=== PATIENT | female | born 1960 | race Caucasian/White ===

== ENCOUNTER 2023-01-15 10:25 | Inpatient (IN) ==
[2023-01-15] MEDS ORDERED: SODIUM CHLORIDE 0.9% 1,000 ML IV ONE (10:49)
--- NOTE | 2023-01-15 10:49 | ED Triage Note ---
Date of Service January 15, 2023 History of Present Illness This patient was briefly evaluated while in triage. An abbreviated physical exam was performed. This patient is a 62-year-old Female who presents to the ED for evaluation of right breast swelling. Pt. has history of breast cancer and right breast surgery last Wednesday (1.5 weeks ago). States she was seen by her surgeon earlier this week and diagnosed with cellulitis. Was started on Antibiotics Wednesday night, has had 4 doses of Augmentin. Today, awoke and there was a "gush of infection" from the surgical incision site under the left breast. Pt. states "it was like a pint of it or more." Pt. feels that fever seems to have broken this morning. Surgery completed by Dr. Townsend. Physical Exam VITALS: Vitals are noted on the nurse's note and reviewed by myself. GENERAL: This is a 62 year old female, in no acute distress, nondiaphoretic, well-developed well-nourished. SKIN: No obvious rashes, edema, erythema HEAD: Normocephalic atraumatic. EYES: Conjunctivae without injection, sclerae without icterus. NECK: No JVD. LUNGS: No retractions or accessory muscle use. MUSCULOSKELETAL: Normal gait. NEURO: Patient was alert and oriented to person place and time. No focal neurological deficits. Initial orders for labs and / or imaging were placed and patient was placed in the waiting area until a bed is available. Please see further documentation for the full ED course.
--- NOTE | 2023-01-15 11:07 | Emergency Department Note ---
Impression & Plan Cellulitis of right breast, Breast cancer, S/P lumpectomy, right breast ED Provider Note CHIEF COMPLAINT: Right breast pain, redness, discharge HISTORY OF PRESENT ILLNESS: This 62-year-old female patient 10 days s/p right breast surgery for cancer presents to the emergency department for evaluation of right breast redness, tenderness, and discharge. The patient states that earlier this week, she was diagnosed with cellulitis of the right breast. She was started on Augmentin. She has had 4 doses of the antibiotic. She notes that this morning when she awoke, a significant amount of purulent discharge drained from the wound. The patient states that the swelling and redness does seem to be improving. She does note a fever of 100.4 F last night. She states that she feels that the fever has broken and she has not had any further fever. She rates her pain 8/10 and describes it as aching. She denies any numbness, tingling, weakness, difficulty breathing, or chest pain. The patient states that the surgical site does seem to have opened up somewhat. REVIEW OF SYSTEMS: A 10 system review of systems was performed with positives and pertinent negatives listed in the history of present illness. All other systems were reviewed and are negative. ALLERGIES: Codeine PHYSICAL EXAM: VITALS: Vitals are noted on the nurse's note and reviewed by myself. Vital signs stable. GENERAL: This is a 62-year-old female, in no acute distress, nondiaphoretic, well-developed well-nourished. SKIN: Right breast is erythematous and tender. There is some dehiscence of the medial aspect of the surgical incision site. There is induration but no definite fluctuance. There is some serous sanguinous bloody discharge from the incision site, but no purulent discharge at this time. The skin was otherwise without rashes, erythema, edema, or bruising. There is no tenting of the skin. Capillary refill less than 2 seconds. HEAD: Normocephalic atraumatic. EYES: Conjunctivae without injection, sclerae without icterus. NECK: Supple without nuchal rigidity. No lymphadenopathy. No JVD. MUSCULOSKELETAL: No muscle atrophy, erythema, or edema noted. Full range of motion without joint tenderness in all extremities. No tenderness to palpation. Normal gait. Strength 5/5 throughout. NEURO: Patient was alert and oriented to person place and time. No focal neurological deficits. EMERGENCY DEPARTMENT COURSE: The patient was seen and evaluated as above. Chest x-ray performed reviewed by myself and radiologist as noted. I did consult with general surgery on-call. I spoke with Puma who asked Lisa Long PA-C to evaluate the patient. Lisa did come down and evaluate the patient. She advised me that she spoke with Dr. Townsend who is requesting that the patient be admitted to the hospitalist service on IV antibiotics. They did also requested ultrasound be completed to evaluate for additional areas of abscess which may need to be opened and drained. I did discuss the case with Alma Delia ED pharmacist. We agreed on antibiotic coverage with Rocephin and vancomycin. I discussed the case with Nelda Cope PA-C with [employer]. She did agree to see and evaluate the patient for admission. The patient was updated. Ultrasound was ordered. Labs were obtained. There is no significant leukocytosis or anemia. No thrombocytopenia. Renal, hepatic f unction and electrolytes without significant abnormality. Procalcitonin 0.14. Lactic acid 0.9. Please see hospitalist and general surgery dictation regarding ongoing management care of this patient. Differential diagnosis includes Cellulitis, abscess, MRSA infection, DVT, necrotizing fasciitis, dermatitis, drug eruption, allergic reaction, as well as other pathologies. I attest that I have personally reviewed the patient's current medication list. Patient was found to have normal blood pressure on screening and does not require follow-up. The chart was completed utilizing [employer] Speech voice recognition software. Grammatical errors, random word insertions, pronoun errors, and incomplete sentences are an occasional consequence of this system due to software limitations, ambient noise, and hardware issues. Any formal questions or concerns about the content, text, or information contained within the body of this dictation should be directly addressed to the provider for clarification. Past Med/Surg History Medical History Anxiety and depression Bipolar 1 disorder Breast cancer HTN (hypertension) Obesity Schizoaffective disorder Tobacco use Surgical History (Updated 01/15/23 @ 17:56 by Diane Madrid PA-C) History of bariatric surgery History of colonoscopy History of esophagogastroduodenoscopy (EGD) History of surgery 02/02/2012 excision excessive skin, panniculectomy, Dr. Sanabria [facility] [place] History of tubal ligation Hx of breast surgery 10/26/2022 right breast biopsy. DCIS. 12/15/[address] Kelby Townsend 01/05/[address] Kelby Townsend Family History Other Cancer Hypertension Social History Smoking Status: Current every day smoker Tobacco Type: Cigarettes Cigarettes Per Day: 10; Hx Alcohol Use: No Hx Substance Use: No Feels Safe at Home: Yes Allergies Allergies Allergy/AdvReac Type Severity Reaction Status Date / Time codeine AdvReac Intermediate I GET Unverified 01/31/13 18:48 REALLY MEAN Home Meds Home Medications Medication Instructions Recorded Confirmed atorvastatin 20 mg tablet 20 mg PO DAILY 01/15/23 01/15/23 chlorpromazine 100 mg tablet 100 mg PO HS 01/15/23 01/15/23 lamotrigine 100 mg tablet 100 mg PO DAILY 01/15/23 01/15/23 lamotrigine 25 mg tablet 75 mg PO HS 01/15/23 01/15/23 losartan 25 mg tablet 25 mg PO DAILY 01/15/23 01/15/23 nortriptyline 50 mg capsule 50 mg PO HS 01/15/23 01/15/23 sertraline 100 mg tablet 200 mg PO DAILY 01/15/23 01/15/23 topiramate 100 mg tablet 100 mg PO BID 01/15/23 01/15/23 Results & Data (ED) Vital Signs Vital Signs - 24 hr 01/15/23 10:46 01/15/23 12:33 01/15/23 13:05 Temperature 36.8 C Temperature Source Temporal Artery Scan Pulse Rate 85 73 Pulse Rate [Right Finger] 79 Pulse Rhythm Regular Respiratory Rate 18 20 20 Respiratory Effort / Characteristics Non-Labored Non-Labored Spontaneous Respiratory Depth Normal Respiratory Pattern Regular Blood Pressure 119/72 Blood Pressure [Right Arm] 145/79 H Blood Pressure Mean 87 Blood Pressure Mean [Right Arm] 101 Blood Pressure Position Sitting Blood Pressure Position [Right Arm] Pulse Oximetry 95 96 96 Oxygen Delivery Method Room Air Room Air Room Air Oxygen Flow Rate 0 Sepsis Recent Fever Within 48 Hours Yes Sepsis New/Unexplained Change in Mental Status No Sepsis Action Taken by Nursing No Action Required 01/15/23 13:51 01/15/23 15:00 Temperature Temperature Source Pulse Rate Pulse Rate [Right Finger] 73 78 Pulse Rhythm Respiratory Rate 20 16 Respiratory Effort / Characteristics Non-Labored Spontaneous Non-Labored Spontaneous Respiratory Depth Normal Normal Respiratory Pattern Regular Blood Pressure Blood Pressure [Right Arm] 139/76 126/56 L Blood Pressure Mean Blood Pressure Mean [Right Arm] 97 79 Blood Pressure Position Blood Pressure Position [Right Arm] Sitting Pulse Oximetry 97 95 Oxygen Delivery Method Room Air Room Air Oxygen Flow Rate Sepsis Recent Fever Within 48 Hours Sepsis New/Unexplained Change in Mental Status Sepsis Action Taken by Nursing Laboratory Data 01/15/23 13:02 01/15/23 13:02 Lab Results 01/15/23 01/15/23 01/15/23 Range/Units 13:02 13:02 13:02 WBC 7.91 (4.8-10.8) K/ul RBC 4.48 (4.20-5.40) M/uL Hgb 13.1 (12.0-16.0) g/dl Hct 40.3 (37.0-47.0) % MCV 90.0 (80.0-100.0) fL MCH 29.2 (25.0-34.0) pg MCHC 32.5 (32.0-36.0) g/dL RDW Std Deviation 40.6 (36.4-46.3) fL RDW Coeff of Yancy 12.3 (11.5-14.5) % Plt Count 177 (130-400) K/uL MPV 10.6 (9.4-12.4) fL Immature Gran % (Auto) 0.3 % Neut % (Auto) 78.8 % Lymph % (Auto) 12.4 % [place] % (Auto) 8.1 % Eos % (Auto) 0.1 % Baso % (Auto) 0.3 % Neut # (Auto) 6.24 (1.40-6.50) K/uL Lymph # (Auto) 0.98 L (1.20-3.40) K/uL [place] # (Auto) 0.64 H (0.11-0.59) K/uL Eos # (Auto) 0.01 (0.00-0.50) K/uL Baso # (Auto) 0.02 (0.00-0.20) K/uL Immature Gran # (Auto) 0.02 (0.01-0.20) K/uL Sodium 139 (136-145) mmol/L Potassium 3.6 (3.5-5.1) mmol/L Chloride 110 H (98-107) mmol/L Carbon Dioxide 22 (21-32) mmol/L Anion Gap 7 (3-11) BUN 10 (6-23) mg/dl Creatinine 0.60 (0.6-1.2) mg/dl Est Cr Clr Drug Dosing 115.5 ml/min Est GFR ( Amer) 114.0 ml/min Est GFR (Non-Af Amer) 98.4 ml/min BUN/Creatinine Ratio 16.7 (10-20) Glucose 101 H (70-99(Fasting)) mg/dl Lactate (0.4-2.0) mmol/L Calcium 8.9 (8.6-10.3) mg/dl Total Bilirubin 0.5 (0.2-1.0) mg/dl AST 8 L (13-39) U/L ALT 8 (7-52) U/L Alkaline Phosphatase 91 (34-104) U/L Total Protein 6.9 (6.0-8.3) gm/dl Albumin 3.7 (3.4-5.0) gm/dl Globulin 3.2 (2.5-4.0) gm/dl Albumin/Globulin Ratio 1.2 (0.9-2) Procalcitonin 0.14 (0-0.5) ng/ml 01/15/23 Range/Units 15:12 WBC (4.8-10.8) K/ul RBC (4.20-5.40) M/uL Hgb (12.0-16.0) g/dl Hct (37.0-47.0) % MCV (80.0-100.0) fL MCH (25.0-34.0) pg MCHC (32.0-36.0) g/dL RDW Std Deviation (36.4-46.3) fL RDW Coeff of Yancy (11.5-14.5) % Plt Count (130-400) K/uL MPV (9.4-12.4) fL Immature Gran % (Auto) % Neut % (Auto) % Lymph % (Auto) % [place] % (Auto) % Eos % (Auto) % Baso % (Auto) % Neut # (Auto) (1.40-6.50) K/uL Lymph # (Auto) (1.20-3.40) K/uL [place] # (Auto) (0.11-0.59) K/uL Eos # (Auto) (0.00-0.50) K/uL Baso # (Auto) (0.00-0.20) K/uL Immature Gran # (Auto) (0.01-0.20) K/uL Sodium (136-145) mmol/L Potassium (3.5-5.1) mmol/L Chloride (98-107) mmol/L Carbon Dioxide (21-32) mmol/L Anion Gap (3-11) BUN (6-23) mg/dl Creatinine (0.6-1.2) mg/dl Est Cr Clr Drug Dosing ml/min Est GFR ( Amer) ml/min Est GFR (Non-Af Amer) ml/min BUN/Creatinine Ratio (10-20) Glucose (70-99(Fasting)) mg/dl Lactate 0.9 (0.4-2.0) mmol/L Calcium (8.6-10.3) mg/dl Total Bilirubin (0.2-1.0) mg/dl AST (13-39) U/L ALT (7-52) U/L Alkaline Phosphatase (34-104) U/L Total Protein (6.0-8.3) gm/dl Albumin (3.4-5.0) gm/dl Globulin (2.5-4.0) gm/dl Albumin/Globulin Ratio (0.9-2) Procalcitonin (0-0.5) ng/ml Administered Medications Discontinued Medications Ceftriaxone Sodium (Rocephin) 2,000 mg in 50 mls @ 100 mls/hr IV NOW STA Stop: 01/15/23 13:08 Last Infusion: 01/15/23 13:36 Dose: 0 mls/hr Documented By: Admin: 01/15/23 13:05 Dose: 100 mls/hr Documented By: LAUREN Vancomycin HCl 2,500 mg/ (Sodium Chloride) 550 mls @ 200 mls/hr IV NOW ONE Stop: 10/20/23 15:23 Last Admin: 01/15/23 13:34 Dose: 200 mls/hr Documented By: LAUREN Oxycodone HCl (Oxycodone Hcl Ir 5 Mg Tab (Immediate Release)) 5 mg PO NOW STA Stop: 01/15/23 15:37 Last Admin: 01/15/23 15:42 Dose: 5 mg Documented By: KK Imaging Data Radiologist's Impression: Chest X-Ray 01/15/23 10:49 XR chest 1V portable HISTORY: 62 years-old Female Fever, illness COMPARISON: 08/18/2011 TECHNIQUE: AP view of the chest FINDINGS: Cardiomediastinal and hilar silhouettes are within normal limits. No pneumothorax, pleural effusion, airspace consolidation or pulmonary edema. Bones appear grossly intact. IMPRESSION: No acute process. ACT 112: Negative or not required by law. The above report was generated using voice recognition software. It may contain grammatical, syntax or spelling errors. Electronically signed by: Rodriguez De Leon M.D. 01/15/2023 11:28 AM Discharge Plan Visit Data Chief Complaint: Infection Stated Complaint: R BREAST CELLULITIS,INFECTION ED Provider: [facility] ED Midlevel Provider: Diane Madrid Discharge Problem: Cellulitis of right breast, Breast cancer, S/P lumpectomy, right breast Forms Stand Alone Forms: My [facility] Prescriptions Prescriptions: No Action atorvastatin 20 mg tablet 20 mg PO DAILY chlorpromazine 100 mg tablet 100 mg PO HS sertraline 100 mg tablet 200 mg PO DAILY lamotrigine 25 mg tablet 75 mg PO HS losartan 25 mg tablet 25 mg PO DAILY topiramate 100 mg tablet 100 mg PO BID lamotrigine 100 mg tablet 100 mg PO DAILY nortriptyline 50 mg capsule 50 mg PO HS Referrals Referrals: Chino Chou MD [Primary Care Provider] -
--- NOTE | 2023-01-15 11:29 | XRay Report ---
XR chest 1V portable HISTORY: 62 years-old Female Fever, illness COMPARISON: 08/18/2011 TECHNIQUE: AP view of the chest FINDINGS: Cardiomediastinal and hilar silhouettes are within normal limits. No pneumothorax, pleural effusion, airspace consolidation or pulmonary edema. Bones appear grossly intact. IMPRESSION: No acute process. ACT 112: Negative or not required by law. The above report was generated using voice recognition software. It may contain grammatical, syntax o r spelling errors. Electronically signed by: Rodriguez De Leon M.D. 01/15/2023 11:28 AM
[2023-01-15] MEDS ORDERED: VANCOMYCIN HCL 2,500 MG in SODIUM CHLORIDE 0.9% 500 ML IV ONE (12:39)
[2023-01-15] MEDS ORDERED: cefTRIAXone SODIUM 2,000 MG/50 ML BAG IV STA (12:39)
[2023-01-15] MEDS ORDERED: VANCOMYCIN CONSULT ACTIVE PRN ×2 (12:39→18:05)
--- NOTE | 2023-01-15 12:58 | Surgery Consultation ---
Date of Consultation January 15, 2023 Assessment & Plan (1) Cellulitis of right breast: 62 yo female with history of right breast DCIS who is s/p right breast lumpectomy on 12/15/22 and then re-excision of positive margins on 01/05/[address] Townsend who presented to ED with increasing right breast pain and copious amount of purulent drainage from the incision this morning. Was just started on Augmentin in office on Wednesday for Cellulitis. has been having low grade fevers at home. No n,v. Exam with moderate cellulitis of the central and medial right breast with some necrosis of the central incision. There is moderate induration of medial breast. Do not feel overt area of fluctuance but there is still some drainage from the incision when breast is compressed. Given the extent of cellulitis now on 2 days of oral Augmentin, I feel she would benefit from a few dose of IV antibiotics and an Ultrasound to further evaluation for any drainable fluid collections. Discussed with Dr. townsend who agrees with above. [facility] surgery covering this weekend. Plan I have seen and examined the patient personally, and agree with the above assessment and plan. On exam, she has fairly significant erythema extending from the incision. TheMedial aspect of the incision is open, and I was able to probe into the cavity. There is minimal serous drainage. She states that the erythema is significantly improved from yesterday when there was a significant amount of drainage. We will continue IV antibiotics for the next 24 to 36 hours and monitor the incision. If he continues to improve, she may be discharged home with oral antibiotics either tomorrow or Wednesday. Dr. Turpin will be covering for the weekend. History of Present Illness Reason for Consultation: Right breast cellulitis and purulent drainage Requesting Physician: Diane Madrid PA-C Attending Physician: Dr. Whittington History of Present Illness Radha is a 62 year-old female with right breast DCIS who is now s/p right breast lumpectomy on 12/15/[address] Townsend and re-excision of margins on 01/05/2023 who presented to ED today with complaint of right breast pain, redness, and copious amount of purulent drainage from the breast this morning. Was seen by Dr. Starks on Wednesday in clinic and was started on Augmentin for cellulitis but states the area continued to swell, become painful, and redness spread more laterally on the Augmentin. Woke up with drainage all over her nightgown and was cloudy/milky and bloody in nature. Currently rating pain 8/10. had low grade fevers of 99.4 and 99.7 but thinks she broke fever this am as she was having sweats. Allergies Allergy/AdvReac Type Severity Reaction Status Date / Time codeine AdvReac Intermediate I GET Unverified 01/31/13 18:48 REALLY MEAN Home Medications Medication Instructions Recorded Confirmed Type atorvastatin 20 mg tablet 20 mg PO DAILY 01/15/23 01/15/23 History chlorpromazine 100 mg tablet 100 mg PO HS 01/15/23 01/15/23 History lamotrigine 100 mg tablet 100 mg PO DAILY 01/15/23 01/15/23 History lamotrigine 25 mg tablet 75 mg PO HS 01/15/23 01/15/23 History losartan 25 mg tablet 25 mg PO DAILY 01/15/23 01/15/23 History nortriptyline 50 mg capsule 50 mg PO HS 01/15/23 01/15/23 History sertraline 100 mg tablet 200 mg PO DAILY 01/15/23 01/15/23 History topiramate 100 mg tablet 100 mg PO BID 01/15/23 01/15/23 History Patient History Medical History Anxiety and depression Bipolar 1 disorder Breast cancer HTN (hypertension) Obesity Schizoaffective disorder Tobacco use Surgical History (Updated 01/15/23 @ 15:41 by Kaitlin Cope PA-C) History of bariatric surgery History of colonoscopy History of esophagogastroduodenoscopy (EGD) History of surgery 02/02/2012 excision excessive skin[place] [facility] [place] of tubal ligation Hx of breast surgery 10/26/2022 right breast biopsy. DCIS. 12/15/[address] Kelby Townsend 01/05/[address] Kelby Townsend Family History Other Cancer Hypertension Social History (Updated 01/15/23 @ 15:36 by Kaitlin Cope PA-C) Smoking Status: Current every day smoker Tobacco Type: Cigarettes Cigarettes Per Day: 10; Hx Alcohol Use: No Hx Substance Use: No Feels Safe at Home: Yes Review of Systems Review of Systems: All systems reviewed & are unremarkable except as noted in HPI & below Physical Exam Constitutional: WD/WN, vitals as above cooperative; no acute distress and not ill appearing Respiratory: normal respiratory effort; no respiratory distress Chest (Breasts): Additional Comments: Right breast with central/medial erythema with induration fo the medial right breast. Erythema encompassing about half of the right breast. Incision with small pinhole opening medially but central/superior aspect of incision with necrosis. There is small 1.0 cm area of necrosis inferior to the nipple. Moderate tenderness to palpation especially in medial right breast. There is some clear/cloudy serosanguineous drainage on my exam no phyllis purulence. Skin: no rashes, warm and dry Psychiatric: A+Ox3, euthymic affect Results & Data Vital Signs (Past 12 Hours) Vital Signs Temp Pulse Pulse Resp BP BP Pulse Ox 01/15/23 12:33 79 20 145/79 H 96 01/15/23 10:46 36.8 C 85 18 119/72 95 O2 Del Method 01/15/23 12:33 Room Air 01/15/23 10:46 Room Air
--- NOTE | 2023-01-15 13:23 | History & Physical Report ---
Date of Service January 15, 2023 Assessment & Plan (1) Cellulitis of right breast: (2) Breast cancer: (3) S/P lumpectomy, right breast: Plan: Patient is 62-year-old female with PMH HTN, HLD, iron deficiency anemia, depression, anxiety, bipolar disorder, schizoaffective disorder, right breast CA s/p right partial mastectomy on 12/15/2022 presented to ER with c/o right beast redness and pain. Had re-excision of positive margins on 01/05/[address] Townsend for DCIS. Started on Augmentin on 01/13/2023 for right breast cellulitis. Worsening cellulitis and pain and reported drainage, today In ER afebrile, vitals stable. No leukocytosis. Lactate WNL Blood cultures pending In ER given 1 L NSS, Rocephin, vancomycin MRSA swab pending Continue Rocephin and vancomycin Tylenol, oxycodone, morphine as needed pain Ultrasound breast pending to rule out abscess General surgery consult CBC, BMP in a.m. (4) HTN (hypertension): Plan: Stable Continue losartan (5) Anxiety and depression: (6) Bipolar 1 disorder: (7) Schizoaffective disorder: Plan: Continue lamotrigine, chlorpromazine, sertraline, topiramate, nortriptyline (8) Tobacco use: Plan: Denies nicotine patch Smoking cessation encouraged (9) Obesity: Plan: S/p bariatric surgery DVT Prophylaxis Lovenox SQ Full Code as per discussion with pt Follows with Dr Chou for routine care Pt was seen and care coordinated with Dr Mcbride. See addendum History of Present Illness Chief Complaint: Breast redness Primary Care Provider: Chino Chou MD Patient is 62-year-old female with PMH HTN, HLD, iron deficiency anemia, depression, anxiety, bipolar disorder, schizoaffective disorder, right breast CA s/p right partial mastectomy on 12/15/2022 presented to ER with c/o right beast redness and pain. History obtained from patient as well as outpatient chart review. S/P right partial mastectomy on 12/05/[address] Townsend. Had re-excision of positive margins on 01/05/[address] Townsend for DCIS. Seen in outpatient general surgery office on 01/13/2023. Had noted erythema around incision and increasing pain to right breast. At that time had not noted any fever or drainage. Was started on Augmentin. Patient states over the past 2 days with increased right breast tenderness, increased redness. She also reports has had purulent drainage from incision site. Reports low grade fevers. Denies diaphoresis, N/V/D/C, RAMOS, dizziness, syncope, neck pain, CP, SOB, palpitations, cough, sore throat, rhinorrhea, abdominal pain, paresthesias, extremity weakness, extremity edema, rashes, urinary symptoms. Allergies Allergy/AdvReac Type Severity Reaction Status Date / Time codeine AdvReac Intermediate I GET Unverified 01/31/13 18:48 REALLY MEAN Home Medications Medication Instructions Recorded Confirmed Type atorvastatin 20 mg tablet 20 mg PO DAILY 01/15/23 01/15/23 History chlorpromazine 100 mg tablet 100 mg PO HS 01/15/23 01/15/23 History lamotrigine 100 mg tablet 100 mg PO DAILY 01/15/23 01/15/23 History lamotrigine 25 mg tablet 75 mg PO HS 01/15/23 01/15/23 History losartan 25 mg tablet 25 mg PO DAILY 01/15/23 01/15/23 History nortriptyline 50 mg capsule 50 mg PO HS 01/15/23 01/15/23 History sertraline 100 mg tablet 200 mg PO DAILY 01/15/23 01/15/23 History topiramate 100 mg tablet 100 mg PO BID 01/15/23 01/15/23 History Past Med/Surg History Medical History Anxiety and depression Bipolar 1 disorder Breast cancer HTN (hypertension) Obesity Schizoaffective disorder Tobacco use Surgical History (Updated 01/15/23 @ 15:41 by Kaitlin Cope PA-C) History of bariatric surgery History of colonoscopy History of esophagogastroduodenoscopy (EGD) History of surgery 02/02/2012 excision excessive skin, panniculectomy, Dr. Sanabria [facility] [place] History of tubal ligation Hx of breast surgery 10/26/2022 right breast biopsy. DCIS. 12/15/[address] Kelby Townsend 01/05/[address] Kelby Townsend Family History Other Cancer Hypertension Social History (Updated 01/15/23 @ 15:36 by Kaitlin Cope PA-C) Smoking Status: Current every day smoker Tobacco Type: Cigarettes Cigarettes Per Day: 10; Hx Alcohol Use: No Hx Substance Use: No Feels Safe at Home: Yes Review of Systems Review of Systems: All systems reviewed & are unremarkable except as noted in HPI & below Physical Exam 2 Physical Exam: General: no acute distress, overweight Head: normocephalic, atraumatic Eyes: conjunctiva non-injected, anicteric ENT: normal inspection external ears, nose, mucous membranes moist Neck: supple, trachea midline Lungs: clear, no respiratory distress, no wheezing/rhonchi/rales CV: RRR, no murmur, no pretibial edema Chest: +right breast with +incision site without purulent drainage at this time, +warmth and erythema surrounding areola extending superior, medial, lateral, inferior breast, +induration medial aspect, +tenderness to palpation Abd: normal BS, soft, non-tender Ext: no cyanosis, no calf tenderness Neuro: A&O x 3, no focal deficits noted, normal affect Skin: as above in chest/breast, otherwise warm, dry Results & Data Results & Data Vital Signs (Past 12 Hours) Vital Signs Temp Pulse Pulse Resp BP BP Pulse Ox 01/15/23 13:05 73 20 96 01/15/23 12:33 79 20 145/79 H 96 01/15/23 10:46 36.8 C 85 18 119/72 95 O2 Del Method O2 Flow Rate 01/15/23 13:05 Room Air 0 01/15/23 12:33 Room Air 01/15/23 10:46 Room Air Laboratory Results Short CBC 01/15/23 Range/Units 13:02 WBC 7.91 (4.8-10.8) K/ul Hgb 13.1 (12.0-16.0) g/dl Hct 40.3 (37.0-47.0) % Plt Count 177 (130-400) K/uL BMP 01/15/23 13:02 Sodium 139 Potassium 3.6 Chloride 110 H Carbon Dioxide 22 BUN 10 Creatinine 0.60 Glucose 101 H Calcium 8.9 Liver Function 01/15/23 Range/Units 13:02 Total Bilirubin 0.5 (0.2-1.0) mg/dl AST 8 L (13-39) U/L ALT 8 (7-52) U/L Alkaline Phosphatase 91 (34-104) U/L Albumin 3.7 (3.4-5.0) gm/dl Diagnostic Findings Chest X-Ray 01/15/23 10:49 XR chest 1V portable HISTORY: 62 years-old Female Fever, illness COMPARISON: 08/18/2011 TECHNIQUE: AP view of the chest FINDINGS: Cardiomediastinal and hilar silhouettes are within normal limits. No pneumothorax, pleural effusion, airspace consolidation or pulmonary edema. Bones appear grossly intact. IMPRESSION: No acute process. ACT 112: Negative or not required by law. The above report was generated using voice recognition software. It may contain grammatical, syntax or spelling errors. Electronically signed by: Rodriguez De Leon M.D. 01/15/2023 11:28 AM Supervising Physician Co-Signing Physician Notes I have seen and discussed the case with the collaborating PAStarla. I agree with the above H&P. I have reviewed and confirmed the patients medical history, the findings on physical examination, and the patients diagnosis and treatment plan with [facility] and agree with the information documented. In short, Ms. 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 Over the course of last week, patient experienced increased erythema, swelling and drainage. Trialed on PO Augmentin with no success. Evaled by surgery. Plan for IV CTX/Vanc, MRSA nare pending, infectious work up, US breast ordered. Rest of plan as above
[2023-01-15 13:27] LABS: Basophils # (auto) 0.02 K/uL (0.00-0.20); Basophils % (auto) 0.3 %; Eosinophils # (auto) 0.01 K/uL (0.00-0.50); Eosinophils % (auto) 0.1 %; Hematocrit (blood only) 40.3 % (37.0-47.0); Hemoglobin 13.1 g/dl (12.0-16.0); Immature Granulocytes # (auto) 0.02 K/uL (0.01-0.20); Immature Granulocytes % (auto) 0.3 %; Lymphocytes # (auto) 0.98 K/uL (1.20-3.40); Lymphocytes % (auto) 12.4 %; Mean Corpuscular Hemoglobin 29.2 pg (25.0-34.0); Mean Corpuscular Hgb Conc 32.5 g/dL (32.0-36.0); Mean Platelet Volume 10.6 fL (9.4-12.4); Monocytes # (auto) 0.64 K/uL (0.11-0.59); Monocytes % (auto) 8.1 %; Neutrophils # (auto) 6.24 K/uL (1.40-6.50); Neutrophils % (auto) 78.8 %; Platelet Count 177 K/uL (130-400); RDW Coefficient of Variation 12.3 % (11.5-14.5); RDW Standard Deviation 40.6 fL (36.4-46.3); Red Blood Count 4.48 M/uL (4.20-5.40); White Blood Count 7.91 K/ul (4.8-10.8)
[2023-01-15 13:55] LABS: Albumin Globulin Ratio 1.2 (0.9-2); Albumin Level 3.7 gm/dl (3.4-5.0); BUN Creatinine Ratio 16.7 (10-20); Bilirubin,Total 0.5 mg/dl (0.2-1.0); Calcium 8.9 mg/dl (8.6-10.3); Creatinine Clr Calc Pharmacy 115.5 ml/min; Est GFR (Non-African American) 98.4 ml/min; Globulin 3.2 gm/dl (2.5-4.0); Potassium 3.6 mmol/L (3.5-5.1); Total Protein 6.9 gm/dl (6.0-8.3)
[2023-01-15] MEDS ORDERED: oxyCODONE HCL IR 5 MG TAB (IMMEDIATE RELEASE) PO STA (15:36)
[2023-01-15] MEDS ORDERED: MoRPHine SULFATE 4 MG/ML 1 ML CARP\\VIAL IV PRN (18:05)
[2023-01-15] MEDS ORDERED: MAGNESIUM HYDROXIDE SUSP 30 ML UDC PO PRN (18:05)
[2023-01-15] MEDS ORDERED: ONDANSETRON INJ 2 MG/ML 2 ML VIAL IV PRN (18:05)
[2023-01-15] MEDS ORDERED: POLYETHYLENE (MIRALAX) 17 GM PACK PO PRN (18:05)
--- NOTE | 2023-01-15 19:36 | Pharmacy Report ---
Pharmacy PK ABX Note - Date of Service January 15, 2023 - Assessment and Plan Assessment 62 year old F receiving ceftriaxone/vanc for treatment of SSTI. Pertinent microbiologic data includes: BC x 2 pending. Day # 1 of antimicrobial therapy. Plan Vancomycin * Loading dose: Vanc 2500mg ~25mg/kg) IV x 1 * Maintenance dose: 1500mg (14.5mg/kg) IV every 12 hours * Regimen is predicted to achieve target AUC/PAULIE of 400-600 mg/L.hr * Need for Vanc level to be reassessed: 01/16/23 Pharmacy will continue to follow and will adjust dose/frequency as necessary. Thank you. Pharmacy has transitioned to AUC monitoring for vancomycin. AUC/PAULIE is the preferred PK/PD target and is associated with decreased risk of nephrotoxicity compared to traditional trough targets.
[2023-01-15] MEDS: NORTRIPTYLINE HCL 25 MG CAP PO SCH (20:25)
[2023-01-15] MEDS: TOPIRAMATE 100 MG TAB PO SCH (20:25)
[2023-01-15] MEDS: lamoTRIgine 25 MG TAB PO SCH (20:25)
[2023-01-15] MEDS: ENOXAPARIN INJ 40 MG/0.4 ML SYR SQ SCH (20:26)
[2023-01-15] MEDS: oxyCODONE HCL IR 5 MG TAB (IMMEDIATE RELEASE) PO PRN (20:32)
[2023-01-15] MEDS ORDERED: INFLUENZA VIRUS QUADRIVALENT VACCINE (IIV4) 0.5 ML SYR IM ONE (21:00)
[2023-01-15] MEDS ORDERED: Nursing to Pharmacy Communication SCH (22:15)
[2023-01-15] MEDS: VANCOMYCIN HCL 1,500 MG in SODIUM CHLORIDE 0.9% 500 ML IV SCH (23:08)
--- NOTE | 2023-01-16 05:26 | Surgery Progress Note ---
Date of Service January 16, 2023 Assessment & Plan (1) S/P lumpectomy, right breast: Plan: Patient has been admitted due to concern for possible breast abscess Leukocytosis was not noted on admission labs The patient has been afebrile and hemodynamically stable since admission A breast ultrasound has been requested which is pending The patient was seen by her surgeon, Dr. Townsend of [facility] surgery who did not feel that there is a discrete abscess at this time Continue antibiotics in the form of Rocephin and vancomycin Blood cultures have been sent which are pending Lovenox is in place for DVT prevention Check a.m. labs when available Admission and Anticipated Discharge Date Admission Date: January 15, 2023 Supervising Physician Co-Signing Physician Notes Pnt s&e, labs and imaging reviewed, agree with above. covering for Dr. Townsend, s/p lumpectomy, now with cellulitis and spontaneous drainage of seroma/hematoma/abscess. Feeling better, less redness, still sore. afvss. Right breast with induration and erythema, no expressable drainage. wbc normal. us showed residual 2 cm complex fluid collection, hematoma vs abscess. As she is clinically improving, will continue iv abx for another 24 hours. Subjective Since admission to the hospital patient notes that she is doing well without fevers, shakes, or chills. She notes that she does feel somewhat better since her hospitalization. She is tolerating solid food for dinner without any nausea or vomiting. Physical Exam Physical Exam: Patient admitted with concern for breast abscess. Physical exam deferred at this time but will perform on attending rounds. Results & Data Vital Signs (Past 12 Hours) Vital Signs Temp Pulse Resp BP Pulse Ox O2 Del Method 01/15/23 20:23 36.8 C 77 16 106/62 94 Room Air 01/15/23 18:15 36.6 C 72 16 124/78 96 Room Air 01/15/23 18:05 36.6 C 72 16 124/78 96 Room Air 01/15/23 18:07 Room Air PG Care Time/CCT Total # of Minutes Spent Total Time Spent with Patient: Total time spent is greater than 50% in coordination of care (as documented) at patient's floor/unit and/or counseling patient: Coding Level of Care Code 38322 SUB INP/OBS CARE /25MIN Diagnoses S/P lumpectomy, right breast Z98.890
[2023-01-16 07:15] LABS: Hematocrit (blood only) 35.7 % (37.0-47.0); Hemoglobin 11.8 g/dl (12.0-16.0); Mean Corpuscular Hemoglobin 29.4 pg (25.0-34.0); Mean Corpuscular Hgb Conc 33.1 g/dL (32.0-36.0); Mean Corpuscular Volume 88.8 fL (80.0-100.0); Mean Platelet Volume 10.4 fL (9.4-12.4); Platelet Count 166 K/uL (130-400); RDW Coefficient of Variation 12.5 % (11.5-14.5); RDW Standard Deviation 40.7 fL (36.4-46.3); Red Blood Count 4.02 M/uL (4.20-5.40); White Blood Count 4.46 K/ul (4.8-10.8)
--- NOTE | 2023-01-16 08:12 | Ultrasound Report ---
RIGHT BREAST ULTRASOUND CLINICAL HISTORY: redness, induration, s/p surgery COMPARISON STUDY: No previous studies for comparison. TECHNIQUE: Targeted sonography of the right breast at site of erythema and induration was performed. FINDINGS: Note is made of a complex 2.2 x 1.1 x 1.2 cm right breast fluid collection at the 3:00 posi tion. This contains a 1.5 x 0.4 x 0.6 cm simple appearing fluid component. No additional abnormalitie s were identified on this exam. Please note that the remainder of the right breast was not imaged. IMPRESSION: Complex 2.2 x 1.1 x 1.2 cm right breast fluid collection in the 3:00 position, as descri bed above. This contains a more simple appearing fluid component. Given recent surgery, this could r eflect a small hematoma. However, sterility cannot be assessed by sonography and a small breast absce ss cannot be excluded. ACT 112: Negative or not required by law. Electronically signed by: Alec Boss M.D. 01/16/2023 8:10 AM
[2023-01-16 08:18] LABS: Calcium 8.3 mg/dl (8.6-10.3); Potassium 3.5 mmol/L (3.5-5.1)
[2023-01-16 08:23] LABS: BUN Creatinine Ratio 21.6 (10-20); Creatinine Clr Calc Pharmacy 135.9 ml/min; Est GFR (African American) 120.3 ml/min; Est GFR (Non-African American) 103.8 ml/min
[2023-01-16] MEDS: SERTRALINE HCL 100 MG TABLET PO SCH (08:47)
[2023-01-16] MEDS: TOPIRAMATE 100 MG TAB PO SCH ×2 (08:47→20:27)
[2023-01-16] MEDS: ATORVASTATIN 20 MG TAB PO SCH (08:47)
[2023-01-16] MEDS: lamoTRIgine 100 MG TAB PO SCH (08:47)
[2023-01-16] MEDS: LOSARTAN POTASSIUM 25 MG TAB PO SCH (08:48)
[2023-01-16] MEDS: ACETAMINOPHEN 325 MG TAB PO PRN ×3 (08:52→20:29)
[2023-01-16] MEDS: cefTRIAXone SODIUM 2,000 MG in DEXTROSE 5 % MINI-B 50 ML IV SCH (12:04)
[2023-01-16] MEDS: VANCOMYCIN HCL 1,500 MG in SODIUM CHLORIDE 0.9% 500 ML IV SCH ×2 (12:34→23:41)
--- NOTE | 2023-01-16 15:16 | Hospitalist Progress Note ---
Date of Service January 16, 2023 Assessment & Plan (1) Cellulitis of right breast: (2) Breast cancer: (3) S/P lumpectomy, right breast: Plan: Patient is 62-year-old female with PMH HTN, HLD, iron deficiency anemia, depression, anxiety, bipolar disorder, schizoaffective disorder, right breast CA s/p right partial mastectomy on 12/15/2022 presented to ER with c/o right beast redness and pain. Had re-excision of positive margins on 01/05/[address] Townsend for DCIS. Started on Augmentin on 01/13/2023 for right breast cellulitis. Came in with worsening cellulitis and pain and reported drainage on the day of arrival. In ER afebrile, vitals stable. No leukocytosis. Lactate WNL Blood cultures pending US breast fluid collection in 3 o'clock position. Started on Rocephin and vancomycin; c/w same. Tylenol, oxycodone, morphine for as needed pain General surgery on board, agrees with antibiotic coverage for now. Follow cultures, tailor antibiotic. Follow labs in AM. (4) HTN (hypertension): Plan: Stable Continue losartan (5) Anxiety and depression: (6) Bipolar 1 disorder: (7) Schizoaffective disorder: Plan: Continue lamotrigine, chlorpromazine, sertraline, topiramate, nortriptyline (8) Tobacco use: Plan: Denies nicotine patch Smoking cessation encouraged (9) Obesity: Plan: S/p bariatric surgery DVT Prophylaxis: Lovenox SQ Full Code Follows with Dr Chou for routine care Admission and Anticipated Discharge Date Admission Date: January 15, 2023 Subjective Patient was seen and examined at bedside. Patient was lying in bed, on room air, resting comfortably, not in any acute distress. Patient reports feeling better, no further fever or chills in the hospital. Patient reports eating okay, denies any nausea or vomiting. Physical Exam Physical Exam: General: no acute distress, overweight Head: normocephalic, atraumatic Eyes: conjunctiva non-injected, anicteric ENT: normal inspection external ears, nose, mucous membranes moist Neck: supple, trachea midline Lungs: clear, no respiratory distress, no wheezing/rhonchi/rales CV: RRR, no murmur, no pretibial edema Chest: +right breast with +incision site without purulent drainage at this time, +warmth and erythema surrounding areola extending superior, medial, lateral, inferior breast, +induration medial aspect, +tenderness to palpation. Left breast normal exam. Abd: normal BS, soft, non-tender Ext: no cyanosis, no calf tenderness Neuro: A&O x 3, no focal deficits noted, normal affect Skin: as above in chest/breast, otherwise warm, dry Results & Data Results & Data Vital Signs (Past 12 Hours) Vital Signs Temp Pulse Resp BP Pulse Ox O2 Del Method 01/16/23 15:01 36.8 C 71 16 137/90 96 Room Air 01/16/23 09:03 36.4 C L 86 16 136/84 94 Room Air
[2023-01-16] MEDS: oxyCODONE HCL IR 5 MG TAB (IMMEDIATE RELEASE) PO PRN (16:19)
[2023-01-16] MEDS: lamoTRIgine 25 MG TAB PO SCH (20:27)
[2023-01-16] MEDS: ENOXAPARIN INJ 40 MG/0.4 ML SYR SQ SCH (20:27)
[2023-01-16] MEDS: NORTRIPTYLINE HCL 25 MG CAP PO SCH (20:27)
--- NOTE | 2023-01-17 05:12 | Surgery Progress Note ---
Date of Service January 17, 2023 Assessment & Plan (1) S/P lumpectomy, right breast: Plan: Patient has been admitted due to concern for possible breast abscess Leukocytosis was not noted on admission labs The patient has remained afebrile and hemodynamically stable since admission A breast ultrasound Showed a complex 2.2 x 1.1 x 1.2 cm breast fluid collection in the 3 o'clock position. Has clinical improvement has been noted since admission it was not felt that patient required surgical evacuation of this fluid collection Continue antibiotics in the form of Rocephin and vancomycin Blood cultures have been sent which are negative to date Lovenox is in place for DVT prevention Check a.m. labs when available Admission and Anticipated Discharge Date Admission Date: January 15, 2023 Supervising Physician Co-Signing Physician Notes Patient seen and examined, labs reviewed, agree with above. Status post lobectomy by Dr. Townsend admitted with postoperative cellulitis. She is continuing to feel better, and states the redness is improved. On exam she is afebrile stable vitals. Her right breast shows resolving cellulitis, still some induration and erythema directly around the incision. She also has some sloughing of the epidermis in this area. Small mount of drainage on her dressing but no other active drainage. WBC normal. Continue IV antibiotics for today, possible discharge tomorrow on oral antibiotics Subjective Patient is resting comfortably in bed. Since admission she denies any fevers, shakes, or chills. Patient did report some intermittent nausea which has resolved. She denies any worsening pain at breast biopsy site. Physical Exam Physical Exam: Patient admitted with concern for breast abscess. We will perform physical exam on attending rounds. Results & Data Vital Signs (Past 12 Hours) Vital Signs Temp Pulse Resp BP Pulse Ox O2 Del Method 01/16/23 20:35 36.5 C 74 16 136/78 98 Room Air PG Care Time/CCT Total # of Minutes Spent Total Time Spent with Patient: Total time spent is greater than 50% in coordination of care (as documented) at patient's floor/unit and/or counseling patient: Coding Level of Care Code 35111 SUB INP/OBS CARE 1/25MIN Diagnoses S/P lumpectomy, right breast Z98.890
[2023-01-17 07:50] LABS: Hematocrit (blood only) 39.8 % (37.0-47.0); Hemoglobin 12.6 g/dl (12.0-16.0); Mean Corpuscular Hgb Conc 31.7 g/dL (32.0-36.0); Mean Corpuscular Volume 91.7 fL (80.0-100.0); Mean Platelet Volume 10.4 fL (9.4-12.4); Platelet Count 200 K/uL (130-400); RDW Coefficient of Variation 12.4 % (11.5-14.5); RDW Standard Deviation 41.6 fL (36.4-46.3); Red Blood Count 4.34 M/uL (4.20-5.40); White Blood Count 3.88 K/ul (4.8-10.8)
[2023-01-17 08:10] LABS: BUN Creatinine Ratio 16.7 (10-20); Calcium 8.5 mg/dl (8.6-10.3); Creatinine Clr Calc Pharmacy 115.5 ml/min; Est GFR (Non-African American) 98.4 ml/min; Magnesium 2.1 mg/dl (1.7-2.4); Potassium 4.3 mmol/L (3.5-5.1)
--- NOTE | 2023-01-17 09:25 | Hospitalist Progress Note ---
Date of Service January 17, 2023 Assessment & Plan (1) Cellulitis of right breast: (2) S/P lumpectomy, right breast: Plan: Patient is 62-year-old female with PMH HTN, HLD, iron deficiency anemia, depression, anxiety, bipolar disorder, schizoaffective disorder, right breast CA s/p right partial mastectomy on 12/15/2022 presented to ER with c/o right beast redness and pain. Had re-excision of positive margins on 01/05/[address] Townsend for DCIS. Started on Augmentin on 01/13/2023 for right breast cellulitis. Came in with worsening cellulitis and pain and reported drainage on the day of arrival. US breast fluid collection (2cm) in 3 o'clock position. Still present on palpation on exam today. Made NPO after MN in preparation for possible I&D procedure but need to speak with surgeon in the morning For now continue on Vanc, Rocephin Tylenol, oxycodone, morphine for as needed pain Follow cultures, tailor antibiotic. Follow labs in AM. (3) Breast cancer: (4) HTN (hypertension): Plan: Chronic, Stable. Continue losartan (5) Anxiety and depression: Plan: chronic, stable. Cont current therapy (6) Bipolar 1 disorder: Plan: chronic, stable. Cont current therapy (7) Schizoaffective disorder: Plan: chronic, Continue lamotrigine, chlorpromazine, sertraline, topiramate, nortriptyline per home regimen. (8) Tobacco use: Plan: Declined nicotine patch Smoking cessation encouraged (9) Morbid obesity: Plan: History of prior bariatric surgery. Continued weight loss efforts are encouraged. Full code DVT prophylaxis With Lovenox. Will hold in preparation for possible procedure in a.m. Disposition-pending surgery recommendations and improvement clinically of patient. I spent a total [id number] coordinating, documenting, and providing care for this patient excluding time spent in the performance of separately billed services Elma Casey DO [facility] Hospitalist Admission and Anticipated Discharge Date Admission Date: January 15, 2023 Subjective 62-year-old female presents with right breast redness and pain after reexcision of malignant breast lump within the previous week. The wound appears to have c losed by secondary intention and is not draining significantly but is still erythematous with an area of induration around the nipple. Per breast ultrasound she has a persistent 2 cm cyst present that may need to be drained. Surgery notes are not clear on the plan. We discussed being n.p.o. after midnight until we can clarify in the morning. She continues on IV antibiotics and remains afebrile. Pain is well controlled. We did discuss the importance of touching base with a general oncologist prior to proceeding with any further breast cancer treatment. She and her sister verbalized understanding with intent to comply. She is also tolerating p.o. Physical Exam Physical Exam: CONSTITUTIONAL: obese, vitals as above, generally well-appearing, NAD EYES: normal conjunctivae, no scleral icterus ENT: external ear and nose normal, MMM NECK: trachea midline RESPIRATORY: clear to auscultation bilaterally, no crackles, rales or wheezes, normal respiratory effort CARDIOVASCULAR: regular rate and rhythm, S1 and 2 heard without murmurs, gallops or rubs, no JVD, no peripheral edema CHEST: inspection of chest was normal GASTROINTESTINAL: soft, nontender, ND, no guarding MUSCULOSKELETAL: strength 5/5 throughout, head is normocephalic and atraumatic SKIN: warm and dry, erythema around the areola with induration and fluctuance at the 3 o'clock position and the 9 o'clock position. There is a wound present that appears to be healing well by secondary intension with a well formed scab. NEUROLOGIC: CN 2-12 grossly intact, no sensory deficit, normal cognition, normal speech, no tremor PSYCHIATRIC: alert cooperative and oriented to person, place and time. Euthymic mood, makes good eye contact, language grossly intact, recent and remote memory grossly intact. Results & Data Results & Data Vital Signs (Past 12 Hours) Vital Signs Temp Pulse Resp BP Pulse Ox O2 Del Method 01/17/23 08:07 36.4 C L 72 16 135/76 98 Room Air Laboratory Results Short CBC 01/17/23 Range/Units 06:42 WBC 3.88 L (4.8-10.8) K/ul Hgb 12.6 (12.0-16.0) g/dl Hct 39.8 (37.0-47.0) % Plt Count 200 (130-400) K/uL BMP 01/17/23 06:42 Sodium 144 Potassium 4.3 D Chloride 113 H Carbon Dioxide 26 BUN 10 Creatinine 0.60 Glucose 91 Calcium 8.5 L Medications Administered Current Inpatient Medications Acetaminophen (Acetaminophen 325 Mg Tab) 650 mg PO Q4H PRN PRN Reason: pain/fever Stop: 02/14/23 18:04 Last Admin: 01/16/23 20:29 Dose: 650 mg Atorvastatin Calcium (Atorvastatin 20 Mg Tab) 20 mg PO DAILY [facility] Stop: 02/15/23 08:59 Last Admin: 01/16/23 08:47 Dose: 20 mg Chlorpromazine HCl (Chlorpromazine Hcl 100 Mg Tab) 100 mg PO HS [facility] Stop: 02/14/23 20:59 Last Admin: 01/16/23 20:27 Dose: 100 mg Enoxaparin Sodium (Enoxaparin Inj 40 Mg/0.4 Ml Syr) 40 mg SQ Q24H [facility] Stop: 02/14/23 19:59 Last Admin: 01/16/23 20:27 Dose: 40 mg Ceftriaxone Sodium 2,000 mg/ (Dextrose) 50 mls @ 100 mls/hr IV Q24H [facility]; Protocol Stop: 01/22/23 12:59 Last Infusion: 01/16/23 12:35 Dose: Infused Vancomycin HCl 1,500 mg/ (Sodium Chloride) 530 mls @ 200 mls/hr IV Q12H [facility] Stop: 01/23/23 00:00 Last Infusion: 01/17/23 02:34 Dose: Infused Lamotrigine (Lamotrigine 25 Mg Tab) 75 mg PO HS [facility] Stop: 02/14/23 20:59 Last Admin: 01/16/23 20:27 Dose: 75 mg Lamotrigine (Lamotrigine 100 Mg Tab) 100 mg PO DAILY [facility] Stop: 02/15/23 08:59 Last Admin: 01/16/23 08:47 Dose: 100 mg Losartan Potassium (Losartan Potassium 25 Mg Tab) 25 mg PO DAILY [facility] Stop: 02/15/23 08:59 Last Admin: 01/16/23 08:48 Dose: 25 mg Magnesium Hydroxide (Magnesium Hydroxide Susp 30 Ml Udc) 30 ml PO Q6H PRN PRN Reason: Constipation Stop: 02/14/23 18:04 Miscellaneous Information (Vancomycin Consult Active) 1 each N/A UD PRN PRN Reason: Consult Stop: 02/14/23 18:04 Morphine Sulfate (Morphine Sulfate 4 Mg/Ml 1 Ml Carp\Vial) 3 mg IV Q4H PRN PRN Reason: Severe Pain (Scale 7, 8, 9,10) Stop: 01/29/23 18:04 Nortriptyline HCl (Nortriptyline Hcl 25 Mg Cap) 50 mg PO HS [facility] Stop: 02/14/23 20:59 Last Admin: 01/16/23 20:27 Dose: 50 mg Ondansetron HCl (Ondansetron Inj 2 Mg/Ml 2 Ml Vial) 4 mg IV Q6H PRN PRN Reason: Nausea Stop: 02/14/23 18:04 Oxycodone HCl (Oxycodone Hcl Ir 5 Mg Tab (Immediate Release)) 5 mg PO Q6H PRN PRN Reason: Moderate Pain (Scale 4, 5, 6) Stop: 01/29/23 18:04 Last Admin: 01/16/23 16:19 Dose: 5 mg Polyethylene Glycol (Polyethylene (Miralax) 17 Gm Pack) 17 gm PO DAILY PRN PRN Reason: Constipation Stop: 02/14/23 18:04 Sertraline HCl (Sertraline Hcl 100 Mg Tablet) 200 mg PO DAILY [facility] Stop: 02/15/23 08:59 Last Admin: 01/16/23 08:47 Dose: 200 mg Topiramate (Topiramate 100 Mg Tab) 100 mg PO BID [facility] Stop: 02/14/23 20:59 Last Admin: 01/16/23 20:27 Dose: 100 mg
[2023-01-17] MEDS: oxyCODONE HCL IR 5 MG TAB (IMMEDIATE RELEASE) PO PRN (09:48)
[2023-01-17] MEDS: ACETAMINOPHEN 325 MG TAB PO PRN (09:49)
[2023-01-17] MEDS: SERTRALINE HCL 100 MG TABLET PO SCH (09:50)
[2023-01-17] MEDS: ATORVASTATIN 20 MG TAB PO SCH (09:50)
[2023-01-17] MEDS: lamoTRIgine 100 MG TAB PO SCH (09:50)
[2023-01-17] MEDS: LOSARTAN POTASSIUM 25 MG TAB PO SCH (09:50)
[2023-01-17] MEDS: TOPIRAMATE 100 MG TAB PO SCH ×2 (09:50→20:01)
[2023-01-17] MEDS: VANCOMYCIN HCL 1,500 MG in SODIUM CHLORIDE 0.9% 500 ML IV SCH ×2 (13:28→23:45)
[2023-01-17] MEDS: cefTRIAXone SODIUM 2,000 MG in DEXTROSE 5 % MINI-B 50 ML IV SCH (16:28)
[2023-01-17] MEDS: NORTRIPTYLINE HCL 25 MG CAP PO SCH (20:01)
[2023-01-17] MEDS: lamoTRIgine 25 MG TAB PO SCH (20:01)
[2023-01-18] MEDS: lamoTRIgine 100 MG TAB PO SCH (08:08)
[2023-01-18] MEDS: TOPIRAMATE 100 MG TAB PO SCH (08:08)
[2023-01-18] MEDS: SERTRALINE HCL 100 MG TABLET PO SCH (08:09)
[2023-01-18] MEDS: LOSARTAN POTASSIUM 25 MG TAB PO SCH (08:09)
[2023-01-18] MEDS: ATORVASTATIN 20 MG TAB PO SCH (08:09)
[2023-01-18] MEDS: oxyCODONE HCL IR 5 MG TAB (IMMEDIATE RELEASE) PO PRN (08:13)
[2023-01-18 08:23] LABS: Basophils # (auto) 0.02 K/uL (0.00-0.20); Basophils % (auto) 0.5 %; Hematocrit (blood only) 38.7 % (37.0-47.0); Hemoglobin 12.5 g/dl (12.0-16.0); Immature Granulocytes # (auto) 0.03 K/uL (0.01-0.20); Immature Granulocytes % (auto) 0.7 %; Lymphocytes # (auto) 1.02 K/uL (1.20-3.40); Lymphocytes % (auto) 25.1 %; Mean Corpuscular Hemoglobin 28.9 pg (25.0-34.0); Mean Corpuscular Hgb Conc 32.3 g/dL (32.0-36.0); Mean Corpuscular Volume 89.4 fL (80.0-100.0); Mean Platelet Volume 10.4 fL (9.4-12.4); Monocytes # (auto) 0.19 K/uL (0.11-0.59); Monocytes % (auto) 4.7 %; Neutrophils # (auto) 2.81 K/uL (1.40-6.50); Platelet Count 197 K/uL (130-400); RDW Coefficient of Variation 12.6 % (11.5-14.5); RDW Standard Deviation 41.4 fL (36.4-46.3); Red Blood Count 4.33 M/uL (4.20-5.40); White Blood Count 4.07 K/ul (4.8-10.8)
[2023-01-18 08:29] LABS: BUN Creatinine Ratio 14.1 (10-20); Calcium 8.3 mg/dl (8.6-10.3); Creatinine Clr Calc Pharmacy 97.6 ml/min; Est GFR (African American) 106.5 ml/min; Est GFR (Non-African American) 91.9 ml/min; Potassium 4.1 mmol/L (3.5-5.1)
--- NOTE | 2023-01-18 08:35 | Surgery Progress Note ---
Date of Service January 18, 2023 Assessment & Plan (1) S/P lumpectomy, right breast: (2) Cellulitis of right breast: Plan significant improvement of erythema, induration, drainage. We will place packing in the medial aspect of the wound to keep the wound open. She may be discharged home on oral antibiotics today. She will follow-up in clinic in the next 2 days for packing change. Admission and Anticipated Discharge Date Admission Date: January 15, 2023 Subjective doing better. Less redness. Continues to have some drainage when she stands up. no fevers, nausea and vomiting Physical Exam Physical Exam: AFVSS NAD, A&O x3 Right breast: Medial opening at incision, probe is able to pass easily into the cavity with minimal drainage Significantly decreased erythema/induration No further purulent drainage Results & Data Vital Signs (Past 12 Hours) Vital Signs Temp Pulse Resp BP Pulse Ox O2 Del Method 01/18/23 07:24 36.5 C 79 17 134/80 93 Room Air 01/17/23 21:41 36.5 C 90 16 113/66 94 Room Air Laboratory Results 01/18/23 01/18/23 01/18/23 Range/Units 07:49 07:49 07:49 WBC 4.07 L (4.8-10.8) K/ul RBC 4.33 (4.20-5.40) M/uL Hgb 12.5 (12.0-16.0) g/dl Hct 38.7 (37.0-47.0) % MCV 89.4 (80.0-100.0) fL MCH 28.9 (25.0-34.0) pg MCHC 32.3 (32.0-36.0) g/dL RDW Std Deviation 41.4 (36.4-46.3) fL RDW Coeff of Yancy 12.6 (11.5-14.5) % Plt Count 197 (130-400) K/uL MPV 10.4 (9.4-12.4) fL Immature Gran % (Auto) 0.7 % Neut % (Auto) 69.0 % Lymph % (Auto) 25.1 % [place] % (Auto) 4.7 % Eos % (Auto) 0.0 % Baso % (Auto) 0.5 % Neut # (Auto) 2.81 (1.40-6.50) K/uL Lymph # (Auto) 1.02 L (1.20-3.40) K/uL [place] # (Auto) 0.19 (0.11-0.59) K/uL Eos # (Auto) 0.00 (0.00-0.50) K/uL Baso # (Auto) 0.02 (0.00-0.20) K/uL Immature Gran # (Auto) 0.03 (0.01-0.20) K/uL Sodium 142 (136-145) mmol/L Potassium 4.1 (3.5-5.1) mmol/L Chloride 112 H (98-107) mmol/L Carbon Dioxide 24 (21-32) mmol/L Anion Gap 6 (3-11) BUN 10 (6-23) mg/dl Creatinine 0.71 (0.6-1.2) mg/dl Est Cr Clr Drug Dosing 97.6 ml/min Est GFR ( Amer) 106.5 ml/min Est GFR (Non-Af Amer) 91.9 ml/min BUN/Creatinine Ratio 14.1 (10-20) Glucose 125 H (70-99(Fasting)) mg/dl Calcium 8.3 L (8.6-10.3) mg/dl Random Vancomycin 18.0 (10-20) mcg/ml
--- NOTE | 2023-01-18 08:36 | Pharmacy Report ---
Pharmacy PK ABX Note - Date of Service January 18, 2023 - Assessment and Plan Assessment 62 year old F receiving empiric ceftriaxone/vancomycin for treatment of SSTI. Pertinent microbiologic data includes: Blood cultures x 2 show no growth at 48 hours. MRSA nasal swab negative. Day # 4 of antimicrobial therapy. Per notes, possible discharge to home today with oral antibiotics. Plan Vancomycin * Current regimen: 1500 mg IV every 12 hours * Random level obtained 01/18/23 resulted as 18 mcg/mL. This is predicted to achieve target AUC/PAULIE of 400-600 mg/L.hr * Predicted AUC at steady state: 527 mg/L.hr * Continue 1500 mg IV every 12 hours * Will repeat level in the next 48-72 hours if therapy is continued and/or change in patient clinical status Pharmacy will continue to follow and will adjust dose/frequency as necessary. Thank you. Pharmacy has transitioned to AUC monitoring for vancomycin. AUC/PAULIE is the preferred PK/PD target and is associated with decreased risk of nephrotoxicity compared to traditional trough targets.
[2023-01-18] MEDS: VANCOMYCIN HCL 1,500 MG in SODIUM CHLORIDE 0.9% 500 ML IV SCH (11:34)
[2023-01-18] MEDS: cefTRIAXone SODIUM 2,000 MG in DEXTROSE 5 % MINI-B 50 ML IV SCH (14:33)
--- NOTE | 2023-01-18 15:06 | Discharge Summary ---
Discharge Summary Date of Service January 18, 2023 Admission HPI Per Admitting Provider Patient is 62-year-old female with PMH HTN, HLD, iron deficiency anemia, depression, anxiety, bipolar disorder, schizoaffective disorder, right breast CA s/p right partial mastectomy on 12/15/2022 presented to ER with c/o right beast redness and pain. History obtained from patient as well as outpatient chart review. S/P right partial mastectomy on 12/05/[address] Townsend. Had re-excision of positive margins on 01/05/[address] Townsend for DCIS. Seen in outpatient general surgery office on 01/13/2023. Had noted erythema around incision and increasing pain to right breast. At that time had not noted any fever or drainage. Was started on Augmentin. Patient states over the past 2 days with increased right breast tenderness, increased redness. She also reports has had purulent drainage from incision site. Reports low grade fevers. Denies diaphoresis, N/V/D/C, RAMOS, dizziness, syncope, neck pain, CP, SOB, palpitations, cough, sore throat, rhinorrhea, abdominal pain, paresthesias, extremity weakness, extremity edema, rashes, urinary symptoms. Principal Dx & Hospital Course #1 = Principal Diagnosis (1) Cellulitis of right breast: (2) S/P lumpectomy, right breast: Patient is 62-year-old female with PMH HTN, HLD, iron deficiency anemia, depression, anxiety, bipolar disorder, schizoaffective disorder, right breast CA s/p right partial mastectomy on 12/15/2022 presented to ER with c/o right beast redness and pain. Had re-excision of positive margins on 01/05/[address] Townsend for DCIS. Started on Augmentin on 01/13/2023 for right breast cellulitis. Came in with worsening cellulitis and pain and reported drainage on the day of arrival. US breast fluid collection (2cm) in 3 o'clock position. Still present on palpation on exam today. Made NPO after MN in preparation for possible I&D procedure but need to speak with surgeon in the morning For now continue on Vanc, Rocephin Tylenol, oxycodone, morphine for as needed pain Follow cultures, tailor antibiotic. Follow labs in AM. (3) Breast cancer: (4) HTN (hypertension): Chronic, Stable. Continue losartan (5) Anxiety and depression: chronic, stable. Cont current therapy (6) Bipolar 1 disorder: chronic, stable. Cont current therapy (7) Schizoaffective disorder: chronic, Continue lamotrigine, chlorpromazine, sertraline, topiramate, nortriptyline per home regimen. (8) Tobacco use: Declined nicotine patch Smoking cessation encouraged (9) Morbid obesity: History of prior bariatric surgery. Continued weight loss efforts are encouraged. Full code DVT prophylaxis With Lovenox. Will hold in preparation for possible procedure in a.m. Disposition-pending surgery recommendations and improvement clinically of patient. I spent a total [id number] coordinating, documenting, and providing care for this patient excluding time spent in the performance of separately billed services Elma Casey DO [facility] Hospitalist Discharge Exam CONSTITUTIONAL: obese, vitals as above, generally well-appearing, NAD EYES: normal conjunctivae, no scleral icterus ENT: external ear and nose normal, MMM NECK: trachea midline RESPIRATORY: clear to auscultation bilaterally, no crackles, rales or wheezes, normal respiratory effort CARDIOVASCULAR: regular rate and rhythm, S1 and 2 heard without murmurs, gal lops or rubs, no JVD, no peripheral edema CHEST: inspection of chest was normal GASTROINTESTINAL: soft, nontender, ND, no guarding MUSCULOSKELETAL: strength 5/5 throughout, head is normocephalic and atraumatic SKIN: warm and dry, erythema around the areola with induration and fluctuance at the 3 o'clock position and the 9 o'clock position. There is a wound present that appears to be healing well by secondary intension with a well formed scab. NEUROLOGIC: CN 2-12 grossly intact, no sensory deficit, normal cognition, normal speech, no tremor PSYCHIATRIC: alert cooperative and oriented to person, place and time. Euthymic mood, makes good eye contact, language grossly intact, recent and remote memory grossly intact. Updated Medication List Medication Instructions Recorded Confirmed Type atorvastatin 20 mg tablet 20 mg PO DAILY 01/15/23 01/15/23 History chlorpromazine 100 mg tablet 100 mg PO HS 01/15/23 01/15/23 History lamotrigine 100 mg tablet 100 mg PO DAILY 01/15/23 01/15/23 History lamotrigine 25 mg tablet 75 mg PO HS 01/15/23 01/15/23 History losartan 25 mg tablet 25 mg PO DAILY 01/15/23 01/15/23 History nortriptyline 50 mg capsule 50 mg PO HS 01/15/23 01/15/23 History sertraline 100 mg tablet 200 mg PO DAILY 01/15/23 01/15/23 History topiramate 100 mg tablet 100 mg PO BID 01/15/23 01/15/23 History sulfamethoxazole 800 2 tab PO Q12H #28 tabs 01/18/23 Rx mg-trimethoprim 160 mg tablet (Bactrim DS) Hospital Stay Data Consultations 01/15/23 11:20 Consult General Surgery Stat 01/15/23 13:13 ED Decision to Admit Stat 01/15/23 18:05 Consult General Surgery Routine Diagnostic Imagining Performed 01/15/23 12:45 breast RT limited Stat Pending Results Patient Have Any Pending Studies at Discharge: No Discharge Instructions Given to Patient (Per Discharging Provider) Please take all medications as instructed on discharge list below. You are being given an additional 7 days of antibiotics to complete for your breast infection. Please proceed to seeing Oncology to set up further care of your cancer. Please follow-up with your primary care physician in one week to ensure you are still feeling well since returning home from the hospital. It was a pleasure taking care of you! Please call if you have any questions or problems. You can reach a [facility] hospitalist on duty at [facility] 24 hours a day by calling [phone]. Take care of yourself. Elma Casey, [facility]ist
== END 2023-01-18 15:55 | disposition home or self-care (01) | DRG 601 ==
LOC: ED 10:25 → 3W 13:54 → SUATTDRO 13:54 → 3W 18:07

== ENCOUNTER 2024-01-31 15:03 | Inpatient (IN) ==
--- NOTE | 2024-01-31 16:13 | XRay Report ---
EXAM: Radiograph of the Chest 1 View INDICATION: Chest pain. TECHNIQUE: Frontal view of the chest. COMPARISON: 01/15/2023 FINDINGS: Lungs and pleural spaces: No consolidation or pulmonary edema. No pleural effusion or pneumothorax. Heart: Shape and configuration within normal limits allowing for technique. Mediastinum: Normal contour. Bones/joints: Degenerative changes noted in the scoliotic spine. No acute osseous abnormality noted. Soft tissues: No abnormality noted. No radiopaque foreign body noted. Upper abdomen: No abnormality noted. IMPRESSION: No acute cardiopulmonary disease. ACT 112: Negative or not required by law. Electronically signed by Bonita Garrido 01-31-2024 4:13 PM
[2024-01-31 16:15] LABS: Basophils # (auto) 0.02 K/uL (0.00-0.20); Basophils % (auto) 0.3 %; Eosinophils # (auto) 0.01 K/uL (0.00-0.50); Eosinophils % (auto) 0.2 %; Hematocrit (blood only) 45.2 % (37.0-47.0); Hemoglobin 14.6 g/dl (12.0-16.0); Immature Granulocytes # (auto) 0.03 K/uL (0.01-0.20); Immature Granulocytes % (auto) 0.5 %; Lymphocytes # (auto) 1.07 K/uL (1.20-3.40); Mean Corpuscular Hemoglobin 28.3 pg (25.0-34.0); Mean Corpuscular Hgb Conc 32.3 g/dL (32.0-36.0); Mean Corpuscular Volume 87.8 fL (80.0-100.0); Mean Platelet Volume 10.7 fL (9.4-12.4); Monocytes % (auto) 4.8 %; Neutrophils # (auto) 4.87 K/uL (1.40-6.50); Neutrophils % (auto) 77.2 %; Platelet Count 249 K/uL (130-400); RDW Coefficient of Variation 12.8 % (11.5-14.5); RDW Standard Deviation 41.2 fL (36.4-46.3); Red Blood Count 5.15 M/uL (4.20-5.40)
[2024-01-31 16:20] LABS: Albumin Globulin Ratio 1.3 (0.9-2); Albumin Level 4.3 gm/dl (3.4-5.0); BUN Creatinine Ratio 18.3 (10-20); Bilirubin,Total 0.3 mg/dl (0.2-1.0); Calcium 9.1 mg/dl (8.6-10.3); Creatinine Clr Calc Pharmacy 80.1 ml/min; Globulin 3.3 gm/dl (2.5-4.0); Total Protein 7.6 gm/dl (6.0-8.3)
[2024-01-31 16:27] LABS: Troponin I High Sensitivity 4.8 pg/ml (0-14)
[2024-01-31 16:31] LABS: INR 0.9 (0.9-1.1); Partial Thromboplastin Ratio 1.6; Partial Thromboplastin Time 42 Seconds (21-31); Prothrombin Time 10.2 Seconds (9.0-12.0)
--- NOTE | 2024-01-31 18:23 | Emergency Department Note ---
Impression & Plan Chest pain, Tobacco use ED Provider Note NAME: GAYE CATES AGE: 63 SEX: F : 1960 ARRIVES VIA: Walk-In INFORMANT: Patient, triage report ED PROVIDER(S): Arnoldo Portillo MD CHIEF COMPLAINT: Chest pain MEDICAL DECISION MAKING: Patient presents due to concern for chest pain. IV was established and blood work was obtained and EKG and troponin also obtained along with chest x-ray. Blood work shows a normal white count H&H and platelet count. Kidney function was unremarkable. Alk phos at 108. Patient with nonischemic EKG. Troponin negative. The patient's episodes been very brief and given the atypical nature and moderate risk heart score do believe the patient would benefit from further risk stratification and inpatient monitoring/treatment. Patient was given full dose aspirin. Per patient currently chest pain-free at this time. I did speak the on-call hospital service and the patient was admitted to the medicine service. Discussion w/ other healthcare providers: Roderick Tristan PA-C and Dr. Vega Prior /Outside records reviewed: I reviewed part of a discharge summary from January 18, 2023 past medical history of hypertension hyperlipidemia depression anxiety bipolar disorder schizoaffective disorder right breast cancer status post right partial mastectomy who presented due to concern for right breast redness and pain at that time. Patient diagnosed with cellulitis of the right breast at that time. Differential diagnosis: Cardiac ischemia, aortic dissection, pulmonary embolism, pneumothorax, pneumonia, pericarditis, myocarditis, GERD, cholecystitis, pancreatitis, musculoskeletal, as well as other pathologies were considered. Diagnostics, as interpreted by me: ECG: Normal sinus rhythm, rate 96, normal intervals, normal axis no ST elevations T wave version in lead III. No obvious STEMI. Cardiac monitoring: An order was placed for continuous cardiac monitoring. The monitor shows a rate of 88 with sinus rhythm. Patient was placed on pulse oximetry Medical decision rules: Wells score Imaging studies: I informally interpreted the patient's Chest x-ray does not show obvious pneumonia or pneumothorax with formal report to follow. HPI: Patient presents due to concern for chest pain. She reports that she has had about 2 episodes today but is had several episodes in the last 2 to 3 days. The patient states that they are fairly brief they can be centralized but what was concerning today is that she had an episode where she had a radiation of the pain to her neck and jaw on the right side. Patient states that she was at rest both times that the episodes occur. She did have some sweatiness. No vomiting or diarrhea. Patient reports that only significant family history of heart disease is A-fib in her brother and mother. Patient denies any known history of heart or lung disease. She is a smoker and does take medications for blood pressure. Patient denies any leg swelling or calf pain no history of DVT or PE and the patient denies any recent surgeries procedures or hospitalizations. No recent prolonged car plane travel. PAST MEDICAL HISTORY: See Below PAST SURGICAL HISTORY: See Below SOCIAL HISTORY: See Below HOME MEDICATIONS: See Below ALLERGIES: See Below VITALS: See Below PHYSICAL EXAMINATION: GENERAL: NAD, non-toxic. Wearing glasses. EYE EXAM: Normal conjunctiva. PERRL, no anisocoria and EOM's grossly intact w/o pain. OROPHARYNX: Moist mucus membranes, false teeth in place. NECK: Trachea midline, no stridor. Supple, no nuchal rigidity, no adenopathy, non-tender. No signs of meningismus. FROM of the neck with good chin to chest and neck extension. LUNGS: Clear to auscultation. Normal chest wall mechanics. HEART: NSR, no MRG. ABDOMEN: Abdomen soft, non-tender, no masses, no rebound or guarding. BACK: No CVA TTP. SKIN: No rashes and no bruising. UPPER EXTREMITIES: Upper extremities are grossly normal. LOWER EXTREMITIES: Grossly normal, no edema. Negative Homans' sign bilaterally. NEURO EXAM: A&O x3, cranial nerves II-XII grossly intact, normal speech, moves all 4 extremities. 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) Post-operative state Obesity S/P lumpectomy, right breast (Acute) 12/15/22 Tobacco use (Acute) Schizoaffective disorder Bipolar 1 disorder Anxiety and depression HTN (hypertension) Cellulitis of right breast (Acute) Right hand pain (Acute) Medical History GERD (gastroesophageal reflux disease) Hyperlipemia Morbid obesity Surgical History History of tonsillectomy History of endometrial ablation History of hysteroscopy History of bariatric surgery History of esophagogastroduodenoscopy (EGD) History of colonoscopy History of tubal ligation History of surgery 02/02/2012 excision excessive skin, panniculectomy, Dr. Sanabria [facility] Hx of breast surgery 10/26/2022 right breast biopsy. DCIS. 12/15/[address] Kelby Townsend 01/05/2023 Re-excision left lumpectomy for positive margin Dr. Kelby Townsend Family History Mother , in her 70s Atrial fibrillation COPD (chronic obstructive pulmonary disease) Stroke Father , in his 70s Prostate cancer Hypertension Brother Hypertension Sister Hypertension Diabetes Sister Hypertension Diabetes Sister Hypertension Sister Hypertension Sister No problems noted. Sister Abnormal Pap smear of cervix Son Hypertension Diabetes Mental health disorder Aunt Breast cancer Maternal aunt Grandfather (Maternal) Prostate cancer Other Cancer Social History Smoking Status: Current every day smoker Tobacco Type: Cigarettes Cigarettes Per Day: 10; Second Hand Exposure: Yes; Do You Dip or Chew Tobacco: No; Tobacco Cessation Education Requested by Patient: No Hx Alcohol Use: No Hx Substance Use: No Preferred Language: Grenadian Communication Ability: Effective Visual Impairment: No Limitations Hearing Ability: Normal Food Quality Technician Required: No Beliefs That Will Affect Care: None marital status: Current Living Situation: Family Current Living Situation Comment: patient lives with son, [id number] and grandson current occupational status: disabled How many Children do You have: 1 Other Information That Helps Us Care for You: No Feels Safe at Home: Yes Safety Concerns: Feels Safe At This Time Diet: regular caffeine: Yes (1-2 pots coffee/day) during the past year weight has: remained stable Assistive Devices: Denture - Upper, Denture - Lower, Glasses and Hospital Bed Allergies Allergies Allergy/AdvReac Type Severity Reaction Status Date / Time adhesive tape Allergy Intermediate Blister Verified 01/31/24 18:47 codeine AdvReac Intermediate I GET Unverified 01/31/24 18:47 REALLY MEAN Latex Allergy skin peels Uncoded 01/31/24 18:47 Home Meds Home Medications Medication Instructions Recorded Confirmed atorvastatin 20 mg tablet 20 mg PO DAILY 01/15/23 01/31/24 lamotrigine 100 mg tablet 100 mg PO DAILY 01/15/23 01/31/24 lamotrigine 25 mg tablet 75 mg PO HS 01/15/23 01/31/24 losartan 25 mg tablet 25 mg PO DAILY 01/15/23 01/31/24 sertraline 100 mg tablet 200 mg PO HS 01/15/23 01/31/24 acetaminophen 500 mg tablet 1,000 mg PO Q6H PRN Pain 03/03/23 01/31/24 (Tylenol Extra Strength) chlorpromazine 100 mg tablet 125 mg PO HS 03/03/23 01/31/24 topiramate 100 mg tablet 100 mg PO BID 03/03/23 01/31/24 anastrozole 1 mg tablet 1 mg PO DAILY 08/12/23 01/31/24 bupropion HCl 150 mg tablet,12 hr 150 mg PO QAM 01/31/24 01/31/24 sustained-release Results & Data (ED) Vital Signs Vital Signs - 24 hr 01/31/24 15:05 01/31/24 18:25 01/31/24 18:27 Temperature 36.8 C Temperature Source Temporal Artery Scan Pulse Rate 101 H Pulse Rate [Apical] 92 H Respiratory Rate 20 18 Respiratory Effort / Characteristics Non-Labored Spontaneous Non-Labored Spontaneous Respiratory Depth Normal Normal Respiratory Pattern Regular Blood Pressure 138/85 Blood Pressure [Left Arm] 108/83 Blood Pressure Mean 102 Blood Pressure Mean [Left Arm] 91 Pulse Oximetry 98 99 99 Oxygen Delivery Method Room Air Room Air Room Air Sepsis Recent Fever Within 48 Hours No Sepsis New/Unexplained Change in Mental Status N/A Sepsis Action Taken by Nursing No Action Required 01/31/24 18:27 01/31/24 18:28 Temperature Temperature Source Pulse Rate 101 H 85 Pulse Rate [Apical] Respiratory Rate 18 Respiratory Effort / Characteristics Respiratory Depth Respiratory Pattern Blood Pressure Blood Pressure [Left Arm] Blood Pressure Mean Blood Pressure Mean [Left Arm] Pulse Oximetry 99 Oxygen Delivery Method Room Air Sepsis Recent Fever Within 48 Hours Sepsis New/Unexplained Change in Mental Status Sepsis Action Taken by Residential Medications Current Medication List: was personally reviewed by me Laboratory Data Attestation: I reviewed the patient's lab results. 01/31/24 15:45 01/31/24 15:45 Lab Results 01/31/24 Range/Units 15:45 WBC 6.30 (4.8-10.8) K/ul RBC 5.15 (4.20-5.40) M/uL Hgb 14.6 (12.0-16.0) g/dl Hct 45.2 (37.0-47.0) % MCV 87.8 (80.0-100.0) fL MCH 28.3 (25.0-34.0) pg MCHC 32.3 (32.0-36.0) g/dL RDW Std Deviation 41.2 (36.4-46.3) fL RDW Coeff of Yancy 12.8 (11.5-14.5) % Plt Count 249 (130-400) K/uL MPV 10.7 (9.4-12.4) fL Immature Gran % (Auto) 0.5 % Neut % (Auto) 77.2 % Lymph % (Auto) 17.0 % [place] % (Auto) 4.8 % Eos % (Auto) 0.2 % Baso % (Auto) 0.3 % Neut # (Auto) 4.87 (1.40-6.50) K/uL Lymph # (Auto) 1.07 L (1.20-3.40) K/uL [place] # (Auto) 0.30 (0.11-0.59) K/uL Eos # (Auto) 0.01 (0.00-0.50) K/uL Baso # (Auto) 0.02 (0.00-0.20) K/uL Immature Gran # (Auto) 0.03 (0.01-0.20) K/uL PT 10.2 (9.0-12.0) Seconds INR 0.9 (0.9-1.1) APTT 42 H (21-31) Seconds PTT Ratio 1.6 Sodium 140 (136-145) mmol/L Potassium 4.0 (3.5-5.1) mmol/L Chloride 107 (98-107) mmol/L Carbon Dioxide 25 (21-32) mmol/L Anion Gap 8 (3-11) BUN 15 (6-23) mg/dl Creatinine 0.82 (0.6-1.2) mg/dl Est Cr Clr Drug Dosing 80.1 ml/min eGFR 80.82 BUN/Creatinine Ratio 18.3 (10-20) Glucose 97 (70-99(Fasting)) mg/dl Calcium 9.1 (8.6-10.3) mg/dl Total Bilirubin 0.3 (0.2-1.0) mg/dl AST 13 (13-39) U/L ALT 12 (7-52) U/L Alkaline Phosphatase 108 H (34-104) U/L Troponin I High Sens 4.8 (0-14) pg/ml Total Protein 7.6 (6.0-8.3) gm/dl Albumin 4.3 (3.4-5.0) gm/dl Globulin 3.3 (2.5-4.0) gm/dl Albumin/Globulin Ratio 1.3 (0.9-2) Administered Medications Chlorpromazine HCl (Chlorpromazine Hcl 25 Mg Tab) 125 mg PO [facility] Stop: 03/01/24 20:59 Last Admin: 01/31/24 21:39 Dose: 125 mg Documented By: BERTHA Heparin Sodium (Porcine) (Heparin Sod 5,000 Unit/0.5 Ml Vial) 5,000 units SQ Q12 JOSEF Stop: 03/01/24 20:59 Last Admin: 01/31/24 21:42 Dose: 5,000 units Documented By: BERTHA Lamotrigine (Lamotrigine 25 Mg Tab) 75 mg PO [facility]; Protocol Stop: 03/01/24 20:59 Last Admin: 01/31/24 21:41 Dose: 75 mg Documented By: BERTHA Sertraline HCl (Sertraline Hcl 100 Mg Tablet) 200 mg PO [facility] Stop: 03/01/24 20:59 Last Admin: 01/31/24 21:41 Dose: 200 mg Documented By: BERTHA Topiramate (Topiramate 100 Mg Tab) 100 mg PO BID JOSEF Stop: 03/01/24 20:59 Last Admin: 01/31/24 21:42 Dose: 100 mg Documented By: BERTHA Discontinued Medications Aspirin (Aspirin Chew 324 Mg) 324 mg PO NOW STA Stop: 01/31/24 18:39 Last Admin: 01/31/24 18:43 Dose: 324 mg Documented By: FILOMENA Imaging Data Radiologist's Impression: Chest X-Ray 01/31/24 15:07 EXAM: Radiograph of the Chest 1 View INDICATION: Chest pain. TECHNIQUE: Frontal view of the chest. COMPARISON: 01/15/2023 FINDINGS: Lungs and pleural spaces: No consolidation or pulmonary edema. No pleural effusion or pneumothorax. Heart: Shape and configuration within normal limits allowing for technique. Mediastinum: Normal contour. Bones/joints: Degenerative changes noted in the scoliotic spine. No acute osseous abnormality noted. Soft tissues: No abnormality noted. No radiopaque foreign body noted. Upper abdomen: No abnormality noted. IMPRESSION: No acute cardiopulmonary disease. ACT 112: Negative or not required by law. Electronically signed by Bonita Garrido 01-31-2024 4:13 PM Discharge Plan Visit Data Chief Complaint: Chest Pain Stated Complaint: CHEST PAIN ED Provider: Arnoldo Portillo Discharge Problem: Chest pain, Tobacco use Patient Disposition: Admitted As Inpatient Discharge Instructions Interventions: ED Discharge Assessment Last Done: 01/31/24 20:18 Discharge Problem: Chest pain Qualifiers: Chest pain type: unspecified Qualified Code(s): R07.9 - Chest pain, unspecified
[2024-01-31] MEDS: ASPIRIN CHEW 324 MG PO STA (18:43)
--- NOTE | 2024-01-31 19:00 | History & Physical Report ---
Date of Service January 31, 2024 Assessment & Plan (1) Chest pain: Plan Radha Warren is a 63y/o F with PMHx significant for dyslipidemia, HTN, vitamin B12 deficiency, vitamin D deficiency, iron deficiency anemia, depression/anxiety, bipolar disorder, schizoaffective disorder, right breast cancer s/p surgery + radiation [on anastrozole] and tobacco use disorder who presented to the ED for evaluation of chest pain. History as per HPI. Chest Pain: Lab work unremarkable, initial troponin negative. EKG personally reviewed and without any acute ischemic changes. CXR negative. S/p 324mg ASA in the ED. Echo pending. Continue to trend troponin Q6H. EKG w/ chest pain PRN. Routine EKG tomorrow AM. Starting 81mg ASA daily tomorrow. Cardiology consult pending - likely will need stress testing. Tobacco Use Disorder: Encourage smoking cessation. She denies need for a nicotine patch at this time. Right Breast Cancer S/P Surgery + Radiation: Follows with [facility] Hematology/Oncology - Dr. Ray Avalos. S/p right breast partial mastectomy + lumpectomy and radiation therapy. Continue anastrozole 1mg daily. Other Chronic Medical Conditions: HTN, HLD, bipolar disorder/de pression/anxiety/schizoaffective disorder --> Can continue home medications for these specific conditions. DVT Prophylaxis: SQ Heparin Code Status: FULL CODE PCP: Chino Chou MD Disposition: Admit to Med/Surg + Telemetry Patient seen in collaboration with Dr. Vega. Please see addendum. I spent a total of 55 minutes coordinating, documenting, and providing care for this patient excluding time spent in the performance of separately billed services. This included personally reviewing all current laboratories and imaging studies, medical reconciliation, outpatient chart review and discussion with specialists. This chart was completed in part utilizing Speech Voice Recognition Software. Grammatical errors, random word insertions, pronoun errors, and incomplete sentences are an occasional consequence of this system due to software limitations, ambient noise, and hardware issues. Any formal questions or concerns about the content, text, or information contained within the body of this dictation should be directly addressed to the provider for clarification. History of Present Illness Chief Complaint: Chest Pain Primary Care Provider: Chino Chou MD Radha Warren is a 63y/o F with PMHx significant for dyslipidemia, HTN, vitamin B12 deficiency, vitamin D deficiency, iron deficiency anemia, depression/anxiety, bipolar disorder, right breast cancer s/p surgery + radiation [on anastrozole] and tobacco use disorder who presented to the ED for evaluation of chest pain. History obtained from the patient and associated chart review. Her son and [id number] were present at bedside. Patient with intermittent episodes of chest pain over the past 3 days. She reports that the episodes are fairly brief only lasting upwards of a minute and are usually centralized, however she has had a few episodes where the pain radiates across her entire chest wall up into her right jaw region. She notes that these episodes have only occurred at rest so far. She denies any shortness of breath with these episodes however she does report a lot of chest heaviness when they occur. She mentions that it feels like "something is sitting on my chest." She does smoke approximately 3 to 4 cigarettes/day. She has been smoking for the last 20 years or so. She denies any alcohol or recreational drug use. She has not experienced any vomiting during these episodes however she does feel somewhat diaphoretic when they come on. No history of cardiac catheterization or any other cardiac procedures that she is aware of. No previous history of myocardial infarction. Reports that she has had unremarkable stress testing in the past. She denies the need for a nicotine patch at this time. Allergies Allergy/AdvReac Type Severity Reaction Status Date / Time adhesive tape Allergy Intermediate Blister Verified 01/31/24 18:47 codeine AdvReac Intermediate I GET Unverified 01/31/24 18:47 REALLY MEAN Latex Allergy skin peels Uncoded 01/31/24 18:47 Home Medications Medication Instructions Recorded Confirmed Type atorvastatin 20 mg tablet 20 mg PO DAILY 01/15/23 01/31/24 History lamotrigine 100 mg tablet 100 mg PO DAILY 01/15/23 01/31/24 History lamotrigine 25 mg tablet 75 mg PO HS 01/15/23 01/31/24 History losartan 25 mg tablet 25 mg PO DAILY 01/15/23 01/31/24 History sertraline 100 mg tablet 200 mg PO HS 01/15/23 01/31/24 History acetaminophen 500 mg tablet 1,000 mg PO Q6H PRN Pain 03/03/23 01/31/24 History (Tylenol Extra Strength) chlorpromazine 100 mg tablet 125 mg PO HS 03/03/23 01/31/24 History topiramate 100 mg tablet 100 mg PO BID 03/03/23 01/31/24 History anastrozole 1 mg tablet 1 mg PO DAILY 08/12/23 01/31/24 History bupropion HCl 150 mg tablet,12 hr 150 mg PO QAM 01/31/24 01/31/24 History sustained-release Past Med/Surg History Problem List Chest pain 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) Post-operative state Obesity S/P lumpectomy, right breast (Acute) 12/15/22 Tobacco use Schizoaffective disorder Bipolar 1 disorder Anxiety and depression HTN (hypertension) Cellulitis of right breast (Acute) Right hand pain (Acute) Medical History GERD (gastroesophageal reflux disease) Hyperlipemia Morbid obesity Surgical History History of tonsillectomy History of endometrial ablation History of hysteroscopy History of bariatric surgery History of esophagogastroduodenoscopy (EGD) History of colonoscopy History of tubal ligation History of surgery 02/02/2012 excision excessive skin, [place], [place] [facility] [place] of breast surgery 10/26/2022 right breast biopsy. DCIS. 12/15/[address] Kelby Townsend 01/05/2023 Re-excision left lumpectomy for positive margin Dr. Kelby Townsend Family History Mother , in her 70s Atrial fibrillation COPD (chronic obstructive pulmonary disease) Stroke Father , in his 70s Prostate cancer Hypertension Brother Hypertension Sister Hypertension Diabetes Sister Hypertension Diabetes Sister Hypertension Sister Hypertension Sister No problems noted. Sister Abnormal Pap smear of cervix Son Hypertension Diabetes Mental health disorder Aunt Breast cancer Maternal aunt Grandfather (Maternal) Prostate cancer Other Cancer Social History Smoking Status: Never smoker Tobacco Type: Cigarettes Cigarettes Per Day: 10; Second Hand Exposure: Yes; Hx Alcohol Use: No Hx Substance Use: No Preferred Language: [place] Communication Ability: Effective Visual Impairment: No Limitations Hearing Ability: Normal White Metal Caster Required: No Beliefs That Will Affect Care: None marital status: Current Living Situation: Alone Current Living Situation Comment: living with his mother current occupational status: disabled How many Children do You have: 1 Feels Safe at Home: Yes Diet: regular caffeine: Yes (1-2 pots coffee/day) during the past year weight has: remained stable Assistive Devices: None Review of Systems Review of Systems: At least ten systems reviewed and negative, except as noted in the HPI. Physical Exam Physical Exam: General: Vitals as above, NAD, sitting up in bed, very pleasant. Son and [id number] at bedside. A+Ox3, euthymic affect. HEENT: Normocephalic, atraumatic. Conjunctivae normal, anicteric sclerae. External ear and nose normal, oropharynx normal. Respiratory: Normal respiratory effort, lungs clear to auscultation, no wheeze, rales, rhonchi. No accessory muscle use. Cardiovascular: Regular rate, rhythm, no murmur, normal peripheral pulses, no BLE edema. Vessels: No JVD. Abdomen/GI: Normal bowel sounds, soft, nontender, no hepatosplenomegaly. Extremities/Musculoskeletal: No cyanosis or clubbing, able to actively move all extremities. Neurologic: No focal deficits, CN's II-XI not formally tested but appear grossly intact bilaterally. Skin: No rashes, normal color, warm/dry. Results & Data Results & Data Vital Signs (Past 12 Hours) Vital Signs Temp Pulse Pulse Resp BP BP Pulse Ox 01/31/24 18:28 85 01/31/24 18:27 101 H 18 99 01/31/24 18:27 99 01/31/24 18:25 92 H 18 108/83 99 01/31/24 15:05 36.8 C 101 H 20 138/85 98 O2 Del Method 01/31/24 18:28 01/31/24 18:27 Room Air 01/31/24 18:27 Room Air 01/31/24 18:25 Room Air 01/31/24 15:05 Room Air Laboratory Results Short CBC 01/31/24 Range/Units 15:45 WBC 6.30 (4.8-10.8) K/ul Hgb 14.6 (12.0-16.0) g/dl Hct 45.2 (37.0-47.0) % Plt Count 249 (130-400) K/uL BMP 01/31/24 15:45 Sodium 140 Potassium 4.0 Chloride 107 Carbon Dioxide 25 BUN 15 Creatinine 0.82 Glucose 97 Calcium 9.1 Liver Function 01/31/24 Range/Units 15:45 Total Bilirubin 0.3 (0.2-1.0) mg/dl AST 13 (13-39) U/L ALT 12 (7-52) U/L Alkaline Phosphatase 108 H (34-104) U/L Albumin 4.3 (3.4-5.0) gm/dl Diagnostic Findings Chest X-Ray 01/31/24 15:07 EXAM: Radiograph of the Chest 1 View INDICATION: Chest pain. TECHNIQUE: Frontal view of the chest. COMPARISON: 01/15/2023 FINDINGS: Lungs and pleural spaces: No consolidation or pulmonary edema. No pleural effusion or pneumothorax. Heart: Shape and configuration within normal limits allowing for technique. Mediastinum: Normal contour. Bones/joints: Degenerative changes noted in the scoliotic spine. No acute osseous abnormality noted. Soft tissues: No abnormality noted. No radiopaque foreign body noted. Upper abdomen: No abnormality noted. IMPRESSION: No acute cardiopulmonary disease. ACT 112: Negative or not required by law. Electronically signed by Bonita Garrido 01-31-2024 4:13 PM Medications Administered Discontinued Medications Aspirin (Aspirin Chew 324 Mg) 324 mg PO NOW STA Stop: 01/31/24 18:39 Last Admin: 01/31/24 18:43 Dose: 324 mg Documented By: SNS Code Status & VTE Plan Code Status FULL CODE Supervising Physician Co-Signing Physician Notes Attending Addendum: Case reviewed with the advanced practitioner. I have personally performed a history and physical examination on the patient. I have reviewed the advanced practitioner's documentation on the date of service referenced in note, and I agree with, and take responsibility for the plan of care. please refer to her notes for full details patient seen and examined, records reviewed by myself as well on exam, patient seen resting in bed, comfortable, not in distress No active chest pain, shortness of breath, nausea, dizziness, sweating on my exam no other symptoms VS noted and reviewed oriented x 3, not in distress, speaks in sentences with no effort nor accessory muscle use normal rate, regular rhythm, no murmurs clear breath sounds bilaterally non distended, soft, nontender no bipedal edema, erythema, warmth no neuro deficits all labs, imaging noted and reviewed ASSESSMENT AND PLAN> Chest pain, rule out acute coronary syndrome Long-term, current smoker Presentation suspicious for unstable angina/acute coronary syndrome Initial troponin negative, troponin x 2 pending EKG: No signs of acute ischemia or infarct Echocardiogram: Pending EKG in a.m. Start aspirin 81 mg p.o. daily Already on atorvastatin 20 mg p.o. daily As needed nitro N.p.o. postmidnight Cardiology consulted other diagnoses and plan of care as per advanced practitioner's notes Feroz Vega MD (1) Chest pain Chest pain type: unspecified Qualified Code(s): R07.9 - Chest pain, unspecified
[2024-01-31] MEDS ORDERED: ACETAMINOPHEN 325 MG TAB PO PRN (20:56)
[2024-01-31] MEDS ORDERED: ONDANSETRON INJ 2 MG/ML 2 ML VIAL IV PRN (20:56)
[2024-01-31] MEDS ORDERED: POLYETHYLENE (MIRALAX) 17 GM PACK PO PRN (20:56)
[2024-01-31] MEDS ORDERED: MAGNESIUM HYDROXIDE SUSP 30 ML UDC PO PRN (20:56)
[2024-01-31] MEDS: chlorproMAZINE HCL 25 MG TAB PO SCH (21:39)
[2024-01-31] MEDS: lamoTRIgine 25 MG TAB PO SCH (21:41)
[2024-01-31] MEDS: SERTRALINE HCL 100 MG TABLET PO SCH (21:41)
[2024-01-31] MEDS: HEPARIN SOD 5,000 UNIT/0.5 ML VIAL SQ SCH (21:42)
[2024-01-31] MEDS: TOPIRAMATE 100 MG TAB PO SCH (21:42)
--- OUTSIDE RECORDS SUMMARY | 2024-02-01 04:14 | External Medical Summary | Summary of Care ---
Author Name Unknown Organization [facility] Address [address] [place] [address] Phone [phone] Care Team Providers Care Information Operator Name Role Phone Alexy Chou MD Primary Care Provider [phone] Reason for Visit * Reason Comments eRx-Medication Refill Encounter Details Date Type Department Care Team (Late st Contact Info) Description 12/08/2023 Refill [facility] [address] [place] [address] Alexy Chou MD [address] [place], [place] [phone] Dyslipidemia, goal LDL below 100; HTN, goal below 140/90 Allergies Active Allergy Reactions Criticality Noted Date Comments Diphenhydramine Rash 01/22/2023 Codeine Psych complications 08/27/2010 Gets mean and itchy Wound Dressing Adhesive 12/30/2022 Patient got sores and it opened up and oozed. documented as of this encounter (statuses as of 12/09/2023) Medications Medication Sig Dispensed Refills Start Date End Date Status Sertraline HCl 100 MG Oral Tablet (Zoloft) TAKE 2 TABLETS IN THE MORNING 07/06/2020 Active Topiramate 100 MG Oral Tablet (topAMAX) Take 1 Tablet by mouth in the morning. Active Acetaminophen 500 MG Oral Tablet Take 2 Tablets by mouth every 6 hours as needed. Active lamoTRIgine 100 MG Oral Tablet (LaMICtal) Take 1 Tablet by mouth in the morning. 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 90 Tablet 3 06/02/2023 Active lamoTRIgine 25 MG Oral Tablet (LaMICtal) Take 3 Tablets by mouth in the morning. Active buPROPion HCl ER (XL) 150 MG Oral Tablet Extended Release 24 Hour (Wellbutrin XL) Take 1 Tablet by mouth in the morning. Active Nystatin 490719 UNIT/GM External Powder (Nystop)Indicati ons:Candidal intertrigo Apply topically to affected area 3 times a day. Apply to gluteal cleft 60 g 1 07/29/2023 Active Atorvastatin Calcium 20 MG Oral Tablet (Lipitor)Indicat ions:Dyslipidemi a, goal LDL below 100 TAKE 1 TABLET BY MOUTH EVERY DAY IN THE MORNING 90 Tablet 1 12/09/2023 Active Losartan Potassium 25 MG Oral Tablet (Cozaar)Indicati ons:HTN, goal below 140/90 TAKE 1 TABLET BY MOUTH EVERY DAY IN THE MORNING 90 Tablet 1 12/09/2023 Active Atorvastatin Calcium 20 MG Oral Tablet (Lipitor)Indicat ions:Dyslipidemi a, goal LDL below 100 TAKE 1 TABLET BY MOUTH EVERY DAY IN THE MORNING 90 Tablet 1 06/14/2023 12/09/2023 Discontinued Losartan Potassium 25 MG Oral Tablet (Cozaar)Indicati ons:HTN, goal below 140/90 TAKE 1 TABLET BY MOUTH EVERY DAY IN THE MORNING 90 Tablet 09/03/2023 12/09/2023 Discontinued documented as of this encounter (statuses as of 12/09/2023) Active Problems Problem Noted Date Diagnosed Date Need for vaccination for zoster 06/23/2023 Bipolar disorder 05/28/2023 Malignant neoplasm of female breast 05/28/2023 Neoplasm of right breast, 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 Vitamin D deficiency 05/09/2014 H/O bariatric surgery 03/08/2013 Bipolar I disorder, most recent episode manic, m oderate 08/20/2011 Generalized anxiety disorder 08/20/2011 Elevated lipase 08/20/2011 Other vitamin B12 deficiency anemia 04/07/2011 DYSLIPIDEMIA, GOAL LDL BELOW 100 03/14/2009 Overview: Per Lipid Taxonomy. Other iron deficiency anemia 12/13/2007 Overview: ICD-10 update of inactive term [facility] OTHER*[id number] 09/22/2005 Major depressive disorder 08/12/2004 Overview: ICD-10 update of inactive term documented as of this encounter (statuses as of 12/09/2023) Resolved Problems Problem Noted Date Diagnosed Date Resolved Date Psoriasis 03/18/2022 03/18/2022 Schizoaffective disorder 04/08/202003/2023 Alcohol dependence in remission 04/08/2020 03/18/2022 Iron deficiency anemia 09/13/201208/28 Localized adiposity 05/03/2012 08/29/19 17 HTN, GOAL BELOW 140/80 11/16/201107/03 Overview: Per HTN Protocol #27. Urticaria 08/20/2011 08/28/2016 Dermatitis 08/20/2011 08/28/2016 Bipolar I disorder, most rec ent episode manic, moderate 01/08/2011 08/20/2011 Calculus of gallbladder with out mention of cholecystitis or obstruction 08/12/2009 08/28/2016 OBESITY, BMI 30-34 (SEE ACTUAL BMI) 06/20/2009 05/26/2023 Overview: Per Obesity Taxonomy historical HTN, GOAL BELOW 130/80 02/19/200911/18 Overview: Modified per HTN protocol #16. Type 2 diabetes mellitus wit h hemoglobin A1c goal of less than 7.0% 01/24/2009 05/09/2014 Overview: Per Diabetes Taxonomy. ICD-10 update of inactive term Intestinal postoperative nonabsorption 10/06/2005 05/28/2023 Organic sleep disorder 08/12/200408/28 Type 2 diabetes mellitus wit h hemoglobin A1c goal of less than 7.0% 08/12/2004 01/24/2009 Overview: Per Diabetes Taxonomy. ICD-10 update of inactive term Morbid obesity, BMI not known 08/12/2004 06/20/2009 Overview: Per Obesity Taxonomy HYPERTENSION NOS 08/12/2004 02/19/2009 Overview: Modified per HTN protocol #16. PURE HYPERCHOLESTEROLEM 08/12/200402/26 Overview: Per Lipid Taxonomy. documented as of this encounter (statuses as of 12/09/2023) Immunizations Name Administration Dates Next Due Seasonal Influenza, PF, 6 M & above, IM , (FluLaval or Fluzone) 05/28/2023,03/18/2022,04/08/2020,2017 Seasonal Influenza, Quadriva lent, No Preserve, IM 12/11/2015 Seasonal Influenza, Trivalen t, (IIV3), with Preserv, (Fluzone) 03/08/2013,03/07/2012,01/08/2011 TDAP (age 10 and older)(Boostrix) 09/24/2016 Zoster Vaccine Recombinant (Shingrix) 06/23/2023 documented as of this encounter Social History Tobacco Use Types Packs/Day Years Used Date Smoking Tobacco: Every Day Cigarettes Passive Smoke Exposure: Current Smokeless Tobacco: Never Alcohol Use Standard Drinks/Week Comments No 0 (1 standard drink = 0.6 oz pure alcohol) alcohol dependence// [place] 03/2010 no alcohol / Xanax since PHQ-2 Answer Date Recorded PHQ Adult Total Score 2 06/24/2023 Hunger Vital Sign Answer Date Recorded Within the past 12 months, y ou worried that your food would run out before you got the money to buy more. Never true 06/24/19 24 Within the past 12 months, t he food you bought just didn't last and you didn't have money to get more. Never true 06/24/2023 Childcare Answer Date Recorded Do you feel overwhelmed with taking care of a child, family member or friend? No 06/24/2023 Does your family need help f inding childcare? (Household - for ages 0-17 years) Not on file 06/24/2023 Clothing Answer Date Recorded Have you been unable to get clothing when it was really needed? No 06/24/2023 Is your family able to get c lothes or diapers when needed? (Household - for ages 0-17 years) Not on file 06/24/2023 Personal Safety Answer Date Recorded Do you feel unsafe or have concerns for your saf ety? No 06/24/2023 Do you have concerns for you r family's safety? (Household - for ages 0-17 years) Not on file 06/24/2023 Utilities Answer Date Recorded Do you have trouble paying y our heating, water, or electric bill? No 06/24/2023 Is your family able to pay t he heat, water, or electric bill? (Household - for ages 0-17 years) Not on file 06/24/2023 Does your family have access to good internet? (Household - for ages 0-17 years) Not on file 06/24/2023 Employment Status Answer Date Recorded Are you unemployed or without regular income? No 06/24/2023 Does the household have a re lar source of income? (Household - for ages 0-17 years) Not on file 06/24/2023 Social Connections Answer Date Recorded How often do you feel lonely or isolated from th ose around you? Never 06/24/2023 Financial Resource Strain Answer Date R ecorded Do you have any trouble payi ng for your medications, or do you think you might in the future? No 06/24/2023 Does your family have troubl e paying for medicine? (Household - for ages 0-17 years) Not on file 06/24/2023 Transportation Needs Answer Date Record ed READ ONLY Do you have troubl e getting a ride to medical visits or work? Never True 06/24/2023 Does your family have a hard time getting a ride to doctors visits? (Household - for ages 0-17 years) Not on file 06/24/2023 Has lack of transportation k ept you from medical appointments, meetings, work, or from getting things needed for daily living? Check all that apply. (Adult - for ages 18 years and over) Not on file 06/24/2023 Do you (or your family) have trouble finding or paying for a ride (transportation)? (Household - for ages 0-17 years) Not on file 06/24/2023 Housing Stability Answer Date Recorded Do you currently live in a s helter or have no steady place to sleep at night? No 06/24/2023 READ ONLY Do you think you a re at risk of becoming homeless? No 06/24/2023 Does your family worry about paying for your home or becoming homeless? (Household - for ages 0-17 years) Not on file 0 06/24/2023 Are you homeless or worried that you might be in the future? (Adult - for ages 18 years and over) Not on file Are you (or your family) yareli eless or worried that you might be in the future? (Household - for ages 0-17 years) Not on file Food Insecurity Answer Date Recorded Do you need food for this week? No 06/24/2023 Are you able to get enough f ood for your family? (Household - for ages 0-17 years) Not on file 06/24/2023 Does your family need food t his week? (Household - for ages 0-17 years) Not on file 06/24/2023 Do you always have enough fo od for your family? (Household - for ages 0-17 years) Not on file 06/24/2023 Sex and Gender Information Value Date Recorded Sex Assigned at Female 01/19/2023 10:44 AM EDT Gender Identity Female 01/19/2023 10:44 AM EDT Sexual Orientation Straight 08/06/2020 3: 51 PM EDT Job Start Date Occupation Industry Not on file Not on file Not on file documented as of this encounter Miscellaneous Notes * Telephone Encounter - Kathrin Chavez RPh - 12/09/2023 12:04 PM EDTSigned Prescriptions: Disp Refills Atorvastatin Calcium 20 MG Oral Tablet (Li*90 Tab*1 Sig: TAKE 1 TABLET BY MOUTH EVERY DAY IN THE MORNINGAuthorizing Provider: ALEXY CHOU User: KATHRIN CHAVEZ Losartan Potassium 25 MG Oral Tablet (Coza*90 Tab*1 Sig: TAKE 1 TABLET BY MOUTH EVERY DAY IN THE MORNINGAuthorizing Provider: ALEXY CHOU User: KATHRIN CHAVEZ documented in this encounter Plan of Treatment Upcoming Encounters Date Type Department Care Team (Latest Contact Info) Description 12/24/2023 1:15 PM EDT Immunization/Injec tion Hematology/Oncology Treatment, [place] [address] [facility], [place] [phone] Tereza, Chair 1 Hem On[address] [place] [address] 04/11/2024 2:15 PM EST Office Visit Hematology/Oncology [address] [place] [phone] Ray Avalos MD [address] [place] [address], [place] [address] 05/17/2024 1:00 PM EST Hospital Encounter ENDO OSS, Endoscopy Room [facility] [address] [place] [phone] Sid Price MD [address] [place] [address] 05/17/2024 1:00 PM EST - 05/17/2024 1:30 PM EST Surgery ENDO O[facility]C, Endoscopy Room [facility] [address] [place] [address] Sid Price MD [address] [place] [address] COLONOSCOPY FLEXIBLE PROXIMAL DIAGNOSTIC 05/29/2024 10:20 AM EST Office Visit [facility] [address] [place] [facility] [place] [phone] Alexy Chou MD [address] [facility] [place] [id number] Scheduled Procedures Name Priority Associated Diagnoses Date/Ti me COLONOSCOPY FLEXIBLE PROXIMAL DIAGNOSTIC Recall Special screening for malignant neoplasms, colon 05/17/2024 1:00 PM EST Health Maintenance Due Date Last Done Comments Pneumococcal Vaccine: Pediatrics (0 to 5 Years) and At-Risk Patients (6 to 64 Years) (1 of 2 - PCV) 08[birth year]27/1966 Cologuard 2006 Fecal Occult Blood Test 2006 Sigmoidoscopy 2006 Zoster Vaccines (2 of 2) 08/18/2023 06/23/2023 COVID-19 Vaccine ( - season) 2023 Influenza Vaccine (FLU shot) (#1) 2023 05/28/2023, 03/18/2022, 04/08/2020, Additional history exists Depression Monitoring 06/23/2024 06/24/2023 GFR 10/05/2024 10/06/2023, 10/29, 08/18/2021, Additional history exists Mammogram 10/20/2024 10/21/2023, 09/27, 10/12/2022, Additional history exists Albumin/Creatinine Ratio 05/26/2026 024, 04/17/2014, 06/07/2013, Additional history exists Pap Smear 07/28/2026 07/29/2023, 07/27, 10/13/2016, Additional history exists DTap/Tdap Vaccines (2 - Td or Tdap) 09/24/2026 09/24/2016 Diabetes Screening 10/05/2026 10/06/2023, 0 11/25/2022, 08/18/2021, Additional history exists Lipid Panel 05/26/2028 05/26/2023, 07/28, 03/26/2020, Additional history exists Cervical Cancer Screening 07/28/2028 HPV/Co-Test 07/28/2028 07/29/2023 Colonoscopy 12/07/2033 12/08/2023, 11/28, 12/16/2012, Additional history exists Colorectal Cancer Screening 12/07/2033 HPV (Gardasil) Vaccine Aged Out No lo nger eligible based on patient's age to complete this topic Hepatitis B Vaccine Aged Out No longe r eligible based on patient's age to complete this topic MENINGOCOCCAL (MENACTRA/MENVEO) Aged Out No longer eligible based on patient's age to complete this topic documented as of this encounter Medical Devices Not on filedocumented as of this encounter Visit Diagnoses Diagnosis Dyslipidemia, goal LDL below 100 Other and unspecified hyperlipidemia HTN, goal below 140/90 Unspecified essential hypertension Special screening for malignant neoplasms, colon documented in this encounter Advance Directives * Full Code (Latest Code Status on File) Date Activated Date Inactivated Comments 01/05/2023 1:16 PM 01/05/2023 7:45 PM This order reflects the patients wishes and were consensually agreed upon. Question Answer Comments Discussion of Advance Directives occurred with: Patient * Full Code Date Activated Date Inactivated Comments 12/15/2022 8:39 AM 12/15/2022 3:29 PM This order r eflects the patients wishes and were consensually agreed upon. Question Answer Comments Discussion of Advance Directives occurred with: Patient * Full Code Date Activated Date Inactivated Comments 09/15/2012 8:17 AM 09/15/2012 1:40 PM This order r eflects the patients wishes and were consensually agreed upon. Question Answer Comments Discussion of Advance Directives occurred with: Patient Does the patient have a Living Will? No Does the patient have Health Care Power of Attor daniela? No * Full Code Date Activated Date Inactivated Comments 09/15/2012 5:53 AM 09/15/2012 8:17 AM This order r eflects the patients wishes and were consensually agreed upon. * Full Code Date Activated Date Inactivated Comments 02/02/2012 4:27 PM 02/04/2012 3:52 PM This order r eflects the patients wishes and were consensually agreed upon. Healthcare Agents on File Name Relationship Healthcare Agent Relationshi p Communication Irwin Warren Spouse Health Care Repr esentative (appointed verbally by patient or by statute hierarchy) Care Teams Information Operator Relationship Specialty Start Date End Date Alexy Chou MD [address] [place] [phone] PCP - General Family Medicine 01/08/11 documented as of this encounter
--- OUTSIDE RECORDS SUMMARY | 2024-02-01 04:14 | External Medical Summary | Summary of Care ---
Author Name Unknown Organization [facility] Address [address] [facility] [place] [address] Phone [phone] Care Team Providers Care Federal Mediator Name Role Phone Chino Chou MD Primary Care Provider [phone] Reason for Visit * Reason Onset Date Comments Appointment 12/24/2023 NO SHOW 12/24/23 Encounter Details Date Type Department Care Team (Late st Contact Info) Description 12/24/2023 Telephone Hematology/Oncology [place] [facility] [address] [facility] [place] [address] Ray Avalos MD [address] [facility] [place] [address] Appointment (NO SHOW 12/24/23) Allergies Active Allergy Reactions Criticality Noted Date Comments Diphenhydramine Rash 01/22/2023 Codeine Psych complications 08/27/2010 Gets mean and itchy Wound Dressing Adhesive 12/30/2022 Patient got sores and it opened up and oozed. documented as of this encounter (statuses as of 12/24/2023) Medications Medication Sig Dispensed Refills Start Date [...] 05/06/2023 Active Anastrozole 1 MG Oral Tablet (Arimidex)Indication s:Neoplasm of right breast, primary tumor staging category [...] by mouth in the morning. Active Nystatin 106846 UNIT/GM External Powder (Nystop)Indications: Candidal intertrigo Apply topically to affected area 3 times a day. Apply to gluteal cleft 60 g 1 07/29/2023 Active Atorvastatin Calcium 20 MG Oral Tablet (Lipitor)Indications :Dyslipidemia, goal LDL below 100 TAKE 1 TABLET BY MOUTH EVERY DAY IN THE MORNING 90 Tablet 1 12/09/2023 Active Losartan Potassium 25 MG Oral Tablet (Cozaar)Indications: HTN, goal below 140/90 TAKE 1 TABLET BY MOUTH EVERY DAY IN THE MORNING 90 Tablet 1 12/09/2023 Active documented as of this encounter (statuses as of 12/24/2023) Active Problems Problem Noted Date Diagnosed Date [...] ICD-10 update of inactive term [facility] OTHER*[id number] 09/22/2005 Major depressive disorder 08/12/2004 Overview: ICD-10 update of inactive term documented as of this encounter (statuses as of 12/24/2023) Resolved Problems Problem Noted Date Diagnosed Date Resolved Date Psoriasis 03/18/2022 03/18/2022 Schizoaffective disorder 04/08/202003/2023 Alcohol dependence in remission 04/08/2020 03/18/2022 Iron deficiency anemia 09/13/201208/28 Localized adiposity 05/03/2012 08/29/19 HTN, GOAL BELOW 140/80 11/16/201107/03 Overview: Per [...] as of this encounter (statuses as of 12/24/2023) Immunizations Name Administration Dates Next Due Seasonal [...] = 0.6 oz pure alcohol) alcohol dependence// [place] 03/2010 no alcohol / Xanax since PHQ-2 [...] 06/24/2023 Does the household have a re gular source of income? (Household - for ages [...] encounter Miscellaneous Notes * Telephone Encounter - Nhi Montiel LPN - 12/24/2023 2:20 PM EDT Patient No Showed 12/23 for B12 injection. Please contact patient to be rescheduled. documented in this encounter Plan of Treatment Upcoming Encounters Date Type Department Care Team (Latest Contact Info) Description 01/21/2024 1:15 PM EDT Immunization/Injec tion Hematology/Oncology Treatment, [place] [address] [place] [phone] Tereza, Chair 1 [facility] [address] 04/11/2024 2:15 PM EST Office Visit Hematology/Oncology [facility] Tere[place] [address] [facility] [phone] Ray Avalos MD [address] [facility] [address] 05/17/2024 1:00 PM EST Hospital Encounter ENDO OSS, Endoscopy Room [facility] [address] [place] [phone] Sid Price MD [address] [place] [address] 05/17/2024 1:00 PM EST - 05/17/2024 1:30 PM EST Surgery ENDO O[facility]C, Endoscopy Room [facility] [address] [place] [phone] Sid Price MD [address] [place] [address] COLONOSCOPY FLEXIBLE PROXIMAL DIAGNOSTIC 05/29/2024 10:20 AM EST Office Visit [facility] [address] [place] [phone] Chino Chou MD [address] [place] [address] Scheduled Procedures Name Priority Associated Diagnoses Date/Ti [...] Not on filedocumented as of this encounter Advance Directives * Full Code [...] Relationship Healthcare Agent Relationshi p Communication Irwin Briana Spouse Health Care Repr esentative (appointed verbally by patient or by statute hierarchy) Care Teams Federal Mediator Relationship Specialty Start Date End Date Chino Chou MD [address] [place] [address] PCP - General Family Medicine 01/08/11 documented as of this encounter
--- OUTSIDE RECORDS SUMMARY | 2024-02-01 04:14 | External Medical Summary | Summary of Care ---
Author Name Unknown Organization [facility] Address [address] [facility] [place] [address] Phone [phone] Care Team Providers Care Jute Bag Clipper Name Role Phone Chino Chou MD Primary Care Provider [phone] Reason for Visit * Reason Onset Date Comments Appointment 12/24/2023 NO SHOW 12/24/23 Encounter Details Date Type Department Care Team (Late st Contact Info) Description 12/24/2023 Telephone Hematology/Oncology [facility] [place] [address] [facility] [place] [address] Ray Avalos MD 200 [facility] [place] [address] Appointment (NO SHOW 12/24/23) Allergies Active Allergy Reactions Criticality Noted Date Comments Diphenhydramine Rash 01/22/2023 Codeine Psych complications 08/27/2010 Gets mean and itchy Wound Dressing Adhesive 12/30/2022 Patient got sores and it opened up and oozed. documented as of this encounter (statuses as of 12/27/2023) Medications Medication Sig Dispensed Refills Start Date [...] by mouth in the morning. Active Nystatin [id number] UNIT/GM External Powder (Nystop)Indications: Candidal intertrigo Apply [...] as of this encounter (statuses as of 12/27/2023) Active Problems Problem Noted Date Diagnosed Date [...] ICD-10 update of inactive term [facility] OTHER*[id number] 09/22/2005 Major depressive disorder 08/12/2004 Overview: ICD-10 update of inactive term documented as of this encounter (statuses as of 12/27/2023) Resolved Problems Problem Noted Date Diagnosed Date [...] as of this encounter (statuses as of 12/27/2023) Immunizations Name Administration Dates Next Due Seasonal [...] = 0.6 oz pure alcohol) alcohol dependence// [place] 03/2010 no alcohol / Xanax since PHQ-2 [...] encounter Miscellaneous Notes * Telephone Encounter - Shavonne Duran OSA - 12/27/2023 9:15 AM EDT Apt is rescheduled and pt is aware * Telephone Encounter - Nhi Montiel LPN - 12/24/2023 2:20 PM EDT Patient No Showed 12/23 for B12 injection. Please contact patient to be rescheduled. documented in this encounter Plan of Treatment Upcoming Encounters Date Type Department Care Team (Latest Contact Info) Description 01/03/2024 12:00 PM EDT Immunization/Injec tion Hematology/Oncology Treatment, [place] [address] [place] [phone] Park, Chair [address] [place], [place] [address] 01/21/2024 1:15 PM EDT Immunization/Injec tion Hematology/Oncology Treatment, [place] [address] [facility], [place] [phone] Tereza, Chair 1 Hem Onc [facility] [address] [facility] [place], [place] [address] 04/11/2024 2:15 PM EST Office Visit Hematology/Oncology [address], [place] [phone] Ray Avalos MD [address] [facility], [place] [address] 05/17/2024 1:00 PM EST Hospital Encounter ENDO OSSC, Endoscopy Room [facility] [address] [place] [phone] Sid Price MD [address] [place] [address] 05/17/2024 1:00 PM EST - 05/17/2024 1:30 PM EST Surgery ENDO O[facility]C, Endoscopy Room [facility] [address] [place] [phone] Sid rPice MD [address] [place] [address] COLONOSCOPY FLEXIBLE PROXIMAL DIAGNOSTIC 05/29/2024 10:20 AM EST Office Visit [facility] [address] [place] [facility] [facility] [phone] Chino Chou MD [address] [place], [place] [phone] Scheduled Procedures Name Priority Associated Diagnoses Date/Ti [...] (2 of 2) 08/18/2023 06/23/2023 COVID-19 Vaccine (1 - season) 2023 Influenza Vaccine (FLU shot) (#1) 2023 05/28/2023, 03/18/2022, 04/08/2020, Additional history exists Depression Monitoring 06/23/2024 06/24/2023 GFR 10/05/2024 10/06/2023, /, 08/18/2021, Additional history exists Mammogram 10/20/2024 10/21/2023, [...] patient or by statute hierarchy) Care Teams Jute Bag Clipper Relationship Specialty Start Date End Date Chino Chou MD [address] [facility] [place] [place] [address] PCP - General Family Medicine 01/08/11 documented as of this encounter
--- OUTSIDE RECORDS SUMMARY | 2024-02-01 04:14 | External Medical Summary | Summary of Care ---
Author Name Unknown Organization [facility] Address [address] [place] [address] Phone [phone] Care Team Providers Care Energy Director Name Role Phone Chino Chou MD Primary Care Provider [phone] Reason for Visit * Reason Onset Date Comments Appointment 01/03/2024 Injection Encounter Details Date Type Department Care Team (Late st Contact Info) Description 01/03/2024 Telephone Hematology/Oncology Treatment, [place] [address] [place] [address] Services, Scheduling [address] [place] [address] Appointment (Injection ) Allergies Active Allergy Reactions Criticality Noted Date Comments Diphenhydramine Rash 01/22/2023 Codeine Psych complications 08/27/2010 Gets mean and itchy Wound Dressing Adhesive 12/30/2022 Patient got sores and it opened up and oozed. documented as of this encounter (statuses as of 01/04/2024) Medications Medication Sig Dispensed Refills Start Date [...] by mouth in the morning. Active Nystatin 800552 UNIT/GM External Powder (Nystop)Indications: Candidal intertrigo Apply [...] as of this encounter (statuses as of 01/04/2024) Active Problems Problem Noted Date Diagnosed Date [...] ICD-10 update of inactive term [facility] RESEARCH OTHER*[id number] 09/22/2005 Major depressive disorder 08/12/2004 Overview: ICD-10 update of inactive term documented as of this encounter (statuses as of 01/04/2024) Resolved Problems Problem Noted Date Diagnosed Date [...] as of this encounter (statuses as of 01/04/2024) Immunizations Name Administration Dates Next Due Seasonal Influenza Vac., MDV , IM, 0.5 mL (Fluzone) 03/08/2013,03/07/2012,01/08/2011 Seasonal Influenza, PF, 6 M & above, IM , (FluLaval or Fluzone) 05/28/2023,03/18/2022,04/08/2020,2017 Seasonal Influenza, Quadriva lent, No Preserve, IM 12/11/2015 TDAP (age 10 and older)(Boostrix) 09/24/2016 Zoster Vaccine Recombinant (Shingrix) 06/23/2023 documented as of this encounter Social History Tobacco Use Types Packs/Day Years Used Date Smoking Tobacco: Every Day Cigarettes Passive Smoke Exposure: Current Smokeless Tobacco: Never Alcohol Use Standard Drinks/Week Comments No 0 (1 standard drink = 0.6 oz pure alcohol) alcohol dependence// [place] 03/2010 no alcohol / Xanax since PHQ-2 [...] encounter Miscellaneous Notes * Telephone Encounter - Idalmis Damian OSA - 01/03/2024 9:46 AM EDT Patient calling in to r/s injection for today- she would like to know if there is any availability for Thursday 01/04. Per Shavonne Duran, patient can be added to sched for 1pm on 01/04. Pt accepted appt while on the line. documented in this encounter Plan of Treatment Upcoming Encounters Date Type Department Care Team (Latest Contact Info) Description 01/05/2024 1:00 PM EDT Immunization/Injec tion Hematology/Oncology Treatment, [place] [address] [place] [address] Tereza, Chair 4 [facility] [address] 01/21/2024 1:15 PM EDT Immunization/Injec tion Hematology/Oncology Treatment, [place] [address] [place] [phone] Tereza, Chair 1 Hem Onc Scene 200 [facility] [place] [address] 04/11/2024 2:15 PM EST Office Visit Hematology/Oncology [facility] [place] 200 [facility] [place] [phone] Ray Avalos MD 200 [facility] [place] [address] 05/17/2024 1:00 PM EST Hospital Encounter ENDO [facility], Endoscopy Room [facility] [address] [place] [phone] Sid Price MD [address] [place] [address] 05/17/2024 1:00 PM EST - 05/17/2024 1:30 PM EST Surgery ENDO [facility], Endoscopy Room [facility] [address] [place] [phone] Sid Price MD [address] [place] [address] COLONOSCOPY FLEXIBLE PROXIMAL DIAGNOSTIC 05/29/2024 10:20 AM EST Office Visit [facility] [address] [place] [facility] [place] [phone] Chino Chou MD [address] [place], [place] [phone] Scheduled Procedures Name Priority Associated Diagnoses Date/Ti [...] 07/28/2028 HPV/Co-Test 07/28/2028 07/29/2023 Colonoscopy 12/07/2033 12/08/2023, 11/27, 12/16/2012, Additional history exists Colorectal Cancer Screening [...] patient or by statute hierarchy) Care Teams Energy Director Relationship Specialty Start Date End Date Chino Chou MD [address] [place] [address] PCP - General Family Medicine 01/08/11 documented as of this encounter
--- OUTSIDE RECORDS SUMMARY | 2024-02-01 04:14 | External Medical Summary | Summary of Care ---
Author Name Unknown Organization [facility] Address [address] [place] [place] [address] Phone [phone] Care Team Providers Care Registered Dental Assistant Name Role Phone Chino Chou MD Primary Care Provider [phone] Reason for Visit * Reason Comments Medication Administration Vitamin B12 1, 000mcg Encounter Details Date Type Department Care Team (Late st Contact Info) Description 01/06/2024 12:00 PM EDT Immunization/I njection Hematology/Oncology Treatment, [address] [address] Tereza, Chair 4 Hem On[address] [address] B12 deficiency*; H/O bariatric surgery Allergies Active Allergy Reactions Criticality Noted Date Comments Diphenhydramine Rash 01/22/2023 Codeine Psych complications 08/27/2010 Gets mean and itchy Wound Dressing Adhesive 12/30/2022 Patient got sores and it opened up and oozed. documented as of this encounter (statuses as of 01/06/2024) Medications Medication Sig Dispensed Refills Start Date [...] by mouth in the morning. Active Nystatin [id number] UNIT/GM External Powder (Nystop)Indications: Candidal intertrigo Apply [...] as of this encounter (statuses as of 01/06/2024) Active Problems Problem Noted Date Diagnosed Date [...] ICD-10 update of inactive term [facility] RESEARCH OTHER*[id number] 09/22/2005 Major depressive disorder 08/12/2004 Overview: ICD-10 update of inactive term documented as of this encounter (statuses as of 01/06/2024) Resolved Problems Problem Noted Date Diagnosed Date [...] as of this encounter (statuses as of 01/06/2024) Immunizations Name Administration Dates Next Due Seasonal [...] = 0.6 oz pure alcohol) alcohol dependence// [place] 03/2010 no alcohol / Xanax since PHQ-2 [...] on file documented as of this encounter Nursing Notes * Nhi Montiel LPN - 01/06/2024 12:13 PM EDT Vitamin B12 1,000mcg administered IM into the right upper extremity per standing order. Patient tolerated injection and will return in 2 weeks. documented in this encounter Plan of Treatment Upcoming Encounters Date Type Department Care Team (Latest Contact Info) Description 01/21/2024 1:15 PM EDT Immunization/Injec tion Hematology/Oncology Treatment, [place] [address] [place] [phone] Tereza, Chair 1 Hem Onc [facility] [address] 04/11/2024 2:15 PM EST Office Visit Hematology/Oncology [facility] Tereza [place] 200 [facility] [place] [place] [address] Ray Avalos MD 200 [facility] [place] [address] 05/17/2024 1:00 PM EST Hospital Encounter ENDO [facility], Endoscopy Room [facility] [address] [place] [phone] Sid Price MD [address] [place] [address] 05/17/2024 1:00 PM EST - 05/17/2024 1:30 PM EST Surgery ENDO [facility], Endoscopy Room [facility] [address] [place] [phone] Sid Price MD [address] [place] [address] COLONOSCOPY FLEXIBLE PROXIMAL DIAGNOSTIC 05/29/2024 10:20 AM EST Office Visit [facility] [address] [place] [phone] Chino Chou MD [address] [place] [address] Scheduled Procedures Name Priority Associated Diagnoses Date/Ti [...] as of this encounter Visit Diagnoses Diagnosis B12 deficiency- Primary Other B-complex deficiencies H/O bariatric surgery Bariatric surgery status Special screening for malignant neoplasms, colon documented in this encounter Administered Medications Inactive Administered Medications - up to 3 most recent administrations Medication Order MAR Action Action Date Dose Rate Site Vitamin B-12 (Cyanocobalamin) inj 1,000 mcg 1,000 mcg, Intramuscular, ONCE, On Pam 01/06/24 at 1300, For 1 dose Given 01/06/2024 12:11 PM EDT 1,000 mcg Deltoid Right Upper documented in this encounter Advance Directives * [...] patient or by statute hierarchy) Care Teams Registered Dental Assistant Relationship Specialty Start Date End Date Chino Chou MD [address] [place] [address] PCP - General Family Medicine 01/08/11 documented as of this encounter
--- OUTSIDE RECORDS SUMMARY | 2024-02-01 04:14 | External Medical Summary | Summary of Care ---
Author Name Unknown Organization [facility] Address [address] [place] [place] [facility] [place] [address] Phone [phone] Care Team Providers Care Civil Manager Name Role Phone Chino Chou MD Primary Care Provider [phone] Reason for Visit * Reason Onset Date Comments Advice 01/18/2024 Robbie Encounter Details Date Type Department Care Team (Late st Contact Info) Description 01/18/2024 Telephone Hematology/Oncology [facility] [place] [address] [facility] [place] [address] Ray Avalos MD [address] [facility] [place] [address] Advice (Robbie/) Allergies Active Allergy Reactions Criticality Noted Date Comments Diphenhydramine Rash 01/22/2023 Codeine Psych complications 08/27/2010 Gets mean and itchy Wound Dressing Adhesive 12/30/2022 Patient got sores and it opened up and oozed. documented as of this encounter (statuses as of 01/18/2024) Medications Medication Sig Dispensed Refills Start Date [...] by mouth in the morning. Active Nystatin 363804 UNIT/GM External Powder (Nystop)Indications: Candidal intertrigo Apply [...] as of this encounter (statuses as of 01/18/2024) Active Problems Problem Noted Date Diagnosed Date [...] ICD-10 update of inactive term EDMON[facility] RESEARCH OTHER*[id number] 09/22/2005 Major depressive disorder 08/12/2004 Overview: ICD-10 update of inactive term documented as of this encounter (statuses as of 01/18/2024) Resolved Problems Problem Noted Date Diagnosed Date [...] as of this encounter (statuses as of 01/18/2024) Immunizations Name Administration Dates Next Due Seasonal [...] = 0.6 oz pure alcohol) alcohol dependence// [place] 03/2010 no alcohol / Xanax since PHQ-2 [...] encounter Miscellaneous Notes * Telephone Encounter - Griselda Hu RN - 01/18/2024 11:21 AM EDT This is to be monthly, since she received this 01/05 she will be due for next injection 02/02. * Telephone Encounter - Tressa Gudino OSA - 01/18/2024 11:04 AM EDT Patient had b12 shot 01-05, she is scheduled for 01-20. She thought she was to get them monthly butnursing note says return in 2 weeks Please call her back to clarify documented in this encounter Plan of Treatment Upcoming Encounters Date Type Department Care Team (Latest Contact Info) Description 01/21/2024 1:15 PM EDT Immunization/Injec tion Hematology/Oncology Treatment, [place] [address] [place], [place] [address] Tereza, Chair 1 Hem Onc [facility] 200 [facility] [place] [address] 04/11/2024 2:15 PM EST Office Visit Hematology/Oncology [facility] [place] [address] [facility] [place] [phone] Ray Avalos MD [address] [facility] [place] [address] 05/17/2024 1:00 PM EST Hospital Encounter ENDO [facility], Endoscopy Room [facility] [address] [place] [phone] Sid Price MD [address] [place] [address] 05/17/2024 1:00 PM EST - 05/17/2024 1:30 PM EST Surgery ENDO [facility], Endoscopy Room [facility] [address] [place] [phone] Sid Price MD [address] [place] [address] COLONOSCOPY FLEXIBLE PROXIMAL DIAGNOSTIC 05/29/2024 10:20 AM EST Office Visit [facility] [address] [place] [facility] [place] [phone] Chino Chou MD [address] [place] [address] Scheduled Procedures Name Priority Associated Diagnoses Date/Ti [...] patient or by statute hierarchy) Care Teams Civil Manager Relationship Specialty Start Date End Date Chino Chou MD [address] [place] [address] PCP - General Family Medicine 01/08/11 documented as of this encounter
--- OUTSIDE RECORDS SUMMARY | 2024-02-01 04:14 | External Medical Summary | Summary of Care ---
Author Name Unknown Organization [facility] Address [address] [facility] [place] [address] Phone [phone] Care Team Providers Care Associate Professor Of Literacy Name Role Phone Chino Chou MD Primary Care Provider [phone] Reason for Visit * Reason Onset Date Comments Colonoscopy 12/08/2023 Encounter Details Date Type Department Care Team (Late st Contact Info) Description 12/08/2023 Telephone Gastroenterology, [facility] [address] [place] [address] Sid Price MD [address] [place] [address] Colonoscopy Allergies Active Allergy Reactions Criticality Noted Date [...] the morning. 90 Tablet 3 06/02/2023 Active Atorvastatin Calcium 20 MG Oral Tablet (Lipitor)Indications :Dyslipidemia, goal LDL below 100 TAKE 1 TABLET BY MOUTH EVERY DAY IN THE MORNING 90 Tablet 1 06/14/2023 Active lamoTRIgine 25 MG Oral Tablet (LaMICtal) Take 3 Tablets by mouth in the morning. Active buPROPion HCl ER (XL) 150 MG Oral Tablet Extended Release 24 Hour (Wellbutrin XL) Take 1 Tablet by mouth in the morning. Active Nystatin 172082 UNIT/GM External Powder (Nystop)Indications: Candidal intertrigo Apply topically to affected area 3 times a day. Apply to gluteal cleft 60 g 1 07/29/2023 Active Losartan Potassium 25 MG Oral Tablet (Cozaar)Indications: HTN, goal below 140/90 TAKE 1 TABLET BY MOUTH EVERY DAY IN THE MORNING 90 Tablet 09/03/2023 Active documented as of this encounter (statuses [...] ICD-10 update of inactive term EDMON[facility]ON RESEARCH OTHER*[id number] 09/22/2005 Major depressive disorder 08/12/2004 Overview: ICD-10 [...] = 0.6 oz pure alcohol) alcohol dependence// [place] 03/2010 no alcohol / Xanax since PHQ-2 [...] encounter Miscellaneous Notes * Telephone Encounter - Kristina Kan OSA - 12/09/2023 10:25 AM EDT Pt called and rescheduled with dr price on 05/17 * Telephone Encounter - Tressa Boss OSA - 12/08/2023 1:41 PM EDT Patient needs a repeat colonoscopy because her prep was bad. Provider does not matter. Case created. Left message for patient to return call to schedule. 12/08/2023 1:42 PM documented in this encounter Plan of Treatment Upcoming Encounters Date Type Department Care Team (Latest Contact Info) Description 12/24/2023 1:15 PM EDT Immunization/Injec tion Hematology/Oncology Treatment, [place] [address] [place] [phone] Tereza, Chair 1 Hem Onc Scene 200 [facility] [place] [address] 04/11/2024 2:15 PM EST Office Visit Hematology/Oncology [facility] [place] [address] [facility] [place] [phone] Ray Avalos MD [address] [facility] [place] [address] 05/17/2024 1:00 PM EST Hospital Encounter ENDO [facility], Endoscopy Room [facility] [address] [place] [phone] Sid Price MD [address] [place] [address] 05/17/2024 1:00 PM EST - 05/17/2024 1:30 PM EST Surgery ENDO O[facility], Endoscopy Room [facility] [address] [place] [phone] Sid Price MD [address] [place] [address] COLONOSCOPY FLEXIBLE PROXIMAL DIAGNOSTIC 05/29/2024 10:20 AM EST Office Visit [facility] [address] [place] [phone] Chino Chou MD [address] [place], [place] [phone] Scheduled Procedures Name Priority Associated Diagnoses Date/Ti [...] 5:53 AM 09/15/2012 8:17 AM This order reflects the patients wishes and were consensually agreed upon. * Full Code Date Activated Date Inactivated Comments 02/02/2012 4:27 PM 02/04/2012 3:52 PM This order r eflects the patients wishes and were consensually agreed upon. Healthcare Agents on File Name Relationship Healthcare Agent Relationshi p Communication Irwin Cedilloley Spouse Health Care Repr esentative (appointed verbally by patient or by statute hierarchy) Care Teams Associate Professor Of Literacy Relationship Specialty Start Date End Date Chino Chou MD [address] [place] [address] PCP - General Family Medicine 01/08/11 documented as of this encounter
--- OUTSIDE RECORDS SUMMARY | 2024-02-01 04:14 | External Medical Summary | Summary of Care ---
Author Name Unknown Organization [facility] Address [address] [place] [place] [address] Phone [phone] Care Team Providers Care Civil Engineer'S Aide Name Role Phone Chino Chou MD Primary Care Provider Reason for Visit * Reason Onset Date Comments Advice 01/18/2024 Robbie Encounter Details Date Type Department Care Team (Late st Contact Info) Description 01/18/2024 Telephone Hematology/Oncology [facility] [place] 200 [facility] [place] [phone] Ray Avalos MD [address] [facility] [place] [address] Advice (Robbie/) Allergies Active Allergy Reactions Criticality [...] by mouth in the morning. Active Nystatin [id number] UNIT/GM External Powder (Nystop)Indications: Candidal intertrigo Apply [...] ICD-10 update of inactive term EDMONDSON RESEARCH OTHER*[id number] 09/22/2005 Major depressive disorder 08/12/2004 Overview: ICD-10 [...] = 0.6 oz pure alcohol) alcohol dependence// [place] 03/2010 no alcohol / Xanax since PHQ-2 [...] encounter Miscellaneous Notes * Telephone Encounter - Guru Lott OSA - 01/18/2024 11:41 AM EDT Patient appt changed and she's aware * Telephone Encounter - Griselda Hu RN - 01/18/2024 11:21 AM EDT This is to be monthly, since she received this 01/05 she will be due for next injection 02/02. * Telephone Encounter - Tressa Gudino OSA - 01/18/2024 11:04 AM EDT Patient had b12 shot 10-10, she is scheduled for 10-25. She thought she was to get them monthly butnursing note says return in 2 weeks Please call her back to clarify documented in this encounter Plan of Treatment Upcoming Encounters Date Type Department Care Team (Latest Contact Info) Description 02/03/2024 1:15 PM EST Immunization/Injec tion Hematology/Oncology Treatment, [place] [address] [facility], [place] [phone] Tereza, Chair 1 Hem Onc [address] [place] [address] 04/11/2024 2:15 PM EST Office Visit Hematology/Oncology [address] [place] [phone] Ray [facility] [address] [facility] [address] 05/17/2024 1:00 PM EST Hospital Encounter ENDO [facility], Endoscopy Room [facility] [address] [place] [phone] Sid Price MD [address] [place] [address] 05/17/2024 1:00 PM EST - 05/17/2024 1:30 PM EST Surgery ENDO [facility], Endoscopy Room [facility] [address] [place] [address] Sid Price MD [address] [place] [address] COLONOSCOPY FLEXIBLE PROXIMAL DIAGNOSTIC 05/29/2024 10:20 AM EST Office Visit [facility] [address] [place] [facility] [place] [phone] Chino Chou MD [address] [facility], [place] [phone] Scheduled Procedures Name Priority Associated Diagnoses Date/Ti [...] or by statute hierarchy) Care Teams Civil Engineer'S Aide Relationship Specialty Start Date End Date Chino Chou MD [address] [place] [address] PCP - General Family Medicine 01/08/11 documented as of this encounter
--- OUTSIDE RECORDS SUMMARY | 2024-02-01 04:15 | External Medical Summary | Summary of Care ---
Author Name Unknown Organization [facility] Address [address] [place] [address] Phone [phone] Care Team Providers Care Automatic Lathe Operator Name Role Phone Chino Chou MD Primary Care Provider [phone] Reason for Visit * Reason Onset Date Comments MyCode Consent 10/21/2023 Encounter Details Date Type Department Care Team (Late st Contact Info) Description 10/21/2023 Orders Only Outcomes Research Department [address], [place] [id number] Raiza Cruz CHRA MyCode Research Other*[id number]* Allergies Active Allergy Reactions Criticality Noted Date Comments Diphenhydramine Rash 01/22/2023 Codeine Psych complications 08/27/2010 Gets mean and itchy Wound Dressing Adhesive 12/30/2022 Patient got sores and it opened up and oozed. documented as of this encounter (statuses as of 10/21/2023) Medications Medication Sig Dispensed Refills Start Date [...] by mouth in the morning. Active Nystatin [id number] UNIT/GM External Powder (Nystop)Indications: Candidal intertrigo Apply topically to affected area 3 times a day. Apply to gluteal cleft 60 g 1 07/29/2023 Active Losartan Potassium 25 MG Oral Tablet (Cozaar)Indications: HTN, goal below 140/90 TAKE 1 TABLET BY MOUTH EVERY DAY IN THE MORNING 90 Tablet 09/03/2023 Active documented as of this encounter (statuses as of 10/21/2023) Active Problems Problem Noted Date Diagnosed Date [...] ICD-10 update of inactive term [facility] OTHER*[id number] 09/22/2005 Major depressive disorder 08/12/2004 Overview: ICD-10 update of inactive term documented as of this encounter (statuses as of 10/21/2023) Resolved Problems Problem Noted Date Diagnosed Date [...] as of this encounter (statuses as of 10/21/2023) Immunizations Name Administration Dates Next Due Seasonal Influenza, PF, 6 M & above, IM , (FluLaval or Fluzone) 05/28/2023,03/18/2022,04/08/2020,2017 Seasonal Influenza, Quadriva lent, No Preserve, IM 12/11/2015 Seasonal Influenza, Split, I IV3, With Preserve, Inj 03/08/2013,03/07/2012,01/08/2011 TDAP (age 10 and older)(Boostrix) 09/24/2016 Zoster Vaccine Recombinant (Shingrix) 06/23/2023 documented as of this encounter Social History Tobacco Use Types Packs/Day Years Used Date Smoking Tobacco: Every Day Cigarettes Passive Smoke Exposure: Current Smokeless Tobacco: Never Alcohol Use Standard Drinks/Week Comments No 0 (1 standard drink = 0.6 oz pure alcohol) alcohol dependence// [place] 03/2010 no alcohol / Xanax since PHQ-2 [...] on file documented as of this encounter Progress Notes * Raiza Cruz CHRA - 10/21/2023 10:[address] [facility] Consent Documentation Radha Nunn Briana provided consent/authorization to participate in the [employer]. documented in this encounter Plan of Treatment Upcoming Encounters Date Type Department Care Team (Latest Contact Info) Description 10/21/2023 11:00 AM EDT Immunization/Injec tion Hematology/Oncology Treatment, [place] [address] [place] [address] [place], Chair 2 Hem Onc [facility] [address] 11/10/2023 1:00 PM EDT Office Visit General Surgery, [facility] [address] [place] [phone] Kebly Townsend MD [address] [place] [address] 11/18/2023 11:30 AM EDT Immunization/Injec tion Hematology/Oncology Treatment, [place] [address] [facility], [place] [phone] Tereza, Chair 2 Hem Onc [facility] [address] [facility] [place], [place] [address] 12/08/2023 11:45 AM EDT Hospital Encounter ENDO [facility], Endoscopy Room [facility] [address] [place] [phone] Sid Price MD [address] [place] [address] 12/08/2023 11:45 AM EDT - 12/08/2023 12:15 PM EDT Surgery ENDO [facility], Endoscopy Room [facility] [address] [place] [phone] Sid Price MD [address] [place] [address] COLONOSCOPY FLEXIBLE PROXIMAL DIAGNOSTIC 04/11/2024 2:15 PM EST Office Visit Hematology/Oncology [facility] [address] [place], [place] [phone] Ray Avalos MD [address] [facility] [place], [place] [address] 05/29/2024 10:20 AM EST Office [facility] [address] [facility] [phone] Chino [facility] [address] [facility] [phone] Scheduled Orders Name Type Priority Associated Diagnoses Orde r Schedule MYCODE INITIAL ADULT Lab Routine MyCode Research Other*[id number] Expected: 10/21/2023 (Approximate), Expires: 11/09/2024 Scheduled Procedures Name Priority Associated Diagnoses Date/Ti me COLONOSCOPY FLEXIBLE PROXIMAL DIAGNOSTIC Recall Special screening for malignant neoplasms, colon 12/08/2023 11:45 AM EDT Health Maintenance Due Date Last Done Comments Pneumococcal Vaccine: Pediatrics (0 to 5 Years) and At-Risk Patients (6 to 64 Years) (1 of 2 - PCV) 08/27/1966 Cologuard 2006 Fecal Occult Blood Test 2006 Sigmoidoscopy 2006 COVID-19 Vaccine (1 - 2022-24 season) 2022 Colonoscopy 12/16/2022 12/16/2012, 11/28, 12/13/2012, Additional history exists Colorectal Cancer Screening 12/16/2022 Zoster Vaccines (2 of 2) 08/18/2023 06/23/2023 Mammogram 10/13/2023 10/12/2022, 09/26, 09/21/2022, Additional history exists Influenza Vaccine (FLU shot) (#1) 2023 05/28/2023, 03/18/2022, 04/08/2020, Additional history exists Depression Monitoring 06/23/2024 06/24/2023 GFR 10/05/2024 10/06/2023, 10/29, 08/18/2021, Additional history exists Albumin/Creatinine Ratio 05/26/2026 024, 04/17/2014, 06/07/2013, Additional history exists Pap Smear 07/28/2026 07/29/2023, 07/27, 10/13/2016, Additional history exists DTaP,Tdap,and Td Vaccines (2 - Td or Tdap) 09/24/2026 09/24/2016 Diabetes Screening 10/05/2026 10/06/2023, 0 11/25/2022, 08/18/2021, Additional history exists Lipid Panel 05/26/2028 05/26/2023, 07/28, 03/26/2020, Additional history exists Cervical Cancer Screening 07/28/2028 HPV/Co-Test 07/28/2028 07/29/2023 HPV (Gardasil) Vaccine Aged Out No lo [...] as of this encounter Visit Diagnoses Diagnosis MyCode Research Other*[id number]- Primary Special screening for malignant neoplasms, colon documented [...] patient or by statute hierarchy) Care Teams Automatic Lathe Operator Relationship Specialty Start Date End Date Chino Chou MD [address] [place] [address] PCP - General Family Medicine 01/08/11 documented as of this encounter
--- OUTSIDE RECORDS SUMMARY | 2024-02-01 04:15 | External Medical Summary | Summary of Care ---
Author Name Unknown Organization [facility] Address [address] [place] [address] Phone [phone] Care Team Providers Care Printing Roller Handler Name Role Phone Chino Chou MD Primary Care Provider [phone] Reason for Visit * Reason Comments Medication Administration Vitamin B12 Encounter Details Date Type Department Care Team (Late st Contact Info) Description 10/21/2023 11:00 AM EDT Immunization/I njection Hematology/Oncology Treatment, [address] [phone] Tereza, Chair 2 Hem Onc [facility] [address] [place] [address] B12 deficiency*; H/O bariatric surgery Allergies Active [...] by mouth in the morning. Active Nystatin [id number] UNIT/GM External Powder (Nystop)Indications: Candidal intertrigo Apply [...] ICD-10 update of inactive term [facility] OTHER*[id number] 09/22/2005 Major depressive disorder 08/12/2004 Overview: ICD-10 [...] = 0.6 oz pure alcohol) alcohol dependence// [place] 03/2010 no alcohol / Xanax since PHQ-2 [...] No 06/24/2023 Does the household have a [facility] source of income? (Household - for ages [...] as of this encounter Nursing Notes * Lisa Hurtado LPN - 10/21/2023 1:27 PM EDT Note continued- Administered in L deltoid. Pt tolerated well. To return in 4 weeks. Discharged in stable condition. * Lisa Hurtado LPN - 10/21/2023 12:49 PM EDT 1100: Pt arrived for Vitamin B12 injection. Administered in L deltoid. documented in this encounter Plan of Treatment Upcoming Encounters Date Type Department Care Team (Latest Contact Info) Description 11/10/2023 1:00 PM EDT Office Visit General Surgery, [facility] [address] [place] [address] Kelby Townsend MD [address] [place] [address] 11/18/2023 11:30 AM EDT Immunization/Injec tion Hematology/Oncology Treatment, [place] [address] [facility], [place] [phone] Tereza, Chair 2 Hem On[address] [place], [place] [address] 12/08/2023 11:45 AM EDT Hospital Encounter ENDO [facility], Endoscopy Room [facility] [address] [place] [phone] Sid Price MD [address] [place] [address] 12/08/2023 11:45 AM EDT - 12/08/2023 12:15 PM EDT Surgery ENDO O[facility], Endoscopy Room [facility] [address] [place] [phone] Sid Price MD [address] [place] [address] COLONOSCOPY FLEXIBLE PROXIMAL DIAGNOSTIC 04/11/2024 2:15 PM EST Office Visit Hematology/Oncology [address] [place], [place] [phone] Ray Avalos MD [address] [facility] [place] [address] 05/29/2024 10:20 AM EST Office Visit [facility] [address] [place] [facility] [place] [facility] [phone] Chino Chou MD [address] [place], [place] [phone] Scheduled Procedures Name Priority Associated Diagnoses Date/Ti me COLONOSCOPY FLEXIBLE PROXIMAL DIAGNOSTIC Recall Special screening for malignant neoplasms, colon 12/08/2023 11:45 AM EDT Health Maintenance Due Date Last Done Comments Pneumococcal Vaccine: Pediatrics (0 to 5 Years) and At-Risk Patients (6 to 64 Years) (1 of 2 - PCV) 08/27/1966 Cologuard 2006 Fecal Occult Blood Test 2006 Sigmoidoscopy 2006 COVID-19 Vaccine ( - season) 2022 Colonoscopy 12/16/2022 12/16/2012, 11/28, 12/13/2012, Additional history exists Colorectal Cancer Screening 12/16/2022 Zoster Vaccines (2 of 2) 08/18/2023 06/23/2023 Influenza Vaccine (FLU shot) (#1) 2023 05/28/2023, 03/18/2022, 04/08/2020, Additional history exists Depression Monitoring 06/23/2024 06/24/2023 GFR 10/05/2024 10/06/2023, /, 08/18/2021, Additional history exists Mammogram 10/20/2024 10/21/2023, 09/26, 10/12/2022, Additional history exists Albumin/Creatinine Ratio 05/26/2026 [...] MAR Action Action Date Dose Rate Site vitamin b-12 (Cyanocobalamin) inj 1,000 mcg 1,000 mcg, Intramuscular, ONCE, On Pam 10/21/23 at 1200, For 1 dose Given 10/21/2023 11:15 AM EDT 1,000 mcg Deltoid Left Upper documented in this encounter Advance Directives [...] Agents on File Name Relationship Healthcare Agent [facility] p Communication Irwin Warren Spouse Health Care Repr esentative (appointed verbally by patient or by statute hierarchy) Care Teams Printing Roller Handler Relationship Specialty Start Date End Date Chino Chou MD [address] [place] [address] PCP - General Family Medicine 01/08/11 documented as of this encounter
--- OUTSIDE RECORDS SUMMARY | 2024-02-01 04:15 | External Medical Summary | Summary of Care ---
Author Name Unknown Organization [facility] Address [address] [facility] [place] [address] Phone [phone] Care Team Providers Care Steel Fixer Name Role Phone Chino Chou MD Primary Care Provider [phone] Reason for Visit * Reason Comments Follow Up Right breat DCIS. 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 documented as of this encounter (statuses as of 11/10/2023) Medications Medication Sig Dispensed Refills Start Date [...] by mouth in the morning. Active Nystatin 547648 UNIT/GM External Powder (Nystop)Indications: Candidal intertrigo Apply topically to affected area 3 times a day. Apply to gluteal cleft 60 g 1 07/29/2023 Active Losartan Potassium 25 MG Oral Tablet (Cozaar)Indications: HTN, goal below 140/90 TAKE 1 TABLET BY MOUTH EVERY DAY IN THE MORNING 90 Tablet 09/03/2023 Active documented as of this encounter (statuses as of 11/10/2023) Active Problems Problem Noted Date Diagnosed Date [...] ICD-10 update of inactive term [facility]EARCH OTHER*[id number] 09/22/2005 Major depressive disorder 08/12/2004 Overview: ICD-10 update of inactive term documented as of this encounter (statuses as of 11/10/2023) Resolved Problems Problem Noted Date Diagnosed Date [...] as of this encounter (statuses as of 11/10/2023) Immunizations Name Administration Dates Next Due Seasonal [...] = 0.6 oz pure alcohol) alcohol dependence// [place] 03/2010 no alcohol / Xanax since PHQ-2 [...] on file documented as of this encounter Last Filed Vital Signs Vital Sign Reading Time Taken Comments Blood Pressure 137/61 11/10/2023 1:00 PM EDT Pulse 82 11/10/2023 1:00 PM EDT Temperature - - Respiratory Rate - - Oxygen Saturation - - Inhaled Oxygen Concentration - - Weight 99.9 kg (220 lb 3.2 oz) 11/10/2023 1:00 P M EDT Height - - Body Mass Index 37.8 08/05/2023 10:12 AM EDT documented in this encounter Progress Notes * Kelby Townsend MD - 11/10/2023 2:01 PM EDT Images from the original note were not included. SUBJECTIVE: Radha Warren is a 63 year old female with a history of breast cancer. She is now 1 years following a right partial mastectomy for an intermediate grade non-invasive ductal carcinoma. Her primarytumor was estrogen receptor and progesterone receptor positive. She required a 2nd operation for reexcision of a positive margin. On the 2nd operation, all of the margins were negative. She did receive right breast radiation. She did not receive right jannet radiation. She did not receive adjuvant chemotherapy. She does perform self-breast examination. She has noticed no change in her self breast examination.She has noticed no discharge from either nipple. She has had no new bone or joint symptoms. She hashad no new respiratory symptoms. She denies any severe headaches, weight loss, or unusual fatigue. Patient complains of nothing. Past Medical History: Diagnosis Date Breast cancer (HCC) 2022 Right Breast DCIS Hyperlipemia No significant past medical history Past Surgical History: Procedure Laterality Date BREAST LESION,OTHER,EXCISION Right 01/05/2023 EXCISION OF CYST OR TUMOR BREAST performed by Kelby Townsend MD at OR [facility] COLONOSCOPY, DIAGNOSTIC (RECTUM) 12/13/2012 COLONOSCOPY FLEXIBLE PROXIMAL DIAGNOSTIC performed by Sid Price MD at ENDOSCOPY [facility] COLONOSCOPY, DIAGNOSTIC (RECTUM) 12/16/2012 COLONOSCOPY FLEXIBLE PROXIMAL DIAGNOSTIC performed by Sid Price MD at ENDOSCOPY [facility] EGD, FLEXIBLE, DIAGNOSTIC 08/27/2010 UPPER GI ENDOSCOPY DIAGNOSTIC performed by ILSSETH GARCÍA III at [facility] EGD, FLEXIBLE, DIAGNOSTIC 09/15/2012 UPPER GI ENDOSCOPY DIAGNOSTIC performed by Lisseth García III, MD at [facility] EGD, FLEXIBLE, TRANSENDOSCOPIC DILATION <30MM 09/15/2012 UPPER GI ENDOSCOPY BALLOON DILATION LESS THAN 30MM performed by Lisseth García III, MD at [facility] EX OF EXCES SKIN,ABDOM 02/02/2012 EXCISION EXCESSIVE SKIN AND SUBCUTANEOUS TISSUE INCLUDING LIPECTOMY ABDOMEN ABDOMINOPLASTY performed by Damon Sanabria MD at OR [facility] EXC BREAST LESION RADMARK Right 12/15/2022 EXCISION OF BREAST LESION RADIOLOGICAL MARKER performed by Kelby Townsend MD at [facility] EXCISION EXCES SKIN,PANNICULECTOMY,INFRAUMB 02/02/2012 EXCISION EXCESSIVE SKIN AND SUBCUTANEOUS TISSUE INCLUDIING LIPECTOMY ABDOMEN INFRAUMBILICAL PANNICULECTOMY performed by Damon Sanabria MD at [facility] HYSTEROSCOPY;ENDOMETRIAL ABLAT 05/07/2011 LIGATE/CUT OVIDUCT(S) AT SURGERY 11/27/2009 MAMMOGRAM BREAST NEEDLE BIOPSY CORE RIGHT Right 10/26/2022 DCIS MASTECTOMY, PARTIAL Right 12/15/2022 MASTECTOMY PARTIAL performed by Kelby Townsend MD at OR [facility] MISCELLANEOUS ORDER ([facility] ONLY) 03/29/2005 gastric bypass RADIATION THERAPY 04/20/2023 Completed therapy on 04/20/2023 (5130 cgy) US GUIDED BREAST BIOPSY LEFT Left 10/26/2022 Benign Current Outpatient Medications Medication Sig Dispense Refill Sertraline HCl 100 MG Oral Tablet (Zoloft) TAKE 2 TABLETS IN THE MORNING Topiramate 100 MG Oral Tablet (topAMAX) Take 1 Tablet by mouth in the morning. Acetaminophen 500 MG Oral Tablet Take 2 Tablets by mouth every 6 hours as needed. lamoTRIgine 100 MG Oral Tablet (LaMICtal) Take 1 Tablet by mouth in the morning. chlorproMAZINE HCl 100 MG Oral Tablet (Thorazine) TAKE 1 TABLET BY MOUTH EVERYDAY AT BEDTIME chlorproMAZINE HCl 25 MG Oral Tablet (Thorazine) TAKE 1 TABLET BY MOUTH EVERYDAY AT BEDTIME Anastrozole 1 MG Oral Tablet (Arimidex) Take 1 Tablet by mouth in the morning. 90 Tablet 3 Atorvastatin Calcium 20 MG Oral Tablet (Lipitor) TAKE 1 TABLET BY MOUTH EVERY DAY IN THE MORNING 90Tablet 1 lamoTRIgine 25 MG Oral Tablet (LaMICtal) Take 3 Tablets by mouth in the morning. buPROPion HCl ER (XL) 150 MG Oral Tablet Extended Release 24 Hour (Wellbutrin XL) Take 1 Tablet by mouth in the morning. Nystatin 157326 UNIT/GM External Powder (Nystop) Apply topically to affected area 3 times a day. Apply to gluteal cleft 60 g 1 Losartan Potassium 25 MG Oral Tablet (Cozaar) TAKE 1 TABLET BY MOUTH EVERY DAY IN THE MORNING 90 Tablet 0 No current facility-administered medications for this visit. Allergies as of 11/10/2023 - Reviewed 11/10/2023 Allergen Reaction Noted Benadryl [diphenhydramine] Rash 01/22/2023 Codeine Psych complications 08/27/2010 Pedi-pre tape spray [wound dressing adhesive] 12/30/2022 Social History Socioeconomic History Marital status: Spouse name: Not on file Number of children: 1 Years of education: Not on file Highest education level: Not on file Occupational History Comment: Disability for mental ealth reasons Tobacco Use Smoking status: Every Day Current packs/day: 0.50 Types: Cigarettes Passive exposure: Current Smokeless tobacco: Never Vaping Use Vaping status: Not on file Substance and Sexual Activity Alcohol use: No Comment: alcohol dependence// [place] 03/2010 no alcohol / Xanax since Drug use: No Sexual activity: Yes Partners: Male control/protection: Surgical Comment: tubal Other Topics Concern Not on file Social History Narrative Not on file Social Determinants of Health Financial Resource Strain: Low Risk (06/24/2023) Financial Resource Strain Do you have any trouble paying for your medications, or do you think you might in the future? (Adult - for ages 18 years and over): No Does your family have trouble paying for medicine? (Household - for ages 0-17 years): Not on file Food Insecurity: No Food Insecurity (06/24/2023) Food Insecurity Do you need food for this week? (Adult - for ages 18 years and over): No Are you able to get enough food for your family? (Household - for ages 0-17 years): Not on file Does your family need food this week? (Household - for ages 0-17 years): Not on file Do you always have enough food for your family? (Household - for ages 0-17 years): Not on file Transportation Needs: No Transportation Needs (06/24/2023) Transportation Needs Do you have trouble getting a ride to medical visits or work? (Adult - for ages 18 years and over):Never True Does your family have a hard time getting a ride to doctors visits? (Household - for ages 0-17 years): Not on file Has lack of transportation kept you from medical appointments, meetings, work, or from getting things needed for daily living? Check all that apply. (Adult - for ages 18 years and over): Not on file Do you (or your family) have trouble finding or paying for a ride (transportation)? (Household - for ages 0-17 years): Not on file Social Connections: Socially Integrated (06/24/2023) Social Connections How often do you feel lonely or isolated from those around you? (Adult - for ages 18 years and over): Never Housing Stability: Low Risk (06/24/2023) Housing Stability Do you currently live in a usp or have no steady place to sleep at night? (Adult - for ages 18 years and over): No Do you think you are at risk of becoming homeless? (Adult - for ages 18 years and over): No Does your family worry about paying for your home or becoming homeless? (Household - for ages 0-17 years): Not on file Are you homeless or worried that you might be in the future? (Adult - for ages 18 years and over): Not on file Are you (or your family) homeless or worried that you might be in the future? (Household - for ages0-17 years): Not on file Family History Problem Relation Name Age of Onset Lung Disorder Mother COPD Heart Disorder Mother mitral valve Cancer Father bladder CA Cancer Sister cervical Hypertension Sister Obesity Sister Hypertension Brother Breast Cancer Aunt (Maternal) ROS: GEN: no weight loss, fever, fatigue HEENT: no changes in vision or hearing, no sinus problems, no sore throat, no hoarseness RESPIRATORY: no cough, wheezing, SOB or change in breathing CARDIOVASCULAR: no exertional chest pain, dyspnea, palpitations GI: no melena, hemetemesis, no vomiting or diarrhea : no dysuria, hematuria, frequency MUSCULOSKELETAL: no change in joint pains, no new arthritis PSYCHIATRIC: no significant anxiety or depression, unchanged sleep pattern HEME: no bleeding tendency, no clotting tendency NEURO: no significant headache, no seizures , no tremors SKIN: no new rashes, no itching PHYSICAL EXAM Constitutional: alert, healthy, no distress, well nourished, and well developed BP 137/61 | Pulse 82 | Wt 99.9 kg (220 lb 3.2 oz) | LMP 05/03/2013 | BMI 37.80 kg/m | BSA 2.12 m Constitutional: alert, healthy, well nourished Head: normocephalic, atraumatic Eyes: conjunctiva non-injected, sclera white Neck: supple, no adenopathy Lungs: clear to auscultation, breath sounds are equal and symmetric Heart: regular rate & rhythm and no murmur, gallops or rubs Abdomen: soft, non-tender Back: normal curvature, normal ROM, no CVA tenderness Extremities: no edema, no skin discoloration Neuro: alert, gait normal, motor normal Skin: no obvious rashes or significant lesions RIGHT BREAST: The breasts are symmetrical without skin or nipple changes with the exception of post-surgical and post-radiation changes. There are no dominant masses. There are no localized areas of asymmetrical nodularity or thickening. There is a healed partial mastectomy on the right with mild post-radiation change. There is no regional adenopathy in the supraclavicular or axillary areas. No evidence of mass, skin retraction, nipple inversion, Pagets, peau d'orange, arm edema, nipple discharge, palpable axillary adenopathy, or palpable supraclavicular adenopathy. COSMETIC OUTCOME: Good LEFT BREAST: The breast is without skin or nipple changes. There are no dominant masses. There are no localized areas of asymmetrical nodularity or thickening. There is no regional adenopathy in the supraclavicular or axillary areas. No evidence of mass, skin retraction, nipple inversion, Pagets, peau d'orange, arm edema, nipple discharge, palpable axillary adenopathy, or palpable supraclavicularadenopathy. COSMETIC OUTCOME (if applicable): N/A BREAST IMAGING: Assessment Overall Left Right 2 - Benign 2 - Benign 2 - Benign Breast Density Overall Left Right Breast Composition b - Scattered fibroglandular density b - Scattered fibroglandular density b - Scattered fibroglandular density Details Reading Physician Reading Date Result Priority Prerna Beaulieu MD [phone] 10/21/2023 Routine Physician Responsible for MQSA Outcome Reason Prerna Beaulieu MD Signed Narrative & Impression Result MAMMOGRAM DIAGNOSTIC SONIA BILATERAL History Neoplasm of right breast, primary tumor staging category tis: ductal carcinoma in situ (dcis) Visit for screening mammogram Family medical history includes breast cancer in aunt (maternal). Films Compared 10/26/2022 MAMMOGRAM POST BIOPSY CLIP PLACEMENT, 10/26/2022 MAMMOGRAM BREAST NEEDLE BIOPSY CORE RIGHT, 10/12/2022 MAMMOGRAM DIAGNOSTIC SONIA BILATERAL, 09/21/2022 MAMMOGRAM SCREENING SONIA BILATERAL, and 12/22/2016 MAMMOGRAM, SCREENING, BILAT Findings Left The left breast has scattered areas of fibroglandular density. There is a ribbon-shaped biopsy clip seen in the left breast site of benign US core biopsy 2022. The associated very low density oval circumscribed nodule is unchanged. Compared to the previous study, the clip is unchanged. There is no evidence of suspicious masses, calcifications, or other abnormal findings in the left breast. Right The right breast has scattered areas of fibroglandular density. There are post-surgical findings from a previous lumpectomy with radiation seen in the right breast. This is a new finding. This serves as new baseline post treatment. There has been no interval development of a suspicious mass, microcalcification, or architectural distortion. Impression Bilateral No mammographic evidence of malignancy. BI-RADS Category: 2 - Benign. Recommendation Screening mammogram in 1 year is recommended for the left breast. Diagnostic mammogram in 1 year is recommended for the right breast. Digital breast tomosynthesis was performed. This digital mammogram has been analyzed with the computer aided detection system. This notice contains the results of your recent mammogram, including information about breast density. If your mammogram shows that your breast tissue is dense, you should know that dense breast tissue is a common finding and is not abnormal. Statistics show many women could have dense or highly dense breasts. Dense breast tissue can make it harder to find cancer on a mammogram and may be associated with an increased risk of cancer. This information about the result of your mammogram is given to you to raise your awareness and to inform your conversations with your physician. Together, you can decide which screening options are right for you, based on your mammogram results, individual risk factors or physical examination. A report of your results was sent to your physician. Your mammographic breast density on today's study is described above. There are four categories of breast density on mammography. Fatty breasts and those with scattered fibroglandular tissue are not considered dense. Heterogeneously dense or extremely dense tissue is considered "dense". Please understand that assessment of breast density may vary from year to year. This examination was performed at [facility], [address] [place] [id number]. IMPRESSION: Radha Warren is now 1 years following right for a non-invasive ductal carcinoma. No evidence of disease. PLAN: Return to Breast Clinic in 1 years with a bilateral diagnostic mammogram. Continue monthly self examination. Contact the physician if there are any breast changes. FOLLOW UP: one year Kelby Townsend MD 11/10/2023 2:01 PM documented in this encounter Nursing Notes * Billy Contreras MED ASSIST - 11/10/2023 1:00 PM EDT Chief Complaint Patient presents with Follow Up Right breat DCIS. Verified patient. documented in this encounter Plan of Treatment Upcoming Encounters Date Type Department Care Team (Latest Contact Info) Description 11/18/2023 11:30 AM EDT Immunization/Injec tion [facility]ematology[facility] [place] [facility] [phone] Tereza, Chair 7 Hem Onc [facility] [address] [facility] [place] [address] 12/08/2023 11:45 AM EDT Hospital Encounter ENDO [facility], Endoscopy Room [facility] [address] [place] [phone] Sid Price MD [address] [place] [address] 12/08/2023 11:45 AM EDT - 12/08/2023 12:15 PM EDT Surgery ENDO [facility], Endoscopy Room [facility] [address] [place], [place] [phone] Sid Price MD [address] [place] [address] COLONOSCOPY FLEXIBLE PROXIMAL DIAGNOSTIC 04/11/2024 2:15 PM EST Office Visit Hematology/Oncology [facility] [place] [address] [facility] [place], [place] [phone] Ray Avalos MD [address] [facility] [place] [address] 05/29/2024 10:20 AM EST Office Visit [place] [phone] [place] [facility] [place] [phone] Chino Chou MD [address] [place] [address] Scheduled Procedures Name Priority Associated Diagnoses Date/Ti me COLONOSCOPY FLEXIBLE PROXIMAL DIAGNOSTIC Recall Special screening for malignant neoplasms, colon 12/08/2023 11:45 AM EDT Health Maintenance Due Date Last Done Comments Pneumococcal Vaccine: Pediatrics (0 to 5 Years) and At-Risk Patients (6 to 64 Years) (1 of 2 - PCV) 08/27/1966 Cologuard 2006 Fecal Occult Blood Test 2006 Sigmoidoscopy 2006 COVID-19 Vaccine (1 - season) 2022 Colonoscopy 12/16/2022 12/16/2012, 11/28, 12/13/2012, Additional history exists Colorectal Cancer Screening 12/16/2022 Zoster Vaccines (2 of 2) 08/18/2023 06/23/2023 Influenza Vaccine (FLU shot) (#1) 2023 05/28/2023, 03/18/2022, 04/08/2020, Additional history exists Depression Monitoring 06/23/2024 06/24/2023 GFR 10/05/2024 10/06/2023, 08/, 08/18/2021, Additional history exists Mammogram 10/20/2024 10/21/2023, [...] as of this encounter Visit Diagnoses Diagnosis Neoplasm of right breast, primary tumor staging category Tis: ductal carcinoma in situ (DCIS)- Primary Visit for screening mammogram Other screening mammogram Special screening for malignant neoplasms, colon documented [...] Agents on File Name Relationship Healthcare Agent [facility] p Communication Irwin Warren Spouse Health Care Repr esentative (appointed verbally by patient or by statute hierarchy) Care Teams Steel Fixer Relationship Specialty Start Date End Date Chino Chou [facility] [address] [facility] [place] [address] PCP - General Family Medicine 01/08/11 documented as of this encounter
--- OUTSIDE RECORDS SUMMARY | 2024-02-01 04:15 | External Medical Summary | Summary of Care ---
Author Name Unknown Organization [facility] Address [address] [facility] [place] [address] Phone [phone] Care Team Providers Care Oracle Bpm Developer Name Role Phone Chino Chou MD Primary Care Provider [phone] Encounter Details Date Type Department Care Team (Late st Contact Info) Description 11/18/2023 Telephone Gastroenterology, [facility] [address] [place] [address] Sid Price MD [address] [place] [address] Allergies Active Allergy Reactions Criticality Noted Date Comments Diphenhydramine Rash 01/22/2023 Codeine Psych complications 08/27/2010 Gets mean and itchy Wound Dressing Adhesive 12/30/2022 Patient got sores and it opened up and oozed. documented as of this encounter (statuses as of 11/18/2023) Medications Medication Sig Dispensed Refills Start Date [...] by mouth in the morning. Active Nystatin [id number] UNIT/GM External Powder (Nystop)Indications: Candidal intertrigo Apply topically to affected area 3 times a day. Apply to gluteal cleft 60 g 1 07/29/2023 Active Losartan Potassium 25 MG Oral Tablet (Cozaar)Indications: HTN, goal below 140/90 TAKE 1 TABLET BY MOUTH EVERY DAY IN THE MORNING 90 Tablet 09/03/2023 Active documented as of this encounter (statuses as of 11/18/2023) Active Problems Problem Noted Date Diagnosed Date [...] ICD-10 update of inactive term [facility] RESEARCH OTHER*[id number] 09/22/2005 Major depressive disorder 08/12/2004 Overview: ICD-10 update of inactive term documented as of this encounter (statuses as of 11/18/2023) Resolved Problems Problem Noted Date Diagnosed Date [...] as of this encounter (statuses as of 11/18/2023) Immunizations Name Administration Dates Next Due Seasonal [...] = 0.6 oz pure alcohol) alcohol dependence// [place] 03/2010 no alcohol / Xanax since PHQ-2 [...] on file documented as of this encounter Plan of Treatment Upcoming Encounters Date Type Department Care Team (Latest Contact Info) Description 12/08/2023 11:45 AM EDT Hospital Encounter [facility], Endoscopy Room [facility] [address] [place] [phone] Sid Price MD [address] [place] [address] 12/08/2023 11:45 AM EDT - 12/08/2023 12:15 PM EDT Surgery ENDO [facility], Endoscopy Room [facility] [address] [place] [phone] Sid Price MD [address] [place] [address] COLONOSCOPY FLEXIBLE PROXIMAL DIAGNOSTIC 12/16/2023 11:00 AM EDT Immunization/Injec tion Hematology/Oncology Treatment, [place] [address] [facility] [place] [phone] Tereza, Chair 7 Hem Onc [facility] [address] [facility] [place], [place] [address] 04/11/2024 2:15 PM EST Office Visit Hematology/Oncology [facility] [place] [address] [place] [phone] Ray Avalos MD [address] [facility] [place], [place] [address] 05/29/2024 10:20 AM EST Office Visit [facility] [address] [place] [address] Chino Chou MD [address] [place], [place] [phone] Scheduled Procedures Name Priority Associated Diagnoses Date/Ti [...] patient or by statute hierarchy) Care Teams Oracle Bpm Developer Relationship Specialty Start Date End Date Chino Chou MD [address] [place], [place] [phone] PCP - General Family Medicine 01/08/11 documented as of this encounter
--- OUTSIDE RECORDS SUMMARY | 2024-02-01 04:15 | External Medical Summary | Summary of Care ---
Author Name Unknown Organization [facility] Address [address] [facility] [place] [address] Phone [phone] Care Team Providers Care Fleet Driver Name Role Phone Chino Chou MD Primary Care Provider [phone] Encounter Details Date Type Department Care Team (Late st Contact Info) Description 10/18/2023 Orders Only Hematology/Oncology [place] Suki Rosenberg [address] [facility] [place] [address] Ray Avalos MD [address] [facility] [place] [address] Allergies Active Allergy Reactions Criticality Noted Date Comments Diphenhydramine Rash 01/22/2023 Codeine Psych complications 08/27/2010 Gets mean and itchy Wound Dressing Adhesive 12/30/2022 Patient got sores and it opened up and oozed. documented as of this encounter (statuses as of 11/15/2023) Medications Medication Sig Dispensed Refills Start Date [...] by mouth in the morning. Active Nystatin [id number] UNIT/GM External Powder (Nystop)Indications: Candidal intertrigo Apply topically to affected area 3 times a day. Apply to gluteal cleft 60 g 1 07/29/2023 Active Losartan Potassium 25 MG Oral Tablet (Cozaar)Indications: HTN, goal below 140/90 TAKE 1 TABLET BY MOUTH EVERY DAY IN THE MORNING 90 Tablet 09/03/2023 Active documented as of this encounter (statuses as of 11/15/2023) Active Problems Problem Noted Date Diagnosed Date [...] ICD-10 update of inactive term [facility] RESEARCH OTHER*[id number] 09/22/2005 Major depressive disorder 08/12/2004 Overview: ICD-10 update of inactive term documented as of this encounter (statuses as of 11/15/2023) Resolved Problems Problem Noted Date Diagnosed Date [...] as of this encounter (statuses as of 11/15/2023) Immunizations Name Administration Dates Next Due Seasonal [...] = 0.6 oz pure alcohol) alcohol dependence// [place] 03/2010 no alcohol / Xanax since PHQ-2 [...] 11:30 AM EDT Immunization/Injec tion Hematology/Oncology Treatment, [place] [address] [facility] [phone] Tereza, Chair 7 Hem Onc Sc[place] [address] [place] [address] 12/08/2023 11:45 AM EDT Hospital Encounter ENDO [facility], Endoscopy Room [facility] [address] [place] [address] Sid Price MD [address] [place] [address] 12/08/2023 11:45 AM EDT - 12/08/2023 12:15 PM EDT Surgery ENDO [facility], Endoscopy Room [facility] [address] [place] [address] Sid Price MD [address] [place] [address] COLONOSCOPY FLEXIBLE PROXIMAL DIAGNOSTIC 04/11/2024 2:15 PM EST Office Visit Hematology/Oncology [facility] [address] [facility] [place] [phone] Ray Avalos MD [address] [facility] [place] [address] 05/29/2024 10:20 AM EST Office Visit [facility] [address] [place] [address] Chino Chou MD [address] [place] [address] Scheduled Procedures Name Priority Associated [...] 2006 Sigmoidoscopy 2006 COVID-19 Vaccine (1 - 2022- season) 2022 Colonoscopy 12/16/2022 12/16/2012, 11/28, 12/13/2012, [...] patient or by statute hierarchy) Care Teams Fleet Driver Relationship Specialty Start Date End Date Chino Chou MD [address], [place] [phone] PCP - General Family Medicine 01/08/11 documented as of this encounter
--- OUTSIDE RECORDS SUMMARY | 2024-02-01 04:15 | External Medical Summary | Summary of Care ---
Author Name Unknown Organization [facility] Address [address] [facility] [address] Phone [phone] Care Team Providers Care Dielectric Machine Operator Name Role Phone Chino Chou MD Primary Care Provider [phone] Reason for Visit * Auth/Cert Specialty Diagnoses / Procedures Referred By Conteric t Referred To Contact Diagnoses Special screening for malignant neoplasms, colon Special screening for malignant neoplasms, colon [Z12.11] Procedures COLONOSCOPY, DIAGNOSTIC (RECTUM) COLONOSCOPY FLEXIBLE PROXIMAL DIAGNOSTIC COLONOSCOPY FLEXIBLE PROXIMAL DIAGNOSTIC Sid Price MD [address] [place] [address] Endo [facility] [address] [place] [address] Referral ID Status Reason Start Date Expiration Date Visits Re quested Visits Authorized [id number] Encounter Details Date Type Department Care Team (Latest Contact Info) Description 12/08/2023 10:48 AM EDT - 12/08/2023 1:23 PM EDT Hospital Encounter ENDO [facility], Endoscopy Room [facility] [address] [place] [address] Sid Price MD [address] [place] [address] Colonoscopy Discharge Disposition: Home - Self Care Allergies Active Allergy Reactions Criticality Noted Date [...] by mouth in the morning. Active Nystatin [id number] UNIT/GM External Powder (Nystop)Indications: Candidal intertrigo Apply [...] ICD-10 update of inactive term EDMON[facility]ON RESEARCH OTHER*[id number] 09/22/2005 Major depressive disorder 08/12/2004 Overview: ICD-10 [...] = 0.6 oz pure alcohol) alcohol dependence// [place] 03/2010 no alcohol / Xanax since PHQ-2 [...] Sign Reading Time Taken Comments Blood Pressure 108/64 12/08/2023 1:17 PM EDT Pulse 80 12/08/2023 1:17 PM EDT Temperature 36.2 C (97.2 F) 12/08/2023 1:17 PM ED T Respiratory Rate 16 12/08/2023 1:17 PM EDT Oxygen Saturation 97% 12/08/2023 1:17 PM EDT Inhaled Oxygen Concentration - - Weight 99.8 kg (220 lb) 12/08/2023 11:40 AM EDT Height 160 cm (5' 2.99") 12/08/2023 11:40 AM EDT Body Mass Index 38.98 12/08/2023 11:40 AM EDT documented in this encounter H&P Notes * Sid Price MD - 12/08/2023 11:51 AM EDT Endoscopy Pre-Procedure Assessment Name: Radha Warren Date: 12/08/2023 Time: 11:51 AM Procedure: Colonoscopy; with Indication(s) of average risk screening Endoscopy Pre-Procedure Assessment: Prior to the procedure, the patient was identified. The patient's history, medications and allergies were reviewed as per the Anesthesia Assessment. The patient is competent. The risks and benefits of the proposed procedure and the planned sedation were discussed with the patient. All questions were answered and informed consent for the procedure was obtained. This patient has undergone a preprocedural evaluation. A determination has been made to proceed with the planned procedure under [facility] procedural guidelines and the [facility] Non-Emergent, Elective Medical Services and Treatment Recommendations (published on 07-04-19). The community and hospital prevalence of COVID-19 has been discussed as well as this patient's specific risks associated with SARS-CoV-19 infection. Based upon the clinical acuity and patient-specific care considerations, this procedure is deemed a Tier II - Intermediate acuity treatment or service with either progression or the threat of progressive disease related to the delay in treatment. Not providing the service has the potential for increasing morbidity or mortality. Temp 36.4 C (97.5 F) (Tympanic) | Ht 1.6 m (5' 2.99") | Wt 99.8 kg (220 lb) | LMP 05/03/2013 | BMI 38.98 kg/m | BSA 2.11 m Prior to Admission medications Medication Sig Last Dose Discont. Losartan Potassium 25 MG Oral Tablet (Cozaar) TAKE 1 TABLET BY MOUTH EVERY DAY IN THE MORNING 12/07/2023 buPROPion HCl ER (XL) 150 MG Oral Tablet Extended Release 24 Hour (Wellbutrin XL) Take 1 Tablet by mouth in the morning. 12/08/2023 lamoTRIgine 25 MG Oral Tablet (LaMICtal) Take 3 Tablets by mouth in the morning. 12/08/2023 Atorvastatin Calcium 20 MG Oral Tablet (Lipitor) TAKE 1 TABLET BY MOUTH EVERY DAY IN THE MORNING 12/08/2023 Anastrozole 1 MG Oral Tablet (Arimidex) Take 1 Tablet by mouth in the morning. 12/08/2023 chlorproMAZINE HCl 100 MG Oral Tablet (Thorazine) TAKE 1 TABLET BY MOUTH EVERYDAY AT BEDTIME 12/07/2023 chlorproMAZINE HCl 25 MG Oral Tablet (Thorazine) TAKE 1 TABLET BY MOUTH EVERYDAY AT BEDTIME 12/07/2023 lamoTRIgine 100 MG Oral Tablet (LaMICtal) Take 1 Tablet by mouth in the morning. 12/08/2023 Topiramate 100 MG Oral Tablet (topAMAX) Take 1 Tablet by mouth in the morning. 12/08/2023 Sertraline HCl 100 MG Oral Tablet (Zoloft) TAKE 2 TABLETS IN THE MORNING 12/08/2023 Amoxicillin 875 MG Oral Tablet Take 1 Tablet by mouth in the morning and 1 Tablet before bedtime. Do all this for 10 days. Fluconazole 200 MG Oral Tablet (Diflucan) Take 1 Tablet by mouth in the morning for 14 days. until gone.. Nystatin [id number] UNIT/GM External Powder (Nystop) Apply topically to affected area 3 times a day. Apply to gluteal cleft Over 30 Days Acetaminophen 500 MG Oral Tablet Take 2 Tablets by mouth every 6 hours as needed. Review of patient's allergies indicates: Allergen Reactions Benadryl [Diphenhydramine] Rash Codeine Psych complications Gets mean and itchy Pedi-Pre Tape [place] [Wound Dressing Adhesive] Patient got sores and it opened up and oozed. Physical Exam: Mental Status Examination: alert and oriented. General: nad, calm Airway Examination: normal oropharyngeal airway and neck mobility. CV: no JVD Respiratory Examination: symmetrical excursion Abd:soft/ntd ASA Grade: III - A patient with severe systemic disease. After reviewing the risks and benefits, the patient was deemed in satisfactory condition to undergothe procedure. The anesthesia plan was to use general anesthesia. Sid Price MD 12/08/2023 documented in this encounter Procedure Notes * Chino Chou MD - 12/08/2023 11:59 AM EDTAssociated Order(s): COLONOSCOPY [facility] Patient Name: Radha Warren Procedure Date: 12/08/2023 11:59 AM Date of : 1960 Admit Type: Outpatient Note Status: Finalized Date of : 1960 Admit Type: Outpatient Age: 63 Room: Endo 2 Gender: Female Note Status: Finalized Procedure: Colonoscopy Indications: Screening for colorectal malignant neoplasm Providers: Sid Price MD (Doctor) Referring MD: Chion Chou MD (Referring MD) Medicines: Propofol per Anesthesia Complications: No immediate complications. Estimated blood loss: None. Procedure: Pre-Anesthesia Assessment: - - Prior to the procedure, a History and Physical was performed, patient medications, allergies and sensitivities were reviewed. The patient's tolerance of previous anesthesia was reviewed. See [facility] for further details. - The risks, benefits, and alternatives of the procedure including the sedation options and risks were discussed with the patient. All questions were answered and informed consent was obtained. - Patient identification and proposed procedure were verified prior to the procedure by the physician and the nurse. The procedure was verified in the procedure room. - See [facility] for documentation of the pre-procedure assessment including ASA status. - After I obtained informed consent, the scope was carefully and meticulously passed under direct vision only when the lumen was definitively identified. CO2 insufflation was utilized throughout the entire procedure exclusively. After I obtained informed consent, the scope was passed under direct vision. All instruments were visually inspected immediately before and after removal from the patient to ensure they are fully intact. Throughout the procedure, the patient's blood pressure, pulse, and oxygen saturations were monitored continuously.The colonoscopy was performed without difficulty. The patient tolerated the procedure well. The quality of the bowel preparation was good. The procedure was aborted. The colonscope was not inserted. Medications were given. Findings & Specimens: Copious quantities of stool was found in the entire colon, precluding visualization. Impression: - Stool in the entire examined colon. - No specimens collected. Recommendation: - Discharge patient to home (with escort). - Return to referring physician as previously scheduled. - Repeat colonoscopy at the next available appointment because the bowel preparation was poor. - Patient has a contact number available for emergencies. The signs and symptoms of potential delayed complications were discussed with the patient. Return to normal activities tomorrow. Written discharge instructions were provided to the patient. Sid Price MD 12/08/2023 1:02:30 PM This report has been signed electronically. documented in this encounter Nursing Notes * Prieto Miller RN - 12/08/2023 1:21 PM EDT Patient is alert, pain free, tolerating po fluids prior to discharge. Patient has been visited by Dr. Price. Patient has received and demonstrates understanding of discharge instructions. Patient ambulated to private auto accompanied by endo staff. * Prieto Miller RN - 12/08/2023 1:21 PM EDT Pt sitting at bedside dressing self denies any pain or dizziness. * Prieto Miller RN - 12/08/2023 1:09 PM EDT Pt sitting up in bed tolerating liquids well. * Prieto Miller RN - 12/08/2023 1:03 PM EDT Pt received in recovery awake and alert, abd is soft and non distended, pt denies any pain. VSS * Rene Jordan RN - 12/08/2023 12:58 PM EDT See anesthesia record for medication administered during procedure. Rene Jordan RN Pt higinio colonoscopy well. Case aborted related to bad prep. No Abd pressure applied to assist w/ advancement of the scope. Abd soft post proc. To recovery lying on L side. Pre cleaning of scope at thebedside started by engineering technician parking. * Ellie Mejía RN - 12/08/2023 11:54 AM EDT The following pt discharge instructions reviewed with pt prior to prodedure: No driving today. No alcohol today. No signing of legal documents. Rest as much as possible today and can return to normal activities tomorrow. No operating any heavy equipment today. Diet as tolerated. Pt verbalized understanding. documented in this encounter Plan of Treatment Upcoming Encounters Date Type Department Care Team (Late st Contact Info) Description 12/24/2023 1:15 PM EDT Immunization/Injec tion Hematology/Oncology Treatment, [place] [address] [facility] [place] [address] Tereza, Chair 1 Hem Onc [address] [place] [address] 04/11/2024 2:15 PM EST Office Visit Hematology/Oncology [facility] [address] [facility] [place] [phone] Ray Avalos MD [address] [facility] [place] [address] 05/29/2024 10:20 AM EST Office Visit [facility] [address] [place] [facility] [phone] Chino Chou MD [address] [place] [address] Scheduled Procedures Name Priority Associated Diagnoses Date/Ti me COLONOSCOPY FLEXIBLE PROXIMA L DIAGNOSTIC Recall Special screening for malignant neoplasms, colon Health Maintenance Due Date Last Done Comments [...] Not on filedocumented as of this encounter Procedures Procedure Name Priority Date/Time Associated Diagnosis Comments COLONOSCOPY 12/08/2023 11:59 AM EDT documented in this encounter Results * COLONOSCOPY (12/08/2023 11:59 AM EDT) 12/08/2023 11:5 9 AM EDT Narrative Procedure Note Chino Chou MD - 12/08/2023 11:59 AM EDT [facility] Patient Name: Radha Warren Procedure Date: 12/08/2023 11:59 AM Date of : 1960 Admit Type: Outpatient Note Status:Finalized Date of : 1960 Admit Type: Outpatient Age: 63 Room: Endo 2 Gender: Female Note Status: Finalized Procedure: Colonoscopy Indications: Screening for colorectal malignant neoplasm Providers: Sid Price MD (Doctor) Referring MD: Chino Chou MD (Referring MD) Medicines: Propofol per Anesthesia Complications: No immediate complications. Estimated blood loss:None. Procedure: Pre-Anesthesia Assessment: - - Prior to the procedure, a History and Physicalwas performed, patient medications, allergies and sensitivities were reviewed. Thepatient's tolerance of previous anesthesia was reviewed. See [facility] for furtherdetails. - The risks, benefits, and alternatives of theprocedure including the sedation options and risks were discussed with the patient.All questions were answered and informed consent was obtained. - Patient identification and proposed procedurewere verified prior to the procedure by the physician and the nurse. The procedure wasverified in the procedure room. - See [facility] for documentation of the pre-procedureassessment including ASA status. - After I obtained informed consent, the scope wascarefully and meticulously passed under direct vision only when the lumen wasdefinitively identified. CO2 insufflation was utilized throughout the entire procedureexclusively. After I obtained informed consent, the scope waspassed under direct vision. All instruments were visually inspected immediatelybefore and after removal from the patient to ensure they are fully intact. Throughout the procedure, the patient's bloodpressure, pulse, and oxygen saturations were monitored continuously.The colonoscopy wasperformed without difficulty. The patient tolerated the procedure well. The qualityof the bowel preparation was good. The procedure was aborted. The colonscope was notinserted. Medications were given. Findings & Specimens: Copious quantities of stool was found in the entire colon, precludingvisualization. Impression: - Stool in the entire examined colon. - No specimens collected. Recommendation: - Discharge patient to home (with escort). - Return to referring physician as previouslyscheduled. - Repeat colonoscopy at the next availableappointment because the bowel preparation was poor. - Patient has a contact number available foremergencies. The signs and symptoms of potential delayed complications were discussed withthe patient. Return to normal activities tomorrow. Written discharge instructionswere provided to the patient. Sid Price MD 12/08/2023 1:02:30 PM This report has been signed electronically. Chino Chou MD [facility] documented in this encounter Administered Medications Inactive Administered Medications - up to 3 most recent administrations Medication Order MAR Action Action Date Dose Rate Site isolyte-S pH 7.4 infusion Intravenous, at 100 mL/hr, Plasma-LYTE 148, isolyte-S, and isolyte-S pH 7.4 are considered equivalent - including for MAR barcode scanning., CONTINUOUS, Starting on Wed12/08/23 at 1230, Until Wed12/08/23 at 1723, Pre-Op Continue from Pre-Op 12/08/2023 12:48 PM EDT 100 mL/hr New Bag 12/08/2023 12:08 PM EDT 100 mL/hr documented in this encounter Active and Recently Administered Medications Times are shown in EDT. Continuous Medication Order 12/06/2023 12/07/2023 12/08/2023 isolyte-S pH 7.4 infusion Intravenous, at 100 mL/hr, Plasma-LYTE 148, isolyte-S, and isolyte-S pH 7.4 are considered equivalent - including for MAR barcode scanning., CONTINUOUS, Starting on Wed12/08/23 at 1230, Until Wed12/08/23 at 1723, Pre-Op 1208 (New Bag - Prov ider: Ellie Mejía RN)1248 (Continue from Pre-Op - Provider: Miles Garza CRNA)1300 (Anes Intra-Op Fluid - Provider: Miles Garza CRNA) documented in this encounter Advance Directives * [...] patient or by statute hierarchy) Care Teams Dielectric Machine Operator Relationship Specialty Start Date End Date Chino Chou MD [address] [place] [address] PCP - General Family Medicine 01/08/11 documented as of this encounter
--- OUTSIDE RECORDS SUMMARY | 2024-02-01 04:15 | External Medical Summary | Summary of Care ---
Author Name Unknown Organization [facility] Address [address] [place] [place] [place] [address] Phone [phone] Care Team Providers Care Electrical Accessories I Assembler Name Role Phone Chino Chou MD Primary Care Provider [phone] Reason for Visit * Reason Comments Medication Administration Vitamin B12 Encounter Details Date Type Department Care Team (Late st Contact Info) Description 10/21/2023 11:00 AM EDT Immunization/I njection Hematology/Oncology Treatment, [address] [address] Tereza, Chair 2 Hem Onc [facility] [address] [place] [address] B12 deficiency*; H/O bariatric surgery Allergies Active Allergy Reactions Criticality Noted Date Comments Diphenhydramine Rash 01/22/2023 Codeine Psych complications 08/27/2010 Gets mean and itchy Wound Dressing Adhesive 12/30/2022 Patient got sores and it opened up and oozed. documented as of this encounter (statuses as of 11/04/2023) Medications Medication Sig Dispensed Refills Start Date [...] by mouth in the morning. Active Nystatin [id number] UNIT/GM External Powder (Nystop)Indications: Candidal intertrigo Apply topically to affected area 3 times a day. Apply to gluteal cleft 60 g 1 07/29/2023 Active Losartan Potassium 25 MG Oral Tablet (Cozaar)Indications: HTN, goal below 140/90 TAKE 1 TABLET BY MOUTH EVERY DAY IN THE MORNING 90 Tablet 09/03/2023 Active documented as of this encounter (statuses as of 11/04/2023) Active Problems Problem Noted Date Diagnosed Date [...] ICD-10 update of inactive term EDMONDSON RESEARCH OTHER*[id number] 09/22/2005 Major depressive disorder 08/12/2004 Overview: ICD-10 update of inactive term documented as of this encounter (statuses as of 11/04/2023) Resolved Problems Problem Noted Date Diagnosed Date [...] as of this encounter (statuses as of 11/04/2023) Immunizations Name Administration Dates Next Due Seasonal [...] = 0.6 oz pure alcohol) alcohol dependence// [place] 03/2010 no alcohol / Xanax since PHQ-2 [...] No 06/24/2023 Does the household have a [facility] source of [facility]? (Household - for ages [...] 1:00 PM EDT Office Visit General Surgery, [facility] [address] [place] [address] Kelby Townsend MD [address] [place] [address] 11/18/2023 11:30 AM EDT Immunization/Injec tion Hematology/Oncology Treatment, [address], [place] [phone] Tereza, Chair 7 Hem On[address] [place], [place] [address] 12/08/2023 11:45 AM EDT Hospital Encounter ENDO [facility], Endoscopy Room [facility] [address] [place] [phone] Sid Price MD [address] [place] [address] 12/08/2023 11:45 AM EDT - 12/08/2023 12:15 PM EDT Surgery ENDO [facility], Endoscopy Room [facility] [address] [place] [phone] Sid Price MD [address] [place] [address] COLONOSCOPY FLEXIBLE PROXIMAL DIAGNOSTIC 04/11/2024 2:15 PM EST Office Visit Hematology/Oncology [address] [place], [place] [phone] Ray Avalos MD [address] [facility] [place] [address] 05/29/2024 10:20 AM EST Office Visit [facility] [address] [place] [facility] [phone] Chino Chou MD [address] [place], [place] [phone] Scheduled Procedures Name Priority Associated Diagnoses Date/Ti [...] Agents on File Name Relationship Healthcare Agent [facility] p Communication Irwin Warren Spouse Health Care Repr esentative (appointed verbally by patient or by statute hierarchy) Care Teams Electrical Accessories I Assembler Relationship Specialty Start Date End Date Chino Chou MD [address] [place] [address] PCP - General Family Medicine 01/08/11 documented as of this encounter
--- OUTSIDE RECORDS SUMMARY | 2024-02-01 04:15 | External Medical Summary | Summary of Care ---
Author Name Unknown Organization [facility] Address [address] [place] [address] Phone [phone] Care Team Providers Care Law Reporter Name Role Phone Chino Chou MD Primary Care Provider Reason for Visit * Reason Onset Date Comments Scheduling 11/24/2023 Encounter Details Date Type Department Care Team (Late st Contact Info) Description 11/24/2023 Telephone Access Center, [place] [address] [facility] *DO NOT REMOVE THIS DEPARTMENT* [place], [place] [id number] Services, Scheduling [address] [place] [address] Scheduling Allergies Active Allergy Reactions Criticality Noted Date Comments Diphenhydramine Rash 01/22/2023 Codeine Psych complications 08/27/2010 Gets mean and itchy Wound Dressing Adhesive 12/30/2022 Patient got sores and it opened up and oozed. documented as of this encounter (statuses as of 11/24/2023) Medications Medication Sig Dispensed Refills Start Date [...] by mouth in the morning. Active Nystatin 923152 UNIT/GM External Powder (Nystop)Indications: Candidal intertrigo Apply topically to affected area 3 times a day. Apply to gluteal cleft 60 g 1 07/29/2023 Active Losartan Potassium 25 MG Oral Tablet (Cozaar)Indications: HTN, goal below 140/90 TAKE 1 TABLET BY MOUTH EVERY DAY IN THE MORNING 90 Tablet 09/03/2023 Active documented as of this encounter (statuses as of 11/24/2023) Active Problems Problem Noted Date Diagnosed Date [...] ICD-10 update of inactive term [facility] OTHER*[id number] 09/22/2005 Major depressive disorder 08/12/2004 Overview: ICD-10 update of inactive term documented as of this encounter (statuses as of 11/24/2023) Resolved Problems Problem Noted Date Diagnosed Date [...] as of this encounter (statuses as of 11/24/2023) Immunizations Name Administration Dates Next Due Seasonal [...] = 0.6 oz pure alcohol) alcohol dependence// [place] 03/2010 no alcohol / Xanax since PHQ-2 [...] Telephone Encounter - Shavonne Duran OSA - 11/24/2023 12:42 PM EDT Pt is rescheduled and aware * Telephone Encounter - Brock Boyd RN - 11/24/2023 12:24 PM EDT Scheduling- please call patient to schedule 15 min injection apt "B12" (Robbie). Pt is due now. Onceschedule, ok to cancel the 12/15 appointment. Pt needs appointments on a monthly basis so if she wants to schedule her following appointment now or she can wait until she comes in. * Telephone Encounter - Ingrid Rosales OSA - 11/24/2023 10:36 AM EDT Patient calling to see if she should schedule a b12 injection vishnu or wait until her next injectiondate on 12/15. Please advise and contact patient thank you documented in this encounter Plan of Treatment Upcoming Encounters Date Type Department Care Team (Latest Contact Info) Description 11/25/2023 1:00 PM EDT Immunization/Injec tion [address]ematology[address] [phone] Tereza, Chair 1 Hem On[address] [place] [address] 12/08/2023 11:45 AM EDT Hospital Encounter ENDO [facility], Endoscopy Room [facility] [address] [place] [phone] Sid Price MD [address] [place] [address] 12/08/2023 11:45 AM EDT - 12/08/2023 12:15 PM EDT Surgery ENDO [facility], Endoscopy Room [facility] [address] [place] [phone] Sid Price MD [address] [place] [address] COLONOSCOPY FLEXIBLE PROXIMAL DIAGNOSTIC 12/24/2023 1:15 PM EDT Immunization/Injec tion Hematology/[address]cology [address], [address] [phone] Tereza, Chair [address] Hem On[address] [place] [address] 04/11/2024 2:15 PM EST Office Visit Hematology/Oncology [facility] Tereza [address] [place] [phone] Ray Avalos MD [address] [facility] [place] [address] 05/29/2024 10:20 AM EST Office Visit [facility] [address] [place] [facility] [place] [address] Chino Chou MD [address] [facility] [place] [address] Scheduled Procedures Name Priority Associated Diagnoses [...] patient or by statute hierarchy) Care Teams Law Reporter Relationship Specialty Start Date End Date Chino Chou MD [address] [place], [place] [phone] PCP - General Family Medicine 01/08/11 documented as of this encounter
--- OUTSIDE RECORDS SUMMARY | 2024-02-01 04:15 | External Medical Summary | Summary of Care ---
Author Name Unknown Organization [facility] Address [address] [facility] [place] [address] Phone [phone] Care Team Providers Care Shield Cleaner Name Role Phone Chino Chou MD Primary Care Provider [phone] Reason for Visit * Reason Onset Date Comments Colonoscopy 12/08/2023 Encounter Details Date Type Department Care Team (Late st Contact Info) Description 12/08/2023 Telephone Gastroenterology, [facility] [address] [place] [address] Sid Price MD [address] [place] [address] Colonoscopy Allergies Active Allergy Reactions Criticality Noted Date Comments Diphenhydramine Rash 01/22/2023 Codeine Psych complications 08/27/2010 Gets mean and itchy Wound Dressing Adhesive 12/30/2022 Patient got sores and it opened up and oozed. documented as of this encounter (statuses as of 12/08/2023) Medications Medication Sig Dispensed Refills Start Date [...] by mouth in the morning. Active Nystatin [id number] UNIT/GM External Powder (Nystop)Indications: Candidal intertrigo Apply topically to affected area 3 times a day. Apply to gluteal cleft 60 g 1 07/29/2023 Active Losartan Potassium 25 MG Oral Tablet (Cozaar)Indications: HTN, goal below 140/90 TAKE 1 TABLET BY MOUTH EVERY DAY IN THE MORNING 90 Tablet 09/03/2023 Active documented as of this encounter (statuses as of 12/08/2023) Active Problems Problem Noted Date Diagnosed Date [...] ICD-10 update of inactive term [facility] OTHER*[id number] 09/22/2005 Major depressive disorder 08/12/2004 Overview: ICD-10 update of inactive term documented as of this encounter (statuses as of 12/08/2023) Resolved Problems Problem Noted Date Diagnosed Date [...] as of this encounter (statuses as of 12/08/2023) Immunizations Name Administration Dates Next Due Seasonal [...] = 0.6 oz pure alcohol) alcohol dependence// [place] 03/2010 no alcohol / Xanax since PHQ-2 [...] encounter Miscellaneous Notes * Telephone Encounter - Tressa Boss OSA [...] 1:15 PM EDT Immunization/Injec tion Hematology/Oncology Treatment, [place] [address] [place] [phone] Tereza, Chair 1 Hem Onc [place] [address] [place] [address] 04/11/2024 2:15 PM EST Office Visit Hematology/Oncology [employer] [facility] [place], [place] [address] Ray Avalos MD 200 [facility] [place], [place] [address] 05/29/2024 10:20 AM EST Office Visit [facility] [address] [place] [phone] Chino Chou MD [address] [place] [address] Scheduled Procedures Name Priority Associated Diagnoses Date/Ti me COLONOSCOPY FLEXIBLE PROXIMAL DIAGNOSTIC Recall Special screening for malignant neoplasms, colon 12/08/2023 12:51 PM EDT COLONOSCOPY FLEXIBLE PROXIMAL DIAGNOSTIC Recall Special screening for malignant neoplasms, colon Health Maintenance Due Date Last Done Comments Pneumococcal Vaccine: Pediatrics (0 to 5 Years) and At-Risk Patients (6 to 64 Years) (1 of 2 - PCV) 08/27/1967 Cologuard 2006 Fecal Occult Blood Test 2006 Sigmoidoscopy 2006 Zoster Vaccines (2 of 2) 08/18/2023 06/23/2023 COVID-19 Vaccine (1 - 2022- season) 2023 Influenza Vaccine (FLU shot) (#1) [...] patient or by statute hierarchy) Care Teams Shield Cleaner Relationship Specialty Start Date End Date Chino Chou MD [address] [place] [address] PCP - General Family Medicine 01/08/11 documented as of this encounter
--- OUTSIDE RECORDS SUMMARY | 2024-02-01 04:15 | External Medical Summary | Summary of Care ---
Author Name Unknown Organization [facility] Address [address] [place] [address] Phone [phone] Care Team Providers Care Electrical System Specialist Name Role Phone Chino Chou MD Primary Care Provider [phone] Reason for Visit * Reason Onset Date Comments MyCode Consent 10/21/2023 Encounter Details Date Type Department Care Team (Late st Contact Info) Description 10/21/2023 Orders Only Outcomes Research Department [address] [place], [place] [id number] Raiza Cruz CHRA MyCode Research Other*[id number]* Allergies Active Allergy Reactions Criticality Noted Date [...] by mouth in the morning. Active Nystatin [id number] UNIT/GM External Powder (Nystop)Indications: Candidal intertrigo Apply [...] ICD-10 update of inactive term [facility] OTHER*[id number] 09/22/2005 Major depressive disorder 08/12/2004 Overview: ICD-10 [...] = 0.6 oz pure alcohol) alcohol dependence// [place] 03/2010 no alcohol / Xanax since PHQ-2 [...] Cruz CHRA - 10/21/2023 10:13 AM EDT [facility] Consent Documentation Radha Nunn Briana provided consent/authorization to participate in the [employer]. documented in this encounter Plan of Treatment Upcoming Encounters Date Type Department Care Team (Latest Contact Info) Description 10/21/2023 11:00 AM EDT Immunization/Injec tion Hematology/Oncology Treatment, [place] [address] [place] [address] [place], Chair 2 Hem Onc [facility] [address] 11/10/2023 1:00 PM EDT Office Visit General Surgery, [facility] [address] [place] [phone] Kelby Townsend MD [address] [place] [address] 11/18/2023 11:30 AM EDT Immunization/Injec tion Hematology/Oncology Treatment, [place] 200 [facility], [place] [phone] Tereza, Chair 2 Hem Onc [facility] 200 [facility] [place], [place] [address] 12/08/2023 11:45 AM EDT Hospital Encounter ENDO OSS[facility], Endoscopy Room [facility] [address] [place] [phone] Sid Price MD [address] [place] [address] 12/08/2023 11:45 AM EDT - 12/08/2023 12:15 PM EDT Surgery ENDO [facility], Endoscopy Room [facility] [address] [place] [phone] Sid Price MD [address] [place] [address] COLONOSCOPY FLEXIBLE PROXIMAL DIAGNOSTIC 04/11/2024 2:15 PM EST Office Visit Hematology/Oncology [facility] [address] [place], [place] [phone] Ray Avalos MD 200 [facility] [place], [place] [address] 05/29/2024 10:20 AM EST Office Visit [facility] [address] [facility] [address] Chino Chou MD [address] [facility] [phone] Scheduled Orders Name Type Priority Associated Diagnoses Orde r Schedule MYCODE INITIAL ADULT Lab Routine MyCode Research Other*[id number] Expected: 10/21/2023 (Approximate), Expires: 11/09/2024 Scheduled Procedures [...] this encounter Visit Diagnoses Diagnosis MyCode Research Other*[id number]- Primary Special screening for malignant neoplasms, colon [...] or by statute hierarchy) Care Teams Electrical System Specialist Relationship Specialty Start Date End Date Chino Chou MD [address] [place] [address] PCP - General Family Medicine 01/08/11 documented as of this encounter
--- OUTSIDE RECORDS SUMMARY | 2024-02-01 04:15 | External Medical Summary | Summary of Care ---
Author Name Unknown Organization [facility] Address [address] [facility] [place] [place] [address] Phone [phone] Care Team Providers Care Fourdrinier Wire Weaver Name Role Phone Chino Chou MD Primary Care Provider [phone] Reason for Visit * Reason Comments Medication Administration Vitamin B12 1, 000mcg Encounter Details Date Type Department Care Team (Late st Contact Info) Description 11/25/2023 1:00 PM EDT Immunization/I njection Hematology/Oncology Treatment, [address] [address] Tereza, Chair 1 Hem On[address] [address] B12 deficiency*; H/O bariatric surgery Allergies Active Allergy Reactions Criticality Noted Date Comments Diphenhydramine Rash 01/22/2023 Codeine Psych complications 08/27/2010 Gets mean and itchy Wound Dressing Adhesive 12/30/2022 Patient got sores and it opened up and oozed. documented as of this encounter (statuses as of 11/25/2023) Medications Medication Sig Dispensed Refills Start Date [...] by mouth in the morning. Active Nystatin [id number] UNIT/GM External Powder (Nystop)Indications: Candidal intertrigo Apply topically to affected area 3 times a day. Apply to gluteal cleft 60 g 1 07/29/2023 Active Losartan Potassium 25 MG Oral Tablet (Cozaar)Indications: HTN, goal below 140/90 TAKE 1 TABLET BY MOUTH EVERY DAY IN THE MORNING 90 Tablet 09/03/2023 Active documented as of this encounter (statuses as of 11/25/2023) Active Problems Problem Noted Date Diagnosed Date [...] ICD-10 update of inactive term [facility] OTHER*[id number] 09/22/2005 Major depressive disorder 08/12/2004 Overview: ICD-10 update of inactive term documented as of this encounter (statuses as of 11/25/2023) Resolved Problems Problem Noted Date Diagnosed Date [...] as of this encounter (statuses as of 11/25/2023) Immunizations Name Administration Dates Next Due Seasonal [...] = 0.6 oz pure alcohol) alcohol dependence// [place] 03/2010 no alcohol / Xanax since PHQ-2 [...] Nursing Notes * Nhi Montiel LPN - 11/25/2023 1:07 PM EDT Vitamin B12 1,000mcg administered IM into the left deltoid muscle per standing order. Patient tolerated injection and will return in 4 weeks. documented in this encounter Plan of Treatment Upcoming Encounters Date Type Department Care Team (Latest Contact Info) Description 12/08/2023 11:45 AM EDT Hospital Encounter ENDO [facility], Endoscopy Room [facility] [address] [place] [phone] Sid Price MD 132 [place] [address] 12/08/2023 11:45 AM EDT - 12/08/2023 12:15 PM EDT Surgery ENDO [facility], Endoscopy Room [facility] [address] [place] [phone] Sid Price MD [address] [place] [address] COLONOSCOPY FLEXIBLE PROXIMAL DIAGNOSTIC 12/24/2023 1:15 PM EDT Immunization/Injec tion Hematology/Oncology Treatment, [place] [address] [place] [address] Tereza, Chair 1 Hem Onc [facility] [place] [address] 04/11/2024 2:15 PM EST Office Visit Hematology/Oncology [facility] [place] [address] [facility] [place] [address] Ray Avalos MD [address] [facility] [place] [address] 05/29/2024 10:20 AM EST Office Visit [facility] [address] [place] [address] Chino Chou MD [address] [place], [place] [address] Scheduled Procedures Name Priority Associated Diagnoses Date/Ti me COLONOSCOPY FLEXIBLE PROXIMAL DIAGNOSTIC Recall Special screening for malignant neoplasms, colon 12/08/2023 11:45 AM EDT Health Maintenance Due Date Last Done Comments Pneumococcal Vaccine: Pediatrics (0 to 5 Years) and At-Risk Patients (6 to 64 Years) (1 of 2 - PCV) 08/27/1966 Cologuard 2006 Fecal Occult Blood Test 2006 Sigmoidoscopy 2006 COVID-19 Vaccine ( - 2022- season) 2022 Colonoscopy 12/16/2022 12/16/2012, [...] mcg 1,000 mcg, Intramuscular, ONCE, On Pam 11/25/23 at 1345, For 1 dose Given 11/25/2023 1:01 PM EDT 1,000 mcg Deltoid Left Upper documented [...] patient or by statute hierarchy) Care Teams Fourdrinier Wire Weaver Relationship Specialty Start Date End Date Chino Chou MD [address] [place] [address] PCP - General Family Medicine 01/08/11 documented as of this encounter
--- OUTSIDE RECORDS SUMMARY | 2024-02-01 04:15 | External Medical Summary | Summary of Care ---
Author Name Unknown Organization [facility] Address [address] [facility] [place] [place] [address] Phone [phone] Care Team Providers Care Viscosity Inspector Name Role Phone Chino Chou MD Primary Care Provider [phone] Reason for Visit * Reason Comments Medication Administration Vitamin B12 1, 000mcg Encounter Details Date Type Department Care Team (Late st Contact Info) Description 11/25/2023 1:00 PM EDT Immunization/I njection Hematology/Oncology Treatment, [address] [address] Tereza, Chair 1 Hem On[address] [address] B12 deficiency*; H/O bariatric surgery Allergies Active Allergy Reactions Criticality Noted Date Comments Diphenhydramine Rash 01/22/2023 Codeine Psych complications 08/27/2010 Gets mean and itchy Wound Dressing Adhesive 12/30/2022 Patient got sores and it opened up and oozed. documented as of this encounter (statuses as of 12/03/2023) Medications Medication Sig Dispensed Refills Start Date [...] by mouth in the morning. Active Nystatin [id number] UNIT/GM External Powder (Nystop)Indications: Candidal intertrigo Apply topically to affected area 3 times a day. Apply to gluteal cleft 60 g 1 07/29/2023 Active Losartan Potassium 25 MG Oral Tablet (Cozaar)Indications: HTN, goal below 140/90 TAKE 1 TABLET BY MOUTH EVERY DAY IN THE MORNING 90 Tablet 09/03/2023 Active documented as of this encounter (statuses as of 12/03/2023) Active Problems Problem Noted Date Diagnosed Date [...] ICD-10 update of inactive term [facility] OTHER*[id number] 09/22/2005 Major depressive disorder 08/12/2004 Overview: ICD-10 update of inactive term documented as of this encounter (statuses as of 12/03/2023) Resolved Problems Problem Noted Date Diagnosed Date [...] as of this encounter (statuses as of 12/03/2023) Immunizations Name Administration Dates Next Due Seasonal [...] = 0.6 oz pure alcohol) alcohol dependence// [place] 03/2010 no alcohol / Xanax since PHQ-2 [...] on file Are you (or your family) yaerli eless or worried that you might be [...] [facility], Endoscopy Room [facility] [address] [place] [phone] Sid Price MD 132 [place] [address] 12/08/2023 11:45 AM EDT - 12/08/2023 12:15 PM EDT Surgery ENDO [facility], Endoscopy Room [facility] [address] [place] [phone] Sid Price MD [address] [place] [address] COLONOSCOPY FLEXIBLE PROXIMAL DIAGNOSTIC 12/24/2023 1:15 PM EDT Immunization/Injec tion Hematology/Oncology Treatment, [place] [address] [place] [address] Tereza, Chair 1 Hem Onc [facility] 200 [facility] [place] [address] 04/11/2024 2:15 PM EST Office Visit Hematology/Oncology [facility] [place] 200 [facility] [place] [address] Ray Avalos MD 200 [facility] [place] [address] 05/29/2024 10:20 AM EST Office Visit [facility] [address] [place] [address] Chino Chou MD [address] [place], [place] [phone] Scheduled Procedures Name Priority Associated Diagnoses Date/Ti me COLONOSCOPY FLEXIBLE PROXIMAL DIAGNOSTIC Recall Special screening for malignant neoplasms, colon 12/08/2023 11:45 AM EDT Health Maintenance Due Date Last Done Comments Pneumococcal Vaccine: Pediatrics (0 to 5 Years) and At-Risk Patients (6 to 64 Years) (1 of 2 - PCV) [birth year]/27/1966 Cologuard 2006 Fecal Occult Blood Test 2006 Sigmoidoscopy 2006 Colonoscopy 12/16/2022 12/16/2012, 11/28, 12/13/2012, Additional history exists Colorectal Cancer Screening 12/16/2022 Zoster Vaccines (2 of 2) 08/18/2023 06/23/2023 COVID-19 Vaccine ( season) 2023 Influenza Vaccine (FLU shot) (#1) [...] patient or by statute hierarchy) Care Teams Viscosity Inspector Relationship Specialty Start Date End Date Chino Chou MD [address] [place] [address] PCP - General Family Medicine 01/08/11 documented as of this encounter
--- OUTSIDE RECORDS SUMMARY | 2024-02-01 04:16 | External Medical Summary | Summary of Care ---
Author Name Unknown Organization [facility] Address [address] [place] [place] [address] Phone [phone] Care Team Providers Care Shale Processing Technician Name Role Phone Chino Chou MD Primary Care Provider Reason for Visit * Reason Comments Medication Administration Vitamin B12 Encounter Details Date Type Department Care Team (Late st Contact Info) Description 09/21/2023 11:00 AM EDT Immunization/I njection Hematology/Oncology Treatment, [place] [address] [place] [address] Nurse, Med [address] [place] [address] B12 deficiency*; H/O bariatric surgery Allergies Active Allergy Reactions Criticality Noted Date Comments Diphenhydramine Rash 01/22/2023 Codeine Psych complications 08/27/2010 Gets mean and itchy Wound Dressing Adhesive 12/30/2022 Patient got sores and it opened up and oozed. documented as of this encounter (statuses as of 10/04/2023) Medications Medication Sig Dispensed Refills Start Date [...] Tablet by mouth in the morning. Active Clobetasol Propionate 0.05 % External Ointment (Temovate)Indication s:Hand dermatitis Apply topically to affected area 2 times a day. To affected area for up to two weeks. 15 g 1 07/29/2023 Active Nystatin 481830 UNIT/GM External Powder (Nystop)Indications: Candidal intertrigo Apply topically to affected area 3 times a day. Apply to gluteal cleft 60 g 1 07/29/2023 Active Losartan Potassium 25 MG Oral Tablet (Cozaar)Indications: HTN, goal below 140/90 TAKE 1 TABLET BY MOUTH EVERY DAY IN THE MORNING 90 Tablet 09/03/2023 Active documented as of this encounter (statuses as of 10/04/2023) Active Problems Problem Noted Date Diagnosed Date [...] ICD-10 update of inactive term [facility]EARCH OTHER*[id number] 09/22/2005 Major depressive disorder 08/12/2004 Overview: ICD-10 update of inactive term documented as of this encounter (statuses as of 10/04/2023) Resolved Problems Problem Noted Date Diagnosed Date [...] as of this encounter (statuses as of 10/04/2023) Immunizations Name Administration Dates Next Due Seasonal [...] = 0.6 oz pure alcohol) alcohol dependence// [place] 03/2010 no alcohol / Xanax since PHQ-2 [...] No 06/24/2023 Does the household have a [facility] source of income? (Household - for ages [...] Nursing Notes * Lisa Hurtado LPN - 09/21/2023 11:30 AM EDT Pt arrived for vitamin B12 injection. Administered in R deltoid. Pt tolerated well. To return in 4 weeks. Discharged in stable condition. documented in this encounter Plan of Treatment Upcoming Encounters Date Type Department Care Team (Latest Contact Info) Description 10/06/2023 10:30 AM EDT Office Visit Hematology/Oncology [facility] [place] [address] [facility] [place] [address] Anabella Smith CRNP [address] [place] [address] 10/21/2023 10:00 AM EDT Imaging Radiology [facility] 1st [facility], [place] [address] [place] [address] 10/21/2023 11:00 AM EDT Immunization/Injec tion Hematology/Oncology Treatment, [place] [address] [place] [phone] Nurse, Med [address] [place], [place] [address] 12/08/2023 11:45 AM EDT Hospital Encounter ENDO [facility], Endoscopy Room [facility] [address] [place] [phone] Sid Price MD [address] [place] [address] 12/08/2023 11:45 AM EDT - 12/08/2023 12:15 PM EDT Surgery ENDO [facility], Endoscopy Room [facility] [address] [place] [phone] Sid Price MD [address] [place] [address] COLONOSCOPY FLEXIBLE PROXIMAL DIAGNOSTIC 05/29/2024 10:20 AM EST Office Visit [facility] [address] [place] [facility] [place] [phone] Chino Chou MD [address] [place], [place] [phone] Scheduled Procedures Name Priority Associated Diagnoses Date/Ti [...] 10/13/2023 10/12/2022, 09/26, 09/21/2022, Additional history exists GFR 11/26/2023 11/25/2022, 07/28, 03/26/2020, Additional history exists Influenza Vaccine (FLU shot) (#1) 2023 05/28/2023, 03/18/2022, 04/08/2020, Additional history exists Depression Monitoring 06/23/2024 06/24/2023 Diabetes Screening 11/25/2025 11/25/2022, 0 08/18/2021, 03/26/2020, Additional history exists Albumin/Creatinine Ratio 05/26/2026 024, 04/17/2014, 06/07/2013, Additional history exists Pap Smear 07/28/2026 07/29/2023, 07/27, 10/13/2016, Additional history exists DTaP,Tdap,and Td Vaccines (2 - Td or Tdap) 09/24/2026 09/24/2016 Lipid Panel 05/26/2028 05/26/2023, 07/28, 03/26/2020, Additional [...] 1,000 mcg 1,000 mcg, Intramuscular, ONCE, On Wed09/21/23 at 1145, For 1 dose Given 09/21/2023 10:55 AM EDT 1,000 mcg Deltoid Right Upper documented [...] 8:17 AM 09/15/2012 1:40 PM This order reflects the patients wishes [...] patient or by statute hierarchy) Care Teams Shale Processing Technician Relationship Specialty Start Date End Date Chino Chou MD [address] [place] [address] PCP - General Family Medicine 01/08/11 documented as of this encounter
--- OUTSIDE RECORDS SUMMARY | 2024-02-01 04:16 | External Medical Summary ---
Author Name Unknown Address Unknown Organization K01:LABORATORY [facility] [place] - [address] [place] [address] Laboratory Report Ordering Provider Test Date Status THUY LEVY 10/06/2023 10:50:00 Final Observation Date Value Abnormality Reference (Units ) Status Vitamin B12 10/06/2023 10:50:00 135 740-1748 (pg/mL) Final Performing Location LABORATORY [facility] [place] - [address] [place] [address]
--- OUTSIDE RECORDS SUMMARY | 2024-02-01 04:16 | External Medical Summary | Summary of Care ---
Author Name Unknown Organization [facility] Address [address] [place] [address] Phone [phone] Care Team Providers Care Multimedia Designer Name Role Phone Chino Chou MD Primary Care Provider [phone] Reason for Visit * Reason Comments Follow Up 6 month follow up Encounter Details Date Type Department Care Team (Late st Contact Info) Description 10/06/2023 10:30 AM EDT Office Visit Hematology/Oncology [facility] [address] [place] [address] Anabella Smith, SAVANNAH [address] [place] [address] B12 deficiency*; residential (current) use of aromatase inhibitors Allergies Active Allergy Reactions Criticality Noted Date Comments Diphenhydramine Rash 01/22/2023 Codeine Psych complications 08/27/2010 Gets mean and itchy Wound Dressing Adhesive 12/30/2022 Patient got sores and it opened up and oozed. documented as of this encounter (statuses as of 10/06/2023) Medications Medication Sig Dispensed Refills Start Date [...] 05/06/2023 Active Anastrozole 1 MG Oral Tablet (Arimidex)Indicat ions:Neoplasm of right breast, primary tumor staging category Tis: ductal carcinoma in situ (DCIS) Take 1 Tablet by mouth in the morning. 90 Tablet 3 06/02/2023 Active Atorvastatin Calcium 20 MG Oral Tablet (Lipitor)Indicati ons:Dyslipidemia, goal LDL below 100 TAKE 1 TABLET BY MOUTH EVERY DAY IN THE MORNING 90 Tablet 1 06/14/2023 Active lamoTRIgine 25 MG Oral Tablet (LaMICtal) Take 3 Tablets by mouth in the morning. Active buPROPion HCl ER (XL) 150 MG Oral Tablet Extended Release 24 Hour (Wellbutrin XL) Take 1 Tablet by mouth in the morning. Active Nystatin [id number] UNIT/GM External Powder (Nystop)Indicatio ns:Candidal intertrigo Apply topically to affected area 3 times a day. Apply to gluteal cleft 60 g 1 07/29/2023 Active Losartan Potassium 25 MG Oral Tablet (Cozaar)Indicatio ns:HTN, goal below 140/90 TAKE 1 TABLET BY MOUTH EVERY DAY IN THE MORNING 90 Tablet 09/03/2023 Active Clobetasol Propionate 0.05 % External Ointment (Temovate)Indicat ions:Hand dermatitis Apply topically to affected area 2 times a day. To affected area for up to two weeks. 15 g 1 07/29/2023 10/06/2023 Discontinued (Medication List Clean Up) documented as of this encounter (statuses as of 10/06/2023) Active Problems Problem Noted Date Diagnosed Date [...] ICD-10 update of inactive term ED[facility] RESEARCH OTHER*[id number] 09/22/2005 Major depressive disorder 08/12/2004 Overview: ICD-10 update of inactive term documented as of this encounter (statuses as of 10/06/2023) Resolved Problems Problem Noted Date Diagnosed Date [...] as of this encounter (statuses as of 10/06/2023) Immunizations Name Administration Dates Next Due Seasonal [...] Passive Smoke Exposure: Current Smokeless Tobacco: Never Tobacco Cessation:Ready to Q uit: Not Asked; Counseling Given: Not Answered Alcohol Use Standard Drinks/Week Comments No 0 (1 standard drink = 0.6 oz pure alcohol) alcohol dependence// [place] 03/2010 no alcohol / Xanax since PHQ-2 [...] Sign Reading Time Taken Comments Blood Pressure 135/80 10/06/2023 10:22 AM EDT Pulse 83 10/06/2023 10:22 AM EDT Temperature 36.8 C (98.3 F) 10/06/2023 1 0:22 AM EDT Respiratory Rate - - Oxygen Saturation 97% 10/06/2023 10: 22 AM EDT Inhaled Oxygen Concentration - - Weight 100.4 kg (221 lb 4.8 oz) 024 10:22 AM EDT Height - - Body Mass Index 37.99 08/05/2023 10:12 AM EDT documented in this encounter Progress Notes * Anabella Smith CRNP - 10/06/2023 10:30 AM EDT Hematology/Oncology Outpatient Clinic note [place] [address] [place] [address] Name: Radha Warren Date: 10/06/2023 CHIEF COMPLAINT: Radha Warren is a 63 year old female patient here today for f/u visit She is a patient of Dr. Avalos From Patient chart confirmed history with patient. From Dr. 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 History of gastric bypass surgery about 17 years back. History of Vitamin B12 deficiency, currently not on B12 injection She had evidence of iron deficient, received IV iron therapy in the past, last treatment was received in 2012 TREATMENT: On Arimidex starting around 06/02/23 Radiation therapy at [facility] Right breast DCIS, S/P lumpectomy, she had additional resection margins DIAGNOSTIC WORKUP: Bilateral breast screening mammogram done on 09/21/2022: - Left breast 6 mm mass, right breast calcification Bilateral breast diagnostic mammogram and sonogram on 10/12/2022: right breast --> Group of microcalcification left breast --> 3 x 8 x 6 mm hypoechoic lesion at 1 o'clock Biopsy from the right breast with calcification lesion: (10/26/2022 - Intermediate to high-grade DCIS with necrosis Right breast without calcification biopsy --> High-grade DCIS with necrosis. (10/26/2022). Biopsy from the left breast 1 o'clock lesion --> Benign findings. Bilateral breast MRI on 11/15/2022: - Left breast --> No suspicious finding - Right breast --> Post biopsy hematoma measuring 2.3 x 1.1 x 1.1 cm. - No lymphadenopathy. Right breast partial mastectomy (12/15/2022) - DCIS, intermediate grade. - Atypical ductal proliferation focally present at the inferior margin - DCIS 1 mm to the inferior-posterior margin Additional new posterior margin: Overall negative. (01/05/2023). OTHER IMPORTANT HISTORY: - previous history of gastric bypass surgery, B12 deficiency, iron deficiency related to that -smokes about 1/2 pack per day over 2 days -recovering from the alcohol, discontinued alcohol intake about 5 year back. INTERVAL HISTORY: She is here for 4 month f/u appointment, she is by herself. She says that she is otherwise doing well, is happy that she has lost some weight. No reported hot flashes, vaginal dc or bleeding. Mild bilateral knee pain that is resolved with Tylenol. No new cardiac or pulmonary symptoms. Smoking present. No nausea no vomiting, no back pain Reports that at times she feels slightly "off balance" No syncope or near syncope. C/O water in left ear. Family history: -dad with prostate cancer, mom with no cancer diagnosis, of COPD -maternal grandfather with prostate cancer Maternal grandmother with lymphoma in the neck -1 sister with breast surgery but as per the patient was benign. -she has 6 sisters and 1 brother She has 1 son. -maternal aunt with breast cancer. HISTORY OF PRESENT ILLNESS: Radha Warren is a 63 year old female with a history as outlined above. Currently here for f/u visit today. Taking Arimidex daily. Taking Calcium with Vit D. Does some weight bearing exercise. Mammogram due in 2-3 weeks with f/u with surgeon. Bone density is up to date. Full ros below Past Medical History: Diagnosis Date Breast cancer (HCC) DCIS Hyperlipemia No significant past medical history Past Surgical History: Procedure Laterality Date BREAST LESION,OTHER,EXCISION Right 01/05/2023 EXCISION OF CYST OR TUMOR BREAST performed by Kelby Townsend MD at OR [facility] COLONOSCOPY, DIAGNOSTIC (RECTUM) 12/13/2012 COLONOSCOPY FLEXIBLE PROXIMAL DIAGNOSTIC performed by Sid Price MD at ENDOSCOPY [facility] COLONOSCOPY, DIAGNOSTIC (RECTUM) 12/16/2012 COLONOSCOPY FLEXIBLE PROXIMAL DIAGNOSTIC performed by Sid Price MD at ENDOSCOPY [facility] EGD, FLEXIBLE, DIAGNOSTIC 08/27/2010 UPPER GI ENDOSCOPY DIAGNOSTIC performed by LISSETH DOWNEY III at [facility] EGD, FLEXIBLE, DIAGNOSTIC 09/15/2012 UPPER GI ENDOSCOPY DIAGNOSTIC performed by Lisseth Downey III, MD at [facility] EGD, FLEXIBLE, TRANSENDOSCOPIC DILATION <30MM 09/15/2012 UPPER GI ENDOSCOPY BALLOON DILATION LESS THAN 30MM performed by Lisseth Downey III, MD at [facility] EX OF EXCES SKIN,ABDOM 02/02/2012 EXCISION EXCESSIVE SKIN AND SUBCUTANEOUS TISSUE INCLUDING LIPECTOMY ABDOMEN ABDOMINOPLASTY performed by Damon Sanabria MD at [facility] EXC BREAST LESION RADMARK Right 12/15/2022 EXCISION OF BREAST LESION RADIOLOGICAL MARKER performed by Kelby Townsend MD at OR [facility] EXCISION EXCES SKIN,PANNICULECTOMY,INFRAUMB 02/02/2012 EXCISION EXCESSIVE SKIN AND SUBCUTANEOUS TISSUE INCLUDIING LIPECTOMY ABDOMEN INFRAUMBILICAL PANNICULECTOMY performed by Damon Sanabria MD at OR [facility] [place] [place] HYSTEROSCOPY;ENDOMETRIAL ABLAT 05/07/2011 LIGATE/CUT OVIDUCT(S) AT SURGERY 11/27/2009 MAMMOGRAM BREAST NEEDLE BIOPSY CORE RIGHT Right 10/26/2022 DCIS MASTECTOMY, PARTIAL Right 12/15/2022 MASTECTOMY PARTIAL performed by Kelby Townsend MD at OR [facility] MISCELLANEOUS ORDER ([facility] ONLY) 03/29/2005 gastric bypass US GUIDED BREAST BIOPSY LEFT Left 10/26/2022 Social History Socioeconomic History Marital status: Spouse [...] Activity Alcohol use: No Comment: alcohol dependence// [place] 03/2010 no alcohol / Xanax since Drug [...] Stability Do you currently live in a custodial or have no steady place to sleep [...] - for ages0-17 years): Not on file Review of patient's allergies indicates: Allergen Reactions Benadryl [Diphenhydramine] Rash Codeine Psych complications Gets mean and itchy Pedi-Pre Tape [place] [Wound Dressing Adhesive] Patient got sores and it opened up and oozed. Current Outpatient Medications Medication Sig Dispense Refill [...] 1 Tablet by mouth in the morning. Clobetasol Propionate 0.05 % External Ointment (Temovate) Apply topically to affected area 2 times a day. To affected area for up to two weeks. 15 g 1 Nystatin [id number] UNIT/GM External Powder (Nystop) Apply topically to affected area 3 times a day. Apply to gluteal cleft 60 g 1 Losartan Potassium 25 MG Oral Tablet (Cozaar) TAKE 1 TABLET BY MOUTH EVERY DAY IN THE MORNING 90 Tablet 0 No current facility-administered medications for this visit. REVIEW OF SYSTEMS: Review of Systems Constitutional: Negative for appetite change, chills, fatigue and fever. HENT: Negative for mouth sores and trouble swallowing. Respiratory: Negative for chest tightness and shortness of breath. Cardiovascular: Negative for chest pain, leg swelling and palpitations. Gastrointestinal: Negative for abdominal pain, blood in stool, constipation, diarrhea and vomiting. Endocrine: Negative for hot flashes. Genitourinary: Negative for difficulty urinating, vaginal bleeding and vaginal discharge. GERD symptoms--using TUMS Musculoskeletal: Positive for myalgias. Negative for back pain. Bilateral knee pain Skin: Negative. Neurological: Positive for dizziness. Negative for extremity weakness, headaches, light-headedness and numbness. Hematological: Negative for adenopathy. Does not bruise/bleed easily. Psychiatric/Behavioral: Negative for sleep disturbance. OBJECTIVE: Filed Vitals: 10/06/23 1022 BP: 135/80 Pulse: 83 Temp: 36.8 C (98.3 F) TempSrc: Tympanic SpO2: 97% Weight: 100.4 kg (221 lb 4.8 oz) Wt Readings from Last 5 Encounters: 10/06/23 100.4 kg (221 lb 4.8 oz) 08/05/23 102.1 kg (225 lb) 07/29/23 102.6 kg (226 lb 3.2 oz) 05/28/23 104.8 kg (231 lb) 02/19/23 107.1 kg (236 lb 3.2 oz) PHYSICAL EXAM: ECOG: Performance Status 0 = 100% Normal Activity General Appearance: Normal - Healthy appearing patient in no acute distress HEENT: Normal - No oral or pharyngeal masses, ulceration or thrush noted, no sinus tenderness Fluid noted in left ear. TM pink with normal light reflex Lymph Nodes: Normal - No palpable lymph nodes in the neck or supraclavicular areas No axilla LN noted No chest wall lymphadeopathy Breast exam: deferred -seeing surgeon soon Lungs/Thorax: Normal - Clear to auscultation Heart: Normal - Regular rate and rhythm, normal S1, S2, no appreciable murmurs, rubs, gallops Pulses/Extremities: Normal - 2+ throughout and symmetrical, no edema Abdomen: Normal - Soft, nontender, bowel sounds present, no appreciable hepatosplenomegaly, no palpable masses Musculoskeletal: Normal - No pain on palpation over bony prominence, no joint or bony deformity Neurologic: Normal - Grossly intact CN II-IV intact. Alert and oriented. Gait steady LABS: ordered IMAGING: Pelvic sonogram in July of 2020: 1. Atrophic endometrium. 2. Uterus is atrophic as would be expected for patient's age and postmenopausal status. Heterogeneous myometrium and a 7 mm uterine fibroid. 3. Normal ovaries. ASSESSMENT AND PLAN: 62-year-old female, A case of right breast DCIS, S/P lumpectomy, overall negative margin, hormonal positive, finished radiation therapy. Continue Anastrozole 1 mg once a day Continue Calcium with Vit D Previous history of gastric bypass surgery noted about 17 years back -iron deficiency and B12 deficiency was there before, received IV iron and B12 injection therapy inthe past currently she is not on any replacement therapy Repeat lab cbc, cmp, B12, Ferritin, iron profile today. Mammogram scheduled RTC Avalos in 6 months Call as needed SAVANNAH Dowell documented in this encounter Nursing Notes * Anita Bosch, MED ASSIST - 10/06/2023 10:24 AM EDT Patient identifed by name and birthdate Do you have any concerns about pain management for today's visit? No Living Will or Advance Directive for Health Care as noted on the problem list. [facility] is a way you can talk to your provider on line through e-mail. Would you like to sign up? I can activate it for you? ALREADY ACTIVE Filed Vitals: 10/06/23 1022 BP: 135/80 Pulse: 83 Temp: 36.8 C (98.3 F) TempSrc: Tympanic SpO2: 97% Weight: 100.4 kg (221 lb 4.8 oz) Patient was instructed to not get up on the exam table/exam chair until directed and assisted by their provider; patient is to remain seated in the chair/ wheelchair/ exam table/ exam chair for fall prevention and safety reasons. Patient is aware to have assistance to step down off exam table/exam chair with personnel. Patient voiced full comprehension of instructions. documented in this encounter Plan of Treatment Upcoming Encounters Date Type Department Care Team (Latest Contact Info) Description 10/21/2023 10:00 AM EDT Imaging Radiology [facility] 1st [facility] [place] [address] [place] [address] 10/21/2023 11:00 AM EDT Immunization/Injec tion Hematology/Oncology Treatment, [place] [address] [place] [phone] Nurse, Med [address] [place], [place] [address] [address] 12/08/2023 11:45 AM EDT Hospital Encounter ENDO [facility], Endoscopy Room [facility] [address] [phone] Sid Price MD [address] [place] [address] 12/08/2023 11:45 AM EDT - 12/08/2023 12:15 PM EDT Surgery ENDO [facility], Endoscopy Room [facility] [address] [place] [phone] Sid Price MD [address] [place] [address] COLONOSCOPY FLEXIBLE PROXIMAL DIAGNOSTIC 04/11/2024 2:15 PM EST Office Visit Hematology/Oncology [facility] [address] [facility] [place] [phone] Ray Avalos MD [address] [facility] [place] [address] 05/29/2024 10:20 AM EST Office Visit [facility] [address] [place] [phone] Chino Chou MD [address] [place] [address] Pending Results Name Type Priority Associated Diagnoses Date /Time IRON SCREEN, INCLUDING TIBC Lab Routine B12 deficiency 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 10/06/2023 10:50 AM EDT FERRITIN Lab Routine B12 deficiency residential (current) use of aromatase inhibitors 10/06/2023 10:50 AM EDT VITAMIN B12 Lab Routine B12 deficiency residential (current) use of aromatase inhibitors 10/06/2023 10:50 AM EDT Scheduled Orders Name Type Priority Associated Diagnoses Orde r Schedule IRON SCREEN, INCLUDING TIBC Lab Routine B12 deficiency 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 Expected: 10/06/2023, Expires: 10/05/2024 FERRITIN Lab Routine B12 deficiency residential (current) use of aromatase inhibitors Expected: 10/06/2023, Expires: 10/05/2024 Scheduled Procedures Name Priority Associated Diagnoses Date/Ti [...] Diagnosis B12 deficiency- Primary Other B-complex deficiencies 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 Special screening for malignant neoplasms, colon documented [...] patient or by statute hierarchy) Care Teams Multimedia Designer Relationship Specialty Start Date End Date Chino Chou MD [address] [place] [address] PCP - General Family Medicine 01/08/11 documented as of this encounter
--- OUTSIDE RECORDS SUMMARY | 2024-02-01 04:16 | External Medical Summary ---
Author Name Unknown Address Unknown Organization K01:LABORATORY [facility] [place] - [address] [facility] [address] Laboratory Report Ordering Provider Test Date Status CAMTHUY 10/06/2023 10:50:00 Final Observation Date Value Abnormality Reference (Units ) Status Ferritin 10/06/2023 10:50:00 23 13-150 (ng /mL) Final Postmenopausal women have hi gher ferritin levels than pre-menopausal women. The above reference interval is based on pre-menopausal women. Performing Location LABORATORY [facility] [place] - [address] [facility] [address]
--- OUTSIDE RECORDS SUMMARY | 2024-02-01 04:16 | External Medical Summary ---
Author Name Unknown Address Unknown Organization K09:LAB[facility]ORY [place] [address] Laboratory Report Ordering Provider Test Date Status THUY LEVY 10/06/2023 10:50:00 Final Observation Date Value Abnormality Reference (Units ) Status WBC, Total 10/06/2023 10:50:00 4.10 4.00-10.8 0 (K/uL) Final RBC 10/06/2023 10:50:00 4.76 3.85-5.15 (M/uL) Final Hemoglobin 10/06/2023 10:50:00 13.6 12.0-15.3 (g/dL) Final HCT 10/06/2023 10:50:00 43.9 36.0-45.2 (%) Final MCV 10/06/2023 10:50:00 92.2 81.5-97.5 (fL) Final MCH 10/06/2023 10:50:00 28.6 27.0-34.0 (pg) Final MCHC 10/06/2023 10:50:00 31.0 32.0-36.0 (g/dL) Final RDW 10/06/2023 10:50:00 14.0 11.5-15.5 (%) Final Platelets 10/06/2023 10:50:00 130 Below low normal 140 -400 (K/uL) Final MPV 10/06/2023 10:50:00 10.7 6.6-11.1 ( fL) Final Performing Location [facility] [place] [address]
--- OUTSIDE RECORDS SUMMARY | 2024-02-01 04:16 | External Medical Summary ---
Author Name Unknown Address Unknown Organization K09:LABORATORY [place] [address] Laboratory Report Ordering Provider Test Date Status THUY LEVY 10/06/2023 10:50:00 Final Observation Date Value Abnormality Reference (Units ) Status SYNC LEUKOCYTES IN BLOOD BY AUTOMATED COUNT 10/06/2023 10:50:00 4.10 4.00-10.80 (K/uL) Final Segs 10/06/2023 10:50:00 75.4 Above high normal 40.0-75.0 (%) Final Lymphs % 10/06/2023 10:50:00 18.3 18.0-42.0 (%) Final Monos 10/06/2023 10:50:00 5.9 1.0-11.0 (%) Final Eosinophils 10/06/2023 10:50:00 0.2 0.0-6.0 (%) Final Basos 10/06/2023 10:50:00 0.2 0.0-2.0 (%) Final Absolute Segs 10/06/2023 10:50:00 3.09 1.80-7.70 (K/uL) Final Lymphs, absolute 10/06/2023 10:50:00 0.75 Below low normal 1.00-4.80 (K/ul) Final Monos, Abs 10/06/2023 10:50:00 0.24 0.00-1.10 (K/uL) Final Eos, Abs 10/06/2023 10:50:00 0.01 0.00-0.70 (K/uL) Final Basos, Abs 10/06/2023 10:50:00 0.01 0.00-0.20 (K/uL) Final Performing Location LABORATORY [place] [address]
--- OUTSIDE RECORDS SUMMARY | 2024-02-01 04:16 | External Medical Summary ---
Author Name Unknown Address Unknown Organization K01:[place] [place] [address] [place] [address] Laboratory Report Ordering Provider Test Date Status CAMTHUY 10/06/2023 10:50:00 Final Observation Date Value Abnormality Reference (Units ) Status Iron 10/06/2023 10:50:00 80 33-151 (ug /dL) Final Iron-binding capacity 10/06/2023 10:50:00 359 250-425 (ug/dL) Final Transferrin Sat % 10/06/2023 10:50:00 22 15 -55 (%) Final Performing Location [facility] [place] [address] [place] [address]
--- OUTSIDE RECORDS SUMMARY | 2024-02-01 04:16 | External Medical Summary | Summary of Care ---
Author Name Unknown Organization [facility] Address [address] [place] [facility] [place] [address] Phone [phone] Care Team Providers Care Publications Writer Name Role Phone Chino Chou MD Primary Care Provider [phone] Reason for Visit * Reason Comments Medication Administration Vitamin B12 Encounter Details Date Type Department Care Team (Late st Contact Info) Description 09/21/2023 11:00 AM EDT Immunization/I njection Hematology/Oncology Treatment, [place] [address] [place] [address] Nurse, Med [address] [place] [address] B12 deficiency*; H/O bariatric surgery Allergies Active Allergy Reactions Criticality Noted Date Comments Diphenhydramine Rash 01/22/2023 Codeine Psych complications 08/27/2010 Gets mean and itchy Wound Dressing Adhesive 12/30/2022 Patient got sores and it opened up and oozed. documented as of this encounter (statuses as of 10/03/2023) Medications Medication Sig Dispensed Refills Start Date [...] weeks. 15 g 1 07/29/2023 Active Nystatin [id number] UNIT/GM External Powder (Nystop)Indications: Candidal intertrigo Apply topically to affected area 3 times a day. Apply to gluteal cleft 60 g 1 07/29/2023 Active Losartan Potassium 25 MG Oral Tablet (Cozaar)Indications: HTN, goal below 140/90 TAKE 1 TABLET BY MOUTH EVERY DAY IN THE MORNING 90 Tablet 09/03/2023 Active documented as of this encounter (statuses as of 10/03/2023) Active Problems Problem Noted Date Diagnosed Date [...] ICD-10 update of inactive term EDMON[facility] RESEARCH OTHER*[id number] 09/22/2005 Major depressive disorder 08/12/2004 Overview: ICD-10 update of inactive term documented as of this encounter (statuses as of 10/03/2023) Resolved Problems Problem Noted Date Diagnosed Date [...] as of this encounter (statuses as of 10/03/2023) Immunizations Name Administration Dates Next Due Seasonal [...] = 0.6 oz pure alcohol) alcohol dependence// [place] 03/2010 no alcohol / Xanax since PHQ-2 [...] No 06/24/2023 Does the household have a [facility] source of income? (Household - for ages [...] AM EDT Office Visit Hematology/Oncology [facility] [place] [address] [facility] [address] [place] [address] Anabella Smith CRNP [address] [place] [address] 10/21/2023 10:00 AM EDT Imaging Radiology [facility] 1st [facility] [place] [address] [place] [address] 10/21/2023 11:00 AM EDT Immunization/Injec tion Hematology/Oncology Treatment, [place] [address] [place] [phone] Nurse, Med [address] [place], [place] [address] 12/08/2023 11:45 AM EDT Hospital Encounter ENDO [facility], Endoscopy Room [facility] [address] [place] [phone] Sid Price MD [address] [place] [address] 12/08/2023 11:45 AM EDT - 12/08/2023 12:15 PM EDT Surgery ENDO [facility], Endoscopy Room [facility] [address] [place] [phone] Sid Price MD [address] [place] [address] COLONOSCOPY FLEXIBLE PROXIMAL DIAGNOSTIC 05/29/2024 10:20 AM EST Office Visit [facility] [address] [place] [facility] [place] [phone] Chino Chou MD [address] [place], [place] [phone] Scheduled Procedures Name Priority Associated Diagnoses Date/Ti [...] patient or by statute hierarchy) Care Teams Publications Writer Relationship Specialty Start Date End Date Chino Chou MD [address] [place] [address] PCP - General Family Medicine 01/08/11 documented as of this encounter
--- OUTSIDE RECORDS SUMMARY | 2024-02-01 04:16 | External Medical Summary ---
Author Name Unknown Address Unknown Organization K09:[facility] [place] [address] Laboratory Report Ordering Provider Test Date Status BEAR WATKINSRNE 10/06/2023 10:50:00 Final Observation Date Value Abnormality Reference (Units ) Status BUN 10/06/2023 10:50:00 8 6-20 (mg/dL) Final Creatinine 10/06/2023 10:50:00 0.9 0.5-1.0 (mg/dL) Final Glomerular filtration rate/1.73 sq M.predicted [Volume Rate/Area] in Serum, Plasma or Blood by Creatinine-based formula (CKD-EPI) 10/06/2023 10:50:00 71 >=60 (mL/min) Final eGFR is calculated based on the CKD-EPI 2020 equation Sodium 10/06/2023 10:50:00 144 135-146 (m mol/L) Final Potassium 10/06/2023 10:50:00 4.7 3.5-5.1 (m mol/L) Final Cl 10/06/2023 10:50:00 109 Above high normal 98 -107 (mmol/L) Final CO2 10/06/2023 10:50:00 24 22-32 (mmo l/L) Final Anion gap 10/06/2023 10:50:00 11 7-15 (mmol /L) Final Glucose 10/06/2023 10:50:00 101 70-120 (mg /dL) Final Calcium 10/06/2023 10:50:00 8.9 8.4-10.2 ( mg/dL) Final Performing Location [facility] [place] [address]
--- OUTSIDE RECORDS SUMMARY | 2024-02-01 04:16 | External Medical Summary | Summary of Care ---
Author Name Unknown Organization [facility] Address [address] [place] [address] Phone [phone] Care Team Providers Care Lithoduplicator Operator Name Role Phone Chino Chou MD Primary Care Provider [phone] Reason for Visit * Reason Comments Outpatient Testing Encounter Details Date Type Department Care Team (Late st Contact Info) Description 10/06/2023 11:00 AM EDT Laboratory Laboratory [facility] [address] [place] [address] [place], [address] [place] [id number] HTN, goal below 140/90; Encounter for long-term (current) use of other medications; B12 deficiency; detention (current) use of aromatase inhibitors Allergies Active [...] by mouth in the morning. Active Nystatin 670441 UNIT/GM External Powder (Nystop)Indications: Candidal intertrigo Apply [...] ICD-10 update of inactive term [facility]MONDS[facility]EARCH OTHER*[id number] 09/22/2005 Major depressive disorder 08/12/2004 Overview: ICD-10 [...] = 0.6 oz pure alcohol) alcohol dependence// Severance 03/2010 no alcohol / Xanax since PHQ-2 [...] Description 10/21/2023 10:00 AM EDT Imaging Radiology [facility] [address], [place] [address] [address] 10/21/2023 11:00 AM EDT Immunization/Injec tion Hematology/Oncology Treatment, [place] [address] [place] [phone] Nurse, Med [address] [place] [address] 12/08/2023 11:45 AM EDT Hospital Encounter ENDO [facility], Endoscopy Room [facility] [address] [place] [phone] Sid Price MD [address] [place] [address] 12/08/2023 11:45 AM EDT - 12/08/2023 12:15 PM EDT Surgery ENDO [facility], Endoscopy Room [facility] [address] [place] [phone] Sid Price MD [address] [place] [address] COLONOSCOPY FLEXIBLE PROXIMAL DIAGNOSTIC 04/11/2024 2:15 PM EST Office Visit Hematology/Oncology [facility] [address] [facility] [place] [phone] Ray Avalos MD [address] [facility] [place] [address] 05/29/2024 10:20 AM EST Office Visit [facility] [address] [place] [phone] Chino Chou MD [address] [place] [address] Pending Results Name Type Priority Associated Diagnoses Date /Time BASIC METABOLIC PANEL Lab Routine HTN, goal below 140/90 Encounter for long-term (current) use of other medications 10/06/2023 10:50 AM EDT IRON SCREEN, INCLUDING TIBC Lab Routine B12 deficiency intermodal dispatcher (current) use of aromatase inhibitors 10/06/2023 10:50 AM EDT FERRITIN Lab Routine B12 deficiency intermodal dispatcher (current) use of aromatase inhibitors 10/06/2023 10:50 AM EDT Scheduled Procedures Name Priority Associated Diagnoses Date/Ti me COLONOSCOPY FLEXIBLE PROXIMAL DIAGNOSTIC Recall Special screening for malignant neoplasms, colon 12/08/2023 11:45 AM EDT Health Maintenance Due Date Last Done Comments Pneumococcal Vaccine: Pediatrics (0 to 5 Years) and At-Risk Patients (6 to 64 Years) (1 of 2 - PCV) 08/27/1966 Cologuard 2006 Fecal Occult Blood Test 2006 Sigmoidoscopy 2006 COVID-19 Vaccine (1 - 24 season) 2022 Colonoscopy 12/16/2022 12/16/2012, 11/28, 12/13/2012, [...] Procedure Name Priority Date/Time Associated Diagnosis Comments DIFFERENTIAL, AUTOMATED Routine 10/06/2023 10:50 AM EDT B12 deficiency detention (current) use of aromatase inhibitors CBC Routine 10/06/2023 10:50 AM EDT B12 deficiency detention (current) use of aromatase inhibitors CBC Routine 10/06/2023 10:50 AM EDT B12 deficiency detention (current) use of aromatase inhibitors documented in this encounter Results * (ABNORMAL) DIFFERENTIAL, AUTOMATED (10/06/2023 10:50 AM EDT) Pathologist [facility] WBC 4.10 4.00 - 10.80 K/uL 10/06/2023 11:01 AM EDT [facility] 56-02 Neutrophils % 75.4(H) 40.0 - 75.0 % 10/06/2023 11:01 AM EDT [facility] 56-02 Lymphocytes % 18.3 18.0 - 42.0 % 10/06/2023 11:01 AM EDT [facility] 56-02 Monocytes % 5.9 1.0 - 11.0 % 10/06/2023 11:01 AM EDT [facility]-02 Eosinophils % 0.2 0.0 - 6.0 % 10/06/2023 11:01 AM EDT [facility] 56-02 Basophils % 0.2 0.0 - 2.0 % 10/06/2023 11:01 AM EDT [facility] 56-02 Absolute Neutrophils 3.09 1.80 - 7.70 K/uL 10/06/2023 11:01 AM T [facility] 56-02 Absolute Lymphocytes 0.75(L) 1.00 - 4.80 K/ul 10/06/2023 11:01 AM EDT [facility] 56-02 Absolute Monocytes 0.24 0.00 - 1.10 K/uL 10/06/2023 11:01 AM T [facility] 56-02 Absolute Eosinophils 0.01 0.00 - 0.70 K/uL 10/06/2023 11:01 AM T [facility] 56-02 Absolute Basophils 0.01 0.00 - 0.20 K/uL 10/06/2023 11:01 AM [facility] 56-02 Blood Venous blood specimen / Unknown Venipuncture / Unknown 10/06/2023 10:50 AM EDT 10/06/2023 10:50 AM EDT Anabella NUÑEZ LAB BLOOD ORDERAB LES [facility] [address] [place], [place] [phone] * (ABNORMAL) CBC (10/06/2023 10:50 AM EDT) WBC 4.10 4.00 - 10.80 K/uL 10/06/2023 11:01 AM EDT [address] RBC 4.76 3.85 - 5.15 M/uL 10/06/2023 11:01 AM EDT [address] HGB 13.6 12.0 - 15.3 g/dL 10/06/2023 11:01 AM EDT [address] HCT 43.9 36.0 - 45.2 % 10/06/2023 11:01 AM EDT [address] MCV 92.2 81.5 - 97.5 fL 10/06/2023 11:01 AM EDT [address] MCH 28.6 27.0 - 34.0 pg 10/06/2023 11:01 AM EDT [address] MCHC 31.0 32.0 - 36.0 g/dL 10/06/2023 11:01 AM EDT [address] RDW 14.0 11.5 - 15.5 % 10/06/2023 11:01 AM EDT [facility] 56 PLT 130(L) 140 - 400 K/uL 10/06/2023 11:01 AM EDT [facility] 56 MPV 10.7 6.6 - 11.1 fL 10/06/2023 11:01 AM EDT [facility] 56 Blood Venous blood specimen / Unknown Venipuncture / Unknown 10/06/2023 10:50 AM EDT 10/06/2023 10:50 AM EDT Anabella NUÑEZ LAB BLOOD ORDERAB LES [facility] [address] [place] [address] documented in this encounter Visit Diagnoses Diagnosis HTN, goal below 140/90 Unspecified essential hypertension Encounter for long-term (current) use of other medications B12 deficiency Other B-complex deficiencies detention (current) use of aromatase inhibitors Special screening [...] patient or by statute hierarchy) Care Teams Lithoduplicator Operator Relationship Specialty Start Date End Date Chino Chou MD [address] [facility] [place] [address] PCP - General Family Medicine 01/08/11 documented as of this encounter
--- OUTSIDE RECORDS SUMMARY | 2024-02-01 04:17 | External Medical Summary | Summary of Care ---
Author Name Unknown Organization [facility] Address [address] [place] [facility] [place] [address] Phone [phone] Care Team Providers Care Diesel Locomotive Firer/Fireman Name Role Phone Chino Chou MD Primary Care Provider Reason for Visit * Reason Comments PAP Encounter Details Date Type Department Care Team (Latest Contact Info) Description 07/29/2023 11:20 AM EDT Office Visit [facility] [address] [place] [address] Luz Shepherd PA-C [address] [place] [address] Screening for cervical cancer*; Encounter for gynecological examination without abnormal finding; Hand dermatitis; Spotting; Post-menopausal bleeding; Candidal intertrigo Allergies Active Allergy Reactions Criticality Noted Date Comments Diphenhydramine Rash 01/22/2023 Codeine Psych complications 08/27/2010 Gets mean and itchy Wound Dressing Adhesive 12/30/2022 Patient got sores and it opened up and oozed. documented as of this encounter (statuses as of 08/18/2023) Medications Medication Sig Dispensed Refills Start Date End Date Status Sertraline HCl 100 MG Oral Tablet (Zoloft) TAKE 2 TABLETS IN THE MORNING 07/06/2020 Active Topiramate 100 MG Oral Tablet (topAMAX) Take 1 Tablet by mouth in the morning. Active Losartan Potassium 25 MG Oral Tablet (Cozaar)Indicati ons:HTN, goal below 140/90 TAKE 1 TABLET BY MOUTH EVERY DAY IN THE MORNING 90 Tablet 1 12/28/2022 Active Acetaminophen 500 MG Oral Tablet Take [...] Active Clobetasol Propionate 0.05 % External Ointment (Temovate)Indica tions:Hand dermatitis Apply topically to affected area 2 times a day. To affected area for up to two weeks. 15 g 1 07/29/2023 Active Nystatin 469445 UNIT/GM External Powder (Nystop)Indicati ons:Candidal intertrigo Apply topically to affected area 3 times a day. Apply to gluteal cleft 60 g 1 07/29/2023 Active Clobetasol Propionate 0.05 % External Cream (Temovate)Indica tions:Hand dermatitis Apply topically to affected area 2 times a day. Apply to hands 60 g 5 05/28/2023 07/29/2023 Discontinued Fluconazole 200 MG Oral Tablet (Diflucan)Indica tions:Candidal intertrigo Take 1 Tablet by mouth in the morning for 14 days. until gone.. 14 Tablet 07/29/2023 08/12/2023 documented as of this encounter (statuses as of 08/18/2023) Active Problems Problem Noted Date Diagnosed Date [...] ICD-10 update of inactive term [facility] OTHER*[id number] 09/22/2005 Major depressive disorder 08/12/2004 Overview: ICD-10 update of inactive term documented as of this encounter (statuses as of 08/18/2023) Resolved Problems Problem Noted Date Diagnosed Date [...] as of this encounter (statuses as of 08/18/2023) Immunizations Name Administration Dates Next Due Seasonal [...] = 0.6 oz pure alcohol) alcohol dependence// [place] 03/2010 no alcohol / Xanax since PHQ-2 [...] money to get more. Never true 06/24/2023 Sex and Gender Information Value Date Recorded Sex Assigned at Female 01/19/2023 10:44 AM EDT Gender Identity Female 01/19/2023 10:44 AM EDT Sexual Orientation Straight 08/06/2020 3: 51 PM EDT Job Start Date Occupation Industry Not on file Not on file Not on file documented as of this encounter Last Filed Vital Signs Vital Sign Reading Time Taken Comments Blood Pressure 122/80 07/29/2023 11:16 AM EDT Pulse 97 07/29/2023 11:16 AM EDT Temperature 36.2 C (97.1 F) 07/29/2023 1 1:16 AM EDT Respiratory Rate 16 07/29/2023 11:1 6 AM EDT Oxygen Saturation 99% 07/29/2023 11: 16 AM EDT Inhaled Oxygen Concentration - - Weight 102.6 kg (226 lb 3.2 oz) 024 11:16 AM EDT Height 162.6 cm (5' 4") 07/29/2023 11:1 6 AM EDT Body Mass Index 38.83 07/29/2023 11:16 AM EDT documented in this encounter Progress Notes * Luz Shepherd PA-C - 07/29/2023 11:21 AM EDT Images from the original note were not included. History of Present Illness Radha Warren is a 62 year old female that presents for PAP Here for cpe and pap Patient's last menstrual period was 05/03/2013. Patient is postmenopausal. Has had some ovarian pain and break through bleeding The pain was pre-existing but the bleeding was not Pressure sensation in pelvis feels like someone is in there squeezing and pushing down Does seem cyclical Not constant. Moving her bowels does impact it at times. Some vag odor On Arimidex for breast cancer Mammo due 0 has scheduled Past Medical History: Diagnosis Date Breast cancer (HCC) DCIS Hyperlipemia No significant past medical history buPROPion HCl ER (XL) 150 MG Oral Tablet Extended Release 24 Hour (Wellbutrin XL) lamoTRIgine 25 MG Oral Tablet (LaMICtal) Atorvastatin Calcium 20 MG Oral Tablet (Lipitor) Anastrozole 1 MG Oral Tablet (Arimidex) chlorproMAZINE HCl 100 MG Oral Tablet (Thorazine) chlorproMAZINE HCl 25 MG Oral Tablet (Thorazine) Clobetasol Propionate 0.05 % External Cream (Temovate) lamoTRIgine 100 MG Oral Tablet (LaMICtal) Acetaminophen 500 MG Oral Tablet Losartan Potassium 25 MG Oral Tablet (Cozaar) Topiramate 100 MG Oral Tablet (topAMAX) Sertraline HCl 100 MG Oral Tablet (Zoloft) Extensive ROS Constitutional (f/c/wt/vision/hearing): Negative and wear glasses, eye exam due this year Resp (cough/sob/brown): Negative CV (cp/palp/fluttering/diaphoresis/brown/pnd):Negative GI (n/v/d/hrtburn): Negative Endo (hair/cold or heat intol/ 3 p's): Negative Neuro (shaking/weak/fatigu/parasthesi/): Negative Skin (rash/easy bruis/xerosis): Negative Psy (si/hi/halluc/): Negative (nocturia/hesit/drib/sexual review): Negative Lymph (swollen glands/b sx's/: Negative Physical Exam Vitals: 07/29/23 1116 Temp: 36.2 C (97.1 F) Pulse: 97 Resp: 16 SpO2: 99% BP: 122/80 BMI: 38.81 BP Readings from Last 3 Encounters: 07/29/23 122/80 05/28/23 122/72 02/19/23 133/81 Wt Readings from Last 3 Encounters: 07/29/23 102.6 kg (226 lb 3.2 oz) 05/28/23 104.8 kg (231 lb) 02/19/23 107.1 kg (236 lb 3.2 oz) BMI Readings from Last 3 Encounters: 07/29/23 38.83 kg/m 05/28/23 39.65 kg/m 02/19/23 40.54 kg/m Ht Readings from Last 3 Encounters: 07/29/23 1.626 m (5' 4") 01/05/23 1.626 m (5' 4") 12/15/22 1.626 m (5' 4.02") General: alert, healthy, and no distress Head: Normocephalic, No masses, lesions, tenderness or abnormalities Eye Exam: PERRLA, extraocular movements intact, conjunctiva are pink and non- injected, sclera clear Ears: External ears normal, Canals clear, TM's Normal Nose: no mucosal erythema, no mucosal edema, no purulent discharge Oropharynx: no exudate, no erythema, lips, buccal mucosa, and tongue normal, and mucous membranes are moist Neck: supple, no adenopathy, no bruits, thyroid normal size, non-tender, without nodularity Heart: regular rate & rhythm, no murmur, no gallops, S-1 normal, and S-2 normal Lungs: chest symmetric with normal AP diameter, no chest deformities noted, no chest wall tenderness, lungs clear to auscultation Pulses: carotid=2/4 w/o bruits Abdomen: abdomen soft, non-tender, normal bowel sounds, and no masses or organomegaly Back: back symmetric, no curvature, no costovertebral angle tenderness, range of motion is normal Extremities: less than 2 second capillary refill, no joint deformities, effusion, or inflammation Breasts: Inspection negative, No nipple retraction or dimpling, No nipple discharge or bleeding, Noaxillary or supraclavicular adenopathy, Normal to palpation without dominant masses Pelvic Exam: External genitalia and vagina anatomy within normal limits, No significant vulvar lesions, No significant vaginal discharge, Cervix normal in appearance without lesions or purulent discharge, Uterus is normal size, shape, and consistency, Adnexea normal bilaterally. No abnormal pelvic masses, Pap obtained with broom, slight R sided tenderness just offset of midline, no palpable abnormality Exam (Female): external genitalia and vagina anatomy within normal limits, no vaginal discharge,cervix normal in appearance without lesions or purulent discharge, normal bimanual exam Skin: skin color, texture, turgor are normal, significant hand dermatitis with cracks and thickening, candidal intertrigo in gluteal cleft through perineum, spares the labia Assessment and Plan Screening for cervical cancer (Primary) - ZYGLO TECHNICIAN PAP SCREEN Encounter for gynecological examination without abnormal finding - ZYGLO TECHNICIAN PAP SCREEN Hand dermatitis - Clobetasol Propionate 0.05 % External Ointment (Temovate); Apply topically to affected area 2 times a day. To affected area for up to two weeks. Spotting - US PELVIS TRANS-ABDOMINAL; Future; Expected date: 07/29/2023 - US PELVIS TRANS-VAGINAL NON-OB; Future; Expected date: 07/29/2023 Post-menopausal bleeding - US PELVIS TRANS-ABDOMINAL; Future; Expected date: 07/29/2023 - US PELVIS TRANS-VAGINAL NON-OB; Future; Expected date: 07/29/2023 Candidal intertrigo - Fluconazole 200 MG Oral Tablet (Diflucan); Take 1 Tablet by mouth in the morning for 14 days. until gone.. - Nystatin [id number] UNIT/GM External Powder (Nystop); Apply topically to affected area 3 times a day.Apply to gluteal cleft Follow-up: Return if symptoms worsen or fail to improve. | Check-out note: Pelvic us Pap today Start pelvic floor work - this could be source of discomfort Us to be sure Try intment steroid on hjand Wrap-Up Time: I spent a total of 20-29 minutes (exact time 29 mins) on the date of service in preparation, delivery, and documentation of the care provided to Radha Warren excluding any time spent in the performance of separately billed services. Luz Shepherd PA-C 07/29/2023 11:50 AM * Meghan Heredia LPN - 07/29/2023 11:15 AM EDT Patient has been verbally educated on the need or importance of Cervical Cancer Screening. Pap is scheduled to be completed today. Pap has been ordered and signed for provider. documented in this encounter Plan of Treatment Upcoming Encounters Date Type Department Care Team (Latest Contact Info) Description 09/09/2023 12:30 PM EDT Immunization/Injec tion Hematology[facility] [place] [address] [facility] [phone] Nurse, Med 4 [address] [facility] [place] [address] 10/06/2023 10:30 AM EDT Office Visit Hematology/Oncology [facility] [address] [facility] [place] [phone] Anabella Smith, SAVANNAH [address] [facility] [place] [address] 10/06/2023 11:15 AM EDT Immunization/Injec tion Hematology/Oncology Treatment, [place] [address] [facility] [phone] Nurse, Med 4 [address] [facility] [place] [address] 10/21/2023 10:00 AM EDT Imaging Radiology [address] [place] [address] 10/27/2023 1:00 PM EDT Office Visit General Surgery, [facility] [address] [place] [address] Kelby Townsend MD [address] [place] [address] 12/08/2023 11:45 AM EDT Hospital Encounter ENDO [facility], Endoscopy Room [facility] [address] [place] [phone] Sid Price MD [address] [place] [address] 12/08/2023 11:45 AM EDT - 12/08/2023 12:15 PM EDT Surgery ENDO OSS[facility], Endoscopy Room [facility] [address] [place] [phone] Sid Price MD [address] [place] [address] COLONOSCOPY FLEXIBLE PROXIMAL DIAGNOSTIC 05/29/2024 10:20 AM EST Office Visit [facility] [address] [place] [phone] Chino Chou MD [address], [place] [phone] Scheduled Procedures Name Priority Associated Diagnoses Date/Ti [...] 11/26/2023 11/25/2022, 07/28, 03/26/2020, Additional history exists Diabetes Screening 11/25/2025 11/25/2022, 0 08/18/2021, 03/26/2020, Additional history exists Albumin/Creatinine Ratio 05/26/2026 024, 04/17/2014, 06/07/2013, Additional history exists Pap Smear 07/28/2026 07/29/2023, 07/27, 10/13/2016, Additional history exists DTaP,Tdap,and Td Vaccines (2 - Td or Tdap) 09/24/2026 09/24/2016 Lipid Panel 05/26/2028 05/26/2023, 07/28, 03/26/2020, Additional history exists Cervical Cancer Screening 07/28/2028 HPV/Co-Test 07/28/2028 07/29/2023 Influenza Vaccine (FLU shot) Completed 03/2023, 03/18/2022, 04/08/2020, Additional history exists GARDASIL-HPV IMMUNIZATION SERIES Aged Out No longer eligible based on patient's age to complete this topic Hepatitis B Aged Out No longer eligi ble based on patient's age to complete this topic MENINGOCOCCAL (MENACTRA/MENVEO) Aged Out No longer eligible based on patient's age to complete this topic documented as of this encounter Medical Devices Not on filedocumented as of this encounter Procedures Procedure Name Priority Date/Time Associated Diagnosis Comments HUMAN PAPILLOMA VIRUS, PROBE Routine 07/29/2023 1:22 PM EDT Screening for cervical cancer Encounter for gynecological examination without abnormal finding ZYGLO TECHNICIAN PAP SCREEN Routine 07/29/2023 1:22 PM EDT Screening for cervical cancer Encounter for gynecological examination without abnormal finding documented in this encounter Results * US PELVIS TRANS-VAGINAL NON-OB (08/02/2023 1:12 PM EDT) Anatomical Region Laterality Modality Pelvis, Body Ultrasound 08/04/2023 1:26 PM EDT Impressions 08/04/2023 1:24 PM EDT IMPRESSION: Uterine leiomyoma/fibroid redemonstrated. Narrative 08/04/2023 1:24 PM EDT EXAM: US PELVIS TRANS-VAGINAL NON-OB HISTORY: pmpb TECHNIQUE: Real-time scanning is performed transvaginally COMPARISON: Pelvis ultrasound dated 08/19/2020; pelvis ultrasound dated 10/19/2016 and prior studies FINDINGS: Uterus: Anteverted measuring 5.7 cm x 2.4 cm x 4.0 cm. Contour maintained. Visualized myometrial parenchymal echotexture somewhat diffusely heterogeneous. A focal lesion is identified in the body of the uterus to the right of midline. It is hypoechoic solid. It is nonspecific but again ultrasonographically compatible with uterine leiomyoma/fibroid. This currently measures approximally 0.6 cm x 0.4 cm x 0.6 cm. Previously on 08/19/2020 reported to measure 0.5 cm x 0.7 cm x 0.6 cm. No other focal lesion identified. Endometrial canal: Segmentally demonstrated. Visualized portion non deviated. Echotexture appears homogeneous. There is no significant intraluminal fluid or demonstrable intraluminal mass. Endometrial canal thickness approximately 3 mm. This is within normal limits for postmenopausal patient. Endocervical canal: Within normal limits there may be small ovoid well-defined sonolucent structure nonspecific but ultrasonographically compatible with nabothian cyst. Right ovary: 3.4 cm x 1.8 cm x 2.2 cm corresponding to volume approximately 7 cc. Left ovary: 2.6 cm x 2.1 cm x 1.8 cm corresponding to volume approximately 5 cc. There is no adnexal mass. There is no significant cul-de-sac fluid. There is peristalsing pelvic bowel. Procedure Note Kelby Gibbs MD - 08/04/2023 EXAM: US PELVIS TRANS-VAGINAL NON-OB HISTORY: pmpb TECHNIQUE: Real-time scanning is performed transvaginally COMPARISON: Pelvis ultrasound dated 08/19/2020; pelvis ultrasound dated 10/19/2016 andprior studies FINDINGS: Uterus: Anteverted measuring 5.7 cm x 2.4 cm x 4.0 cm. Contourmaintained. Visualized myometrial parenchymal echotexture somewhatdiffusely heterogeneous. A focal lesion is identified in the body of the uterus to the right ofmidline. It is hypoechoic solid. It is nonspecific but againultrasonographically compatible with uterine leiomyoma/fibroid. Thiscurrently measures approximally 0.6 cm x 0.4 cm x 0.6 cm. Previously on08/19/2020 reported to measure 0.5 cm x 0.7 cm x 0.6 cm. No other focallesion identified. Endometrial canal: Segmentally demonstrated. Visualized portion nondeviated. Echotexture appears homogeneous. There is no significantintraluminal fluid or demonstrable intraluminal mass. Endometrial canal thickness approximately 3 mm. This is within normallimits for postmenopausal patient. Endocervical canal: Within normal limits there may be small ovoidwell-defined sonolucent structure nonspecific but ultrasonographicallycompatible with nabothian cyst. Right ovary: 3.4 cm x 1.8 cm x 2.2 cm corresponding to volumeapproximately 7 cc. Left ovary: 2.6 cm x 2.1 cm x 1.8 cm corresponding to volume approximately5 cc. There is no adnexal mass. There is no significant cul-de-sac fluid.There is peristalsing pelvic bowel. IMPRESSION IMPRESSION: Uterine leiomyoma/fibroid redemonstrated. Luz THACKER-C RAD ULTRASOUND * HUMAN PAPILLOMA VIRUS, PROBE (07/29/2023 1:22 PM EDT) Human Papilloma Virus Result Negative Not Applicable 08/16/2023 7:51 AM EDT LABORATORY [facility] Comment: No high/intermediate-risk Human Papillomavirus (HPV E6/E7 messenger RNA) detected by nucleic acid amplification. This assay looks for high/intermediate risk Human Papillomavirus (HPV E6/E7 messenger RNA) by nucleic acid amplification. This assay includes the qualitative detection of HPV types 16,18,31,33,35,39,45,51,52,56,58,59,66 and 68 from cervical specimens. This assay has been FDA cleared for Thin prep collection vials. This assay has not been approved for use as a primary screening test for HPV and should be tested in conjunction with a PAP screen. If collected utilizing a Surepath vial, the collection and specimen preparation of this test was developed, and its performance characteristics determined by [facility]. It has not been cleared or approved by the U.S. Food and Drug Administration (FDA). The FDA has determined that such clearance or approval is not necessary. This assay has been performed at [facility], [address] [place] [address]. [id number]. Pap Test Specimen from wound / Unknown 07/29/2023 1:22 PM EDT 07/30/2023 5:52 AM EDT Luz Shepherd PA-C LAB MICRO - GENER AL ORDERAB[place] [address] * ZYGLO TECHNICIAN PAP SCREEN (07/29/2023 1:22 PM EDT) Final Diagnosis A. Cervix, SurePath Pap test: Adequacy: Satisfactory for evaluation. Cellular content appropriate for menstrual/clinical history. Interpretation: Negative for Intraepithelial lesion or malignancy ([place] System). Atrophy. AUTOMATED REVIEW: Focal Point computerized screening device (quintile 1, review). 08/16/2023 7:51 AM EDT LABORATORY [facility] Performing Labs Labor Crew Supervisor screening performed at [facility] ([facility]), [address] [place] [id number]. Labor Crew Supervisor rescreening performed at [facility] ([facility]), [address] [place] [address]. 08/16/2023 7:51 AM EDT LABORATORY [facility] Gross Description A. Cervix. SurePath vial received labeled with the patient's identification. 08/16/2023 7:51 AM EDT LABORATORY [facility] EDUCATIONAL NOTE: The Pap test (thin-layer cervical screening specimen) is a screening test that aids in the detection of cervical cancer and cancer precursors. Both false positive and false negative results can occur. The test should be used at regular intervals (as per the ASCCP guidelines) and positive results should be confirmed before definitive therapy. Discrepancies between the Pap test findings and clinical impressions should be resolved with diagnostic tests such as colposcopy and biopsy. 08/16/2023 7:51 AM EDT LABORATORY [facility] Case Report Gynecologic Cytology Report Case: [id number] Authorizing Provider: Luz Shepherd PA-C Collected: 07/29/2023 01:22 PM Ordering Location: [facility], Received: 07/29/2023 01:22 PM [place] [facility] Screen: Kylie Contreras CT(ASCP) Rescreen: Iqra Fernandez CT(ASCP) Specimen: SurePath Pap test, Cervix 08/16/2023 7:51 AM EDT LABORATORY [facility] PAP Indication for Procedure: Routine Pap 08/16/2023 7:51 AM EDT LABORATORY [facility] PAP Previous Cancer: None 08/16/2023 7:51 AM EDT LABORATORY [facility] HPV Permissions: HPV Regardless (Including cotest) 08/16/2023 7:51 AM EDT LABORATORY [facility] PAP Contraceptive History: None 08/16/2023 7:51 AM EDT LABORATORY [facility] PAP Menstrual Status: Post-menopausal 08/16/2023 7:51 AM EDT LABORATORY [facility] Pap Test Specimen from wound / Unknown 07/29/2023 1:22 PM EDT 07/29/2023 1:22 PM EDT Luz Shepherd PA-C LAB CYTOLOGY NABIL SCHERER LABORATORY [facility] [address] [place] [address] documented in this encounter Visit Diagnoses Diagnosis Screening for cervical cancer- Primary Screening for malignant neoplasm of the cervix Encounter for gynecological examination without abnormal finding Routine gynecological examination Hand dermatitis Contact dermatitis and other eczema, due to unspecified cause Spotting Other specified noninflammatory disorder of vagina Post-menopausal bleeding Postmenopausal bleeding Candidal intertrigo Candidiasis of skin and nails Spotting Other specified noninflammatory disorder of vagina Post-menopausal bleeding Postmenopausal bleeding Special screening for malignant neoplasms, colon documented [...] patient or by statute hierarchy) Care Teams Diesel Locomotive Firer/Fireman Relationship Specialty Start Date End Date Chino Chou MD [address] [place] [address] PCP - General Family Medicine 01/08/11 documented as of this encounter
--- OUTSIDE RECORDS SUMMARY | 2024-02-01 04:17 | External Medical Summary | Summary of Care ---
Author Name Unknown Organization [facility] Address [address] [facility] [place] [address] Phone [phone] Care Team Providers Care Electronic Lab Technician Name Role Phone Chino Chou MD Primary Care Provider Reason for Visit * Reason Comments Medication Administration Vitamin B12 Encounter Details Date Type Department Care Team (Late st Contact Info) Description 09/21/2023 11:00 AM EDT Immunization/I njection Hematology/Oncology Treatment, [place] [address] [place] [address] Nurse, Med [address] [place] [address] B12 deficiency*; H/O bariatric surgery Allergies Active Allergy Reactions Criticality Noted Date Comments Diphenhydramine Rash 01/22/2023 Codeine Psych complications 08/27/2010 Gets mean and itchy Wound Dressing Adhesive 12/30/2022 Patient got sores and it opened up and oozed. documented as of this encounter (statuses as of 09/21/2023) Medications Medication Sig Dispensed Refills Start Date [...] weeks. 15 g 1 07/29/2023 Active Nystatin 778004 UNIT/GM External Powder (Nystop)Indications: Candidal intertrigo Apply topically to affected area 3 times a day. Apply to gluteal cleft 60 g 1 07/29/2023 Active Losartan Potassium 25 MG Oral Tablet (Cozaar)Indications: HTN, goal below 140/90 TAKE 1 TABLET BY MOUTH EVERY DAY IN THE MORNING 90 Tablet 09/03/2023 Active documented as of this encounter (statuses as of 09/21/2023) Active Problems Problem Noted Date Diagnosed Date [...] ICD-10 update of inactive term EDMONDSON RESEARCH OTHER*[id number] 09/22/2005 Major depressive disorder 08/12/2004 Overview: ICD-10 update of inactive term documented as of this encounter (statuses as of 09/21/2023) Resolved Problems Problem Noted Date Diagnosed Date [...] as of this encounter (statuses as of 09/21/2023) Immunizations Name Administration Dates Next Due Seasonal [...] = 0.6 oz pure alcohol) alcohol dependence// [place] 03/2010 no alcohol / Xanax since PHQ-2 [...] No 06/24/2023 Does the household have a [facility] source of income? (Household - for ages [...] AM EDT Office Visit Hematology/Oncology Claudio Starks [place] [address] [facility] [place] [address] Anabella Smith CRNP [address] [place] [address] 10/21/2023 10:00 AM EDT Imaging Radiology [facility] 1st [facility], [place] [address] [place] [address] 10/21/2023 11:00 AM EDT Immunization/Injec tion Hematology/Oncology Treatment, [place] [address] [place] [phone] Nurse, Med [address] [place], [place] [address] 12/08/2023 11:45 AM EDT Hospital Encounter ENDO OSS, Endoscopy Room [facility] [address] [place] [phone] Sid Price MD [address] [place] [address] 12/08/2023 11:45 AM EDT - 12/08/2023 12:15 PM EDT Surgery ENDO OSS, Endoscopy Room [facility] [address] [place] [phone] Sid Price MD [address] [place] [address] COLONOSCOPY FLEXIBLE PROXIMAL DIAGNOSTIC 05/29/2024 10:20 AM EST Office Visit [facility] [address] [place] [facility] [place] [phone] Chino Chou MD [address] [place], [place] [phone] Scheduled Procedures Name Priority Associated Diagnoses Date/Ti [...] 11/26/2023 11/25/2022, 07/28, 03/26/2020, Additional history exists Depression Monitoring 06/23/2024 06/24/2023 [...] patient or by statute hierarchy) Care Teams Electronic Lab Technician Relationship Specialty Start Date End Date Chino Chou MD [address] [place] [address] PCP - General Family Medicine 10/13/11 documented as of this encounter
--- OUTSIDE RECORDS SUMMARY | 2024-02-01 04:17 | External Medical Summary | Summary of Care ---
Author Name Unknown Organization [facility] Address [address] [facility] [place] [address] Phone [phone] Care Team Providers Care Dustless Operator Name Role Phone Chino Chou MD Primary Care Provider [phone] Reason for Visit * Reason Comments Medication Administration Vitamin B12 1, 000mcg Encounter Details Date Type Department Care Team (Late st Contact Info) Description 08/12/2023 12:45 PM EDT Immunization/I njection Hematology/Oncology Treatment, [place] [address] [place] [address] Nurse, Med 200 [place] [address] B12 deficiency*; H/O bariatric surgery Allergies Active Allergy Reactions Criticality Noted Date Comments Diphenhydramine Rash 01/22/2023 Codeine Psych complications 08/27/2010 Gets mean and itchy Wound Dressing Adhesive 12/30/2022 Patient got sores and it opened up and oozed. documented as of this encounter (statuses as of 08/12/2023) Medications Medication Sig Dispensed Refills Start Date End Date Status Sertraline HCl 100 MG Oral Tablet (Zoloft) TAKE 2 TABLETS IN THE MORNING 0 07/06/2020 Active Topiramate 100 MG Oral Tablet (topAMAX) Take 1 Tablet by mouth in the morning. 0 Active Losartan Potassium 25 MG Oral Tablet (Cozaar)Indications :HTN, goal below 140/90 TAKE 1 TABLET BY MOUTH EVERY DAY IN THE MORNING 90 Tablet 1 12/28/2022 Active Acetaminophen 500 MG Oral Tablet Take 2 Tablets by mouth every 6 hours as needed. 0 Active lamoTRIgine 100 MG Oral Tablet (LaMICtal) Take 1 Tablet by mouth in the morning. 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 90 Tablet 3 06/02/2023 Active Atorvastatin Calcium 20 MG Oral Tablet (Lipitor)Indication s:Dyslipidemia, goal LDL below 100 TAKE 1 TABLET BY MOUTH EVERY DAY IN THE MORNING 90 Tablet 1 06/14/2023 Active lamoTRIgine 25 MG Oral Tablet (LaMICtal) Take 3 Tablets by mouth in the morning. 0 Active buPROPion HCl ER (XL) 150 MG Oral Tablet Extended Release 24 Hour (Wellbutrin XL) Take 1 Tablet by mouth in the morning. 0 Active Clobetasol Propionate 0.05 % External Ointment (Temovate)Indicatio ns:Hand dermatitis Apply topically to affected area 2 times a day. To affected area for up to two weeks. 15 g 1 07/29/2023 Active Fluconazole 200 MG Oral Tablet (Diflucan)Indicatio ns:Candidal intertrigo Take 1 Tablet by mouth in the morning for 14 days. until gone.. 14 Tablet 0 07/29/2023 08/12/2023 Active Nystatin 000097 UNIT/GM External Powder (Nystop)Indications :Candidal intertrigo Apply topically to affected area 3 times a day. Apply to gluteal cleft 60 g 1 07/29/2023 Active Amoxicillin 875 MG Oral TabletIndications:A cute pharyngitis, unspecified etiology Take 1 Tablet by mouth in the morning and 1 Tablet before bedtime. Do all this for 10 days. 20 Tablet 0 08/05/2023 08/15/2023 Active documented as of this encounter (statuses as of 08/12/2023) Active Problems Problem Noted Date Diagnosed Date [...] ICD-10 update of inactive term EDMONDSON RESEARCH OTHER*[id number] 09/22/2005 Major depressive disorder 08/12/2004 Overview: ICD-10 update of inactive term documented as of this encounter (statuses as of 08/12/2023) Resolved Problems Problem Noted Date Diagnosed Date [...] as of this encounter (statuses as of 08/12/2023) Immunizations Name Administration Dates Next Due Seasonal [...] = 0.6 oz pure alcohol) alcohol dependence// [place] 03/2010 no alcohol / Xanax since PHQ-2 [...] Nursing Notes * Nhi Montiel LPN - 08/12/2023 12:38 PM EDT Vitamin B12 1,000mcg administered IM into the left deltoid muscle per standing order. Patient tolerated injection and will return in 1 month documented in this encounter Plan of Treatment Upcoming Encounters Date Type Department Care Team (Latest Contact Info) Description 09/09/2023 12:30 PM EDT Immunization/Injec tion Hematology/[address], [address] [phone] Nurse, Med 4 [address] [place] [address] 10/06/2023 10:30 AM EDT Office Visit Hematology/Oncology [facility] [place] [address] [place] [phone] [facility] [address] [facility] [place] [address] 10/06/2023 11:15 AM EDT Immunization/Injec tion Hematology/Oncology Treatment, [place] [address] [place] [phone] Nurse, Med 4 [address] [place] [address] 10/21/2023 10:00 AM EDT Imaging Radiology [address] [place] [address] 10/27/2023 1:00 PM EDT Office Visit General Surgery, [facility] [address] [place] [address] Kelby Townsend MD [address] [place] [address] 12/08/2023 11:45 AM EDT Hospital Encounter ENDO OSSC, Endoscopy Room [facility] [address] [place] [address] Sid Price MD [address] [place] [address] 12/08/2023 11:45 AM EDT - 12/08/2023 12:15 PM EDT Surgery ENDO OSS, Endoscopy Room [facility] [address] [place] [address] Sid Price MD [address] [place] [address] COLONOSCOPY FLEXIBLE PROXIMAL DIAGNOSTIC 05/29/2024 10:20 AM EST Office Visit [facility] [address] [place] [phone] Chino Chou MD [address] [place] [address] Scheduled Procedures Name Priority Associated Diagnoses Date/Ti me COLONOSCOPY FLEXIBLE PROXIMAL DIAGNOSTIC Recall Special screening for malignant neoplasms, colon 12/08/2023 11:45 AM EDT Health Maintenance Due Date Last Done Comments Pneumococcal Vaccine: Pediatrics (0 to 5 Years) and At-Risk Patients (6 to 64 Years) (1 of 2 - PCV) 08/27/1967 HPV/Co-Test 08/27/1991 Cologuard 2006 Fecal Occult Blood Test 2006 Sigmoidoscopy 2006 COVID-19 Vaccine ( season) 2022 Colonoscopy 12/16/2022 12/16/2012, 11/28, 12/13/2012, Additional history exists Colorectal Cancer Screening 12/16/2022 Cervical Cancer Screening 08/07/2023 Pap Smear 08/07/2023 08/06/2020, 09/26, 06/07/2013, Additional history exists Zoster Vaccines (2 of 2) 08/18/2023 06/23/2023 Mammogram 10/13/2023 10/12/2022, 09/26, 09/21/2022, Additional history exists GFR 11/26/2023 11/25/2022, 07/28, 03/26/2020, Additional history exists Diabetes Screening 11/25/2025 11/25/2022, 0 08/18/2021, 03/26/2020, Additional history exists Albumin/Creatinine Ratio 05/26/2026 024, 04/17/2014, 06/07/2013, Additional history exists DTaP,Tdap,and Td Vaccines (2 - Td or Tdap) 09/24/2026 09/24/2016 Lipid Panel 05/26/2028 05/26/2023, 07/28, 03/26/2020, Additional history exists Influenza Vaccine (FLU shot) Completed 03/2023, 03/18/2022, [...] mcg 1,000 mcg, Intramuscular, ONCE, On Pam 08/12/23 at 1330, For 1 dose Given 08/12/2023 12:35 PM EDT 1,000 mcg Deltoid Left Upper documented in this encounter Advance Directives Latest Code Status on File Code Status Date Activated Date Inactivated Comments Full Code 01/05/2023 1:16 PM 01/05/2023 7:45 PM Thi s order reflects the patients wishes and were consensually agreed upon. Question Answer Comments Discussion of Advance Directives occurred with: Patient Code Status History Code Status Date Activated Date Inactivated Comments Full Code 12/15/2022 8:39 AM 12/15/2022 3:29 PM This order reflects the patients wishes and were consensually agreed upon. Question Answer Comments Discussion of Advance Directives occurred with: Patient Full Code 09/15/2012 8:17 AM 09/15/2012 1:40 PM This order reflects the patients wishes and were consensually agreed upon. Question Answer Comments Discussion of Advance Directives occurred with: Patient Does the patient have a Living Will? No Does the patient have Health Care Power of Camera Machinist? No Full Code 09/15/2012 5:53 AM 09/15/2012 8:17 AM This order reflects the patients wishes and were consensually agreed upon. Full Code 02/02/2012 4:27 PM 02/04/2012 3:52 PM This order reflects the patients wishes and were consensually agreed upon. Healthcare Agents on File Name Relationship Healthcare Agent Relationshi p Communication Irwin Warren Spouse Health Care Repr esentative (appointed verbally by patient or by statute hierarchy) Care Teams Dustless Operator Relationship Specialty Start Date End Date Chino Chou MD [address] [place] [address] PCP - General Family Medicine 01/08/11 documented as of this encounter
--- OUTSIDE RECORDS SUMMARY | 2024-02-01 04:17 | External Medical Summary | Summary of Care ---
Author Name Unknown Organization [facility] Address [address] [facility] [place] [address] Phone [phone] Care Team Providers Care Creative Perfumer Name Role Phone Chino Chou MD Primary Care Provider Reason for Visit * Reason Comments PAP Encounter Details Date Type Department Care Team (Latest Contact Info) Description 07/29/2023 11:20 AM EDT Office Visit [facility] [address] [place] [facility] [place] [address] Luz Shepherd PA-C [address] [place] [address] Screening for cervical cancer*; Encounter [...] weeks. 15 g 1 07/29/2023 Active Nystatin 052700 UNIT/GM External Powder (Nystop)Indicati ons:Candidal intertrigo Apply [...] ICD-10 update of inactive term EDMONDSON RESEARCH OTHER*[id number] 09/22/2005 Major depressive disorder 08/12/2004 Overview: ICD-10 [...] = 0.6 oz pure alcohol) alcohol dependence// [place] 03/2010 no alcohol / Xanax since PHQ-2 [...] Plan Screening for cervical cancer (Primary) - INTERNATIONAL TAX MANAGER PAP SCREEN Encounter for gynecological examination without abnormal finding - INTERNATIONAL TAX MANAGER PAP SCREEN Hand dermatitis - Clobetasol Propionate [...] for 14 days. until gone.. - Nystatin 013578 UNIT/GM External Powder (Nystop); Apply topically to [...] signed for provider. documented in this encounter Miscellaneous Notes * Result Encounter Note - Verónica Johansen RN - 08/18/2023 11:48 AM EDT Reason for Call: PAP Contact: My Dilaner Contact Type: Test Results Provider In-Basket: Yes Outcome: MyChart letter sent Face to face time spent with Patient (minutes): 0 Total Time including non face to face (minutes): 10 * Result Encounter Note - Verónica Johansen RN - 08/18/2023 11:48 AM EDT Normal Pap, Negative HPV. MyChart letter sent documented in this encounter Plan of Treatment Upcoming Encounters Date Type Department Care Team (Latest Contact Info) Description 09/09/2023 12:30 PM EDT Immunization/Injec tion Hematology/Oncology Treatment, [address] [place] [phone] Nurse, Med 4 [address] [place] [address] 10/06/2023 10:30 AM EDT Office Visit Hematology/Oncology [address] [place] [phone] Anabella Smith, [facility] [facility] [address] 10/06/2023 11:15 AM EDT Immunization/Injec tion Hematology/Oncology Treatment, [address] [phone] Nurse, Med 4 [address] [place] [address] 10/21/2023 10:00 AM EDT Imaging Radiology [facility] [address] [facility] 132 [facility] [place] [address] 10/27/2023 1:00 PM EDT Office Visit General Surgery, [facility] [address] [facility] [place] [address] Kelby Townsend MD [address] [place] [address] 12/08/2023 11:45 AM EDT Hospital Encounter ENDO OSSC, Endoscopy Room [facility] [address] [place] [phone] Sid Price MD [address] [place] [address] 12/08/2023 11:45 AM EDT - 12/08/2023 12:15 PM EDT Surgery ENDO [facility], Endoscopy Room [facility] [address] [place] [phone] Sid Price MD [address] [place] [address] COLONOSCOPY FLEXIBLE PROXIMAL DIAGNOSTIC 05/29/2024 10:20 AM EST Office Visit [facility] [address] [place] [phone] Chino Chou MD [address] [place], [place] [phone] Scheduled Procedures Name Priority Associated Diagnoses Date/Ti [...] Encounter for gynecological examination without abnormal finding INTERNATIONAL TAX MANAGER PAP SCREEN Routine 07/29/2023 1:22 PM EDT [...] bowel. IMPRESSION IMPRESSION: Uterine leiomyoma/fibroid redemonstrated. Luz Shepherd PA-C RAD ULTRASOUND * HUMAN PAPILLOMA VIRUS, PROBE (07/29/2023 1:22 PM EDT) Human Papilloma Virus Result Negative Not Applicable 08/16/2023 7:51 AM EDT LABORATORY [facility] Comment: No high/intermediate-risk Human Papillomavirus (HPV E6/E7 [...] developed, and its performance characteristics determined by [employer]. It has not been cleared or approved by the U.S. Food and Drug Administration (FDA). The FDA has determined that such clearance or approval is not necessary. This assay has been performed at [facility], [address] [place] [address]. [id number]. Pap Test Specimen from wound / Unknown 07/29/2023 1:22 PM EDT 07/30/2023 5:52 AM EDT Luz Shepherd PA-C LAB MICRO - GENER AL ORDERABLES LABORATORY [address] [address] * INTERNATIONAL TAX MANAGER PAP SCREEN (07/29/2023 1:22 PM EDT) Final Diagnosis A. Cervix, SurePath Pap test: Adequacy: Satisfactory for evaluation. Cellular content appropriate for menstrual/clinical history. Interpretation: Negative for Intraepithelial lesion or malignancy ([place] System). Atrophy. AUTOMATED REVIEW: Focal Point computerized screening device (quintile 1, review). 08/16/2023 7:51 AM EDT LABORATORY [facility] Performing Labs Independent Crop Consultant screening performed at [facility] [address] [place] [address]. Independent Crop Consultant rescreening performed at [facility] ([facility] [address] [place] [address]. 08/16/2023 7:51 AM EDT LABORATORY C Gross Description A. Cervix. SurePath vial received labeled with the patient's identification. 08/16/2023 7:51 AM EDT LABORATORY [facility] EDUCATIONAL NOTE: The Pap test (thin-layer cervical [...] and biopsy. 08/16/2023 7:51 AM EDT LABORATORY [facility] Case Report Gynecologic Cytology Report Case: [id number] Authorizing Provider: Luz Shepherd PA-C Collected: 07/29/2023 01:22 PM Ordering Location: [facility], Received: 07/29/2023 01:22 PM [place] [facility] Screen: Kylie Contreras CT(ASCP) Rescreen: Iqra Fernandez CT(ASCP) Specimen: SurePath Pap test, Cervix 08/16/2023 7:51 AM EDT LABORATORY [facility] PAP Indication for Procedure: Routine Pap 08/16/2023 7:51 AM EDT LABORATORY [facility] PAP Previous Cancer: None 08/16/2023 7:51 AM EDT LABORATORY [facility] HPV Permissions: HPV Regardless (Including cotest) 08/16/2023 7:51 AM EDT LABORATORY [facility] PAP Contraceptive History: None 08/16/2023 7:51 AM EDT LABORATORY [facility] PAP Menstrual Status: Post-menopausal 08/16/2023 7:51 AM EDT LABORATORY [facility] Pap Test Specimen from wound / Unknown 07/29/2023 1:22 PM EDT 07/29/2023 1:22 PM EDT Luz Shepherd PA-C LAB CYTOLOGY [facility] Organization Address City/State/[facility] Co de Phone Number LABORATORY GM [address] [place] [address] documented in this encounter Visit Diagnoses Diagnosis [...] patient or by statute hierarchy) Care Teams Creative Perfumer Relationship Specialty Start Date End Date Chino Chou MD [address] [place] [address] PCP - General Family Medicine 01/08/11 documented as of this encounter
--- OUTSIDE RECORDS SUMMARY | 2024-02-01 04:17 | External Medical Summary | Summary of Care ---
Author Name Unknown Organization [facility] Address [address] [place] [address] Phone [phone] Care Team Providers Care Material Control Specialist Name Role Phone Alexy Chou MD Primary Care Provider Reason for Visit * Reason Comments eRx-Medication Refill Encounter Details Date Type Department Care Team (Late st Contact Info) Description 09/03/2023 Refill [facility] [address] [place] [address] Alexy Chou MD [address] [place] [address] Encounter for long-term (current) use of other medications*; HTN, goal below 140/90 Allergies Active Allergy Reactions Criticality Noted Date Comments Diphenhydramine Rash 01/22/2023 Codeine Psych complications 08/27/2010 Gets mean and itchy Wound Dressing Adhesive 12/30/2022 Patient got sores and it opened up and oozed. documented as of this encounter (statuses as of 09/03/2023) Medications Medication Sig Dispensed Refills Start Date [...] weeks. 15 g 1 07/29/2023 Active Nystatin 624778 UNIT/GM External Powder (Nystop)Indicati ons:Candidal intertrigo Apply topically to affected area 3 times a day. Apply to gluteal cleft 60 g 1 07/29/2023 Active Losartan Potassium 25 MG Oral Tablet (Cozaar)Indicati ons:HTN, goal below 140/90 TAKE 1 TABLET BY MOUTH EVERY DAY IN THE MORNING 90 Tablet 09/03/2023 Active Losartan Potassium 25 MG Oral Tablet (Cozaar)Indicati ons:HTN, goal below 140/90 TAKE 1 TABLET BY MOUTH EVERY DAY IN THE MORNING 90 Tablet 1 12/28/2022 09/03/2023 Discontinued documented as of this encounter (statuses as of 09/03/2023) Active Problems Problem Noted Date Diagnosed Date [...] ICD-10 update of inactive term EDMONDSON RESEARCH OTHER*[id number] 09/22/2005 Major depressive disorder 08/12/2004 Overview: ICD-10 update of inactive term documented as of this encounter (statuses as of 09/03/2023) Resolved Problems Problem Noted Date Diagnosed Date [...] as of this encounter (statuses as of 09/03/2023) Immunizations Name Administration Dates Next Due Seasonal [...] = 0.6 oz pure alcohol) alcohol dependence// [place] 03/2010 no alcohol / Xanax since PHQ-2 [...] encounter Miscellaneous Notes * Telephone Encounter - June Chen RPh - 09/03/2023 3:27 PM EDTSigned Prescriptions: Disp Refills Losartan Potassium 25 MG Oral Tablet (Coza*90 Tab*0 Sig: TAKE 1 TABLET BY MOUTH EVERY DAY IN THE MORNINGAuthorizing Provider: ALEXY CHOU User: JUNE CHEN * Telephone Encounter - June Chen RPh - 09/03/2023 3:25 PM EDT Authorized 1 refill - pt will be due for BMP (ordered). Thank you, June Chen, PharmD Clinical Pharmacist [facility] 09/03/23 3:26 PM [phone] documented in this encounter Plan of Treatment Upcoming Encounters Date Type Department Care Team (Latest Contact Info) Description 09/09/2023 12:30 PM EDT Immunization/Injec tion Hematology/Oncology Treatment, [place] [facility] [address] Nurse, Med [address] [place], [place] [address] [address] 10/06/2023 10:30 AM EDT Office Visit Hematology/Oncology [facility] 200 [facility] [place] [phone] Anabella Smith CRNP 400 [facility] [place] [address] 10/06/2023 11:15 AM EDT Immunization/Injec tion Hematology/Oncology Treatment, [place] [address] [facility] [phone] Nurse, Med 200 [facility] [place] [address] 10/21/2023 10:00 AM EDT Imaging Radiology [address], [place] [address] [place] [address] 12/08/2023 11:45 AM EDT Hospital Encounter ENDO [facility], Endoscopy Room [facility] [address] [place] [phone] Sid Price MD [address] [place] [address] 12/08/2023 11:45 AM EDT - 12/08/2023 12:15 PM EDT Surgery ENDO [facility], Endoscopy Room [facility] [address] [place] [phone] Sid Price MD [address] [place] [address] COLONOSCOPY FLEXIBLE PROXIMAL DIAGNOSTIC 05/29/2024 10:20 AM EST [facility] [address] [facility] [address] Alexy Chou MD [address] [facility] [place] [phone] Scheduled Orders Name Type Priority Associated Diagnoses Orde r Schedule BASIC METABOLIC PANEL Lab Routine HTN, goal below 140/90 Encounter for long-term (current) use of other medications Expected: 09/10/2023 (Approximate), Expires: 09/02/2024 Scheduled Procedures Name Priority Associated Diagnoses Date/Ti [...] as of this encounter Visit Diagnoses Diagnosis Encounter for long-term (current) use of other medications- Primary HTN, goal below 140/90 Unspecified essential hypertension [...] patient or by statute hierarchy) Care Teams Material Control Specialist Relationship Specialty Start Date End Date Alexy Chou MD [address] [place] [address] PCP - General Family Medicine 01/08/11 documented as of this encounter
--- OUTSIDE RECORDS SUMMARY | 2024-02-01 04:17 | External Medical Summary | Summary of Care ---
Author Name Unknown Organization [facility] Address [address] [facility] [place] [address] Phone [phone] Care Team Providers Care Boring Machine Operator Production Name Role Phone Chino Chou MD Primary Care Provider [phone] Reason for Visit * Reason Comments Medication Administration Vitamin B12 1, 000mcg Encounter Details Date Type Department Care Team (Late st Contact Info) Description 08/12/2023 12:45 PM EDT Immunization/I njection Hematology/Oncology Treatment, [place] [address] [place] [address] Nurse, Med [address] [place] [address] B12 deficiency*; H/O bariatric surgery Allergies Active Allergy Reactions Criticality Noted Date Comments Diphenhydramine Rash 01/22/2023 Codeine Psych complications 08/27/2010 Gets mean and itchy Wound Dressing Adhesive 12/30/2022 Patient got sores and it opened up and oozed. documented as of this encounter (statuses as of 09/07/2023) Medications Medication Sig Dispensed Refills Start Date [...] weeks. 15 g 1 07/29/2023 Active Nystatin 364306 UNIT/GM External Powder (Nystop)Indicatio ns:Candidal intertrigo Apply topically to affected area 3 times a day. Apply to gluteal cleft 60 g 1 07/29/2023 Active Losartan Potassium 25 MG Oral Tablet (Cozaar)Indicatio ns:HTN, goal below 140/90 TAKE 1 TABLET BY MOUTH EVERY DAY IN THE MORNING 90 Tablet 1 12/28/2022 4 Discontinued Fluconazole 200 MG Oral Tablet (Diflucan)Indicat ions:Candidal intertrigo Take 1 Tablet by mouth in the morning for 14 days. until gone.. 14 Tablet 07/29/2023 4 Amoxicillin 875 MG Oral TabletIndications :Acute pharyngitis, unspecified etiology Take 1 Tablet by mouth in the morning and 1 Tablet before bedtime. Do all this for 10 days. 20 Tablet 08/05/2023 4 documented as of this encounter (statuses as of 09/07/2023) Active Problems Problem Noted Date Diagnosed Date [...] ICD-10 update of inactive term EDMONDSON RESEARCH OTHER*[id number] 09/22/2005 Major depressive disorder 08/12/2004 Overview: ICD-10 update of inactive term documented as of this encounter (statuses as of 09/07/2023) Resolved Problems Problem Noted Date Diagnosed Date [...] as of this encounter (statuses as of 09/07/2023) Immunizations Name Administration Dates Next Due Seasonal [...] = 0.6 oz pure alcohol) alcohol dependence// Gal[place] 03/2010 no alcohol / Xanax since PHQ-2 [...] 12:30 PM EDT Immunization/Injec tion [address]ematology[address] [phone] Nurse, Med [address] [place] [address] 10/06/2023 10:30 AM EDT Office Visit Hematology/Oncology [facility] [place] [address] [place] [phone] Anabella Smith [facility] [address] [facility] [place] [address] 10/06/2023 11:15 AM EDT Immunization/Injec tion Hematology/Oncology Treatment, [place] [address] [place] [phone] Nurse, Med [address] [place] [address] 10/21/2023 10:00 AM EDT Imaging Radiology [address] [place] [address] 12/08/2023 11:45 AM EDT Hospital Encounter ENDO [facility], Endoscopy Room [facility] [address] [place] [phone] Sid Price MD [address] [place] [address] 12/08/2023 11:45 AM EDT - 12/08/2023 12:15 PM EDT Surgery ENDO [facility], Endoscopy Room [facility] [address] [place] [phone] Sid Price MD [address] [place] [address] COLONOSCOPY FLEXIBLE PROXIMAL DIAGNOSTIC 05/29/2024 10:20 AM EST Office Visit [facility] [address] [place] [phone] Chino Chou MD [address] [place] [address] Scheduled Procedures Name Priority Associated [...] patient or by statute hierarchy) Care Teams Boring Machine Operator Production Relationship Specialty Start Date End Date Chino Chou MD [address] [place] [address] PCP - General Family Medicine 01/08/11 documented as of this encounter
[2024-02-01 06:40] LABS: Hematocrit (blood only) 42.3 % (37.0-47.0); Hemoglobin 13.5 g/dl (12.0-16.0); Mean Corpuscular Hemoglobin 28.5 pg (25.0-34.0); Mean Corpuscular Hgb Conc 31.9 g/dL (32.0-36.0); Mean Corpuscular Volume 89.2 fL (80.0-100.0); Mean Platelet Volume 10.2 fL (9.4-12.4); Platelet Count 204 K/uL (130-400); RDW Coefficient of Variation 12.8 % (11.5-14.5); Red Blood Count 4.74 M/uL (4.20-5.40); White Blood Count 5.62 K/ul (4.8-10.8)
[2024-02-01 07:07] LABS: Albumin Globulin Ratio 1.5 (0.9-2); Albumin Level 3.7 gm/dl (3.4-5.0); BUN Creatinine Ratio 20.5 (10-20); Bilirubin,Total 0.3 mg/dl (0.2-1.0); Calcium 8.6 mg/dl (8.6-10.3); Creatinine Clr Calc Pharmacy 78.8 ml/min; Globulin 2.5 gm/dl (2.5-4.0); Magnesium 2.3 mg/dl (1.7-2.4); Phosphorus 4.5 mg/dl (2.5-4.9); Potassium 3.8 mmol/L (3.5-5.1); Total Protein 6.2 gm/dl (6.0-8.3)
[2024-02-01 07:13] LABS: Troponin I High Sensitivity 4.7 pg/ml (0-14)
[2024-02-01] MEDS: ATORVASTATIN 20 MG TAB PO SCH (07:39)
[2024-02-01] MEDS: LOSARTAN POTASSIUM 25 MG TAB PO SCH (07:39)
[2024-02-01] MEDS: lamoTRIgine 100 MG TAB PO SCH (07:39)
[2024-02-01] MEDS: buPROPion SR 150 MG TABCR PO SCH (07:39)
[2024-02-01] MEDS: ANASTROZOLE 1 MG TAB PO SCH (08:00)
--- NOTE | 2024-02-01 08:29 | Cardiology Consultation ---
Date of Consultation February 01, 2024 Assessment & Plan (1) Chest pain: (2) HTN (hypertension): (3) Hyperlipemia: Plan Assessment: 63 year old female presents with 3-4 days of intermittent chest pain episodes as described in HPI. Carries a history of HTN and HLD. Cardiology re quested for further evaluation/recommendations. Plan: 1. chest pain: -Intermittent sharp pain and pressure radiating mid-sternal and into her neck/jaw. Can occur at both rest and exertion, resolves spontaneously -History of risk factors including obesity, HTN and HLD -Resting echocardiogram pending -EKG with no acute ST-T wave changes. -High sensitivity troponin negative. -Plan is to proceed with a dobutamine stress echocardiogram to further assess for any concerns of ischemia given her symptom presentation and comorbidities. Patient is not able to ambulate on treadmill due to decreased functional capacity. -BP at target -Continue Atorvastatin, Losartan, and ASA 81mg Daily as per current regimen -NPO and plan to proceed with dobutamine stress echo today for further isch emic work up -Further recommendations pending test as appropriate. Case has been discussed with Dr. Rivers . Further recommendations regarding plan of care as per his assessment. I spent a total of 40 minutes on the date of service in preparation, delivery, documentation of the care provided to the patient excluding any time spent in the performance of separately billed services. SAVANNAH Champagne [facility] Cardiology [facility] Supervising Physician Co-Signing Physician Notes I have personally performed a history and physical examination on the patient. I have reviewed the advance practitioner's documentation, and I agree with, and take responsibility for the plan of care. 63-year-old female presents with atypical chest discomfort associated with lightheadedness and shortness of breath. Resting 2D transthoracic echocardiogram demonstrates preserved LV systolic function without significant valvular pathology. No evidence of acute coronary syndrome. Cardiac enzymes within normal limits. ECG without ischemic changes. Recommend dobutamine stress echo for further evaluation. Patient agreeable. Addendum: Dobutamine stress echo negative for inducible ischemia. Patient may be discharged to home. Routine follow-up as scheduled. Damon Rivers DO, [facility] History of Present Illness Reason for Consultation: atypical chest pain Requesting Physician: [facility] hosptialist Attending Physician: Romeo Pichardo DO History of Present Illness HPI: 63 year old female with PMHx significant for HTN, Dyslipidemia, MIRZA, Vitamin b12 and D deficiency, schizoaffective, bipolar depression/anxiety, prior breast cancer s/p surgery and radiation and positive tobacco use that presented to the ER with chest pain. EKG NSR with possible prior anterior infarct (cited on previous EKG) High sensitivity troponin negative x3 Chest xray negative Patient states that she has been having intermittent episodes for the past 3-4 days. present as a sharp jabbing sensation in addition to a generalized squeezing pressure that radiated up into her neck. Episodes last seconds to a few minutes. typically no other associated symptoms, but on the day of admission she had experienced an episodes that was now accompanied by lightheadedness, dizziness and total weakness prompting her to present. She states that on occasion she will feel a "fluttering" sensation in her chest, but this is different when compared with the pain. She is chest pain free at the time of exam. Denies any significant family history of coronary disease, but does state her mother had Atrial fibrillation. Review of telemetry shows SR with an occasional PAC. Rates 60-70's. Allergies Allergy/AdvReac Type Severity Reaction Status Date / Time adhesive tape Allergy Intermediate Blister Verified 01/31/24 18:47 codeine AdvReac Intermediate I GET Unverified 01/31/24 18:47 REALLY MEAN Latex Allergy skin peels Uncoded 01/31/24 18:47 Home Medications Medication Instructions Recorded Confirmed Type atorvastatin 20 mg tablet 20 mg PO DAILY 01/15/23 01/31/24 History lamotrigine 100 mg tablet 100 mg PO DAILY 01/15/23 01/31/24 History lamotrigine 25 mg tablet 75 mg PO HS 01/15/23 01/31/24 History losartan 25 mg tablet 25 mg PO DAILY 01/15/23 01/31/24 History sertraline 100 mg tablet 200 mg PO HS 01/15/23 01/31/24 History acetaminophen 500 mg tablet 1,000 mg PO Q6H PRN Pain 03/03/23 01/31/24 History (Tylenol Extra Strength) chlorpromazine 100 mg tablet 125 mg PO HS 03/03/23 01/31/24 History topiramate 100 mg tablet 100 mg PO BID 03/03/23 01/31/24 History anastrozole 1 mg tablet 1 mg PO DAILY 08/12/23 01/31/24 History bupropion HCl 150 mg tablet,12 hr 150 mg PO QAM 01/31/24 01/31/24 History sustained-release Patient History Medical History GERD (gastroesophageal reflux disease) Hyperlipemia Morbid obesity Surgical History History of tonsillectomy History of endometrial ablation History of hysteroscopy History of bariatric surgery History of esophagogastroduodenoscopy (EGD) History of colonoscopy History of tubal ligation History of surgery 02/02/2012 excision excessive skin, panniculectomy, Dr. Sanabria [facility] Hx of breast surgery 10/26/2022 right breast biopsy. DCIS. 12/15/[address] Kelby Townsend 01/05/2023 Re-excision left lumpectomy for positive margin Dr. Kelby Townsend Family History Mother , in her 70s Atrial fibrillation COPD (chronic obstructive pulmonary disease) Stroke Father , in his 70s Prostate cancer Hypertension Brother Hypertension Sister Hypertension Diabetes Sister Hypertension Diabetes Sister Hypertension Sister Hypertension Sister No problems noted. Sister Abnormal Pap smear of cervix Son Hypertension Diabetes Mental health disorder Aunt Breast cancer Maternal aunt Grandfather (Maternal) Prostate cancer Other Cancer Social History Smoking Status: Current every day smoker Tobacco Type: Cigarettes Cigarettes Per Day: 10; Second Hand Exposure: Yes; Do You Dip or Chew Tobacco: No; Tobacco Cessation Education Requested by Patient: No Hx Alcohol Use: No Hx Substance Use: No Preferred Language: Cook Islander Communication Ability: Effective Visual Impairment: No Limitations Hearing Ability: Normal Acute Care Nurse Practitioner Required: No Beliefs That Will Affect Care: None marital status: Current Living Situation: Family Current Living Situation Comment: patient lives with son, guecnqzy-xs-uai and grandson current occupational status: disabled How many Children do You have: 1 Other Information That Helps Us Care for You: No Feels Safe at Home: Yes Safety Concerns: Feels Safe At This Time Diet: regular caffeine: Yes (1-2 pots coffee/day) during the past year weight has: remained stable Assistive Devices: Glasses Review of Systems Review of Systems: All systems reviewed & are unremarkable except as noted in HPI & below Physical Exam Constitutional: WD/WN, vitals as above no acute distress and not ill appearing Neck: normal visual inspection and trachea midline Respiratory: normal respiratory effort, lungs clear to auscultation Cardiovascular: Rate/Rhythm: regular rate and regular rhythm Heart Sounds: normal S1 and normal S2; no murmur Vessels: no JVD Skin: no rashes, warm and dry Psychiatric: A+Ox3, euthymic affect Results & Data Vital Signs (Past 12 Hours) Vital Signs Temp Pulse Pulse Resp BP Pulse Ox O2 Del Method 02/01/24 07:36 Room Air 02/01/24 07:06 36.4 C L 68 18 116/73 95 Room Air 02/01/24 06:56 72 02/01/24 03:35 36.6 C 73 16 105/67 95 Room Air 01/31/24 23:06 36.5 C 84 18 102/69 94 Room Air 01/31/24 21:50 96 H 01/31/24 21:45 Room Air 01/31/24 21:04 72 01/31/24 20:55 36.7 C 18 135/80 94 Room Air Laboratory Results Cardiac Enzymes 01/31/24 01/31/24 02/01/24 Range/Units 15:45 22:55 06:17 AST 13 12 L (13-39) U/L Troponin I High Sens 4.8 6.1 4.7 (0-14) pg/ml Coagulation 01/31/24 Range/Units 15:45 PT 10.2 (9.0-12.0) Seconds APTT 42 H (21-31) Seconds CBC 01/31/24 02/01/24 Range/Units 15:45 06:17 WBC 6.30 5.62 (4.8-10.8) K/ul RBC 5.15 4.74 (4.20-5.40) M/uL Hgb 14.6 13.5 (12.0-16.0) g/dl Hct 45.2 42.3 (37.0-47.0) % Plt Count 249 204 (130-400) K/uL Neut # (Auto) 4.87 (1.40-6.50) K/uL Lymph # (Auto) 1.07 L (1.20-3.40) K/uL Heard # (Auto) 0.30 (0.11-0.59) K/uL Eos # (Auto) 0.01 (0.00-0.50) K/uL Baso # (Auto) 0.02 (0.00-0.20) K/uL Comprehensive Metabolic Panel 01/31/24 02/01/24 Range/Units 15:45 06:17 Sodium 140 143 (136-145) mmol/L Potassium 4.0 3.8 (3.5-5.1) mmol/L Chloride 107 111 H (98-107) mmol/L Carbon Dioxide 25 24 (21-32) mmol/L BUN 15 17 (6-23) mg/dl Creatinine 0.82 0.83 (0.6-1.2) mg/dl Glucose 97 93 (70-99(Fasting)) mg/dl Calcium 9.1 8.6 (8.6-10.3) mg/dl AST 13 12 L (13-39) U/L ALT 12 11 (7-52) U/L Alkaline Phosphatase 108 H 88 (34-104) U/L Total Protein 7.6 6.2 (6.0-8.3) gm/dl Albumin 4.3 3.7 (3.4-5.0) gm/dl Intake and Output 01/31/24 02/01/24 02/01/24 22:59 06:59 14:59 Intake Total 250 / 250 Balance 250 / 250 Intake: Other 250 / 250 Other: Other Intake Source Sips and chips # Unmeasured Voids 1 1 Weight 96.3 kg 95.5 kg Weight Measurement Method Standing Scale Built in [facility] (1) Chest pain Chest pain type: unspecified Qualified Code(s): R07.9 - Chest pain, unspecified
[2024-02-01] MEDS: ASPIRIN 81 MG ECTAB PO SCH (08:37)
[2024-02-01 10:40] VITALS: BP 116/76; PULSE 70; RESP 20; TEMP 97.7; O2SAT 94
[2024-02-01] MEDS: ATROPINE SULFATE 0.1 MG/ML 10ML SYR IV ONE (12:26)
[2024-02-01] MEDS: DOBUTamine HCL 12.5 MG/ML 20 ML VIAL IV ONE (12:28)
[2024-02-01] MEDS: METOPROLOL TARTRATE 1 MG/ML VIAL IV ONE (12:29)
[2024-02-01] MEDS: PERFLUTREN LIPID MICROSPHERE (DEFINITY) IV ONE (12:30)
--- NOTE | 2024-02-01 14:12 | Electrocardiogram Report ---
Test Reason : Blood Pressure : */* mmHG Vent. Rate : 96 BPM Atrial Rate : 96 BPM P-R Int : 134 ms QRS Dur : 70 ms QT Int : 350 ms P-R-T Axes : 28 -7 8 degrees QTcB Int : 442 ms Normal sinus rhythm Poor R wave progression, consider anterior WI vs. lead placement vs. LVH Abnormal ECG When compared with ECG of 18-Aug-2011 22:57, No significant change Confirmed by Hao Silva ([id number]) on 02/01/2024 2:12:13 PM Referred By: Confirmed By: Hao Silva
--- NOTE | 2024-02-01 14:15 | Discharge Summary ---
Discharge Summary Date of Service February 01, 2024 Principal Dx & Hospital Course #1 = Principal Diagnosis (1) Non-cardiac chest pain: (2) HTN (hypertension): (3) Anxiety and depression: (4) Bipolar 1 disorder: (5) Schizoaffective disorder: (6) Tobacco use: Plan Patient presented to the emergency room with complaints of episodic sharp stabbing chest pain that radiated into her jaw. In the emergency room primary workup was unremarkable for acute ischemic findings but was referred for further evaluation. Patient was admitted to the hospital and monitored on telemetry. There was no significant arrhythmias on telemetry. Troponins were trended and were negative/normal times all sets. Cardiology consultation was obtained. They evaluated the patient proceeded with echocardiogram and dobutamine stress echocardiogram. Echocardiogram showed normal ejection fraction with no significant wall motion abnormalities. Plan of Prerna report of dobutamine stress echo as discussed with Dr. Rivers was negative for ischemia. Further history patient shared that the pain is very intermittent. Nothing seems to bring it on, occurs at rest. It is a sharp deep pain but does not have any nausea or vomiting with this and no shortness of breath. Ultimately unlikely that this chest pain is cardiac in nature with a negative testing. I reassured her that we evaluated her heart extensively here in the hospital did not find any significant abnormalities. Additionally assured her that we checked her lungs with a chest x-ray as well as numerous EKGs. She can be discharged home to follow-up with her outpatient providers and determine if any additional treatments are necessary. She did bring up concern that this could be related to her anxiety does have some features similar to her previous panic attacks. It may be beneficial for her to reevaluate with her providers additional management for her mental health issues. Notes For Next Care Provider Medication Changes From Visit No changes Admission HPI Per Admitting Provider Radha Warren is a 63y/o F with PMHx significant for dyslipidemia, HTN, vitamin B12 deficiency, vitamin D deficiency, iron deficiency anemia, depression/anxiety, bipolar disorder, right breast cancer s/p surgery + radiation [on anastrozole] and tobacco use disorder who presented to the ED for evaluation of chest pain. History obtained from the patient and associated chart review. Her son and wrbfycth-ve-yma were present at bedside. Patient with intermittent episodes of chest pain over the past 3 days. She reports that the episodes are fairly brief only lasting upwards of a minute and are usually centralized, however she has had a few episodes where the pain radiates across her entire chest wall up into her right jaw region. She notes that these episodes have only occurred at rest so far. She denies any shortness of breath with these episodes however she does report a lot of chest heaviness when they occur. She mentions that it feels like "something is sitting on my chest." She does smoke approximately 3 to 4 cigarettes/day. She has been smoking for the last 20 years or so. She denies any alcohol or recreational drug use. She has not experienced any vomiting during these episodes however she does feel somewhat diaphoretic when they come on. No history of cardiac catheterization or any other cardiac procedures that she is aware of. No previous history of myocardial infarction. Reports that she has had unremarkable stress testing in the past. She denies the need for a nicotine patch at this time. Admission Exam Per Admitting Provider See H&P Discharge Exam Constitutional: Alert, nontoxic, no acute distress HEENT: Mucous membranes moist. Lungs: Clear to auscultation, decreased, no wheezes rales or rhonchi CV: S1-S2, regular Abdomen: Soft, nontender, nondistended Extremities: No significant edema Musculoskeletal: Some tenderness to palpation along her anterior chest however this is a different type of tenderness than what she was describing as her admission complaints Neuro: No focal deficits Psych: Cooperative, normal mood Updated Medication List Medication Instructions Recorded Confirmed Type atorvastatin 20 mg tablet 20 mg PO DAILY 01/15/23 01/31/24 History lamotrigine 100 mg tablet 100 mg PO DAILY 01/15/23 01/31/24 History lamotrigine 25 mg tablet 75 mg PO HS 01/15/23 01/31/24 History losartan 25 mg tablet 25 mg PO DAILY 01/15/23 01/31/24 History sertraline 100 mg tablet 200 mg PO HS 01/15/23 01/31/24 History acetaminophen 500 mg tablet 1,000 mg PO Q6H PRN Pain 03/03/23 01/31/24 History (Tylenol Extra Strength) chlorpromazine 100 mg tablet 125 mg PO HS 03/03/23 01/31/24 History topiramate 100 mg tablet 100 mg PO BID 03/03/23 01/31/24 History anastrozole 1 mg tablet 1 mg PO DAILY 08/12/23 01/31/24 History bupropion HCl 150 mg tablet,12 hr 150 mg PO QAM 01/31/24 01/31/24 History sustained-release Hospital Stay Data Consultations 01/31/24 18:38 ED Decision to Admit Stat 01/31/24 20:07 Consult Cardiology Routine Diagnostic Imagining Performed Reviewed imaging, laboratory and diagnostic studies. Pertinent findings as below. Troponins negative times all sets CBC stable Electrolytes all stable Creatinine 0.83 LFTs within normal range Chest x-ray no acute cardiopulmonary abnormalities EKG no acute ST-T wave changes Resting echocardiogram showed ejection fraction 60 to 65% with normal wall motion, mild grade 1 diastolic dysfunction and no evidence of pulmonary hypertension. I refer you to the full report for details Pending Results Patient Have Any Pending Studies at Discharge: No Discharge Instructions Given to Patient (Per Discharging Provider) Strongly recommend you stop smoking follow-up with your PCP Total Time Total Time Spent Total Time Spent (In Minutes): 32
--- NOTE | 2024-02-01 14:21 | Electrocardiogram Report ---
Test Reason : Blood Pressure : */* mmHG Vent. Rate : 70 BPM Atrial Rate : 70 BPM P-R Int : 152 ms QRS Dur : 78 ms QT Int : 412 ms P-R-T Axes : 39 -1 32 degrees QTcB Int : 444 ms Normal sinus rhythm Poor R wave progression, consider anterior PA vs. lead placement vs. LVH Abnormal ECG When compared with ECG of 31-Jan-2024 15:23, (unconfirmed) No significant change was found Confirmed by Hao Silva ([id number]) on 02/01/2024 2:20:43 PM Referred By: REFERRED SELF Confirmed By: Hao Silva
== END 2024-02-01 14:35 | disposition home or self-care (01) | DRG 313 ==
LOC: ED 15:03 → 2N 19:08 → SUATTDRO 19:08 → 2N 20:18

== ENCOUNTER 2025-03-18 17:09 | Inpatient (IN) ==
--- NOTE | 2025-03-18 17:20 | Emergency Department Note ---
Impression & Plan Cellulitis of right knee, Abscess of right knee ED Provider Note CHIEF COMPLAINT: Knee pain HISTORY OF PRESENTING ILLNESS: Patient is a 64-year-old female who arrives to the emergency department for evaluation of right knee pain. Patient states she was seen here approximately 2 days ago, and given IV antibiotics for cellulitis. The patient states she was discharged home on oral antibiotics, however states the redness, and warmth is increased. She reports pain is worsening as well. She denies fever. She reports no proximal or distal extremity pain. She is neurovascularly intact REVIEW OF SYSTEMS: See HPI for pertinent positives and pertinent negatives. ALLERGIES: See below MEDICATIONS: See below PAST MEDICAL HISTORY: See below PHYSICAL EXAM: VITALS: Vitals are noted on the nurse's note and reviewed by myself. Vital signs stable. GENERAL: 64-year-old female, in no acute distress, nondiaphoretic, well- developed well-nourished. SKIN: Edema, edema noted to the right knee. Large mass noted, with central fluctuance, drainage noted. HEART: Regular rate and rhythm without murmurs gallops or rubs. LUNGS: Clear to auscultation bilaterally without wheezes, rales or rhonchi. No retractions or accessory muscle use. MUSCULOSKELETAL: Limited ROM, secondary to pain. Sensation intact to distal extremity. DP pulse intact. Full ROM, right ankle. NEURO: Patient was alert and oriented to person place and time. No focal neurological deficits. DIFFERENTIAL DIAGNOSIS: Cellulitis, abscess, MRSA infection, DVT, necrotizing fasciitis, dermatitis, drug eruption, allergic reaction, as well as other pathologies. ED COURSE AND MEDICAL DECISION MAKING: MEDICATIONS GIVEN: Vancomycin 2500 mg IV INTERPRETATION OF LABS: I interpreted the labs with full lab results as below in the lab section of this note. Pertinent lab results discussed in the MDM section below. INTERPRETATION OF IMAGING: Imaging studies were interpreted by myself and read by radiology as per the imaging section of this note. CONSULTATIONS: Orthopedics MDM SUMMARY: The patient is a pleasant, 64-year-old female who arrives to the emergency department for evaluation of the above-stated complaint. Saline lock was established, lab work was obtained. CBC shows no leukocytosis, no anemia. CMP is unremarkable. X-ray imaging of the right knee was obtained which shows subcutaneous edematous changes with focal increased nonspecific soft tissue attenuation of the right lateral periarticular knee joint. CT imaging is recommended. Ultrasound imaging was obtained to rule out DVT, due to tenderness to palpation of the popliteal fossa. Ultrasound imaging shows findings suggestive of an inflammatory process of the right lateral knee with abscess formation and possible related inflammatory tract reaching the skin. Patient will require admission to the hospitalist services, with IV antibiotic administration. IV vancomycin was initiated, orthopedics was consulted, who agreed with the plan of care. Patient was admitted to the [facility] hospitalist services, please refer to their documentation for further patient workup and care. DIAGNOSIS: Cellulitis of right knee, abscess of right knee The chart was completed utilizing [employer] voice recognition software. Grammatical errors, random word insertions, pronoun errors, and incomplete sentences are an occasional consequence of this system due to software limitations, ambient noise, and hardware issues. Any formal questions or concerns about the content, text, or information contained within the body of this dictation should be directly addressed to the provider for clarification. 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) Post-operative state Obesity S/P lumpectomy, right breast (Acute) 12/15/22 Tobacco use (Acute) Schizoaffective disorder Bipolar 1 disorder Anxiety and depression HTN (hypertension) Cellulitis of right breast (Acute) Right hand pain (Acute) Medical History GERD (gastroesophageal reflux disease) Hyperlipemia Morbid obesity Surgical History History of tonsillectomy History of endometrial ablation History of hysteroscopy History of bariatric surgery History of esophagogastroduodenoscopy (EGD) History of colonoscopy History of tubal ligation History of surgery 02/02/2012 excision excessive skin, panniculectomy, Dr. Sanabria [facility] Hx of breast surgery 10/26/2022 right breast biopsy. DCIS. 12/15/[address] Kelby Townsend 01/05/2023 Re-excision left lumpectomy for positive margin Dr. Kelby Townsend Family History Mother , in her 70s Atrial fibrillation COPD (chronic obstructive pulmonary disease) Stroke Father , in his 70s Prostate cancer Hypertension Brother Hypertension Sister Hypertension Diabetes Sister Hypertension Diabetes Sister Hypertension Sister Hypertension Sister No problems noted. Sister Abnormal Pap smear of cervix Son Hypertension Diabetes Mental health disorder Aunt Breast cancer Maternal aunt Grandfather (Maternal) Prostate cancer Other Cancer Social History Smoking Status: Current every day smoker Tobacco Type: Cigarettes Cigarettes Per Day: "Half a pack"; Second Hand Exposure: No; Do You Dip or Chew Tobacco: No; Hx Alcohol Use: No Hx Substance Use: No Preferred Language: Korean Communication Ability: Effective Visual Impairment: No Limitations Hearing Ability: Normal Trapper Animal Required: No Beliefs That Will Affect Care: None marital status: Current Living Situation: Family Current Living Situation Comment: Lives with son, [id number], and grandson current occupational status: disabled How many Children do You have: 1 Feels Safe at Home: Yes Diet: regular caffeine: Yes (1-2 pots coffee/day) during the past year weight has: remained stable Assistive Devices: Cane Allergies Allergies Allergy/AdvReac Type Severity Reaction Status Date / Time adhesive tape Allergy Intermediate Blister Verified 02/15/25 13:23 codeine AdvReac Intermediate I GET Unverified 02/15/25 13:23 REALLY MEAN Latex Allergy Intermediate skin peels Uncoded 03/19/25 13:22 Home Meds Home Medications Medication Instructions Recorded Confirmed atorvastatin 20 mg tablet 20 mg PO DAILY 01/15/23 03/18/25 lamotrigine 100 mg tablet 100 mg PO DAILY 01/15/23 03/18/25 lamotrigine 25 mg tablet 75 mg PO HS 01/15/23 03/18/25 losartan 25 mg tablet 25 mg PO DAILY 01/15/23 03/18/25 sertraline 100 mg tablet 200 mg PO QAM 01/15/23 03/18/25 acetaminophen 500 mg tablet 1,000 mg PO Q6H PRN Pain 03/03/23 03/18/25 (Tylenol Extra Strength) chlorpromazine 100 mg tablet 125 mg PO HS 03/03/23 03/18/25 topiramate 100 mg tablet 100 mg PO BID 03/03/23 03/18/25 anastrozole 1 mg tablet 1 mg PO DAILY 08/12/23 03/18/25 bupropion HCl 150 mg tablet,12 hr 150 mg PO QAM 01/31/24 03/18/25 sustained-release Previous Rx's Medication Instructions Recorded sulfamethoxazole 800 1 tab PO BID #20 tabs 03/16/25 mg-trimethoprim 160 mg tablet (Bactrim DS) oxycodone 5 mg tablet 5 mg PO Q4H PRN pain #20 tabs 03/22/25 Results & Data (ED) Vital Signs Vital Signs - 24 hr 03/18/25 17:12 Temperature 36.9 C Temperature Source Oral Pulse Rate 92 H Respiratory Rate 18 Blood Pressure 159/93 H Blood Pressure Mean 115 Pulse Oximetry 97 Oxygen Delivery Method Room Air Sepsis Recent Fever Within 48 Hours No Sepsis New/Unexplained Change in Mental Status No Sepsis Action Taken by Nursing No Action Required Home Medications Current Medication List: was personally reviewed by me Laboratory Data Attestation: I reviewed the patient's lab results. 03/20/25 05:27 03/22/25 06:04 Lab Results 03/18/25 Range/Units 17:29 WBC 6.55 (4.8-10.8) K/ul RBC 4.61 (4.20-5.40) M/uL Hgb 13.7 (12.0-16.0) g/dL Hct 41.9 (37.0-47.0) % MCV 90.9 (80.0-100.0) fL MCH 29.7 (25.0-34.0) pg MCHC 32.7 (32.0-36.0) g/dL RDW Std Deviation 41.3 (36.4-46.3) fL RDW Coeff of Yancy 12.4 (11.5-14.5) % Plt Count 164 (130-400) K/uL MPV 10.9 (9.4-12.4) fL Immature Gran % (Auto) 0.3 % Neut % (Auto) 75.0 % Lymph % (Auto) 15.3 % [place] % (Auto) 9.0 % Eos % (Auto) 0.2 % Baso % (Auto) 0.2 % Neut # (Auto) 4.92 (1.40-6.50) K/uL Lymph # (Auto) 1.00 L (1.20-3.40) K/uL [place] # (Auto) 0.59 (0.11-0.59) K/uL Eos # (Auto) 0.01 (0.00-0.50) K/uL Baso # (Auto) 0.01 (0.00-0.20) K/uL Immature Gran # (Auto) 0.02 (0.01-0.20) K/uL Sodium 139 (136-145) mmol/L Potassium 4.0 (3.5-5.1) mmol/L Chloride 110 H (98-107) mmol/L Carbon Dioxide 18 L (21-32) mmol/L Anion Gap 11 (3-11) BUN 13 (6-23) mg/dl Creatinine 0.76 (0.6-1.2) mg/dl Est Cr Clr Drug Dosing 86.9 ml/min eGFR 87.99 BUN/Creatinine Ratio 17.1 (10-20) Glucose 96 (70-99(Fasting)) mg/dl Calcium 8.8 (8.6-10.3) mg/dl Total Bilirubin 0.3 (0.2-1.0) mg/dl AST 12 L (13-39) U/L ALT 10 (7-52) U/L Alkaline Phosphatase 85 (34-104) U/L C-Reactive Protein 6.83 H (0-0.5) mg/dl Total Protein 7.0 (6.0-8.3) gm/dl Albumin 4.1 (3.4-5.0) gm/dl Globulin 2.9 (2.5-4.0) gm/dl Albumin/Globulin Ratio 1.4 (0.9-2) Administered Medications Discontinued Medications Acetaminophen (Acetaminophen 500 Mg Tab) 1,000 mg PO Q6H PRN PRN Reason: Pain or Fever Stop: 04/17/25 23:02 Last Admin: 03/20/25 12:53 Dose: 1,000 mg Documented By: Admin: 03/20/25 05:50 Dose: 1,000 mg Documented By: Admin: 03/19/25 19:42 Dose: 1,000 mg Documented By: Admin: 03/19/25 06:18 Dose: 1,000 mg Documented By: Admin: 03/19/25 00:19 Dose: 1,000 mg Documented By: EDMOND Anastrozole (Anastrozole 1 Mg Tab) 1 mg PO DAILY JOSEF Stop: 04/18/25 08:59 Last Admin: 03/22/25 09:20 Dose: 1 mg Documented By: GIANA Co-signed By: CRISTINA Admin: 03/21/25 09:13 Dose: 1 mg Documented By: NOEL Co-signed By: GIAAN Admin: 03/20/25 07:35 Dose: 1 mg Documented By: GERARD Co-signed By: rosa m Admin: 03/19/25 08:25 Dose: 1 mg Documented By: JULIO CESAR Co-signed By: GILBERT Atorvastatin Calcium (Atorvastatin 20 Mg Tab) 20 mg PO DAILY JOSEF Stop: 04/18/25 08:59 Last Admin: 03/22/25 09:20 Dose: 20 mg Documented By: Admin: 03/21/25 09:14 Dose: 20 mg Documented By: Admin: 03/20/25 07:36 Dose: 20 mg Documented By: Admin: 03/19/25 08:25 Dose: 20 mg Documented By: JULIO CESAR Bupropion HCl (Bupropion Sr 150 Mg Tabcr) 150 mg PO QAM JOSEF Stop: 04/18/25 08:59 Last Admin: 03/22/25 09:20 Dose: 150 mg Documented By: Admin: 03/21/25 09:13 Dose: 150 mg Documented By: Admin: 03/20/25 07:52 Dose: 150 mg Documented By: Admin: 03/19/25 08:25 Dose: 150 mg Documented By: JULIO CESAR Chlorpromazine HCl (Chlorpromazine Hcl 25 Mg Tab) 125 mg PO HS JOSEF Stop: 04/18/25 20:59 Last Admin: 03/21/25 21:47 Dose: 125 mg Documented By: Admin: 03/20/25 21:43 Dose: 125 mg Documented By: Admin: 03/19/25 21:46 Dose: 125 mg Documented By: MARA Chlorpromazine HCl (Chlorpromazine Hcl 25 Mg Tab) 125 mg PO NOW ONE Stop: 03/18/25 23:11 Last Admin: 03/19/25 00:12 Dose: 125 mg Documented By: EKF Fentanyl Citrate (Fentanyl Citrate Pf 100 Mcg/2 Ml Vial) 25 mcg IV Q5M PRN PRN Reason: PACU Use Only-Pain Stop: 03/19/25 22:01 Last Admin: 03/19/25 15:31 Dose: 25 mcg Documented By: Admin: 03/19/25 15:26 Dose: 25 mcg Documented By: Admin: 03/19/25 15:21 Dose: 25 mcg Documented By: MALLIKA Vancomycin HCl 2,500 mg/ (Sodium Chloride) 550 mls @ 200 mls/hr IV NOW ONE Stop: 03/18/25 23:16 Last Infusion: 03/19/25 00:40 Dose: Infused Documented By: Admin: 03/18/25 21:22 Dose: 200 mls/hr Documented By: brina Ceftriaxone Sodium (Rocephin) 2,000 mg in 50 mls @ 100 mls/hr IV Q24H JOSEF Stop: 03/26/25 00:00 Last Infusion: 03/20/25 23:52 Dose: Infused Documented By: HKCarlita Admin: 03/20/25 23:06 Dose: 100 mls/hr Documented By: HKCarlita Infusion: 03/20/25 00:42 Dose: Infused Documented By: Admin: 03/20/25 00:01 Dose: 100 mls/hr Documented By: Infusion: 03/19/25 01:00 Dose: Infused Documented By: Admin: 03/19/25 00:14 Dose: 100 mls/hr Documented By: EDMOND Vancomycin HCl 1,250 mg/ (Sodium Chloride) 275 mls @ 200 mls/hr IV Q12H [facility] Stop: 04/30/25 07:59 Last Infusion: 03/22/25 10:45 Dose: Infused Documented By: Admin: 03/22/25 09:15 Dose: 200 mls/hr Documented By: Infusion: 03/21/25 21:47 Dose: Infused Documented By: Admin: 03/21/25 20:02 Dose: 200 mls/hr Documented By: HKCarlita Infusion: 03/21/25 09:55 Dose: Infused Documented By: Admin: 03/21/25 08:01 Dose: 200 mls/hr Documented By: Infusion: 03/20/25 22:26 Dose: Infused Documented By: HKCarlita Admin: 03/20/25 19:47 Dose: 200 mls/hr Documented By: Infusion: 03/20/25 10:25 Dose: Infused Documented By: Admin: 03/20/25 08:47 Dose: 200 mls/hr Documented By: Infusion: 03/19/25 21:18 Dose: Infused Documented By: Admin: 03/19/25 19:43 Dose: 200 mls/hr Documented By: Infusion: 03/19/25 10:03 Dose: Infused Documented By: Admin: 03/19/25 08:33 Dose: 200 mls/hr Documented By: JULIO CESAR Cefazolin Sodium (Ancef 2000mg) 2,000 mg in 15 mls @ 3.75 mls/min IV PREOP ONE; Protocol Stop: 03/19/25 14:38 Last Admin: 03/19/25 16:40 Dose: 3.75 mls/min Documented By: JULIO CESAR Ioversol (Optiray 320 100ml) 90 ml IV ONCE ONE Stop: 03/18/25 22:12 Last Admin: 03/18/25 22:11 Dose: 90 ml Documented By: DEEJAY Lamotrigine (Lamotrigine 25 Mg Tab) 75 mg PO HS [facility]; Protocol Stop: 04/18/25 20:59 Last Admin: 03/21/25 21:47 Dose: 75 mg Documented By: Admin: 03/20/25 21:44 Dose: 75 mg Documented By: Admin: 03/19/25 21:46 Dose: 75 mg Documented By: MARA Lamotrigine (Lamotrigine 100 Mg Tab) 100 mg PO DAILY JOSEF; Protocol Stop: 04/18/25 08:59 Last Admin: 03/22/25 09:19 Dose: 100 mg Documented By: Admin: 03/21/25 09:14 Dose: 100 mg Documented By: Admin: 03/20/25 07:36 Dose: 100 mg Documented By: Admin: 03/19/25 08:25 Dose: 100 mg Documented By: JULIO CESAR Lamotrigine (Lamotrigine 25 Mg Tab) 75 mg PO NOW [facility]; Protocol Stop: 03/18/25 23:11 Last Admin: 03/19/25 00:11 Dose: 75 mg Documented By: EKF Lidocaine HCl (Lidocaine 1% Local 20 Ml Vial) 10 ml INJ NOW ONE Stop: 03/18/25 19:51 Last Admin: 03/18/25 23:08 Dose: Not Given Documented By: EKF Losartan Potassium (Losartan Potassium 25 Mg Tab) 25 mg PO DAILY JOSEF Stop: 04/18/25 08:59 Last Admin: 03/22/25 09:19 Dose: 25 mg Documented By: Admin: 03/21/25 09:14 Dose: 25 mg Documented By: Admin: 03/20/25 07:52 Dose: 25 mg Documented By: Admin: 03/19/25 08:25 Dose: 25 mg Documented By: HARRELL Morphine Sulfate (Morphine Sulfate 4 Mg/Ml 1 Ml Carp\\Vial) 4 mg IV NOW STA Stop: 03/18/25 21:07 Last Admin: 03/18/25 21:21 Dose: 4 mg Documented By: brina Oxycodone HCl (Oxycodone Hcl Ir 5 Mg Tab (Immediate Release)) 5 mg PO Q3H PRN PRN Reason: Pain Stop: 04/01/25 23:02 Last Admin: 03/22/25 12:35 Dose: 5 mg Documented By: Admin: 03/22/25 07:25 Dose: 5 mg Documented By: Admin: 03/21/25 20:03 Dose: 5 mg Documented By: Admin: 03/21/25 16:44 Dose: 5 mg Documented By: GIANA(2) Admin: 03/21/25 11:33 Dose: 5 mg Documented By: Admin: 03/21/25 08:00 Dose: 5 mg Documented By: Admin: 03/20/25 19:47 Dose: 5 mg Documented By: Admin: 03/20/25 07:52 Dose: 5 mg Documented By: Admin: 03/20/25 00:01 Dose: 5 mg Documented By: Admin: 03/19/25 19:42 Dose: 5 mg Documented By: Admin: 03/19/25 16:28 Dose: 5 mg Documented By: Admin: 03/19/25 07:43 Dose: 5 mg Documented By: JULIO CESAR Sertraline HCl (Sertraline Hcl 100 Mg Tablet) 200 mg PO QAM JOSEF Stop: 04/18/25 08:59 Last Admin: 03/22/25 09:19 Dose: 200 mg Documented By: Admin: 03/21/25 09:13 Dose: 200 mg Documented By: Admin: 03/20/25 07:36 Dose: 200 mg Documented By: Admin: 03/19/25 08:25 Dose: 200 mg Documented By: JULIO CESAR Topiramate (Topiramate 100 Mg Tab) 100 mg PO BID JOSEF Stop: 04/18/25 08:59 Last Admin: 03/22/25 09:20 Dose: 100 mg Documented By: Admin: 03/21/25 21:47 Dose: 100 mg Documented By: HKCarlita Admin: 03/21/25 09:14 Dose: 100 mg Documented By: Admin: 03/20/25 21:43 Dose: 100 mg Documented By: Admin: 03/20/25 07:36 Dose: 100 mg Documented By: Admin: 03/19/25 21:46 Dose: 100 mg Documented By: Admin: 03/19/25 08:25 Dose: 100 mg Documented By: JULIO CESAR Topiramate (Topiramate 100 Mg Tab) 100 mg PO NOW STA Stop: 03/18/25 23:11 Last Admin: 03/19/25 00:11 Dose: 100 mg Documented By: EKF Imaging Data Attestation: I personally reviewed and interpreted this imaging study as follows: Discharge Plan Visit Data Chief Complaint: Knee Injury/Pain Stated Complaint: RT KNEE PAIN, HERE BEFORE ED Provider: [facility] ED Midlevel Provider: Shahrzad Otto Discharge Problem: Cellulitis of right knee, Abscess of right knee Patient Disposition: Admitted As Inpatient Condition: Fair Discharge Instructions Interventions: ED Discharge Assessment Last Done: 03/18/25 22:23
[2025-03-18 17:45] LABS: Hematocrit (blood only) 41.9 % (37.0-47.0); Hemoglobin 13.7 g/dL (12.0-16.0); Immature Granulocytes # (auto) 0.02 K/uL (0.01-0.20); Immature Granulocytes % (auto) 0.3 %; Mean Corpuscular Hemoglobin 29.7 pg (25.0-34.0); Mean Corpuscular Volume 90.9 fL (80.0-100.0); Platelet Count 164 K/uL (130-400); RDW Standard Deviation 41.3 fL (36.4-46.3); Red Blood Count 4.61 M/uL (4.20-5.40); White Blood Count 6.55 K/ul (4.8-10.8)
[2025-03-18 18:01] LABS: Alanine Aminotransferase 10.0 U/L (7-52); Albumin Globulin Ratio 1.4 (0.9-2); Albumin Level 4.1 gm/dl (3.4-5.0); Alkaline Phosphatase 85.0 U/L (34-104); Anion Gap 11.0 (3-11); Bilirubin,Total 0.3 mg/dl (0.2-1.0); Blood Urea Nitrogen 13.0 mg/dl (6-23); Calcium 8.8 mg/dl (8.6-10.3); Carbon Dioxide 18.0 mmol/L (21-32); Chloride 110.0 mmol/L (98-107); Creatinine Clr Calc Pharmacy 86.9 ml/min; Globulin 2.9 gm/dl (2.5-4.0); Glucose 96.0 mg/dl (70-99(Fasting)); Potassium 4.0 mmol/L (3.5-5.1); Sodium 139.0 mmol/L (136-145); Total Protein 7.0 gm/dl (6.0-8.3)
--- NOTE | 2025-03-18 20:05 | XRay Report ---
Exam: 2 view right knee. History: Abscess. Comparison: March 16, 2025. Findings: Increased subcutaneous reticular densities consistent with edema. No discrete joint effusion. There is increased soft tissue volume and attenuation along the lateral para-articular region. No destructive osseous or joint process. Impression: Subcutaneous edematous changes with focal increased nonspecific soft tissue attenuation right lateral para-articular knee joint. This may represent patient's known abscess. CT or MRI would be helpful for further characterization. Electronically signed by Jhonathan Lawson 03-18-2025 8:05 PM
[2025-03-18] MEDS ORDERED: VANCOMYCIN CONSULT ACTIVE PRN (20:32)
[2025-03-18] MEDS: MoRPHine SULFATE 4 MG/ML 1 ML CARP\\VIAL IV STA (21:21)
[2025-03-18] MEDS: VANCOMYCIN HCL 2,500 MG in SODIUM CHLORIDE 0.9% 500 ML IV ONE (21:22)
--- NOTE | 2025-03-18 21:25 | History & Physical Report ---
Date of Service March 18, 2025 Assessment & Plan (1) Cellulitis of right knee: (2) Abscess of right knee: (3) Septic joint of right knee joint: (4) Schizoaffective disorder: (5) Bipolar 1 disorder: (6) Anxiety and depression: (7) HTN (hypertension): (8) Obesity: Plan Patient 64-year-old female with right knee cellulitis and subcutaneous abscess formation with concern for possible septic joint. Patient has failed outpatient antibiotic management and may need surgical intervention. Admit to the [facility] unit Consult orthopedics Continue IV antibiotics add Rocephin in addition to the vancomycin Follow cultures Continue outpatient medications as ordered CT of the knee pending per orthopedic recommendation Pain control N.p.o. after midnight in anticipation of possible need for surgical intervention History of Present Illness Chief Complaint: Knee pain, redness, swelling, drainage Primary Care Provider: Chino Chou MD Patient is a 64-year-old female who presents to the emergency room for the second time in 2 days with complaints of right knee swelling, pain, redness, drainage. She thinks there may have been some trauma or an abrasion to the knee a few days ago. She was treated in the emergency room with Keflex and Bactrim 2 days ago. The knee continue to get more swollen increased drainage and more pain which prompted her return to the emergency room today. In the emergency room showed normal white blood cell count. X-ray imaging was concerning for fluid collection. Clinical exam was concerning for abscess. After phone consultation with orthopedics she was referred to our service for coordination of care in the hospital. Time my evaluation patient is a bit more comfortable after receiving some pain medication. She admits to some chills at home but no fevers. No nausea or vomiting, no chest pain, no shortness of breath. She has been eating and drinking normally. No new problems with the bowels or bladder. She thought maybe she had an a spider bite or possibly a scratch from one of her dogs on her knee that started the infection. She did not fully confirm the possibility of trauma a couple days ago as she had initially said in the ED on her first visit. At this point she said the drainage has been clear to cloudy in nature. It is exquisitely tender. States her other medical conditions have been stable and has been compliant with her outpatient medications. Allergies Allergy/AdvReac Type Severity Reaction Status Date / Time adhesive tape Allergy Intermediate Blister Verified 02/15/25 13:23 codeine AdvReac Intermediate I GET Unverified 02/15/25 13:23 REALLY MEAN Latex Allergy skin peels Uncoded 02/15/25 13:23 Home Medications Medication Instructions Recorded Confirmed Type atorvastatin 20 mg tablet 20 mg PO DAILY 01/15/23 03/18/25 History lamotrigine 100 mg tablet 100 mg PO DAILY 01/15/23 03/18/25 History lamotrigine 25 mg tablet 75 mg PO HS 01/15/23 03/18/25 History losartan 25 mg tablet 25 mg PO DAILY 01/15/23 03/18/25 History sertraline 100 mg tablet 200 mg PO QAM 01/15/23 03/18/25 History acetaminophen 500 mg tablet 1,000 mg PO Q6H PRN Pain 03/03/23 03/18/25 History (Tylenol Extra Strength) chlorpromazine 100 mg tablet 125 mg PO HS 03/03/23 03/18/25 History topiramate 100 mg tablet 100 mg PO BID 03/03/23 03/18/25 History anastrozole 1 mg tablet 1 mg PO DAILY 08/12/23 03/18/25 History bupropion HCl 150 mg tablet,12 hr 150 mg PO QAM 01/31/24 03/18/25 History sustained-release cephalexin 500 mg capsule 500 mg PO QID 10 days #40 caps 03/16/25 03/18/25 Rx sulfamethoxazole 800 1 tab PO BID #20 tabs 03/16/25 03/18/25 Rx mg-trimethoprim 160 mg tablet (Bactrim DS) Past Med/Surg History Problem List (Updated 03/18/25 @ 21:23 by Romeo Pichardo DO) Septic joint of right knee joint Abscess of right knee Cellulitis of right knee (Acute) Non-cardiac chest pain Chest pain (Acute) Chest pain 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) Post-operative state Obesity S/P lumpectomy, right breast (Acute) 12/15/22 Tobacco use (Acute) Schizoaffective disorder Bipolar 1 disorder Anxiety and depression HTN (hypertension) Cellulitis of right breast (Acute) Right hand pain (Acute) Medical History GERD (gastroesophageal reflux disease) Hyperlipemia Morbid obesity Surgical History History of tonsillectomy History of endometrial ablation History of hysteroscopy History of bariatric surgery History of esophagogastroduodenoscopy (EGD) History of colonoscopy History of tubal ligation History of surgery 02/02/2012 excision excessive skin[place], [place]. [place] [facility] [place]x of breast surgery 10/26/2022 right breast biopsy. DCIS. 12/15/[address] Kelby Townsend 01/05/2023 Re-excision left lumpectomy for positive margin Dr. Kelby Townsend Family History Mother , in her 70s Atrial fibrillation COPD (chronic obstructive pulmonary disease) Stroke Father , in his 70s Prostate cancer Hypertension Brother Hypertension Sister Hypertension Diabetes Sister Hypertension Diabetes Sister Hypertension Sister Hypertension Sister No problems noted. Sister Abnormal Pap smear of cervix Son Hypertension Diabetes Mental health disorder Aunt Breast cancer Maternal aunt Grandfather (Maternal) Prostate cancer Other Cancer Social History Smoking Status: Current every day smoker Tobacco Type: Cigarettes Cigarettes Per Day: 10; Second Hand Exposure: Yes; Do You Dip or Chew Tobacco: No; Hx Alcohol Use: No Hx Substance Use: No Preferred Language: Finnish Communication Ability: Effective Visual Impairment: No Limitations Hearing Ability: Normal Digital Editor Required: No Beliefs That Will Affect Care: None marital status: Current Living Situation: Family Current Living Situation Comment: patient lives with son, [id number] and grandson current occupational status: disabled How many Children do You have: 1 Feels Safe at Home: Yes Diet: regular caffeine: Yes (1-2 pots coffee/day) during the past year weight has: remained stable Assistive Devices: Glasses Review of Systems Review of Systems: Pertinent positive and negative review of systems as mentioned in the HPI Physical Exam Physical Exam: Constitutional: Alert, nontoxic, mild distress due to pain HEENT: Mucous membranes moist. Sclera clear Neck: Soft, no adenopathy Lungs: Clear to auscultation, decreased, no wheezes rales or rhonchi CV: S1-S2, regular Abdomen: Soft, nontender, nondistended Extremities: Abscess formation over the right knee with surrounding erythema, warmth, tenderness, fluctuance. There is a small pinpoint purulent pustule is starting to develop. Musculoskeletal: No significant joint tenderness Neuro: No focal deficits Psych: Cooperative, normal mood Results & Data Results & Data Vital Signs (Past 12 Hours) Vital Signs Temp Pulse Pulse Resp BP BP Pulse Ox 03/18/25 20:00 84 18 145/81 H 96 03/18/25 18:19 82 19 93/59 L 95 03/18/25 17:38 87 03/18/25 17:12 36.9 C 92 H 18 159/93 H 97 03/18/25 17:10 82 18 123/76 94 O2 Del Method 03/18/25 20:00 Room Air 03/18/25 18:19 Room Air 03/18/25 17:38 03/18/25 17:12 Room Air 03/18/25 17:10 Room Air Diagnostic Findings Reviewed imaging, laboratory and diagnostic studies. Pertinent findings as below. WBC 6.5 Hemoglobin 13.7 Platelets of 164 Electrolytes stable Creatinine 0.76 LFTs stable Knee x-ray showing subcutaneous edema and soft tissue attenuation. Soft tissue ultrasound pending CT knee pending
[2025-03-18] MEDS: OPTIRAY 320 100ml IV ONE (22:11)
[2025-03-18] MEDS ORDERED: ALUMINUM/MAGNESIUM SUSP 30 ML UDC PO PRN (23:03)
[2025-03-18] MEDS ORDERED: ONDANSETRON INJ 2 MG/ML 2 ML VIAL IV PRN (23:03)
[2025-03-18] MEDS ORDERED: MAGNESIUM HYDROXIDE SUSP 30 ML UDC PO PRN (23:03)
[2025-03-18] MEDS ORDERED: POLYETHYLENE (MIRALAX) 17 GM PACK PO PRN (23:03)
[2025-03-18] MEDS: LIDOCAINE 1% LOCAL 20 ML VIAL INJ ONE (23:08)
[2025-03-19] MEDS: lamoTRIgine 25 MG TAB PO STA (00:11)
[2025-03-19] MEDS: TOPIRAMATE 100 MG TAB PO STA (00:11)
[2025-03-19] MEDS: cefTRIAXone SODIUM 2,000 MG/50 ML BAG IV SCH (00:14)
[2025-03-19] MEDS: ACETAMINOPHEN 500 MG TAB PO PRN (00:19)
--- NOTE | 2025-03-19 00:20 | CT Scan Report ---
Exam(s): CT RIGHT KNEE With Contrast IV Amt: 90 ml optiray 320 EXAM: CT Right Lower Extremity With Intravenous Contrast, Knee CLINICAL HISTORY: Reason for exam: infection. TECHNIQUE: Axial computed tomography images of the right knee with intravenous contrast. CTDI is artifact demonstrates joints are region the heart 10. 33 mGy and DLP is 375.3 mGy-cm. Automated exposure control was utilized for the study. A dose lowering technique was utilized adhering to the principles of ALARA. CONTRAST: Patient received 90 ml optiray 320 of IV contrast COMPARISON: X-rays dated 03/18/2025. FINDINGS: Bones/joints: No acute fracture. No dislocation. No gross bony destruction is noted. There are tricompartmental hypertrophic degenerative changes. Soft tissues: There is soft tissue swelling and edema. There is a small knee joint effusion.. IMPRESSION: Soft tissue swelling. Small knee joint effusion. Hypertrophic degenerative changes. If further evaluation is clinically necessary, consider correlation with a contrast enhanced MRI. Electronically signed by: Jerome Reyes MD 03/19/25 00:19 AM
--- NOTE | 2025-03-19 05:06 | Ultrasound Report ---
EXAM: US soft tissue ext ltd CLINICAL HISTORY: Knee abscess. TECHNIQUE: Ultrasound examination of the soft tissues of the right lateral knee. COMPARISON: None. FINDINGS: An ill-defined cystic area measuring about 4 x 1.2 x 3.6 cm is seen, showing turbid content, mobile echogenic debri and increased surrounding vascularity. A hypoechoic linear tract is seen connecting it to the skin. Related edema of the surrounding subcutaneous lobules shows increased echogenicity. IMPRESSION: - Picture suggestive of an inflammatory process of the right lateral knee with abscess formation and possible realted inflamamtory tract reaching the skin. Correlation with the clinical and lab findings is advised. Electronically signed by Gagan Eckert 03-19-2025 05:03 AM
[2025-03-19 06:24] LABS: Hematocrit (blood only) 37.2 % (37.0-47.0); Hemoglobin 12.2 g/dL (12.0-16.0); Mean Corpuscular Hemoglobin 30.0 pg (25.0-34.0); Mean Corpuscular Volume 91.6 fL (80.0-100.0); Platelet Count 139 K/uL (130-400); RDW Standard Deviation 41.5 fL (36.4-46.3); Red Blood Count 4.06 M/uL (4.20-5.40); White Blood Count 4.41 K/ul (4.8-10.8)
[2025-03-19 06:37] LABS: Anion Gap 7.0 (3-11); Blood Urea Nitrogen 9.0 mg/dl (6-23); Calcium 8.3 mg/dl (8.6-10.3); Carbon Dioxide 21.0 mmol/L (21-32); Chloride 113.0 mmol/L (98-107); Creatinine Clr Calc Pharmacy 93.1 ml/min; Glucose 92.0 mg/dl (70-99(Fasting)); Potassium 3.6 mmol/L (3.5-5.1); Sodium 141.0 mmol/L (136-145)
[2025-03-19] MEDS: SERTRALINE HCL 100 MG TABLET PO SCH (08:25)
[2025-03-19] MEDS: TOPIRAMATE 100 MG TAB PO SCH (08:25)
[2025-03-19] MEDS: ATORVASTATIN 20 MG TAB PO SCH (08:25)
[2025-03-19] MEDS: LOSARTAN POTASSIUM 25 MG TAB PO SCH (08:25)
[2025-03-19] MEDS: ANASTROZOLE 1 MG TAB PO SCH (08:25)
[2025-03-19] MEDS: lamoTRIgine 100 MG TAB PO SCH (08:25)
[2025-03-19] MEDS: VANCOMYCIN HCL 1,250 MG in SODIUM CHLORIDE 0.9% 250 ML IV SCH (08:33)
--- NOTE | 2025-03-19 09:45 | Orthopedic Consultation ---
Date of Service March 19, 2025 Assessment & Plan (1) Cellulitis of right knee: (2) Abscess of right knee: Plan * Case/imaging reviewed and discussed with Dr Bills * Exam/clinical findings consistent with superficial abscess of the prepatellar region of the right knee. * At this time there is no evidence to indicate septic arthritis * Recommend I&D, discussed this could be done bedside however given surgeon availability we will proceed to OR later this afternoon * Weight bearing status: Activity as tolerated * Daily treatment: Physical Therapy/ Occupational Therapy per protocol * Pain control * Continue antibiotics per primary team * Disposition: TBD * Remainder care per primary team * Will continue to follow History of Present Illness Reason for Consultation: Right knee cellulitis/wound Requesting Physician: . Attending Physician: Abril Yanez MD . Patient is a 64y/o female with right knee cellulitis/wound. PMH including bipolar disorder, schizoaffective disorder, anxiety, depression, HTN. Presents to hospital with right knee wound/drainage. Initially presented to the ED 2 days prior, was prescribed oral antibiotics. Does not recall specific trauma but thinks either her dog scratched the knee or she had a spider bite. However the knee continue to get more swollen with increased drainage which prompted return to the emergency room yesterday. She was admitted to the hospital medicine team. Orthopedics consulted for management recommendations. At time of exam patient sitting calmly in bed, no acute distress. Endorses mild pain of the right anterior knee at rest that increases with attempted movement of the knee. Patient does have superficial abscess/soft tissue collection of the anterior lateral aspect of the prepatellar region. Denies tingling/numbness of the lower leg. No assistive device at baseline. Allergies Allergy/AdvReac Type Severity Reaction Status Date / Time adhesive tape Allergy Intermediate Blister Verified 02/15/25 13:23 codeine AdvReac Intermediate I GET Unverified 02/15/25 13:23 REALLY MEAN Latex Allergy Intermediate skin peels Uncoded 03/19/25 13:22 Home Medications Medication Instructions Recorded Confirmed Type atorvastatin 20 mg tablet 20 mg PO DAILY 01/15/23 03/18/25 History lamotrigine 100 mg tablet 100 mg PO DAILY 01/15/23 03/18/25 History lamotrigine 25 mg tablet 75 mg PO HS 01/15/23 03/18/25 History losartan 25 mg tablet 25 mg PO DAILY 01/15/23 03/18/25 History sertraline 100 mg tablet 200 mg PO QAM 01/15/23 03/18/25 History acetaminophen 500 mg tablet 1,000 mg PO Q6H PRN Pain 03/03/23 03/18/25 History (Tylenol Extra Strength) chlorpromazine 100 mg tablet 125 mg PO HS 03/03/23 03/18/25 History topiramate 100 mg tablet 100 mg PO BID 03/03/23 03/18/25 History anastrozole 1 mg tablet 1 mg PO DAILY 08/12/23 03/18/25 History bupropion HCl 150 mg tablet,12 hr 150 mg PO QAM 01/31/24 03/18/25 History sustained-release cephalexin 500 mg capsule 500 mg PO QID 10 days #40 caps 03/16/25 03/18/25 Rx sulfamethoxazole 800 1 tab PO BID #20 tabs 03/16/25 03/18/25 Rx mg-trimethoprim 160 mg tablet (Bactrim DS) Past Med/Surg History Problem List (Updated 03/18/25 @ 21:23 by Romeo Pichardo DO) Septic joint of right knee joint Abscess of right knee Cellulitis of right knee (Acute) Non-cardiac chest pain Chest pain (Acute) Chest pain 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) Post-operative state Obesity S/P lumpectomy, right breast (Acute) 12/15/22 Tobacco use (Acute) Schizoaffective disorder Bipolar 1 disorder Anxiety and depression HTN (hypertension) Cellulitis of right breast (Acute) Right hand pain (Acute) Medical History GERD (gastroesophageal reflux disease) Hyperlipemia Morbid obesity Surgical History History of tonsillectomy History of endometrial ablation History of hysteroscopy History of bariatric surgery History of esophagogastroduodenoscopy (EGD) History of colonoscopy History of tubal ligation History of surgery 02/02/2012 excision excessive skin[place], [place] [facility] [place] surgery 10/26/2022 right breast biopsy. DCIS. 12/15/[address] Kelby Townsend 01/05/2023 Re-excision left lumpectomy for positive margin Dr. Kelby Townsend Family History Mother , in her 70s Atrial fibrillation COPD (chronic obstructive pulmonary disease) Stroke Father , in his 70s Prostate cancer Hypertension Brother Hypertension Sister Hypertension Diabetes Sister Hypertension Diabetes Sister Hypertension Sister Hypertension Sister No problems noted. Sister Abnormal Pap smear of cervix Son Hypertension Diabetes Mental health disorder Aunt Breast cancer Maternal aunt Grandfather (Maternal) Prostate cancer Other Cancer Social History Smoking Status: Current every day smoker Tobacco Type: Cigarettes Cigarettes Per Day: "Half a pack"; Second Hand Exposure: No; Do You Dip or Chew Tobacco: No; Tobacco Cessation Education Requested by Patient: No Hx Alcohol Use: No Hx Substance Use: No Preferred Language: Azeri Communication Ability: Effective Visual Impairment: No Limitations Hearing Ability: Normal Modern Dancer Required: No Beliefs That Will Affect Care: None marital status: Current Living Situation: Family Current Living Situation Comment: Lives with son, [id number], and grandson current occupational status: disabled How many Children do You have: 1 Other Information That Helps Us Care for You: No Feels Safe at Home: Yes Safety Concerns: Feels Safe At This Time Diet: regular caffeine: Yes (1-2 pots coffee/day) during the past year weight has: remained stable Assistive Devices: Denture - Upper, Denture - Lower and Glasses Review of Systems All systems reviewed & are unremarkable except as noted in HPI & below. Physical Exam . * General: Alert and oriented, no acute distress * Constitutional: well-developed, well-nourished. * Respiratory: Normal respiratory effort, no distress * Gastrointestinal: No tenderness to palpation, no rigidity or guarding. * Skin: No rash or lesion. * Neurologic: Grossly normal * Musculoskeletal: Approximately 2 cm raised abscess/fluid collection to the anterior lateral aspect of the right knee with associated prepatellar cellulitis. Some fluid weeping from the abscess site, but no significant purulent drainage. TTP in the anterior lateral/prepatellar region, otherwise no specific tenderness of medial/lateral joint line. AROM knee flexion/extension limited due to tightness anteriorly but does not cause significant pain. Otherwise no tenderness of the lower leg. Sensation intact plantar/dorsal foot. Brisk capillary refill. Results & Data Results & Data Laboratory Results . 03/18/25 20:30 Gram Stain - Final Knee Aerobic and Anaerobic Culture - Pending 03/19/25 03/18/25 06:04 17:29 WBC 4.41 L 6.55 RBC 4.06 L 4.61 Hgb 12.2 13.7 Hct 37.2 41.9 MCV 91.6 90.9 MCH 30.0 29.7 MCHC 32.8 32.7 RDW Std Deviation 41.5 41.3 RDW Coeff of Yancy 12.4 12.4 Plt Count 139 164 MPV 10.6 10.9 Immature Gran % (Auto) 0.3 Neut % (Auto) 75.0 Lymph % (Auto) 15.3 Gaston % (Auto) 9.0 Eos % (Auto) 0.2 Baso % (Auto) 0.2 Neut # (Auto) 4.92 Lymph # (Auto) 1.00 L Gaston # (Auto) 0.59 Eos # (Auto) 0.01 Baso # (Auto) 0.01 Immature Gran # (Auto) 0.02 Sodium 141 139 Potassium 3.6 4.0 Chloride 113 H 110 H Carbon Dioxide 21 18 L Anion Gap 7 11 BUN 9 13 Creatinine 0.72 0.76 Est Cr Clr Drug Dosing 93.1 86.9 eGFR 93.89 87.99 BUN/Creatinine Ratio 12.5 17.1 Glucose 92 96 Calcium 8.3 L 8.8 Total Bilirubin 0.3 AST 12 L ALT 10 Alkaline Phosphatase 85 C-Reactive Protein 6.83 H Total Protein 7.0 Albumin 4.1 Globulin 2.9 Albumin/Globulin Ratio 1.4 Diagnostic Findings . Knee X-Ray 03/18/25 17:24 Exam: 2 view right knee. History: Abscess. Comparison: March 16, 2025. Findings: Increased subcutaneous reticular densities consistent with edema. No discrete joint effusion. There is increased soft tissue volume and attenuation along the lateral para-articular region. No destructive osseous or joint process. Impression: Subcutaneous edematous changes with focal increased nonspecific soft tissue attenuation right lateral para-articular knee joint. This may represent patient's known abscess. CT or MRI would be helpful for further characterization. Electronically signed by Jhonathan Lawson 03-18-2025 8:05 PM Soft Tissue Ultrasound 03/18/25 17:24 EXAM: US soft tissue ext ltd CLINICAL HISTORY: Knee abscess. TECHNIQUE: Ultrasound examination of the soft tissues of the right lateral knee. COMPARISON: None. FINDINGS: An ill-defined cystic area measuring about 4 x 1.2 x 3.6 cm is seen, showing turbid content, mobile echogenic debri and increased surrounding vascularity. A hypoechoic linear tract is seen connecting it to the skin. Related edema of the surrounding subcutaneous lobules shows increased echogenicity. IMPRESSION: - Picture suggestive of an inflammatory process of the right lateral knee with abscess formation and possible realted inflamamtory tract reaching the skin. Correlation with the clinical and lab findings is advised. Electronically signed by Gagan Eckert 03-19-2025 05:[address] 03/18/25 21:07 Exam(s): CT RIGHT KNEE With Contrast IV Amt: 90 ml optiray 320 EXAM: CT Right Lower Extremity With Intravenous Contrast, Knee CLINICAL HISTORY: Reason for exam: infection. TECHNIQUE: Axial computed tomography images of the right knee with intravenous contrast. CTDI is artifact demonstrates joints are region the heart 10. 33 mGy and DLP is 375.3 mGy-cm. Automated exposure control was utilized for the study. A dose lowering technique was utilized adhering to the principles of ALARA. CONTRAST: Patient received 90 ml optiray 320 of IV contrast COMPARISON: X-rays dated 03/18/2025. FINDINGS: Bones/joints: No acute fracture. No dislocation. No gross bony destruction is noted. There are tricompartmental hypertrophic degenerative changes. Soft tissues: There is soft tissue swelling and edema. There is a small knee joint effusion.. IMPRESSION: Soft tissue swelling. Small knee joint effusion. Hypertrophic degenerative changes. If further evaluation is clinically necessary, consider correlation with a contrast enhanced MRI. Electronically signed by: Jerome Reyes MD 03/19/25 00:19 AM PG Care Time/CCT Total # of Minutes Spent Total Time Spent with Patient: Total time spent is greater than 50% in coordination of care (as documented) at patient's floor/unit and/or counseling patient: [place] [address] IN/OBS CONSULT LVL 5,80M Patient Type New Medical Decision Making High Complexity Diagnoses Cellulitis of right knee L03.115 Abscess of right knee L02.415
--- NOTE | 2025-03-19 10:05 | Pharmacy Report ---
Pharmacy PK ABX Note - Date of Service March 19, 2025 - Assessment and Plan Assessment 64 year old F receiving vancomycin and ceftriaxone for treatment of right knee cellulitis/subcutaneous abscess. Patient presents with right knee swelling, pain, redness, and drainage. She was started on Keflex and Bactrim ~3 days ago without improvement. Ortho was consulted and does not feel evidence of septic arthritis and plans to do I&D in the OR this afternoon. Pertinent microbiologic data includes: right knee culture from 03/18 is pending. Day # 2 of antimicrobial therapy. Plan Vancomycin * Loading dose: 2500 mg IV x 1 * Maintenance dose: 1250 mg IV every 12 hours * Regimen is predicted to achieve target AUC/PAULIE of 400-600 mg/L.hr * Random level ordered for: 03/20 with morning labs. Pharmacy will continue to follow and will adjust dose/frequency as necessary. Thank you. Pharmacy has transitioned to AUC monitoring for vancomycin. AUC/PAULIE is the preferred PK/PD target and is associated with decreased risk of nephrotoxicity compared to traditional trough targets.
[2025-03-19] MEDS ORDERED: LIDOCAINE 2% 2 ML VIAL/AMP(20MG/ML) INFIL ONE (13:01)
[2025-03-19] MEDS ORDERED: ONDANSETRON INJ 2 MG/ML 2 ML VIAL ONE (13:02)
[2025-03-19] MEDS ORDERED: PROPOFOL IV EMULSION 10 MG/ML 20 ML VIAL IV ONE (13:02)
[2025-03-19] MEDS ORDERED: MIDAZOLAM HCL 1 MG/ML 2ML VIAL ONE (13:02)
--- NOTE | 2025-03-19 13:43 | History & Physical Bridge Note ---
Date of Service March 19, 2025 History & Physical Bridge Note I have examined the patient, reviewed the History & Physical and in the interval since the performance of the History & Physical I have noted the following changes of clinical significance: no changes noted
[2025-03-19] MEDS ORDERED: ATROPINE SULFATE 0.1 MG/ML 10ML SYR IV PRN (14:01)
[2025-03-19] MEDS ORDERED: DROPERIDOL 5 MG/2 ML VIAL IV PRN (14:01)
--- NOTE | 2025-03-19 14:01 | Anesthesiology Consultation ---
Date of Service March 19, 2025 Assessment & Plan Chart Review Chart Review: Acceptable Risk for Surgery and Patient NOT seen in Pre Admission Testing Consults Requested none History Surgery Operation Date: 03/19/25 13:35 Proposed Procedures p Incision and Drainage Right Knee - Duncan Bills DO Height/Weight Height: 5 ft 4 in Weight: 102.3 kg Allergies Allergy/AdvReac Type Severity Reaction Status Date / Time adhesive tape Allergy Intermediate Blister Verified 02/15/25 13:23 codeine AdvReac Intermediate I GET Unverified 02/15/25 13:23 REALLY MEAN Latex Allergy Intermediate skin peels Uncoded 03/19/25 13:22 Medications Home Medications Medication Instructions Recorded Confirmed Last Taken atorvastatin 20 mg tablet 20 mg PO DAILY 01/15/23 03/18/25 01/31/24 lamotrigine 100 mg tablet 100 mg PO DAILY 01/15/23 03/18/25 01/31/24 lamotrigine 25 mg tablet 75 mg PO HS 01/15/23 03/18/25 01/30/24 losartan 25 mg tablet 25 mg PO DAILY 01/15/23 03/18/25 01/31/24 sertraline 100 mg tablet 200 mg PO QAM 01/15/23 03/18/25 01/30/24 acetaminophen 500 mg tablet 1,000 mg PO Q6H PRN Pain 03/03/23 03/18/25 Unknown (Tylenol Extra Strength) chlorpromazine 100 mg tablet 125 mg PO HS 03/03/23 03/18/25 01/30/24 topiramate 100 mg tablet 100 mg PO BID 03/03/23 03/18/25 01/31/24 anastrozole 1 mg tablet 1 mg PO DAILY 08/12/23 03/18/25 01/31/24 bupropion HCl 150 mg tablet,12 hr 150 mg PO QAM 01/31/24 03/18/25 01/31/24 sustained-release cephalexin 500 mg capsule 500 mg PO QID 10 days #40 caps 03/16/25 03/18/25 Unknown sulfamethoxazole 800 1 tab PO BID #20 tabs 03/16/25 03/18/25 Unknown mg-trimethoprim 160 mg tablet (Bactrim DS) Active Medications Generic Name Dose Route Start Last Admin Trade Name Freq PRN Reason Stop Dose Admin Acetaminophen 1,000 mg 03/18/25 23:03 03/19/25 06:18 Acetaminophen 500 Mg Tab PO 04/17/25 23:02 1,000 mg Q6H PRN Administration Pain or Fever Anastrozole 1 mg 03/19/25 09:00 03/19/25 08:25 Anastrozole 1 Mg Tab PO 04/18/25 08:59 1 mg DAILY JOSEF Administration Atorvastatin Calcium 20 mg 03/19/25 09:00 03/19/25 08:25 Atorvastatin 20 Mg Tab PO 04/18/25 08:59 20 mg DAILY JOSEF Administration Bupropion HCl 150 mg 03/19/25 09:00 03/19/25 08:25 Bupropion Sr 150 Mg Tabcr PO 04/18/25 08:59 150 mg QAM JOSEF Administration Ceftriaxone Sodium 2,000 mg in 50 mls @ 100 mls/hr 03/19/25 00:00 03/19/25 01:00 Rocephin IV 03/26/25 00:00 Infused Q24H JOSEF Infusion Vancomycin HCl 1,250 mg/ 275 mls @ 200 mls/hr 03/19/25 08:00 03/19/25 10:03 Sodium Chloride IV 04/30/25 07:59 Infused Q12H JOSEF Infusion Lamotrigine 100 mg 03/19/25 09:00 03/19/25 08:25 Lamotrigine 100 Mg Tab PO 04/18/25 08:59 100 mg DAILY JOSEF Administration Protocol Losartan Potassium 25 mg 03/19/25 09:00 03/19/25 08:25 Losartan Potassium 25 Mg Tab PO 04/18/25 08:59 25 mg DAILY JOSEF Administration Oxycodone HCl 5 mg 03/18/25 23:03 03/19/25 07:43 Oxycodone Hcl Ir 5 Mg Tab (Immediate Release) PO 04/01/25 23:02 5 mg Q3H PRN Administration Pain Sertraline HCl 200 mg 03/19/25 09:00 03/19/25 08:25 Sertraline Hcl 100 Mg Tablet PO 04/18/25 08:59 200 mg QAM JOSEF Administration Topiramate 100 mg 03/19/25 09:00 03/19/25 08:25 Topiramate 100 Mg Tab PO 04/18/25 08:59 100 mg BID JOSEF Administration NPO Date Last Intake of Fluids: 03/18/25 Time Last Intake of Fluids: 22:00 Date Last Intake of Solids: 03/18/25 Time Last Intake of Solids: 22:00 Past Medical History Medical History GERD (gastroesophageal reflux disease) Hyperlipemia Morbid obesity Past Family History Family History Mother , in her 70s Atrial fibrillation COPD (chronic obstructive pulmonary disease) Stroke Father , in his 70s Prostate cancer Hypertension Brother Hypertension Sister Hypertension Diabetes Sister Hypertension Diabetes Sister Hypertension Sister Hypertension Sister No problems noted. Sister Abnormal Pap smear of cervix Son Hypertension Diabetes Mental health disorder Aunt Breast cancer Maternal aunt Grandfather (Maternal) Prostate cancer Other Cancer Past Surgical History Surgical History History of tonsillectomy History of endometrial ablation History of hysteroscopy History of bariatric surgery History of esophagogastroduodenoscopy (EGD) History of colonoscopy History of tubal ligation History of surgery 02/02/2012 excision excessive skin, panniculectomy, Dr. Sanabria [facility] [place] Hx of breast surgery 10/26/2022 right breast biopsy. DCIS. 12/15/[address] Kelby Townsend 01/05/2023 Re-excision left lumpectomy for positive margin Dr. Kelby Townsend Social History Smoking Status: Current every day smoker Smoking cigarettes per day: "Half a pack" Do You Dip or Chew Tobacco: No Hx Alcohol Use: No Hx Substance Use: No substance use type: does not use Physical Exam Vital Signs Last Vital Signs Temp 36.7 C 03/19/25 13:29 Pulse 84 03/19/25 13:29 Resp 18 03/19/25 13:29 BP 138/66 03/19/25 13:29 Pulse Ox 94 03/19/25 13:29 O2 Del Method Room Air 03/19/25 13:29 Testing Laboratory Results 03/19/25 06:04 03/19/25 06:04 03/18/25 20:30 Gram Stain - Final Knee Aerobic and Anaerobic Culture - Preliminary Staphylococcus aureus
--- NOTE | 2025-03-19 14:28 | Hospitalist Progress Note ---
Date of Service March 19, 2025 Assessment & Plan (1) Cellulitis of right knee: (2) Abscess of right knee: (3) Septic joint of right knee joint: (4) Schizoaffective disorder: (5) Bipolar 1 disorder: (6) Anxiety and depression: (7) HTN (hypertension): (8) Obesity: Plan Patient 64-year-old female with right knee cellulitis and subcutaneous abscess formation with concern for possible septic joint. Patient has failed outpatient antibiotic management and may need surgical intervention. Admit to the [facility] unit CT of the knee showed:Soft tissue swelling.Small knee joint effusion.Hypertrophic degenerative changes. If further evaluation is clinically necessary, consider correlation with a contrast enhanced MR Soft tissue ultrasound showed;- Picture suggestive of an inflammatory process of the right lateral knee with abscess formation and possible realted inflamamtory tract reaching the skin. Correlation with the clinical and lab findings is advised. Doubt any septic arthritis Started on IV antibiotics add Rocephin in addition to the vancomycin Follow cultures Continue outpatient medications as ordered Pain control N.p.o. after midnight in anticipation of possible need for surgical intervention Appreciate orthopedic input and recommendationplan for I&D right knee I spent a total of 57 minutes seeing the patient, examining her, reviewing her chart, going through the investigation with the results and plan of care. Admission and Anticipated Discharge Date Admission Date: March 18, 2025 Subjective 03/19/2025 The patient was seen and examined in medical floor She has been complaining of knee pain and swelling especially on the lateral side since Wednesday last She denies any fever and or chills Denies any other significant symptoms Review of Systems Review of Systems: All systems reviewed and unremarkable except as noted below Physical Exam Physical Exam: Lying in bed without any acute distress except minimal pain at the right knee Constitutional: well developed, well nourished, + ill appearing and + obese Eyes: PERRL, conjunctivae normal, anicteric sclerae ENMT: external ear and nose normal, oropharynx normal Neck: trachea midline, no thyromegaly Respiratory: no respiratory distress Auscultation: lungs clear to auscultation bilaterally Cardiovascular: Rate/Rhythm: regular rate and regular rhythm; not tachycardic Heart Sounds: normal S1 and normal S2; no murmur Extremities: no edema Gastrointestinal (Abdomen): Inspection/Auscultation: normal bowel sounds; abdomen not distended Percussion/Palpation: abdomen soft; abdomen nontender Musculoskeletal: Knee: + knee abnormal to inspection (Left knee is swollen), + effusion (Clinically minimal effusion), + skin erythema (Erythema and swelling involving the right lateral side of the knee) and + limited ROM of knee (Minimally limited range of motion) Neurologic: normal touch/pain/proprioception and moves all extremities; no focal motor deficits Psychiatric: A+Ox3, euthymic affect Lymphatic: no cervical or axillary lymphadenopathy Results & Data Results & Data Vital Signs (Past 12 Hours) Vital Signs Temp Pulse Pulse Resp BP Pulse Ox O2 Del Method 03/19/25 13:29 36.7 C 84 18 138/66 94 Room Air 03/19/25 12:02 36.6 C 83 18 134/81 96 Room Air 03/19/25 07:57 36.5 C 80 18 127/77 96 Room Air 03/19/25 07:21 36.5 C 80 16 127/77 96 Room Air Laboratory Results Short CBC 03/18/25 03/19/25 Range/Units 17:29 06:04 WBC 6.55 4.41 L (4.8-10.8) K/ul Hgb 13.7 12.2 (12.0-16.0) g/dL Hct 41.9 37.2 (37.0-47.0) % Plt Count 164 139 (130-400) K/uL [facility] 03/18/25 03/19/25 17:29 06:04 Sodium 139 141 Potassium 4.0 3.6 Chloride 110 H 113 H Carbon Dioxide 18 L 21 BUN 13 9 Creatinine 0.76 0.72 Glucose 96 92 Calcium 8.8 8.3 L Liver Function 03/18/25 Range/Units 17:29 Total Bilirubin 0.3 (0.2-1.0) mg/dl AST 12 L (13-39) U/L ALT 10 (7-52) U/L Alkaline Phosphatase 85 (34-104) U/L Albumin 4.1 (3.4-5.0) gm/dl Medications Administered Current Inpatient Medications Acetaminophen (Acetaminophen 500 Mg Tab) 1,000 mg PO Q6H PRN PRN Reason: Pain or Fever Stop: 04/17/25 23:02 Last Admin: 03/19/25 06:18 Dose: 1,000 mg Al Hydrox/Mg Hydrox/Simethicone (Aluminum/Magnesium Susp 30 Ml Udc) 30 ml PO Q6H PRN PRN Reason: Dyspepsia Stop: 04/17/25 23:02 Anastrozole (Anastrozole 1 Mg Tab) 1 mg PO DAILY [facility] Stop: 04/18/25 08:59 Last Admin: 03/19/25 08:25 Dose: 1 mg Atorvastatin Calcium (Atorvastatin 20 Mg Tab) 20 mg PO DAILY JOSEF Stop: 04/18/25 08:59 Last Admin: 03/19/25 08:25 Dose: 20 mg Atropine Sulfate (Atropine Sulfate 0.1 Mg/Ml 10ml Syr) 0.5 mg IV Q1M PRN PRN Reason: PACU Use-HR<40 &/or Bradycardi Stop: 03/19/25 22:01 Bupropion HCl (Bupropion Sr 150 Mg Tabcr) 150 mg PO QAM [facility] Stop: 04/18/25 08:59 Last Admin: 03/19/25 08:25 Dose: 150 mg Chlorpromazine HCl (Chlorpromazine Hcl 25 Mg Tab) 125 mg PO HS [facility] Stop: 04/18/25 20:59 Droperidol (Droperidol 5 Mg/2 Ml Vial) 0.625 mg IV ONCE PRN PRN Reason: PACU Use Only for Nausea Stop: 03/19/25 22:01 Ephedrine Sulfate (Ephedrine Sulfate 50 Mg/Ml Amp) 5 mg IV Q5M PRN PRN Reason: PACU Use Only-SBP<90 Stop: 03/19/25 22:01 Fentanyl Citrate (Fentanyl Citrate Pf 100 Mcg/2 Ml Vial) 25 mcg IV Q5M PRN PRN Reason: PACU Use Only-Pain Stop: 03/19/25 22:01 Ceftriaxone Sodium (Rocephin) 2,000 mg in 50 mls @ 100 mls/hr IV Q24H [facility] Stop: 03/26/25 00:00 Last Infusion: 03/19/25 01:00 Dose: Infused Vancomycin HCl 1,250 mg/ (Sodium Chloride) 275 mls @ 200 mls/hr IV Q12H [facility] Stop: 04/30/25 07:59 Last Infusion: 03/19/25 10:03 Dose: Infused Lamotrigine (Lamotrigine 25 Mg Tab) 75 mg PO HS [facility]; Protocol Stop: 04/18/25 20:59 Lamotrigine (Lamotrigine 100 Mg Tab) 100 mg PO DAILY [facility]; Protocol Stop: 04/18/25 08:59 Last Admin: 03/19/25 08:25 Dose: 100 mg Losartan Potassium (Losartan Potassium 25 Mg Tab) 25 mg PO DAILY [facility] Stop: 04/18/25 08:59 Last Admin: 03/19/25 08:25 Dose: 25 mg Magnesium Hydroxide (Magnesium Hydroxide Susp 30 Ml Udc) 30 ml PO Q6H PRN PRN Reason: Constipation Stop: 04/17/25 23:02 Miscellaneous Information (Vancomycin Consult Active) 1 each N/A UD PRN PRN Reason: Consult Stop: 04/17/25 20:31 Ondansetron HCl (Ondansetron Inj 2 Mg/Ml 2 Ml Vial) 4 mg IV Q6H PRN PRN Reason: Nausea Stop: 04/17/25 23:02 Oxycodone HCl (Oxycodone Hcl Ir 5 Mg Tab (Immediate Release)) 5 mg PO Q3H PRN PRN Reason: Pain Stop: 04/01/25 23:02 Last Admin: 03/19/25 07:43 Dose: 5 mg Polyethylene Glycol (Polyethylene (Miralax) 17 Gm Pack) 17 gm PO DAILY PRN PRN Reason: Constipation Stop: 04/17/25 23:02 Sertraline HCl (Sertraline Hcl 100 Mg Tablet) 200 mg PO QAM [facility] Stop: 04/18/25 08:59 Last Admin: 03/19/25 08:25 Dose: 200 mg Topiramate (Topiramate 100 Mg Tab) 100 mg PO BID [facility] Stop: 04/18/25 08:59 Last Admin: 03/19/25 08:25 Dose: 100 mg
--- NOTE | 2025-03-19 15:42 | Operative Report ---
PG Post Operative Report Pre & Post Diagnosis Operation Date: 03/19/25 13:35 Pre-Op Diagnosis: Cellulitis of right knee; Abscess of right knee; Septic joint of right knee joint Post-Op Diagnosis: Cellulitis of right knee; Abscess of right knee; Septic joint of right knee joint I identified the patient and participated in the time-out.: Yes Procedure Operation Date: 03/19/25 13:35 Actual Procedures p Incision and Drainage Right Knee septic bursitis (Right) - Duncan Bills DO Surgeon Duncan Bills DO Windows Phone Developer Peña Tolentino PA-C Estimated Blood Loss 5 Findings Consistent with Post-Op Diagnosis Specimens Cultures Description of Procedure On March 19, 2025 Yogi was brought down from her hospital room to the preoperative holding area. The operative extremity identified and signed. She was taken back to the operative room and laid on table supine position. She was put under general anesthesia. The right knee was prepped and draped in sterile fashion. A timeout was done. The patient and the operative extremity was properly identified. There was a large obvious prepatellar abscess just to the lateral midline of her patella. A 3 cm longitudinal incision was made. There was a large amount of purulent discharge that was easily evacuated from the wound. Cultures were taken. Once the abscess was completely released. Surrounding soft tissues were debrided with a sharp knife. The abscess area was then irrigated with 3 L of normal saline solution by pulse lavage. The tourniquet was deflated. Hemostasis was obtained. The incision was then closed with 3-0 nylon suture over a [place] drain. She was then placed in a soft compressive dressing. She was then extubated and transferred back to a hospital bed. She was taken to the postanesthesia care unit in stable condition. She tolerated the procedure well. Peña Tolentino PA-C, was present for the entire procedure. He was critical for patient positioning, prepping, draping, retraction exposure, wound closure and application of sterile dressing. I attest to the content of the Intraoperative Record and any orders documented therein. Any exceptions are noted below.
--- NOTE | 2025-03-19 16:36 | Anesthesiology Progress Note ---
Date of Service March 19, 2025 Anesthesia Post Procedure Vital Signs Vital Signs: Temp Pulse Pulse Pulse Resp BP BP 03/19/25 15:45 36.6 C 95 H 16 133/67 03/19/25 15:35 92 H 18 117/74 03/19/25 15:25 91 H 20 131/67 03/19/25 15:19 36.9 C 103 H 18 140/64 03/19/25 13:29 36.7 C 84 18 138/66 03/19/25 12:02 36.6 C 83 18 134/81 03/19/25 07:57 36.5 C 80 18 127/77 03/19/25 07:21 36.5 C 80 16 127/77 03/18/25 23:03 36.8 C 84 18 03/18/25 21:24 80 18 03/18/25 20:00 84 18 03/18/25 18:19 82 19 03/18/25 17:38 87 03/18/25 17:12 36.9 C 92 H 18 159/93 H 03/18/25 17:10 82 18 BP Pulse Ox O2 Del Method O2 Flow Rate 03/19/25 15:45 92 Room Air 03/19/25 15:35 92 Room Air 03/19/25 15:25 98 Oxymask 4 03/19/25 15:19 95 Oxymask 6 03/19/25 13:29 94 Room Air 03/19/25 12:02 96 Room Air 03/19/25 07:57 96 Room Air 03/19/25 07:21 96 Room Air 03/18/25 23:03 172/76 H 97 Room Air 03/18/25 21:24 137/85 96 Room Air 03/18/25 20:00 145/81 H 96 Room Air 03/18/25 18:19 93/59 L 95 Room Air 03/18/25 17:38 03/18/25 17:12 97 Room Air 03/18/25 17:10 123/76 94 Room Air Pain Intensity Right Knee: Pain Intensity: 5 Transfer of Care Handoff Completed per policy Notes Mental Status: alert / awake / arousable Patient Amnestic to Procedure: Yes Nausea / Vomiting: adequately controlled Pain: adequately controlled Airway Patency, RR, SpO2: stable & adequate BP & HR: stable & adequate Hydration State: stable & adequate Anesthetic Complications: no major complications apparent
[2025-03-19] MEDS: lamoTRIgine 25 MG TAB PO SCH (21:46)
[2025-03-20 06:26] LABS: Anion Gap 7.0 (3-11); Blood Urea Nitrogen 9.0 mg/dl (6-23); Calcium 8.3 mg/dl (8.6-10.3); Carbon Dioxide 23.0 mmol/L (21-32); Chloride 111.0 mmol/L (98-107); Creatinine Clr Calc Pharmacy 95.8 ml/min; Glucose 93.0 mg/dl (70-99(Fasting)); Potassium 3.8 mmol/L (3.5-5.1); Sodium 141.0 mmol/L (136-145)
[2025-03-20 06:27] LABS: Hematocrit (blood only) 37.1 % (37.0-47.0); Hemoglobin 12.3 g/dL (12.0-16.0); Immature Granulocytes # (auto) 0.01 K/uL (0.01-0.20); Immature Granulocytes % (auto) 0.3 %; Mean Corpuscular Hemoglobin 30.1 pg (25.0-34.0); Mean Corpuscular Volume 90.7 fL (80.0-100.0); Platelet Count 140 K/uL (130-400); RDW Standard Deviation 41.1 fL (36.4-46.3); Red Blood Count 4.09 M/uL (4.20-5.40); White Blood Count 3.45 K/ul (4.8-10.8)
--- NOTE | 2025-03-20 08:41 | Orthopedic Progress Note ---
Date of Service March 20, 2025 Assessment & Plan (1) Abscess of right knee: (2) Cellulitis of right knee: Plan * Continue Current Treatment * S/p I&D R knee soft tissue mass * No joint involvement * Continue abx per primary team * Plan for drain removal POD 2 * Weight bearing status: WBAT * Daily treatment: Physical Therapy/ Occupational Therapy per protocol * Pain control * Continue to monitor for ABLA * DVT prophylaxis, ok to resume from ortho standpoint * Disposition: home * Office/hospital f/u 2 weeks for progress check and staple/suture removal * Remainder care per primary team Subjective .Active Problems: S/p I&D R knee soft tissue abscess POD 1 64 y/o female s/p I&D R knee soft tissue abscess. Doing well overall, pain managed and improved function. Denies fever/chills, chest pain/SOB, nausea/vomiting. Otherwise no complaints. would culture (+) Staph aureus. Review of Systems All systems reviewed & are unremarkable except as noted in HPI & below. Physical Exam . * General: Alert and oriented, no acute distress * Constitutional: well-developed, well-nourished. * Respiratory: Normal respiratory effort, no distress * Gastrointestinal: No tenderness to palpation, no rigidity or guarding. * Skin: No rash or lesion. * Neurologic: Grossly normal * Musculoskeletal: Right knee surgical dressing CDI, not removed for exam. Otherwise no obvious deformity or overlying skin changes RLE. Diffuse TTP distal thigh and knee region. Otherwise no specific tenderness of proximal thigh, lower leg, foot/ankle. AROM foot/ankle intact. Sensation intact plantar/dorsal foot. Brisk capillary refill. Results & Data Results & Data Laboratory Results . 03/19/25 Unknown Gram Stain - Final Knee,Right Aerobic and Anaerobic Culture - Pending 03/18/25 20:30 Gram Stain - Final Knee Aerobic and Anaerobic Culture - Preliminary Staphylococcus aureus 03/20/25 05:27 WBC 3.45 L RBC 4.09 L Hgb 12.3 Hct 37.1 MCV 90.7 MCH 30.1 MCHC 33.2 RDW Std Deviation 41.1 RDW Coeff of Yancy 12.5 Plt Count 140 MPV 10.2 Immature Gran % (Auto) 0.3 Neut % (Auto) 60.6 Lymph % (Auto) 30.4 [place] % (Auto) 8.4 Eos % (Auto) 0.0 Baso % (Auto) 0.3 Neut # (Auto) 2.09 Lymph # (Auto) 1.05 L [place] # (Auto) 0.29 Eos # (Auto) 0.00 Baso # (Auto) 0.01 Immature Gran # (Auto) 0.01 Sodium 141 Potassium 3.8 Chloride 111 H Carbon Dioxide 23 Anion Gap 7 BUN 9 Creatinine 0.70 Est Cr Clr Drug Dosing 95.8 eGFR 97.12 BUN/Creatinine Ratio 12.9 Glucose 93 Calcium 8.3 L Random Vancomycin 13.1 Diagnostic Findings . PG Care Time/CCT Total # of Minutes Spent Total Time Spent with Patient: Total time spent is greater than 50% in coordination of care (as documented) at patient's floor/unit and/or counseling patient: Coding Level of Care Code 58373 Post Operative Follow-Up Diagnoses Abscess of right knee L02.415 Cellulitis of right knee L03.115
--- NOTE | 2025-03-20 09:54 | Pharmacy Report ---
Pharmacy PK ABX Note - Date of Service March 20, 2025 - Assessment and Plan Assessment 03/20: Day #3 vancomycin * Vancomycin level drawn this morning was 13.1 mcg/mL which extrapolates to an AUC in the goal range. She will be continued on current maintenance dose of vancomycin. * Preliminary right knee culture from 03/18 grew S. aureus * Knee culture results from I&D 03/19 are pending 03/19: 64 year old F receiving vancomycin and ceftriaxone for treatment of right knee cellulitis/subcutaneous abscess. Patient presents with right knee swelling, pain, redness, and drainage. She was started on Keflex and Bactrim ~3 days ago without improvement. Ortho was consulted and does not feel evidence of septic arthritis and plans to do I&D in the OR this afternoon. Pertinent microbiologic data includes: right knee culture from 03/18 is pending. Plan Vancomycin * vancomycin level drawn this morning was 13.1mcg/ml which extrapolates to an AUC of 512 mg/L.hr * Continue maintenance dose: 1250 mg IV every 12 hours * Regimen is predicted to achieve target AUC/PAULIE of 400-600 mg/L.hr * Another vancomycin level will be ordered in the next few days or as clinically necessary. ceftriaxone 2gm iv q 24 hours. Pharmacy will continue to follow and will adjust dose/frequency as necessary. Thank you. Pharmacy has transitioned to AUC monitoring for vancomycin. AUC/PAULIE is the preferred PK/PD target and is associated with decreased risk of nephrotoxicity compared to traditional trough targets.
--- NOTE | 2025-03-20 15:06 | Hospitalist Progress Note ---
Date of Service March 20, 2025 Assessment & Plan (1) Cellulitis of right knee: (2) Abscess of right knee: (3) Septic joint of right knee joint: (4) Schizoaffective disorder: (5) Bipolar 1 disorder: (6) Anxiety and depression: (7) HTN (hypertension): (8) Obesity: Plan Patient 64-year-old female with right knee cellulitis and subcutaneous abscess formation with concern for possible septic joint. Patient has failed outpatient antibiotic management and may need surgical intervention. Admit to the [facility] unit CT of the knee showed:Soft tissue swelling.Small knee joint effusion.Hypertrophic degenerative changes. If further evaluation is clinically necessary, consider correlation with a contrast enhanced MR Soft tissue ultrasound showed;- Picture suggestive of an inflammatory process of the right lateral knee with abscess formation and possible realted inflamamtory tract reaching the skin. Correlation with the clinical and lab findings is advised. Doubt any septic arthritis Started on IV antibiotics add Rocephin in addition to the vancomycin Follow cultures Continue outpatient medications as ordered Pain control N.p.o. after midnight in anticipation of possible need for surgical intervention Appreciate orthopedic input and recommendationplan for I&D right knee The wound culture is growing Staph aureus sensitive to current antibiotic except ceftriaxone but culture from yesterday is pending Will change antibiotic to oral tomorrow and discharge the patient I spent a total of 35 minutes seeing the patient, examining her, reviewing her chart, going through the investigation with the results and plan of care. Admission and Anticipated Discharge Date Admission Date: March 18, 2025 Subjective 03/19/2025 The patient was seen and examined in medical floor She has been complaining of knee pain and swelling especially on the lateral side since Wednesday last She denies any fever and or chills Denies any other significant symptoms 03/20/2025 The patient was seen and examined in medical floor She has been complaining of pain in the right knee but denies any fever and/or chills She is reasonably ambulating Likely discharge tomorrow Review of Systems Review of Systems: All systems reviewed and unremarkable except as noted below Physical Exam Physical Exam: Lying in bed without any acute distress except minimal pain at the right knee Constitutional: well developed, well nourished, + ill appearing and + obese Eyes: PERRL, conjunctivae normal, anicteric sclerae ENMT: external ear and nose normal, oropharynx normal Neck: trachea midline, no thyromegaly Respiratory: no respiratory distress Auscultation: lungs clear to auscultation bilaterally Cardiovascular: Rate/Rhythm: regular rate and regular rhythm; not tachycardic Heart Sounds: normal S1 and normal S2; no murmur Extremities: no edema Gastrointestinal (Abdomen): Inspection/Auscultation: normal bowel sounds; abdomen not distended Percussion/Palpation: abdomen soft; abdomen nontender Musculoskeletal: Knee: + knee abnormal to inspection (Left knee is swollen), + effusion (Clinically minimal effusion), + skin erythema (Erythema and swelling involving the right lateral side of the knee) and + limited ROM of knee (Minimally limited range of motion) Neurologic: normal touch/pain/proprioception and moves all extremities; no focal motor deficits Psychiatric: A+Ox3, euthymic affect Lymphatic: no cervical or axillary lymphadenopathy Results & Data Results & Data Vital Signs (Past 12 Hours) Vital Signs Temp Pulse Resp BP BP Pulse Ox O2 Del Method 03/20/25 12:21 36.8 C 87 16 138/84 96 Room Air 03/20/25 07:50 36.5 C 81 16 130/79 95 Room Air 03/20/25 03:20 36.2 C L 78 16 100/63 93 Room Air Laboratory Results Short CBC 03/20/25 Range/Units 05:27 WBC 3.45 L (4.8-10.8) K/ul Hgb 12.3 (12.0-16.0) g/dL Hct 37.1 (37.0-47.0) % Plt Count 140 (130-400) K/uL BMP 03/20/25 05:27 Sodium 141 Potassium 3.8 Chloride 111 H Carbon Dioxide 23 BUN 9 Creatinine 0.70 Glucose 93 Calcium 8.3 L Medications Administered Current Inpatient Medications Acetaminophen (Acetaminophen 500 Mg Tab) 1,000 mg PO Q6H PRN PRN Reason: Pain or Fever Stop: 04/17/25 23:02 Last Admin: 03/20/25 12:53 Dose: 1,000 mg Al Hydrox/Mg Hydrox/Simethicone (Aluminum/Magnesium Susp 30 Ml Udc) 30 ml PO Q6H PRN PRN Reason: Dyspepsia Stop: 04/17/25 23:02 Anastrozole (Anastrozole 1 Mg Tab) 1 mg PO DAILY [facility] Stop: 04/18/25 08:59 Last Admin: 03/20/25 07:35 Dose: 1 mg Atorvastatin Calcium (Atorvastatin 20 Mg Tab) 20 mg PO DAILY [facility] Stop: 04/18/25 08:59 Last Admin: 03/20/25 07:36 Dose: 20 mg Bupropion HCl (Bupropion Sr 150 Mg Tabcr) 150 mg PO QAM [facility] Stop: 04/18/25 08:59 Last Admin: 03/20/25 07:52 Dose: 150 mg Chlorpromazine HCl (Chlorpromazine Hcl 25 Mg Tab) 125 mg PO HS [facility] Stop: 04/18/25 20:59 Last Admin: 03/19/25 21:46 Dose: 125 mg Ceftriaxone Sodium (Rocephin) 2,000 mg in 50 mls @ 100 mls/hr IV Q24H [facility] Stop: 03/26/25 00:00 Last Infusion: 03/20/25 00:42 Dose: Infused Vancomycin HCl 1,250 mg/ (Sodium Chloride) 275 mls @ 200 mls/hr IV Q12H [facility] Stop: 04/30/25 07:59 Last Infusion: 03/20/25 10:25 Dose: Infused Lamotrigine (Lamotrigine 25 Mg Tab) 75 mg PO HS [facility]; Protocol Stop: 04/18/25 20:59 Last Admin: 03/19/25 21:46 Dose: 75 mg Lamotrigine (Lamotrigine 100 Mg Tab) 100 mg PO DAILY [facility]; Protocol Stop: 04/18/25 08:59 Last Admin: 03/20/25 07:36 Dose: 100 mg Losartan Potassium (Losartan Potassium 25 Mg Tab) 25 mg PO DAILY [facility] Stop: 04/18/25 08:59 Last Admin: 03/20/25 07:52 Dose: 25 mg Magnesium Hydroxide (Magnesium Hydroxide Susp 30 Ml Udc) 30 ml PO Q6H PRN PRN Reason: Constipation Stop: 04/17/25 23:02 Miscellaneous Information (Vancomycin Consult Active) 1 each N/A UD PRN PRN Reason: Consult Stop: 04/17/25 20:31 Ondansetron HCl (Ondansetron Inj 2 Mg/Ml 2 Ml Vial) 4 mg IV Q6H PRN PRN Reason: Nausea Stop: 04/17/25 23:02 Oxycodone HCl (Oxycodone Hcl Ir 5 Mg Tab (Immediate Release)) 5 mg PO Q3H PRN PRN Reason: Pain Stop: 04/01/25 23:02 Last Admin: 03/20/25 07:52 Dose: 5 mg Polyethylene Glycol (Polyethylene (Miralax) 17 Gm Pack) 17 gm PO DAILY PRN PRN Reason: Constipation Stop: 04/17/25 23:02 Sertraline HCl (Sertraline Hcl 100 Mg Tablet) 200 mg PO QAM [facility] Stop: 04/18/25 08:59 Last Admin: 03/20/25 07:36 Dose: 200 mg Topiramate (Topiramate 100 Mg Tab) 100 mg PO BID [facility] Stop: 04/18/25 08:59 Last Admin: 03/20/25 07:36 Dose: 100 mg
[2025-03-21 08:03] LABS: Creatinine Clr Calc Pharmacy 82.8 ml/min
--- NOTE | 2025-03-21 08:24 | Orthopedic Progress Note ---
Date of Service March 21, 2025 Assessment & Plan (1) Abscess of right knee: (2) Cellulitis of right knee: Plan * Continue Current Treatment * S/p I&D R knee soft tissue mass * Drain was removed today. Unfortunately was stitched in place and one suture had to be removed, drain was then removed without complication. Ster-strips were applied to the incision following removal. * No joint involvement * Continue abx per primary team * Weight bearing status: WBAT * Daily treatment: Physical Therapy/ Occupational Therapy per protocol * Pain control * Continue to monitor for ABLA * DVT prophylaxis, ok to resume from ortho standpoint * Disposition: home * Office/hospital f/u 1 weeks for skin check * Remainder care per primary team Subjective Active Problems: S/p I&D R knee soft tissue abscess POD 2 64 y/o female s/p I&D R knee soft tissue abscess. Doing well overall, pain managed and improved function. Denies fever/chills, chest pain/SOB, nausea/vomiting. Otherwise no complaints. would culture (+) Staph aureus. Review of Systems All systems reviewed & are unremarkable except as noted in HPI & below. Physical Exam * Musculoskeletal: Right knee surgical dressing CDI, not removed for exam. Otherwise no obvious deformity or overlying skin changes RLE. Diffuse TTP distal thigh and knee region. Otherwise no specific tenderness of proximal thigh, lower leg, foot/ankle. AROM foot/ankle intact. Sensation intact plantar/dorsal foot. Brisk capillary refill. Results & Data Results & Data Laboratory Results . Diagnostic Findings . PG Care Time/CCT Total # of Minutes Spent Total Time Spent with Patient: Total time spent is greater than 50% in coordination of care (as documented) at patient's floor/unit and/or counseling patient: Coding Level of Care Code 70550 Post Operative Follow-Up Diagnoses Abscess of right knee L02.415 Cellulitis of right knee L03.115
--- NOTE | 2025-03-21 13:57 | Hospitalist Progress Note ---
Date of Service March 21, 2025 Assessment & Plan (1) Cellulitis of right knee: (2) Abscess of right knee: (3) Septic joint of right knee joint: (4) Schizoaffective disorder: (5) Bipolar 1 disorder: (6) Anxiety and depression: (7) HTN (hypertension): (8) Obesity: Plan Patient 64-year-old female with right knee cellulitis and subcutaneous abscess formation with concern for possible septic joint. Patient has failed outpatient antibiotic management and may need surgical intervention. Admit to the [facility] unit CT of the knee showed:Soft tissue swelling.Small knee joint effusion.Hypertrophic degenerative changes. If further evaluation is clinically necessary, consider correlation with a contrast enhanced MR Soft tissue ultrasound showed;- Picture suggestive of an inflammatory process of the right lateral knee with abscess formation and possible realted inflamamtory tract reaching the skin. Correlation with the clinical and lab findings is advised. Doubt any septic arthritis Started on IV antibiotics add Rocephin in addition to the vancomycin Follow cultures Continue outpatient medications as ordered Pain control N.p.o. after midnight in anticipation of possible need for surgical intervention Appreciate orthopedic input and recommendationplan for I&D right knee The wound culture is growing Staph aureus sensitive to current antibiotic except ceftriaxone but culture from yesterday is pending Culture is back with sensitivity and will continue intravenous vancomycin for today likely discharge tomorrow on oral clindamycin to finish the course of a total of 10 days She will be given probiotics with clindamycin No advised to increase ambulation and discharge tomorrow I spent a total of 35 minutes seeing the patient, examining her, reviewing her chart, going through the investigation with the results and plan of care. Admission and Anticipated Discharge Date Admission Date: March 18, 2025 Subjective 03/19/2025 The patient was seen and examined in medical floor She has been complaining of knee pain and swelling especially on the lateral side since Wednesday last She denies any fever and or chills Denies any other significant symptoms 03/20/2025 The patient was seen and examined in medical floor She has been complaining of pain in the right knee but denies any fever and/or chills She is reasonably ambulating Likely discharge tomorrow 03/21/2025 The patient was seen and examined in medical floor She has been complaining of knee pain status post I&D and pain seems to be reas onably controlled She wanted to have another day of intravenous antibiotic before going home tomorrow Review of Systems Review of Systems: All systems reviewed and unremarkable except as noted below Physical Exam Physical Exam: Lying in bed without any acute distress except minimal pain at the right knee Constitutional: well developed, well nourished, + ill appearing and + obese Eyes: PERRL, conjunctivae normal, anicteric sclerae ENMT: external ear and nose normal, oropharynx normal Neck: trachea midline, no thyromegaly Respiratory: no respiratory distress Auscultation: lungs clear to auscultation bilaterally Cardiovascular: Rate/Rhythm: regular rate and regular rhythm; not tachycardic Heart Sounds: normal S1 and normal S2; no murmur Extremities: no edema Gastrointestinal (Abdomen): Inspection/Auscultation: normal bowel sounds; abdomen not distended Percussion/Palpation: abdomen soft; abdomen nontender Musculoskeletal: Knee: + knee abnormal to inspection (Left knee is swollen), + effusion (Clinically minimal effusion), + skin erythema (Erythema and swelling involving the right lateral side of the knee) and + limited ROM of knee (Minimally limited range of motion) Neurologic: normal touch/pain/proprioception and moves all extremities; no focal motor deficits Psychiatric: A+Ox3, euthymic affect Lymphatic: no cervical or axillary lymphadenopathy Results & Data Results & Data Vital Signs (Past 12 Hours) Vital Signs Temp Pulse Resp BP Pulse Ox O2 Del Method 03/21/25 07:24 36.7 C 77 16 139/79 96 Room Air Laboratory Results [facility] 03/21/25 06:41 Creatinine 0.81 Medications Administered Current Inpatient Medications Acetaminophen (Acetaminophen 500 Mg Tab) 1,000 mg PO Q6H PRN PRN Reason: Pain or Fever Stop: 04/17/25 23:02 Last Admin: 03/20/25 12:53 Dose: 1,000 mg Al Hydrox/Mg Hydrox/Simethicone (Aluminum/Magnesium Susp 30 Ml Udc) 30 ml PO Q6H PRN PRN Reason: Dyspepsia Stop: 04/17/25 23:02 Anastrozole (Anastrozole 1 Mg Tab) 1 mg PO DAILY [facility]S [facility] BEDS AT THE [facility] Stop: 04/18/25 08:59 Last Admin: 03/21/25 09:13 Dose: 1 mg Atorvastatin Calcium (Atorvastatin 20 Mg Tab) 20 mg PO DAILY [facility] Stop: 04/18/25 08:59 Last Admin: 03/21/25 09:14 Dose: 20 mg Bupropion HCl (Bupropion Sr 150 Mg Tabcr) 150 mg PO QAM COUNTS [facility]CLUDE 234 BEDS AT THE [facility] Stop: 04/18/25 08:59 Last Admin: 03/21/25 09:13 Dose: 150 mg Chlorpromazine HCl (Chlorpromazine Hcl 25 Mg Tab) 125 mg PO HS COUNTS INCLUDE 234 BEDS AT THE [facility] Stop: 04/18/25 20:59 Last Admin: 03/20/25 21:43 Dose: 125 mg Ceftriaxone Sodium (Rocephin) 2,000 mg in 50 mls @ 100 mls/hr IV Q24H COUNTS INCLUDE 234 BEDS AT THE [facility] Stop: 03/26/25 00:00 Last Infusion: 03/20/25 23:52 Dose: Infused Vancomycin HCl 1,250 mg/ (Sodium Chloride) 275 mls @ 200 mls/hr IV Q12H COUNTS INCLUDE 234 BEDS AT THE [facility] Stop: 04/30/25 07:59 Last Infusion: 03/21/25 09:55 Dose: Infused Lamotrigine (Lamotrigine 25 Mg Tab) 75 mg PO HS COUNTS INCLUDE 234 BEDS AT THE [facility]; Protocol Stop: 04/18/25 20:59 Last Admin: 03/20/25 21:44 Dose: 75 mg Lamotrigine (Lamotrigine 100 Mg Tab) 100 mg PO DAILY [facility]S INCLUDE 234 BEDS AT THE [facility]; Protocol Stop: 04/18/25 08:59 Last Admin: 03/21/25 09:14 Dose: 100 mg Losartan Potassium (Losartan Potassium 25 Mg Tab) 25 mg PO DAILY COUNTS INCLUDE 234 BEDS AT THE [facility] Stop: 04/18/25 08:59 Last Admin: 03/21/25 09:14 Dose: 25 mg Magnesium Hydroxide (Magnesium Hydroxide Susp 30 Ml Udc) 30 ml PO Q6H PRN PRN Reason: Constipation Stop: 04/17/25 23:02 Miscellaneous Information (Vancomycin Consult Active) 1 each N/A UD PRN PRN Reason: Consult Stop: 04/17/25 20:31 Ondansetron HCl (Ondansetron Inj 2 Mg/Ml 2 Ml Vial) 4 mg IV Q6H PRN PRN Reason: Nausea Stop: 04/17/25 23:02 Oxycodone HCl (Oxycodone Hcl Ir 5 Mg Tab (Immediate Release)) 5 mg PO Q3H PRN PRN Reason: Pain Stop: 04/01/25 23:02 Last Admin: 03/21/25 11:33 Dose: 5 mg Polyethylene Glycol (Polyethylene (Miralax) 17 Gm Pack) 17 gm PO DAILY PRN PRN Reason: Constipation Stop: 04/17/25 23:02 Sertraline HCl (Sertraline Hcl 100 Mg Tablet) 200 mg PO QAM COUNTS INCLUDE 234 BEDS AT THE [facility] Stop: 04/18/25 08:59 Last Admin: 03/21/25 09:13 Dose: 200 mg Topiramate (Topiramate 100 Mg Tab) 100 mg PO BID COUNTS INCLUDE 234 BEDS AT THE [facility] Stop: 04/18/25 08:59 Last Admin: 03/21/25 09:14 Dose: 100 mg
[2025-03-22 00:14] VITALS: RESP 16; TEMP 97.9
[2025-03-22 06:57] LABS: Creatinine Clr Calc Pharmacy 93.1 ml/min
[2025-03-22 07:09] VITALS: BP 129/77; PULSE 71; O2SAT 99
--- NOTE | 2025-03-22 11:33 | Hospitalist Progress Note ---
Date of Service March 22, 2025 Assessment & Plan (1) Cellulitis of right knee: (2) Abscess of right knee: (3) Septic joint of right knee joint: (4) Schizoaffective disorder: (5) Bipolar 1 disorder: (6) Anxiety and depression: (7) HTN (hypertension): (8) Obesity: Plan Patient 64-year-old female with right knee cellulitis and subcutaneous abscess formation with concern for possible septic joint. Patient has failed outpatient antibiotic management and may need surgical intervention. Admit to the [facility] unit CT of the knee showed:Soft tissue swelling.Small knee joint effusion.Hypertrophic degenerative changes. If further evaluation is clinically necessary, consider correlation with a contrast enhanced MR Soft tissue ultrasound showed;- Picture suggestive of an inflammatory process of the right lateral knee with abscess formation and possible realted inflamamtory tract reaching the skin. Correlation with the clinical and lab findings is advised. Doubt any septic arthritis Started on IV antibiotics add Rocephin in addition to the vancomycin Follow cultures Continue outpatient medications as ordered Pain control N.p.o. after midnight in anticipation of possible need for surgical intervention Appreciate orthopedic input and recommendationplan for I&D right knee The wound culture is growing Staph aureus sensitive to current antibiotic except ceftriaxone but culture from yesterday is pending Culture is back with sensitivity and will continue intravenous vancomycin for today likely discharge tomorrow on oral clindamycin to finish the course of a total of 10 days She will be given probiotics with clindamycin No advised to increase ambulation and discharge tomorrow The case was discussed with the pharmacist for the antibiotic and she will be continuing with oral Keflex and Bactrim to finish the course She remains stable to be discharged and her pain is controlled and has an appointment with Ortho as an outpatient I spent a total of 35 minutes seeing the patient, examining her, reviewing her chart, going through the investigation with the results and plan of care. Admission and Anticipated Discharge Date Admission Date: March 18, 2025 Subjective 03/19/2025 The patient was seen and examined in medical floor She has been complaining of knee pain and swelling especially on the lateral side since Wednesday last She denies any fever and or chills Denies any other significant symptoms 03/20/2025 The patient was seen and examined in medical floor She has been complaining of pain in the right knee but denies any fever and/or chills She is reasonably ambulating Likely discharge tomorrow 03/21/2025 The patient was seen and examined in medical floor She has been complaining of knee pain status post I&D and pain seems to be reasonably controlled She wanted to have another day of intravenous antibiotic before going home tomorrow 03/22/2025 The patient was seen and examined in medical floor She has been feeling much better Her knee pain is improved and she has been ambulating No fever and no chills and she will be discharged home this afternoon Review of Systems Review of Systems: All systems reviewed and unremarkable except as noted below Physical Exam Physical Exam: Lying in bed without any acute distress except minimal pain at the right knee Constitutional: well developed, well nourished, + ill appearing and + obese Eyes: PERRL, conjunctivae normal, anicteric sclerae ENMT: external ear and nose normal, oropharynx normal Neck: trachea midline, no thyromegaly Respiratory: no respiratory distress Auscultation: lungs clear to auscultation bilaterally Cardiovascular: Rate/Rhythm: regular rate and regular rhythm; not tachycardic Heart Sounds: normal S1 and normal S2; no murmur Extremities: no edema Gastrointestinal (Abdomen): Inspection/Auscultation: normal bowel sounds; abdomen not distended Percussion/Palpation: abdomen soft; abdomen nontender Musculoskeletal: Knee: + knee abnormal to inspection (Left knee is swollen), + effusion (Clinically minimal effusion), + skin erythema (Erythema and swelling involving the right lateral side of the knee) and + limited ROM of knee (Minimally limited range of motion) Neurologic: normal touch/pain/proprioception and moves all extremities; no focal motor deficits Psychiatric: A+Ox3, euthymic affect Lymphatic: no cervical or axillary lymphadenopathy Results & Data Results & Data Vital Signs (Past 12 Hours) Vital Signs Temp Pulse Pulse Resp BP Pulse Ox O2 Del Method 03/22/25 07:09 36.6 C 71 16 129/77 99 Room Air 03/22/25 00:13 36.6 C 90 16 107/67 90 Room Air Laboratory Results [facility] 03/22/25 06:04 Creatinine 0.72 Medications Administered Current Inpatient Medications Acetaminophen (Acetaminophen 500 Mg Tab) 1,000 mg PO Q6H PRN PRN Reason: Pain or Fever Stop: 04/17/25 23:02 Last Admin: 03/20/25 12:53 Dose: 1,000 mg Al Hydrox/Mg Hydrox/Simethicone (Aluminum/Magnesium Susp 30 Ml Udc) 30 ml PO Q6H PRN PRN Reason: Dyspepsia Stop: 04/17/25 23:02 Anastrozole (Anastrozole 1 Mg Tab) 1 mg PO DAILY [facility] Stop: 04/18/25 08:59 Last Admin: 03/22/25 09:20 Dose: 1 mg Atorvastatin Calcium (Atorvastatin 20 Mg Tab) 20 mg PO DAILY [facility] Stop: 04/18/25 08:59 Last Admin: 03/22/25 09:20 Dose: 20 mg Bupropion HCl (Bupropion Sr 150 Mg Tabcr) 150 mg PO QAM [facility] Stop: 04/18/25 08:59 Last Admin: 03/22/25 09:20 Dose: 150 mg Chlorpromazine HCl (Chlorpromazine Hcl 25 Mg Tab) 125 mg PO HS [facility] Stop: 04/18/25 20:59 Last Admin: 03/21/25 21:47 Dose: 125 mg Vancomycin HCl 1,250 mg/ (Sodium Chloride) 275 mls @ 200 mls/hr IV Q12H [facility] Stop: 04/30/25 07:59 Last Infusion: 03/22/25 10:45 Dose: Infused Lamotrigine (Lamotrigine 25 Mg Tab) 75 mg PO HS [facility]; Protocol Stop: 04/18/25 20:59 Last Admin: 03/21/25 21:47 Dose: 75 mg Lamotrigine (Lamotrigine 100 Mg Tab) 100 mg PO DAILY [facility]; Protocol Stop: 04/18/25 08:59 Last Admin: 03/22/25 09:19 Dose: 100 mg Losartan Potassium (Losartan Potassium 25 Mg Tab) 25 mg PO DAILY [facility] Stop: 04/18/25 08:59 Last Admin: 03/22/25 09:19 Dose: 25 mg Magnesium Hydroxide (Magnesium Hydroxide Susp 30 Ml Udc) 30 ml PO Q6H PRN PRN Reason: Constipation Stop: 04/17/25 23:02 Miscellaneous Information (Vancomycin Consult Active) 1 each N/A UD PRN PRN Reason: Consult Stop: 04/17/25 20:31 Ondansetron HCl (Ondansetron Inj 2 Mg/Ml 2 Ml Vial) 4 mg IV Q6H PRN PRN Reason: Nausea Stop: 04/17/25 23:02 Oxycodone HCl (Oxycodone Hcl Ir 5 Mg Tab (Immediate Release)) 5 mg PO Q3H PRN PRN Reason: Pain Stop: 04/01/25 23:02 Last Admin: 03/22/25 07:25 Dose: 5 mg Polyethylene Glycol (Polyethylene (Miralax) 17 Gm Pack) 17 gm PO DAILY PRN PRN Reason: Constipation Stop: 04/17/25 23:02 Sertraline HCl (Sertraline Hcl 100 Mg Tablet) 200 mg PO QAM [facility] Stop: 04/18/25 08:59 Last Admin: 03/22/25 09:19 Dose: 200 mg Topiramate (Topiramate 100 Mg Tab) 100 mg PO BID [facility] Stop: 04/18/25 08:59 Last Admin: 03/22/25 09:20 Dose: 100 mg
--- NOTE | 2025-03-22 17:00 | Discharge Summary ---
Date of Service March 22, 2025 Admission HPI Per Admitting Provider Patient is a 64-year-old female who presents to the emergency room for the second time in 2 days with complaints of right knee swelling, pain, redness, drainage. She thinks there may have been some trauma or an abrasion to the knee a few days ago. She was treated in the emergency room with Keflex and Bactrim 2 days ago. The knee continue to get more swollen increased drainage and more pain which prompted her return to the emergency room today. In the emergency room showed normal white blood cell count. X-ray imaging was concerning for fluid collection. Clinical exam was concerning for abscess. After phone consultation with orthopedics she was referred to our service for coordination of care in the hospital. Time my evaluation patient is a bit more comfortable after receiving some pain medication. She admits to some chills at home but no fevers. No nausea or vomiting, no chest pain, no shortness of breath. She has been eating and drinking normally. No new problems with the bowels or bladder. She thought maybe she had an a spider bite or possibly a scratch from one of her dogs on her knee that started the infection. She did not fully confirm the possibility of trauma a couple days ago as she had initially said in the ED on her first visit. At this point she said the drainage has been clear to cloudy in nature. It is exquisitely tender. States her other medical conditions have been stable and has been compliant with her outpatient medications. Admission Exam Per Admitting Provider Physical Exam: Constitutional: Alert, nontoxic, mild distress due to pain HEENT: Mucous membranes moist. Sclera clear Neck: Soft, no adenopathy Lungs: Clear to auscultation, decreased, no wheezes rales or rhonchi CV: S1-S2, regular Abdomen: Soft, nontender, nondistended Extremities: Abscess formation over the right knee with surrounding erythema, warmth, tenderness, fluctuance. There is a small pinpoint purulent pustule is starting to develop. Musculoskeletal: No significant joint tenderness Neuro: No focal deficits Psych: Cooperative, normal mood Principal Diagnosis Cellulitis and abscess of right kneeextra-articular, status post I&D Discharge Exam Lying in bed without any acute distress except minimal pain at the right knee Constitutional well developed, well nourished, + ill appearing and + obese Eyes PERRL, conjunctivae normal, anicteric sclerae ENMT external ear and nose normal, oropharynx normal Neck trachea midline, no thyromegaly Respiratory no respiratory distress Auscultation: lungs clear to auscultation bilaterally Cardiovascular Rate/Rhythm: regular rate and regular rhythm; not tachycardic Heart Sounds: normal S1 and normal S2; no murmur Extremities: no edema Gastrointestinal (Abdomen) Inspection/Auscultation: normal bowel sounds; abdomen not distended Percussion/Palpation: abdomen soft; abdomen nontender Musculoskeletal Knee: + knee abnormal to inspection (Left knee is swollen), + effusion (Clinically minimal effusion), + skin erythema (Erythema and swelling involving the right lateral side of the knee) and + limited ROM of knee (Minimally limited range of motion) Neurologic normal touch/pain/proprioception and moves all extremities; no focal motor deficits Psychiatric A+Ox3, euthymic affect Lymphatic no cervical or axillary lymphadenopathy Discharge Data Allergies Allergy/AdvReac Type Severity Reaction Status Date / Time adhesive tape Allergy Intermediate Blister Verified 02/15/25 13:23 codeine AdvReac Intermediate I GET Unverified 02/15/25 13:23 REALLY MEAN Latex Allergy Intermediate skin peels Uncoded 03/19/25 13:22 Consultations 03/18/25 20:52 ED Decision to Admit Stat 03/18/25 21:03 Consult Orthopedic Surgery Routine Procedures Performed Operation Date: 03/19/25 13:35 Actual Procedures p Incision and Drainage Right Knee(Right) - Duncan Bills, Ordered Studies 03/18/25 17:24 US soft tissue ext ltd Routine 03/18/25 21:07 CT knee RT w con Stat Hospital Course (1) Cellulitis of right knee: (2) Abscess of right knee: (3) Septic joint of right knee joint: (4) Schizoaffective disorder: (5) Bipolar 1 disorder: (6) Anxiety and depression: (7) HTN (hypertension): (8) Obesity: Plan Patient 64-year-old female with right knee cellulitis and subcutaneous abscess formation with concern for possible septic joint. Patient has failed outpatient antibiotic management and may need surgical intervention. Admit to the Medr unit CT of the knee showed:Soft tissue swelling.Small knee joint effusion.Hypertrophic degenerative changes. If further evaluation is clinically necessary, consider correlation with a contrast enhanced MR Soft tissue ultrasound showed;- Picture suggestive of an inflammatory process of the right lateral knee with abscess formation and possible realted inflamamtory tract reaching the skin. Correlation with the clinical and lab findings is advised. Doubt any septic arthritis Started on IV antibiotics add Rocephin in addition to the vancomycin Follow cultures Continue outpatient medications as ordered Pain control N.p.o. after midnight in anticipation of possible need for surgical intervention Appreciate orthopedic input and recommendationplan for I&D right knee The wound culture is growing Staph aureus sensitive to current antibiotic except ceftriaxone but culture from yesterday is pending Culture is back with sensitivity and will continue intravenous vancomycin for today likely discharge tomorrow on oral clindamycin to finish the course of a total of 10 days She will be given probiotics with clindamycin No advised to increase ambulation and discharge tomorrow The case was discussed with the pharmacist for the antibiotic and she will be continuing with oral Keflex and Bactrim to finish the course She remains stable to be discharged and her pain is controlled and has an appointment with Ortho as an outpatient I spent a total of 35 minutes seeing the patient, examining her, reviewing her chart, going through the investigation with the results and plan of care. Total Time Total Time Spent Total Time Spent (In Minutes): 35 Minutes Discharge Plan Discharge Items Patient Disposition: Home - Self-Care Reason For Visit: SEPTIC JOINT Discharge Diagnosis: Cellulitis and abscess of right kneeextra-articular, status post I&D Condition on Discharge: Fair Activity: Resume your previous activity Weightbearing: Full weightbearing Non-emergency contact: Surgeon Call non-emergency contact if: your symptoms worsen, your temperature is above 101.5, your wound has increased redness and your wound has increased drainage Follow-up/Referrals: Chino Chou MD [Primary Care Provider] - (Date & Time 03/26/2025 9:00 AM Provider: Arnoldo Michel MD [facility], [facility] ) Duncan Bills DO [Physician] - Diet: Regular Addtl Attending Provider Instructions: Please take precautions to avoid falls Finish the course of antibiotic as advised Addtl Dry Pan Feeder Provider Instructions: General Orthopedic Discharge Instructions Activity: WBAT Diet: You may resume previous diet. Medications: 1. Narcotic You will likely be sent home from the hospital with a prescription for the narcotic pain medication. Take it as needed. Side effects most commonly include nausea and constipation 2. Resume previous home medications unless otherwise instructed Dressing Care: If there is a soft dressing in place then leave the dressing intact for 5 days. On the 5th you may remove the dressing and leave the stitches open to air or cover them with band-aids. Keep the incision clean and dry If there is a hard splint then leave it in place until your follow-up visit in 2 weeks Showering: If you have a soft dressing you may shower right after the surgery but do not get the dressing wet. After the dressing is removed on the 5th day then you can get the stitches wet in the shower, but do not soak or scrub them. Let the soapy shower water run over the stitches and pat them dry. If you have a hard splint, cover it in a plastic bag and keep it dry. Do not remove it until the follow up appointment. Things To Watch For: 1. Drainage from the incision site that occurs more than one week after your surgery. 2. Increased redness at the incision site. 3. Fever above 102 degrees Fahrenheit. 4. Unusual chest pain or shortness of breath. 5. Call [facility] at with any of the above problems. Follow-Up Visit: Please make arrangements to follow-up with Dr. Bills team approximately 2 weeks after your day of surgery for progress check and staple/suture removal. If you have any questions call Pending Studies at Discharge: No Stand-Alone Forms: My [facility], Smoking Cessation Medications and DC Order Prescriptions: New oxycodone 5 mg Tablet 5 mg PO Q4H PRN (Reason: pain) Qty: 20 0RF Continued acetaminophen [Tylenol Extra Strength] 500 mg tablet 1,000 mg PO Q6H PRN (Reason: Pain) anastrozole 1 mg tablet 1 mg PO DAILY atorvastatin 20 mg tablet 20 mg PO DAILY sertraline 100 mg tablet 200 mg PO QAM lamotrigine 25 mg tablet 75 mg PO HS losartan 25 mg tablet 25 mg PO DAILY lamotrigine 100 mg tablet 100 mg PO DAILY topiramate 100 mg tablet 100 mg PO BID chlorpromazine 100 mg tablet 125 mg PO HS sulfamethoxazole-trimethoprim [Bactrim DS] 800-160 mg tablet 1 tab PO BID Qty: 20 0RF cephalexin 500 mg capsule 500 mg PO QID 10 Days Qty: 40 0RF bupropion HCl 150 mg tablet sustained-release 12 hr 150 mg PO QAM Discharge Orders: Discharge Order (Routine); Ordered 03/22/25 Ordered By: Abril Alvarez/Other Patient Handouts: Cellulitis Dc Admission Data Admit Date/Time: 03/18/25 21:13 Attending Provider: Abril Yanez Admit Provider: Romeo Pichardo Primary Care Provider: Chino Chou Other Providers: Romeo Pichardo; Duncan Bills Other Interventions: Discharge Summary Assessment (RN) Last Done: 03/22/25 12:07
== END 2025-03-22 12:59 | disposition home or self-care (01) | DRG 989 ==
LOC: ED 17:09 → 3N 21:13 → SUATTDRO 21:13 → 3N 22:23